=== PATIENT | male | born 1945 ===

== ENCOUNTER 2019-11-01 19:34 | Inpatient (IN) | payer MEDICARE ==
--- NOTE | 2019-11-02 10:09 | Consultation ---
History of Present Illness - Reason for Consult Consult date: 11/02/19 htn Requesting physician: LAMONT LEGGETT - History of Present Illness Patient is a 74-year-old male with past medical history significant for hypertension, diabetes mellitus, CKD presumed. Who presented to the hospital with suicidal ideation. We will consulted for an H&P on evaluation the patient is very somnolent although arouses to tactile stimuli and goes back straight to sleep. Could not provide any significant information to me at this time. Further information obtained from results from pre-transfer which showed elevated creatinine at 2.3 and also presumed UTI. Past History Past Medical History: diabetes, hypertension, hyperlipidemia Past Surgical History: Other (Unable to obtain no surgical scars noted) Social history: other (Unable to obtain due to somnolence) Family history: no significant family history Medications and Allergies Allergies Allergy/AdvReac Type Severity Reaction Status Date / Time morphine AdvReac Unknown Verified 11/01/19 23:50 Penicillins AdvReac Unknown Verified 11/01/19 23:50 Tetanus Vaccines and Toxoid AdvReac Unknown Verified 11/01/19 23:50 Home Medications Medication Instructions Recorded Confirmed Last Taken Type Adult Aspirin 650 mg PO BID 11/02/19 11/02/19 Unknown History Citalopram 20 mg PO BID 11/02/19 11/02/19 Unknown History Clopidogrel [Plavix] 75 mg PO DAILY 11/02/19 11/02/19 Unknown History Ergocalciferol [Vitamin D2] 50,000 units PO QWEEK 11/02/19 11/02/19 Unknown History Famotidine [Pepcid] 20 mg PO DAILY 11/02/19 11/02/19 Unknown History Furosemide [Lasix TAB] 40 mg PO DAILY 11/02/19 11/02/19 Unknown History Gabapentin 300 mg PO TID 11/02/19 11/02/19 Unknown History Isosorbide Mononitrate 30 mg PO DAILY 11/02/19 11/02/19 Unknown History Lantus VIAL 30 units SQ QHS 11/02/19 11/02/19 Unknown History Metoprolol-HCTZ 100-50 mg TAB 50 mg PO BID 11/02/19 11/02/19 Unknown History NIFEdipine [Nifedipine ER] 60 mg PO DAILY 11/02/19 11/02/19 Unknown History Tamsulosin 0.4 mg PO DAILY 11/02/19 11/02/19 Unknown History hydrALAZINE 50 mg PO TID 11/02/19 11/02/19 Unknown History Review of Systems ROS unobtainable: due to mental status Exam - Physical Exam Narrative exam: VITAL SIGNS: Reviewed. GENERAL: The patient appears normally developed, very somnolent vital signs as documented. HEAD: No signs of head trauma. EYES: Pupils are equal. Extraocular motions intact. EARS: Hearing grossly intact. MOUTH: Oropharynx is normal. NECK: No adenopathy, no JVD. CHEST: Chest with clear breath sounds bilaterally. No wheezes, rales, or rhonchi. CARDIAC: Regular rate and rhythm. S1 and S2, without murmurs, gallops, or rubs. VASCULAR: No Edema. Peripheral pulses normal and equal in all extremities. ABDOMEN: Soft, non tender and non distended. No rebound or guarding, and no masses palpated. Bowel Sounds normal. MUSCULOSKELETAL: Good range of motion of all major joints. Extremities without clubbing, cyanosis or edema. NEUROLOGIC EXAM: Very somnolent but awakens to tactile stimuli no focal sensory or strength deficits. PSYCHIATRIC: Mood depressed. SKIN: detial exam as documented in skin assessment - Constitutional Vitals: Temp Pulse Resp BP Pulse Ox 98.1 F 73 18 137/64 92 11/02/19 03:57 11/02/19 03:57 11/02/19 03:57 11/02/19 03:57 11/02/19 03:57 Results - Labs CBC & Chem 7: 11/03/19 10:40 11/03/19 10:40 Labs: Abnormal lab results 11/02/19 11/02/19 Range/Units 03:58 06:37 POC Glucose 149 H 132 H (70-105) - Imaging and Cardiology Chest x-ray: image reviewed (Right rib fracture) Assessment and Plan 74-year-old male admitted to [facility] for management of suicidal ideation and psychosis Acute metabolic encephalopathy-very lethargic but improving Leukocytosis- Unknown etiology STEPHANIE vs CKD- unknown baseline Hyperlipidemia Diabetes mellitus with hyperglycemia COPD CAD Right rib fracture Stable chronic congestive heart failure presumed systolic Plan Considering profound lethargy will check ammonia level, TSH, free T4, EtOH level and drug screen Repeat labs in am Unknown injury etiology to the ribs will monitor. Supportive care. Obtain labs from referring facility If renal abnormality is acute will need Nephrology and futher work up Continue appropriate home medications including diabetic management We will see patient in a.m. to ensure resolution of encephalopathy And follow with you as needed Thank you for allowing us to take part in the care of your patient
--- NOTE | 2019-11-02 10:13 | History and Physical Report ---
GP History & Physical - History of Present Illness Date of admission: 11/01/19 Date of Examination: 11/02/19 Reason for Admission: Severe anxiety/depression History of Present Illness: Sawyer Hurley is a 74y/o male patient who is said to have come to the hospital for suicidal ideation. During my interview this morning, the patient was lying in bed asleep. Arouses with vigorous tactile stimuli but drifts back to sleep. He could not participate in the interview due to somnolence. PAST PSYCHIATRIC HISTORY: unable to assess due to somnolence PAST MEDICAL HISTORY: Family Psychiatric History None reported or documented SOCIAL HISTORY Unable to assess REVIEW OF SYSTEMS Unable to assess Diagnoses: Major Depression Treatment Plan Patient will be admitted for inpatient psychiatric evaluation, medication adjustment and close monitoring The patient's behavior, mood, sleep and appetite will be closely monitored. Patient will be enrolled in individual and group therapeutic sessions and encouraged to attend. Patient will be provided with a safe and structured environment. Patient's physical health needs will be addressed by the Hospitalist. Hospitalist Consulted Labs including CBC, CMP, Lipid profile, UA and Hemoglobin A1C ordered Social Assessment will be completed and the Compliance Aide will work with patient and family to ensure a suitable and safe disposition Medication adjustment will be made as clinically indicated Usual Wellness Quaker/Preservation: - Start Doxepin 10mg po qhs for insomnia - Start Melatonin 5 mg po QHS to promote circadian rhythm - Start Risperidone 0.25mg po BID - Start Geodon 10mg IM q4h prn agitation The patient agreed on the treatment plan, understood the risk, benefit, alternative treatment, potential consequence of no treatment, and gave informed consent. Physician Certification Statement: This is an acknowledgement statement that this patient requires inpatient psychiatric admission for treatment which could reasonably be expected to improve the patient's condition for Major Depressive Disorder for depressive symptoms, including suicidal ideation. Estimated period of time patient will need to remain in the hospital: 7 days Plan for post-hospital care: Out-patient care Legal Status: Voluntary Reaction to Hospitalization: Accepting Medications and Allergies Allergies Allergy/AdvReac Type Severity Reaction Status Date / Time morphine AdvReac Unknown Verified 11/01/19 23:50 Penicillins AdvReac Unknown Verified 11/01/19 23:50 Tetanus Vaccines and Toxoid AdvReac Unknown Verified 11/01/19 23:50 Home Medications Medication Instructions Recorded Confirmed Last Taken Type Adult Aspirin 650 mg PO BID 11/02/19 11/02/19 Unknown History Citalopram 20 mg PO BID 11/02/19 11/02/19 Unknown History Clopidogrel [Plavix] 75 mg PO DAILY 11/02/19 11/02/19 Unknown History Ergocalciferol [Vitamin D2] 50,000 units PO QWEEK 11/02/19 11/02/19 Unknown History Famotidine [Pepcid] 20 mg PO DAILY 11/02/19 11/02/19 Unknown History Furosemide [Lasix TAB] 40 mg PO DAILY 11/02/19 11/02/19 Unknown History Gabapentin 300 mg PO TID 11/02/19 11/02/19 Unknown History Isosorbide Mononitrate 30 mg PO DAILY 11/02/19 11/02/19 Unknown History Lantus VIAL 30 units SQ QHS 11/02/19 11/02/19 Unknown History Metoprolol-HCTZ 100-50 mg TAB 50 mg PO BID 11/02/19 11/02/19 Unknown History NIFEdipine [Nifedipine ER] 60 mg PO DAILY 11/02/19 11/02/19 Unknown History Tamsulosin 0.4 mg PO DAILY 11/02/19 11/02/19 Unknown History hydrALAZINE 50 mg PO TID 11/02/19 11/02/19 Unknown History Results - Results Labs/Vitals: Laboratory Last Values POC Glucose 132 (70-105) H 11/02/19 06:37 Last Vital Signs Temp 98.1 F 11/02/19 03:57 Pulse 73 11/02/19 03:57 Resp 18 11/02/19 03:57 BP 137/64 11/02/19 03:57 Pulse Ox 92 11/02/19 03:57 Physical Examination - Constitutional Vitals: Vital Signs Temp Pulse Resp BP Pulse Ox 98.1 F 73 18 137/64 92 11/02/19 03:57 11/02/19 03:57 11/02/19 03:57 11/02/19 03:57 11/02/19 03:57 Temperature -Last 24 Hours Temperature 98.1 F Mental Status Exam - Vital signs Last Vital Signs Temp 98.1 F 11/02/19 03:57 Pulse 73 11/02/19 03:57 Resp 18 11/02/19 03:57 BP 137/64 11/02/19 03:57 Pulse Ox 92 11/02/19 03:57 Physician Certification - Certification Statement Physician Certification Statement: This is an acknowledgement statement that SAWYER HURLEY is a 74 year old M who requires inpatient psychiatric admission for treatment which could reasonably be expected to improve the patient's condition for Estimated period of time patient will need to remain in the hospital: [ ] Plan for post-hospital care: [ ]
[2019-11-02 10:19] LABS: Basophils # (Auto) 0.1 K/mm3 (0.0-0.1); Basophils % (Auto) 0.7 % (0.0-1.8); Eosinophils # (Auto) 0.5 K/mm3 (0.0-0.4); Eosinophils % (Auto) 3.9 % (0.0-4.3); Hematocrit 35.4 % (35.5-45.6); Hemoglobin 12.3 gm/dl (11.8-15.2); Lymphocytes # (Auto) 4.3 K/mm3 (1.2-5.4); Lymphocytes % (Auto) 34.2 % (13.4-35.0); Mean Corpuscular HGB Conc 35 % (32-34); Mean Corpuscular Volume 88 fl (84-94); Monocytes # (Auto) 0.9 K/mm3 (0.0-0.8); Monocytes % (Auto) 7.5 % (0.0-7.3); Platelet Count 364 K/mm3 (140-440); Red Blood Count 4.02 M/mm3 (3.65-5.03); Red Cell Distribution Width 15.3 % (13.2-15.2)
[2019-11-02] MEDS ORDERED: METOPROLOL HCTZ PO SCH (10:30)
[2019-11-02] MEDS ORDERED: NON-FORMULARY EACH (Isosorbide Mononitrate 30 MG) PO SCH (10:30)
[2019-11-02] MEDS ORDERED: NON-FORMULARY EACH (Tamsulosin 0.4 MG) PO SCH (10:30)
[2019-11-02] MEDS ORDERED: NON-FORMULARY EACH (Nifedipine [Nifedipine Er] 60 MG) PO SCH (10:30)
[2019-11-02 10:39] LABS: Calcium 8.5 mg/dL (8.4-10.2); Chol/HDL Ratio 4.33 %
[2019-11-02] MEDS: FUROSEMIDE 40 MG TAB PO SCH (12:05)
[2019-11-02] MEDS: FAMOTIDINE 20 MG TAB PO SCH (12:05)
[2019-11-02] MEDS: CLOPIDOGREL 75 MG TAB PO SCH (12:05)
[2019-11-02] MEDS: TAMSULOSIN 0.4 MG CAP PO SCH (12:05)
[2019-11-02] MEDS: NIFEdipine XL 60 MG TAB PO SCH (12:06)
--- NOTE | 2019-11-02 13:21 | XRay Report ---
CHEST 1 VIEW INDICATION / CLINICAL INFORMATION: shortness of breath. COMPARISON: None available. FINDINGS: SUPPORT DEVICES: None. HEART / MEDIASTINUM: No significant abnormality. LUNGS / PLEURA: No significant pulmonary or pleural abnormality. No pneumothorax. ADDITIONAL FINDINGS: Right posterior fifth rib ununited fracture. Healed fracture of the left fifth r ib. IMPRESSION: 1. Right rib fracture. No acute pulmonary findings. Signer Name: Nash George MD Signed: 11/02/2019 1:17 PM Workstation Name: [id number]
[2019-11-02] MEDS ORDERED: NON-FORMULARY EACH (Hydralazine 50 MG) PO SCH (14:00)
[2019-11-02] MEDS: hydrALAZINE 25 MG TAB PO SCH ×2 (14:16→23:01)
[2019-11-02] MEDS: GABAPENTIN 300 MG CAP PO SCH ×2 (14:16→20:55)
[2019-11-02] MEDS ORDERED: CITALOPRAM 20 MG PO SCH (22:00)
[2019-11-02] MEDS ORDERED: LANTUS 30 UNIT SQ SCH (22:00)
[2019-11-02] MEDS ORDERED: DOXEPIN 10 MG CAP PO SCH (22:00)
[2019-11-02] MEDS ORDERED: MELATONIN 5 MG TAB PO PRN (22:00)
[2019-11-02] MEDS: METOPROLOL TARTRATE 100 MG TAB PO SCH (23:00)
[2019-11-02] MEDS: risperiDONE 0.25 MG TAB PO SCH (23:00)
[2019-11-02] MEDS: CITALOPRAM 20 MG TAB PO SCH (23:01)
[2019-11-02] MEDS: hydroCHLOROthiazide 25 MG TAB PO SCH (23:02)
[2019-11-02] MEDS: INSULIN GLARGINE 100 UNITS/ML SUB-Q SCH (23:20)
[2019-11-03] MEDS: ZIPRASIDONE MESYLATE 20 MG VIAL IM PRN ×2 (02:41→09:09)
[2019-11-03] MEDS: hydrALAZINE 25 MG TAB PO SCH ×3 (05:29→22:49)
[2019-11-03] MEDS: GABAPENTIN 300 MG CAP PO SCH ×3 (08:47→22:52)
[2019-11-03] MEDS: FAMOTIDINE 20 MG TAB PO SCH (09:11)
[2019-11-03] MEDS: risperiDONE 0.25 MG TAB PO SCH ×3 (09:11→22:49)
[2019-11-03] MEDS: CITALOPRAM 20 MG TAB PO SCH ×2 (09:12→22:52)
[2019-11-03] MEDS: METOPROLOL TARTRATE 100 MG TAB PO SCH ×2 (09:12→22:51)
[2019-11-03] MEDS: CLOPIDOGREL 75 MG TAB PO SCH (09:12)
[2019-11-03] MEDS: hydroCHLOROthiazide 25 MG TAB PO SCH ×2 (09:12→22:48)
[2019-11-03] MEDS: FUROSEMIDE 40 MG TAB PO SCH (09:12)
[2019-11-03] MEDS: NIFEdipine XL 60 MG TAB PO SCH (09:13)
--- NOTE | 2019-11-03 09:13 | Progress Note ---
Subjective Date of service: 11/03/19 Principal diagnosis: Major Depression Subjective Comment: The patient's medical chart was reviewed and the patient's progress was discussed with the nursing staff. The nurse note states the patient is confused with disorganized thought and anxious, pt is constantly getting up from gerichair unsteady gait and difficult to redirect. Per night nurse report, prn geodon 10mg im given but not effective. The nurse caring for the patient today, says the patient did not sleep all night. During my interview with the patient this morning, he is sitting in the dayroom, eating. He is dressed appropriately. He makes poor eye contact. He is confused and hard to follow at times. He says he's here because he "wrecked his four hansen." He then says "it was my four hansen." He laughs. He denies SI/HI or hallucinations of any kind. He says his mood is "bad." He says, "that doctor gave me a shot. I don't know what the hell he's doing." Reason for continuing inpatient treatment: The patient continues to be confused, not sleeping and is unable to care for himself. REVIEW OF SYSTEMS Constitutional: Negative for weight loss ENT: Negative for stridor Respiratory: Negative for cough or hemoptysis All other systems reviewed and are negative MSE Appearance: Awake. Dressed appropriately. Behavior: Cooperative. Poor eye contact. Mood: "bad" Affect: flat Thought Process: Goal directed Speech: Normal tone and pace Thought Content Suicidal: Denies Homicidal: Denies Hallucinations: Denies Delusions: Denies Consciousness: Alert Cognition/Memory: Limited Insight/Judgment: Limited Diagnoses: Major Depression Treatment Plan Treatment Plan Due to the psychiatric conditions and treatment listed in the Assessment and Plan - the patient requires continued hospitalization. Will continue inpatient treatment to allow for medication adjustment and monitoring. Will continue q15 min safety checks. Will encourage the use of environmental modifications and non-pharmacologic approaches for the management of behavioral and psychological symptoms. Medication adjustment made today: Increased Risperidone 0.5mg po BID Increased Doxepin 25mg po qhs to induce sleep Geodon 10mg IM q4h prn agitation Will continue current psych medications Monitor for medication side effects. The patient will continue on medications for physical illnesses, and Hospitalist will closely monitor these Continue intensive physical and occupational therapies. Monitor patient's mood, sleep, appetite, and behavior closely. Encourage patient to participate in individual and group therapeutic sessions on the tavarez. Will provide a safe and therapeutic environment for patient. Estimated length of stay 6 days Medications and Allergies Allergies Allergy/AdvReac Type Severity Reaction Status Date / Time morphine AdvReac Unknown Verified 11/01/19 23:50 Penicillins AdvReac Unknown Verified 11/01/19 23:50 Tetanus Vaccines and Toxoid AdvReac Unknown Verified 11/01/19 23:50 Home Medications Medication Instructions Recorded Confirmed Last Taken Type Adult Aspirin 650 mg PO BID 11/02/19 11/02/19 Unknown History Citalopram 20 mg PO BID 11/02/19 11/02/19 Unknown History Clopidogrel [Plavix] 75 mg PO DAILY 11/02/19 11/02/19 Unknown History Ergocalciferol [Vitamin D2] 50,000 units PO QWEEK 11/02/19 11/02/19 Unknown History Famotidine [Pepcid] 20 mg PO DAILY 11/02/19 11/02/19 Unknown History Furosemide [Lasix TAB] 40 mg PO DAILY 11/02/19 11/02/19 Unknown History Gabapentin 300 mg PO TID 11/02/19 11/02/19 Unknown History Isosorbide Mononitrate 30 mg PO DAILY 11/02/19 11/02/19 Unknown History Lantus VIAL 30 units SQ QHS 11/02/19 11/02/19 Unknown History Metoprolol-HCTZ 100-50 mg TAB 50 mg PO BID 11/02/19 11/02/19 Unknown History NIFEdipine [Nifedipine ER] 60 mg PO DAILY 11/02/19 11/02/19 Unknown History Tamsulosin 0.4 mg PO DAILY 11/02/19 11/02/19 Unknown History hydrALAZINE 50 mg PO TID 11/02/19 11/02/19 Unknown History Active Meds: Active Medications Citalopram Hydrobromide (Celexa) 20 mg PO BID [facility] Last Admin: 11/02/19 23:01 Dose: 20 mg Documented by: Clopidogrel Bisulfate (Plavix) 75 mg PO DAILY [facility] Last Admin: 11/02/19 12:05 Dose: 75 mg Documented by: Doxepin HCl (Sinequan) 10 mg PO QHS [facility] Last Admin: 11/02/19 23:00 Dose: 10 mg Documented by: Famotidine (Pepcid) 20 mg PO DAILY [facility] Last Admin: 11/02/19 12:05 Dose: 20 mg Documented by: Furosemide (Lasix) 40 mg PO DAILY [facility] Last Admin: 11/02/19 12:05 Dose: 40 mg Documented by: Gabapentin (Gabapentin) 300 mg PO TID [facility] Last Admin: 11/03/19 08:47 Dose: 300 mg Documented by: Hydralazine HCl (Apresoline) 50 mg PO Q8HR [facility] Last Admin: 11/03/19 05:29 Dose: 50 mg Documented by: Hydrochlorothiazide (Hctz) 50 mg PO BID [facility] Last Admin: 11/02/19 23:02 Dose: 50 mg Documented by: Insulin Glargine (Lantus) 30 units SUB-Q QHS [facility] Last Admin: 11/02/19 23:20 Dose: 30 units Documented by: Isosorbide Mononitrate (Imdur) 30 mg PO DAILY [facility] Last Admin: 11/02/19 12:05 Dose: 30 mg Documented by: Melatonin (Melatonin) 5 mg PO QHS PRN PRN Reason: Sleep Metoprolol Tartrate (Metoprolol) 100 mg PO BID [facility] Last Admin: 11/02/19 23:00 Dose: 100 mg Documented by: Nifedipine (Procardia Xl) 60 mg PO QDAY [facility] Last Admin: 11/02/19 12:06 Dose: 60 mg Documented by: Risperidone (Risperdal) 0.25 mg PO BID [facility] Last Admin: 11/02/19 23:00 Dose: 0.25 mg Documented by: Tamsulosin HCl (Flomax) 0.4 mg PO QDAY [facility] Last Admin: 11/02/19 12:05 Dose: 0.4 mg Documented by: Ziprasidone (Geodon) 10 mg IM Q4H PRN PRN Reason: Agitation Last Admin: 11/03/19 02:41 Dose: 10 mg Documented by: Results - Results Labs/Vitals: Laboratory Last Values WBC 12.4 K/mm3 (4.5-11.0) H 11/02/19 09:51 RBC 4.02 M/mm3 (3.65-5.03) 11/02/19 09:51 Hgb 12.3 gm/dl (11.8-15.2) 02/08/20 09:51 Hct 35.4 % (35.5-45.6) L 11/02/19 09:51 MCV 88 fl (84-94) 11/02/19 09:51 MCH 31 pg (28-32) 11/02/19 09:51 MCHC 35 % (32-34) H 11/02/19 09:51 RDW 15.3 % (13.2-15.2) H 11/02/19 09:51 Plt Count 364 K/mm3 (140-440) 11/02/19 09:51 Lymph % (Auto) 34.2 % (13.4-35.0) 11/02/19 09:51 Cole % (Auto) 7.5 % (0.0-7.3) H 11/02/19 09:51 Eos % (Auto) 3.9 % (0.0-4.3) 11/02/19 09:51 Baso % (Auto) 0.7 % (0.0-1.8) 11/02/19 09:51 Lymph # 4.3 K/mm3 (1.2-5.4) 11/02/19 09:51 Cole # 0.9 K/mm3 (0.0-0.8) H 11/02/19 09:51 Eos # 0.5 K/mm3 (0.0-0.4) H 11/02/19 09:51 Baso # 0.1 K/mm3 (0.0-0.1) 11/02/19 09:51 Seg Neutrophils % 53.7 % (40.0-70.0) 11/02/19 09:51 Seg Neutrophils # 6.7 K/mm3 (1.8-7.7) 11/02/19 09:51 Sodium 138 mmol/L (137-145) 11/02/19 09:51 Potassium 4.3 mmol/L (3.6-5.0) 11/02/19 09:51 Chloride 104.2 mmol/L (98-107) 11/02/19 09:51 Carbon Dioxide 21 mmol/L (22-30) L 11/02/19 09:51 Anion Gap 17 mmol/L 11/02/19 09:51 BUN 37 mg/dL (9-20) H 11/02/19 09:51 Creatinine 2.7 mg/dL (0.8-1.5) H 11/02/19 09:51 Estimated GFR 23 ml/min 11/02/19 09:51 BUN/Creatinine Ratio 14 % 11/02/19 09:51 Glucose 132 mg/dL (75-100) H 11/02/19 09:51 POC Glucose 123 (70-105) H 11/03/19 07:58 Hemoglobin A1c 7.7 % (4-6) H 11/02/19 09:51 Calcium 8.5 mg/dL (8.4-10.2) 11/02/19 09:51 Ammonia 31.0 umol/L (25-60) 11/02/19 16:56 Triglycerides 309 mg/dL (2-149) H 11/02/19 09:51 Cholesterol 208 mg/dL (50-199) H 11/02/19 09:51 LDL Cholesterol Direct 119 mg/dL (50-130) 11/02/19 09:51 HDL Cholesterol 48 mg/dL (40-59) 11/02/19 09:51 Cholesterol/HDL Ratio 4.33 % 11/02/19 09:51 TSH 1.900 mlU/mL (0.270-4.200) 11/02/19 16:57 Free T4 1.02 ng/dL (0.76-1.46) 11/02/19 16:51 Last Vital Signs Temp 98.2 F 11/03/19 08:52 Pulse 71 11/03/19 05:29 Resp 18 11/03/19 08:52 BP 153/64 11/03/19 08:52 Pulse Ox 98 11/02/19 22:00
[2019-11-03] MEDS: TAMSULOSIN 0.4 MG CAP PO SCH (09:14)
[2019-11-03] MEDS ORDERED: ZIPRASIDONE MESYLATE 20 MG VIAL IM PRN (09:22)
--- NOTE | 2019-11-03 10:27 | Progress Note ---
Assessment and Plan Assessment and plan: 74-year-old male admitted to [facility] for management of suicidal ideation and psychosis Acute metabolic encephalopathy-very lethargic but improving Leukocytosis- Unknown etiology STEPHANIE vs CKD- unknown baseline Hyperlipidemia Diabetes mellitus with hyperglycemia COPD CAD Right rib fracture Stable chronic congestive heart failure presumed systolic Plan Work-up so far has remained negative concerning renal function it appears he has underlying CKD nevertheless we will obtain nephrology evaluation as creatinine is higher than the baseline on transfer. Repeat intermittent labs. Unknown injury etiology to the ribs will monitor. Supportive care. Obtain labs from referring facility Ammonia level is normal If renal abnormality is acute will need Nephrology and futher work up Continue appropriate home medications including diabetic management And follow with you as needed Thank you for allowing us to take part in the care of your patient History Interval history: Patient seen and examined more awake today although still not giving much information. No complaints of pain. Cannot elicit any information about his prior medical history still. Hospitalist Physical - Physical exam Narrative exam: VITAL SIGNS: Reviewed. GENERAL: The patient appears normally developed, still appears lethargic vital signs as documented. HEAD: No signs of head trauma. EYES: Pupils are equal. Extraocular motions intact. EARS: Hearing grossly intact. MOUTH: Oropharynx is normal. NECK: No adenopathy, no JVD. CHEST: Chest with clear breath sounds bilaterally. No wheezes, rales, or rhon chi. CARDIAC: Regular rate and rhythm. S1 and S2, without murmurs, gallops, or rubs. VASCULAR: No Edema. Peripheral pulses normal and equal in all extremities. ABDOMEN: Soft, non tender and non distended. No rebound or guarding, and no masses palpated. Bowel Sounds normal. MUSCULOSKELETAL: Good range of motion of all major joints. Extremities without clubbing, cyanosis or edema. NEUROLOGIC EXAM: Appears lethargic but awake oriented to person. no focal sensory or strength deficits. PSYCHIATRIC: Mood depressed. SKIN: detial exam as documented in skin assessment - Constitutional Vitals: Temp Pulse Resp BP Pulse Ox 98.3 F 81 20 153/64 95 11/03/19 10:00 11/03/19 10:00 11/03/19 10:00 11/03/19 10:00 11/03/19 10:00 Results - Labs CBC & Chem 7: 11/03/19 10:40 11/03/19 10:40 Labs: Laboratory Last Values WBC 12.4 K/mm3 (4.5-11.0) H 11/02/19 09:51 RBC 4.02 M/mm3 (3.65-5.03) 11/02/19 09:51 Hgb 12.3 gm/dl (11.8-15.2) 11/02/19 09:51 Hct 35.4 % (35.5-45.6) L 11/02/19 09:51 MCV 88 fl (84-94) 11/02/19 09:51 MCH 31 pg (28-32) 11/02/19 09:51 MCHC 35 % (32-34) H 11/02/19 09:51 RDW 15.3 % (13.2-15.2) H 11/02/19 09:51 Plt Count 364 K/mm3 (140-440) 11/02/19 09:51 Lymph % (Auto) 34.2 % (13.4-35.0) 11/02/19 09:51 [place] % (Auto) 7.5 % (0.0-7.3) H 11/02/19 09:51 Eos % (Auto) 3.9 % (0.0-4.3) 11/02/19 09:51 Baso % (Auto) 0.7 % (0.0-1.8) 11/02/19 09:51 Lymph # 4.3 K/mm3 (1.2-5.4) 11/02/19 09:51 [place] # 0.9 K/mm3 (0.0-0.8) H 11/02/19 09:51 Eos # 0.5 K/mm3 (0.0-0.4) H 11/02/19 09:51 Baso # 0.1 K/mm3 (0.0-0.1) 11/02/19 09:51 Seg Neutrophils % 53.7 % (40.0-70.0) 11/02/19 09:51 Seg Neutrophils # 6.7 K/mm3 (1.8-7.7) 11/02/19 09:51 Sodium 138 mmol/L (137-145) 11/02/19 09:51 Potassium 4.3 mmol/L (3.6-5.0) 11/02/19 09:51 Chloride 104.2 mmol/L (98-107) 11/02/19 09:51 Carbon Dioxide 21 mmol/L (22-30) L 11/02/19 09:51 Anion Gap 17 mmol/L 11/02/19 09:51 BUN 37 mg/dL (9-20) H 11/02/19 09:51 Creatinine 2.7 mg/dL (0.8-1.5) H 11/02/19 09:51 Estimated GFR 23 ml/min 11/02/19 09:51 BUN/Creatinine Ratio 14 % 11/02/19 09:51 Glucose 132 mg/dL (75-100) H 11/02/19 09:51 POC Glucose 123 (70-105) H 11/03/19 07:58 Hemoglobin A1c 7.7 % (4-6) H 11/02/19 09:51 Calcium 8.5 mg/dL (8.4-10.2) 11/02/19 09:51 Ammonia 31.0 umol/L (25-60) 11/02/19 16:56 Triglycerides 309 mg/dL (2-149) H 11/02/19 09:51 Cholesterol 208 mg/dL (50-199) H 11/02/19 09:51 LDL Cholesterol Direct 119 mg/dL (50-130) 11/02/19 09:51 HDL Cholesterol 48 mg/dL (40-59) 11/02/19 09:51 Cholesterol/HDL Ratio 4.33 % 11/02/19 09:51 TSH 1.900 mlU/mL (0.270-4.200) 11/02/19 16:57 Free T4 1.02 ng/dL (0.76-1.46) 11/02/19 16:51 Active Medications - Current Medications Current Medications: Generic Name Dose Route Start Last Admin Trade Name Freq PRN Reason Stop Dose Admin Citalopram Hydrobromide 20 mg 11/02/19 22:00 11/03/19 09:12 Celexa PO 20 mg BID GETACHEW Administration Clopidogrel Bisulfate 75 mg 11/02/19 11:00 11/03/19 09:12 Plavix PO 75 mg DAILY GETACHEW Administration Doxepin HCl 25 mg 11/03/19 22:00 Sinequan PO QHS GETACHEW Famotidine 20 mg 11/02/19 11:00 11/03/19 09:11 Pepcid PO 20 mg DAILY GETACHEW Administration Furosemide 40 mg 11/02/19 11:00 11/03/19 09:12 Lasix PO 40 mg DAILY GETACHEW Administration Gabapentin 300 mg 11/02/19 14:00 11/03/19 08:47 Gabapentin PO 300 mg TID GETACHEW Administration Hydralazine HCl 50 mg 11/02/19 14:00 11/03/19 05:29 Apresoline PO 50 mg Q8HR GETACHEW Administration Hydrochlorothiazide 50 mg 11/02/19 22:00 11/03/19 09:12 Hctz PO 50 mg BID GETACHEW Administration Insulin Glargine 30 units 11/02/19 22:00 11/02/19 23:20 Lantus SUB-Q 30 units QHS GETACHEW Administration Isosorbide Mononitrate 30 mg 11/02/19 11:00 11/03/19 09:13 Imdur PO 30 mg DAILY GETAC[facility]W Administration Melatonin 5 mg 11/02/19 22:00 Melatonin PO QHS PRN Sleep Metoprolol Tartrate 100 mg 11/02/19 22:00 11/03/19 09:12 Metoprolol PO 100 mg BID GETACHEW Administration Nifedipine 60 mg 11/02/19 11:00 11/03/19 09:13 Procardia Xl PO 60 mg QDAY GETACHEW Administration Risperidone 0.5 mg 11/03/19 10:00 11/03/19 09:32 Risperdal PO 0.5 mg BID GETACHEW Administration Tamsulosin HCl 0.4 mg 11/02/19 11:00 11/03/19 09:14 Flomax PO 0.4 mg QDAY GETACHEW Administration Ziprasidone 10 mg 11/03/19 09:22 Geodon IM Q4H PRN Agitation
[2019-11-03 12:08] LABS: Hematocrit 36.4 % (35.5-45.6); Hemoglobin 11.9 gm/dl (11.8-15.2); Mean Corpuscular HGB Conc 33 % (32-34); Mean Corpuscular Volume 89 fl (84-94); Platelet Count 371 K/mm3 (140-440); Red Blood Count 4.09 M/mm3 (3.65-5.03); Red Cell Distribution Width 15.1 % (13.2-15.2)
[2019-11-03 12:36] LABS: Calcium 8.4 mg/dL (8.4-10.2)
[2019-11-03] MEDS: INSULIN LISPRO 100 UNIT/ML SUB-Q SCH ×2 (16:44→23:55)
[2019-11-03] MEDS ORDERED: DOXEPIN 25 MG CAP PO SCH (22:00)
[2019-11-04] MEDS: INSULIN GLARGINE 100 UNITS/ML SUB-Q SCH ×2 (00:16→23:49)
[2019-11-04] MEDS: LORazepam 2 MG/ML VIAL IM PRN (00:42)
[2019-11-04] MEDS: HALOPERIDOL LACTATE 5 MG/1 ML INJ IM PRN (00:42)
[2019-11-04] MEDS: INSULIN LISPRO 100 UNIT/ML SUB-Q SCH ×4 (07:57→23:51)
[2019-11-04] MEDS: hydrALAZINE 25 MG TAB PO SCH ×3 (08:03→23:37)
--- NOTE | 2019-11-04 10:25 | Progress Note ---
Subjective Date of service: 11/04/19 Principal diagnosis: Major Depression Subjective Comment: The patient's medical chart was reviewed and the patient's progress was discussed with the nursing staff. The nurse note states the patient is in the activity room instigating another male peer. He is making obscene statements in a loud voice. He has to be redirected often. Through the evening the patient continued to make offensive sexual statements to female staff. He also started reaching out with his hands trying to touch females. He could not get to sleep and he was loud and agitated. Geodon 10 mg IM was given with little effect. MD was called and order received for ativan 2 mg and haldol 5 mg IM. Patient tried to fight the medications but they were effective and he has slept the remainder of the night. I attempted to interview the patient this morning, he was somnolent. He aroused briefly but drifted back off. He could not be engaged to complete the interview. Reason for continuing inpatient treatment: The patient continues to be confused, aggressive, and unable to care for himself. REVIEW OF SYSTEMS Unable to assess MSE Unable to assess Diagnoses: Major Depression Treatment Plan Treatment Plan Due to the psychiatric conditions and treatment listed in the Assessment and Plan - the patient requires continued hospitalization. Will continue inpatient treatment to allow for medication adjustment and monitoring. Will continue q15 min safety checks. Will encourage the use of environmental modifications and non-pharmacologic approaches for the management of behavioral and psychological symptoms. Medication adjustment made today: Increased Doxepin 50mg po qhs Increased Risperidone 1mg po BID Started Depakote 125mg po BID Will continue current psych medications Monitor for medication side effects. The patient will continue on medications for physical illnesses, and Hospitalist will closely monitor these Continue intensive physical and occupational therapies. Monitor patient's mood, sleep, appetite, and behavior closely. Encourage patient to participate in individual and group therapeutic sessions on the [place]. Will provide a safe and therapeutic environment for patient. Estimated length of stay 6 days Medications and Allergies Allergies Allergy/AdvReac Type Severity Reaction Status Date / Time morphine AdvReac Unknown Verified 11/01/19 23:50 Penicillins AdvReac Unknown Verified 11/01/19 23:50 Tetanus Vaccines and Toxoid AdvReac Unknown Verified 11/01/19 23:50 Home Medications Medication Instructions Recorded Confirmed Last Taken Type Adult Aspirin 650 mg PO BID 11/02/19 11/02/19 Unknown History Citalopram 20 mg PO BID 11/02/19 11/02/19 Unknown History Clopidogrel [Plavix] 75 mg PO DAILY 11/02/19 11/02/19 Unknown History Ergocalciferol [Vitamin D2] 50,000 units PO QWEEK 11/02/19 11/02/19 Unknown History Famotidine [Pepcid] 20 mg PO DAILY 11/02/19 11/02/19 Unknown History Furosemide [Lasix TAB] 40 mg PO DAILY 11/02/19 11/02/19 Unknown History Gabapentin 300 mg PO TID 11/02/19 11/02/19 Unknown History Isosorbide Mononitrate 30 mg PO DAILY 11/02/19 11/02/19 Unknown History Lantus VIAL 30 units SQ QHS 11/02/19 11/02/19 Unknown History Metoprolol-HCTZ 100-50 mg TAB 50 mg PO BID 11/02/19 11/02/19 Unknown History NIFEdipine [Nifedipine ER] 60 mg PO DAILY 11/02/19 11/02/19 Unknown History Tamsulosin 0.4 mg PO DAILY 11/02/19 11/02/19 Unknown History hydrALAZINE 50 mg PO TID 11/02/19 11/02/19 Unknown History Active Meds: Active Medications Citalopram Hydrobromide (Celexa) 20 mg PO BID [facility] Last Admin: 11/03/19 22:52 Dose: 20 mg Documented by: Clopidogrel Bisulfate (Plavix) 75 mg PO DAILY [facility] Last Admin: 11/03/19 09:12 Dose: 75 mg Documented by: Doxepin HCl (Sinequan) 25 mg PO QHS [facility] Last Admin: 11/03/19 22:49 Dose: 25 mg Documented by: Famotidine (Pepcid) 20 mg PO DAILY [facility] Last Admin: 11/03/19 09:11 Dose: 20 mg Documented by: Furosemide (Lasix) 40 mg PO DAILY [facility] Last Admin: 11/03/19 09:12 Dose: 40 mg Documented by: Gabapentin (Gabapentin) 300 mg PO TID [facility] Last Admin: 11/03/19 22:52 Dose: 300 mg Documented by: Haloperidol Lactate (Haldol) 5 mg IM Q6H PRN PRN Reason: Agitation Last Admin: 11/04/19 00:42 Dose: 5 mg Documented by: Hydralazine HCl (Apresoline) 50 mg PO Q8HR [facility] Last Admin: 11/04/19 08:03 Dose: 50 mg Documented by: Hydrochlorothiazide (Hctz) 50 mg PO BID [facility] Last Admin: 11/03/19 22:48 Dose: 50 mg Documented by: Insulin Glargine (Lantus) 30 units SUB-Q QHS [facility] Last Admin: 11/04/19 00:16 Dose: 30 units Documented by: Insulin Human Lispro (Humalog) 0 unit SUB-Q [facility]; Protocol Last Admin: 11/04/19 07:57 Dose: Not Given Documented by: Isosorbide Mononitrate (Imdur) 30 mg PO DAILY [facility] Last Admin: 11/03/19 09:13 Dose: 30 mg Documented by: Lorazepam (Ativan) 2 mg IM Q6H PRN PRN Reason: Agitation Last Admin: 11/04/19 00:42 Dose: 2 mg Documented by: Melatonin (Melatonin) 5 mg PO QHS PRN PRN Reason: Sleep Metoprolol Tartrate (Metoprolol) 100 mg PO BID [facility] Last Admin: 11/03/19 22:51 Dose: 100 mg Documented by: Nifedipine (Procardia Xl) 60 mg PO QDAY [facility] Last Admin: 11/03/19 09:13 Dose: 60 mg Documented by: Risperidone (Risperdal) 0.5 mg PO BID [facility] Last Admin: 11/03/19 22:49 Dose: 0.5 mg Documented by: Tamsulosin HCl (Flomax) 0.4 mg PO QDAY [facility] Last Admin: 11/03/19 09:14 Dose: 0.4 mg Documented by: Ziprasidone (Geodon) 10 mg IM Q4H PRN PRN Reason: Agitation Last Admin: 11/03/19 23:59 Dose: 10 mg Documented by: Results - Results Labs/Vitals: Laboratory Last Values WBC 13.0 K/mm3 (4.5-11.0) H 11/03/19 10:40 RBC 4.09 M/mm3 (3.65-5.03) 11/03/19 10:40 Hgb 11.9 gm/dl (11.8-15.2) 11/03/19 10:40 Hct 36.4 % (35.5-45.6) 11/03/19 10:40 MCV 89 fl (84-94) 11/03/19 10:40 MCH 29 pg (28-32) 11/03/19 10:40 MCHC 33 % (32-34) 11/03/19 10:40 RDW 15.1 % (13.2-15.2) 11/03/19 10:40 Plt Count 371 K/mm3 (140-440) 11/03/19 10:40 Lymph % (Auto) 34.2 % (13.4-35.0) 11/02/19 09:51 [place] % (Auto) 7.5 % (0.0-7.3) H 11/02/19 09:51 Eos % (Auto) 3.9 % (0.0-4.3) 11/02/19 09:51 Baso % (Auto) 0.7 % (0.0-1.8) 11/02/19 09:51 Lymph # 4.3 K/mm3 (1.2-5.4) 11/02/19 09:51 [place] # 0.9 K/mm3 (0.0-0.8) H 11/02/19 09:51 Eos # 0.5 K/mm3 (0.0-0.4) H 11/02/19 09:51 Baso # 0.1 K/mm3 (0.0-0.1) 11/02/19 09:51 Seg Neutrophils % 53.7 % (40.0-70.0) 11/02/19 09:51 Seg Neutrophils # 6.7 K/mm3 (1.8-7.7) 11/02/19 09:51 Sodium 139 mmol/L (137-145) 11/03/19 10:40 Potassium 4.2 mmol/L (3.6-5.0) 11/03/19 10:40 Chloride 105.2 mmol/L (98-107) 11/03/19 10:40 Carbon Dioxide 18 mmol/L (22-30) L 11/03/19 10:40 Anion Gap 20 mmol/L 11/03/19 10:40 BUN 41 mg/dL (9-20) H 11/03/19 10:40 Creatinine 2.8 mg/dL (0.8-1.5) H 11/03/19 10:40 Estimated GFR 22 ml/min 11/03/19 10:40 BUN/Creatinine Ratio 15 % 11/03/19 10:40 Glucose 198 mg/dL (75-100) H 11/03/19 10:40 POC Glucose 120 (70-105) H 11/04/19 07:50 Hemoglobin A1c 7.7 % (4-6) H 11/02/19 09:51 Calcium 8.4 mg/dL (8.4-10.2) 11/03/19 10:40 Ammonia 31.0 umol/L (25-60) 11/02/19 16:56 Triglycerides 309 mg/dL (2-149) H 11/02/19 09:51 Cholesterol 208 mg/dL (50-199) H 11/02/19 09:51 LDL Cholesterol Direct 119 mg/dL (50-130) 11/02/19 09:51 HDL Cholesterol 48 mg/dL (40-59) 11/02/19 09:51 Cholesterol/HDL Ratio 4.33 % 11/02/19 09:51 TSH 1.900 mlU/mL (0.270-4.200) 11/02/19 16:57 Free T4 1.02 ng/dL (0.76-1.46) 11/02/19 16:51 Last Vital Signs Temp 97.4 F L 11/03/19 20:32 Pulse 69 11/04/19 08:03 Resp 16 11/03/19 20:32 BP 157/75 11/04/19 08:03 Pulse Ox 95 11/03/19 10:00
[2019-11-04] MEDS ORDERED: risperiDONE 0.25 MG TAB PO SCH (10:32)
--- NOTE | 2019-11-04 12:33 | Consultation ---
History of Present Illness - Reason for Consult Consult date: 11/04/19 acute renal failure - History of Present Illness The patient is a 74 YO male with past medical history significant for Hyper tension, Diabetes mellitus, HLD, CAD, COPD, CHF and CKD stage 4 who was admitted at Psychiatry floor from [facility] for treatment of suicidal ideation. Patient was unable ot provide any hsitory at this time. The patient was very somnolent although arouses to tactile stimuli and goes back straight to sleep. Labs significant for Creat 2.8. Nephrology was consulted for further evaluation. Past History Past Medical History: COPD, diabetes, heart failure, hypertension, hyperlipidemia, renal failure Past Surgical History: Other (Unable to obtain no surgical scars noted) Social history: other (Unable to obtain due to somnolence) Family history: no significant family history Medications and Allergies Allergies Allergy/AdvReac Type Severity Reaction Status Date / Time morphine AdvReac Unknown Verified 11/01/19 23:50 Penicillins AdvReac Unknown Verified 11/01/19 23:50 Tetanus Vaccines and Toxoid AdvReac Unknown Verified 11/01/19 23:50 Home Medications Medication Instructions Recorded Confirmed Last Taken Type Adult Aspirin 650 mg PO BID 11/02/19 11/02/19 Unknown History Citalopram 20 mg PO BID 11/02/19 11/02/19 Unknown History Clopidogrel [Plavix] 75 mg PO DAILY 11/02/19 11/02/19 Unknown History Ergocalciferol [Vitamin D2] 50,000 units PO QWEEK 11/02/19 11/02/19 Unknown History Famotidine [Pepcid] 20 mg PO DAILY 11/02/19 11/02/19 Unknown History Furosemide [Lasix TAB] 40 mg PO DAILY 11/02/19 11/02/19 Unknown History Gabapentin 300 mg PO TID 11/02/19 11/02/19 Unknown History Isosorbide Mononitrate 30 mg PO DAILY 11/02/19 11/02/19 Unknown History Lantus VIAL 30 units SQ QHS 11/02/19 11/02/19 Unknown History Metoprolol-HCTZ 100-50 mg TAB 50 mg PO BID 11/02/19 11/02/19 Unknown History NIFEdipine [Nifedipine ER] 60 mg PO DAILY 11/02/19 11/02/19 Unknown History Tamsulosin 0.4 mg PO DAILY 11/02/19 11/02/19 Unknown History hydrALAZINE 50 mg PO TID 11/02/19 11/02/19 Unknown History Active Meds: Active Medications Citalopram Hydrobromide (Celexa) 20 mg PO BID [facility] Last Admin: 11/03/19 22:52 Dose: 20 mg Documented by: Clopidogrel Bisulfate (Plavix) 75 mg PO DAILY [facility] Last Admin: 11/03/19 09:12 Dose: 75 mg Documented by: Divalproex Sodium (Depakote Dr) 125 mg PO BID [facility] Doxepin HCl (Sinequan) 50 mg PO QHS [facility] Famotidine (Pepcid) 20 mg PO DAILY [facility] Last Admin: 11/03/19 09:11 Dose: 20 mg Documented by: Furosemide (Lasix) 40 mg PO DAILY [facility] Last Admin: 11/03/19 09:12 Dose: 40 mg Documented by: Gabapentin (Gabapentin) 300 mg PO TID [facility] Last Admin: 11/03/19 22:52 Dose: 300 mg Documented by: Haloperidol Lactate (Haldol) 5 mg IM Q6H PRN PRN Reason: Agitation Last Admin: 11/04/19 00:42 Dose: 5 mg Documented by: Hydralazine HCl (Apresoline) 50 mg PO Q8HR [facility] Last Admin: 11/04/19 08:03 Dose: 50 mg Documented by: Hydrochlorothiazide (Hctz) 50 mg PO BID [facility] Last Admin: 11/03/19 22:48 Dose: 50 mg Documented by: Insulin Glargine (Lantus) 30 units SUB-Q QHS [facility] Last Admin: 11/04/19 00:16 Dose: 30 units Documented by: Insulin Human Lispro (Humalog) 0 unit SUB-Q [facility]; Protocol Last Admin: 11/04/19 12:32 Dose: Not Given Documented by: Isosorbide Mononitrate (Imdur) 30 mg PO DAILY [facility] Last Admin: 11/03/19 09:13 Dose: 30 mg Documented by: Lorazepam (Ativan) 2 mg IM Q6H PRN PRN Reason: Agitation Last Admin: 11/04/19 00:42 Dose: 2 mg Documented by: Melatonin (Melatonin) 5 mg PO QHS PRN PRN Reason: Sleep Metoprolol Tartrate (Metoprolol) 100 mg PO BID [facility] Last Admin: 11/03/19 22:51 Dose: 100 mg Documented by: Nifedipine (Procardia Xl) 60 mg PO QDAY [facility] Last Admin: 11/03/19 09:13 Dose: 60 mg Documented by: Risperidone (Risperdal) 1 mg PO BID [facility] Tamsulosin HCl (Flomax) 0.4 mg PO QDAY [facility] Last Admin: 11/03/19 09:14 Dose: 0.4 mg Documented by: Review of Systems ROS unobtainable: due to mental status Exam - Vital Signs Vital signs: Vital Signs Temp Pulse Resp BP Pulse Ox 98.1 F 73 18 137/64 92 11/02/19 03:57 11/02/19 03:57 11/02/19 03:57 11/02/19 03:57 11/02/19 03:57 - General Appearance General appearance: well-developed, well-nourished, appears stated age, other (not in distress) EENT: ATNC Neck: Present: neck supple, trachea midline Respiratory: Clear to Ascultation Heart: regular, S1S2, no murmurs Gastrointestinal: Present: normoactive bowel sounds. Absent: tenderness, distended Integumentary: no rash, warm and dry Neurologic: other (opens eyes with tactile stimuli, goes right back to sleep, non-verbal) Musculoskeletal: Present: other (trace LE edema noted) Results - Lab Results 11/03/19 10:40 11/03/19 10:40 Most recent lab results Calcium 8.4 mg/dL (8.4-10.2) 11/03/19 10:40 - Image Kidney/bladder ultrasound: pending Assessment and Plan 1. CKD stage 4: Patient with h/o CKD admitted from OSH. His most recent creatinine between 2.4 and 3. His renal function appears to be at his baseline. Monitor renal function. Avoid nephrotoxic agents. Meds dosage based on GFR. 2. FEN: Metabolic acidosis, monitor. 3. Suicidal ideation. 4. Metabolic encephalopathy, POA. 5. Leukocytosis. 6. Diabetes mellitus with hyperglycemia. 7. COPD. 8. CAD. 9. Presumed chronic congestive heart failure: Normal EF. 10.Right rib fracture.
[2019-11-04] MEDS: GABAPENTIN 300 MG CAP PO SCH (13:49)
[2019-11-04] MEDS: CITALOPRAM 20 MG TAB PO SCH ×2 (13:49→23:39)
[2019-11-04] MEDS: hydroCHLOROthiazide 25 MG TAB PO SCH ×2 (13:50→23:45)
[2019-11-04] MEDS: METOPROLOL TARTRATE 100 MG TAB PO SCH ×2 (13:50→23:48)
[2019-11-04] MEDS: risperiDONE 1 MG TAB PO SCH ×2 (13:50→23:50)
[2019-11-04] MEDS: risperiDONE 0.25 MG TAB PO SCH (16:56)
[2019-11-04] MEDS: DIVALPROEX DR 125 MG TAB PO SCH (23:39)
[2019-11-04] MEDS: DOXEPIN 25 MG CAP PO SCH (23:51)
[2019-11-05] MEDS: hydrALAZINE 25 MG TAB PO SCH ×2 (05:59→21:43)
--- NOTE | 2019-11-05 08:07 | Ultrasound Report ---
Renal ultrasound. HISTORY: Kidney injury. FINDINGS: Right kidney measures 11.3 x 5.4 x 5 cm. Cortex measures 1.4 cm. Left kidney measures 11.1 x 6.2 x 4.2 cm. Several hypoechoic areas are present with the largest measu ring 1.9 cm. These likely represent a combination of complex and simple cysts. Cortical echogenicity is normal. Negative for obstruction or adjacent fluid. The bladder contains moderate fluid. IMPRESSION: Suspect a combination of complex and simple cysts at the left kidney. Follow-up ultrasoun d could be performed in 6-12 months as clinically indicated. Signer Name: Juan Hunt MD Signed: 11/05/2019 8:02 AM Workstation Name: [id number]
[2019-11-05] MEDS: INSULIN LISPRO 100 UNIT/ML SUB-Q SCH ×4 (08:20→21:34)
[2019-11-05 08:23] LABS: Calcium 8.9 mg/dL (8.4-10.2)
--- NOTE | 2019-11-05 10:32 | Progress Note ---
Subjective Date of service: 11/05/19 Principal diagnosis: Major Depression Subjective Comment: The patient's medical chart was reviewed and the patient's progress was discussed with the nursing staff. The nurse note states, Patient was sedated last night, could not wake up to take his medications. Patient is sexually inappropriate, unsteady gate, using wheel chair. He became awake at midnight took his blood pressure and was able to wake up to eat a sandwich. During my interview with the patient this morning, the patient was sitting in the chair in the day room. The patient is alert oriented x1, he is dressed appropriately for the occasion, he maintains intermittent. The patient does report that he sleeps on and off and that he is eating well. He denies suicidal or homicidal ideations he contract for safety. He denies visual or auditory hallucination. Patient reports that his depression has gotten better. He does report that he has more energy today than yesterday. He reports that he was able to get out of bed this morning feeling much better doing so. He does maintain that his appetite is poor, he also reports feeling bad about himself. Reason for continuing inpatient treatment: The patient continues to be confused, aggressive, and unable to care for himself. REVIEW OF SYSTEMS Constitutional: Negative for weight loss ENT: Negative for stridor Respiratory: Negative for cough or hemoptysis All other systems reviewed and are negative MSE Appearance: Awake. Dressed appropriately. Behavior: cooperative, calm Mood: "so, so" Affect: congruent Thought Process: circumstantial Speech: Normal tone and pace Thought Content Suicidal: Denies Homicidal: Denies Hallucinations: Denies Delusions: Denies Consciousness: Alert Cognition/Memory: Limited Insight/Judgment: Limited Diagnoses: Major Depression Treatment Plan Treatment Plan Due to the psychiatric conditions and treatment listed in the Assessment and Plan - the patient requires continued hospitalization. Will continue inpatient treatment to allow for medication adjustment and monitoring. Will continue q15 min safety checks. Will encourage the use of environmental modifications and non-pharmacologic approaches for the management of behavioral and psychological symptoms. Medication adjustment made today: changes made yesterday Will continue current psych medications Monitor for medication side effects. The patient will continue on medications for physical illnesses, and Hospitalist will closely monitor these Continue intensive physical and occupational therapies. Monitor patient's mood, sleep, appetite, and behavior closely. Encourage patient to participate in individual and group therapeutic sessions on the [place]. Will provide a safe and therapeutic environment for patient. Estimated length of stay 6 days Medications and Allergies Allergies Allergy/AdvReac Type Severity Reaction Status Date / Time morphine AdvReac Unknown Verified 11/01/19 23:50 Penicillins AdvReac Unknown Verified 11/01/19 23:50 Tetanus Vaccines and Toxoid AdvReac Unknown Verified 11/01/19 23:50 Home Medications Medication Instructions Recorded Confirmed Last Taken Type Adult Aspirin 650 mg PO BID 11/02/19 11/02/19 Unknown History Citalopram 20 mg PO BID 11/02/19 11/02/19 Unknown History Clopidogrel [Plavix] 75 mg PO DAILY 11/02/19 11/02/19 Unknown History Ergocalciferol [Vitamin D2] 50,000 units PO QWEEK 11/02/19 11/02/19 Unknown History Famotidine [Pepcid] 20 mg PO DAILY 11/02/19 11/02/19 Unknown History Furosemide [Lasix TAB] 40 mg PO DAILY 11/02/19 11/02/19 Unknown History Gabapentin 300 mg PO TID 11/02/19 11/02/19 Unknown History Isosorbide Mononitrate 30 mg PO DAILY 11/02/19 11/02/19 Unknown History Lantus VIAL 30 units SQ QHS 11/02/19 11/02/19 Unknown History Metoprolol-HCTZ 100-50 mg TAB 50 mg PO BID 11/02/19 11/02/19 Unknown History NIFEdipine [Nifedipine ER] 60 mg PO DAILY 11/02/19 11/02/19 Unknown History Tamsulosin 0.4 mg PO DAILY 11/02/19 11/02/19 Unknown History hydrALAZINE 50 mg PO TID 11/02/19 11/02/19 Unknown History Active Meds: Active Medications Citalopram Hydrobromide (Celexa) 20 mg PO BID [facility] Last Admin: 11/04/19 23:39 Dose: Not Given Documented by: Clopidogrel Bisulfate (Plavix) 75 mg PO DAILY [facility] Last Admin: 11/03/19 09:12 Dose: 75 mg Documented by: Divalproex Sodium (Depakote Dr) 125 mg PO BID [facility] Last Admin: 11/04/19 23:39 Dose: Not Given Documented by: Doxepin HCl (Sinequan) 50 mg PO QHS [facility] Last Admin: 11/04/19 23:51 Dose: Not Given Documented by: Famotidine (Pepcid) 20 mg PO DAILY [facility] Last Admin: 11/03/19 09:11 Dose: 20 mg Documented by: Furosemide (Lasix) 40 mg PO DAILY [facility] Last Admin: 11/03/19 09:12 Dose: 40 mg Documented by: Gabapentin (Gabapentin) 300 mg PO DAILY [facility] Haloperidol Lactate (Haldol) 5 mg IM Q6H PRN PRN Reason: Agitation Last Admin: 11/04/19 00:42 Dose: 5 mg Documented by: Hydralazine HCl (Apresoline) 50 mg PO Q8HR [facility] Last Admin: 11/05/19 05:59 Dose: 50 mg Documented by: Hydrochlorothiazide (Hctz) 50 mg PO BID [facility] Last Admin: 11/04/19 23:45 Dose: 50 mg Documented by: Insulin [facility] ([facility]us) [facility] Last Admin: 11/04/19 23:49 Dose: Not Given Documented by: Insulin Human Lispro (Humalog) 0 unit SUB-Q [facility]; Protocol Last Admin: 11/04/19 23:51 Dose: Not Given Documented by: Isosorbide Mononitrate (Imdur) 30 mg PO DAILY [facility] Last Admin: 11/03/19 09:13 Dose: 30 mg Documented by: Lorazepam (Ativan) 2 mg IM Q6H PRN PRN Reason: Agitation Last Admin: 11/04/19 00:42 Dose: 2 mg Documented by: Melatonin (Melatonin) 5 mg PO QHS PRN PRN Reason: Sleep Metoprolol Tartrate (Metoprolol) 100 mg PO BID [facility] Last Admin: 11/04/19 23:48 Dose: 100 mg Documented by: Nifedipine (Procardia Xl) 60 mg PO QDAY [facility] Last Admin: 11/03/19 09:13 Dose: 60 mg Documented by: Risperidone (Risperdal) 1 mg PO BID [facility] Last Admin: 11/04/19 23:50 Dose: Not Given Documented by: Tamsulosin HCl (Flomax) 0.4 mg PO QDAY [facility] Last Admin: 11/03/19 09:14 Dose: 0.4 mg Documented by: Results - Results Labs/Vitals: Laboratory Last Values WBC 13.0 K/mm3 (4.5-11.0) H 11/03/19 10:40 RBC 4.09 M/mm3 (3.65-5.03) 11/03/19 10:40 Hgb 11.9 gm/dl (11.8-15.2) 11/03/19 10:40 Hct 36.4 % (35.5-45.6) 11/03/19 10:40 MCV 89 fl (84-94) 11/03/19 10:40 MCH 29 pg (28-32) 11/03/19 10:40 MCHC 33 % (32-34) 11/03/19 10:40 RDW 15.1 % (13.2-15.2) 11/03/19 10:40 Plt Count 371 K/mm3 (140-440) 11/03/19 10:40 Lymph % (Auto) 34.2 % (13.4-35.0) 11/02/19 09:51 [place] % (Auto) 7.5 % (0.0-7.3) H 11/02/19 09:51 Eos % (Auto) 3.9 % (0.0-4.3) 11/02/19 09:51 Baso % (Auto) 0.7 % (0.0-1.8) 11/02/19 09:51 Lymph # 4.3 K/mm3 (1.2-5.4) 11/02/19 09:51 [place] # 0.9 K/mm3 (0.0-0.8) H 11/02/19 09:51 Eos # 0.5 K/mm3 (0.0-0.4) H 11/02/19 09:51 Baso # 0.1 K/mm3 (0.0-0.1) 11/02/19 09:51 Seg Neutrophils % 53.7 % (40.0-70.0) 11/02/19 09:51 Seg Neutrophils # 6.7 K/mm3 (1.8-7.7) 11/02/19 09:51 Sodium 143 mmol/L (137-145) 11/05/19 07:17 Potassium 4.3 mmol/L (3.6-5.0) 11/05/19 07:17 Chloride 106.3 mmol/L (98-107) 11/05/19 07:17 Carbon Dioxide 20 mmol/L (22-30) L 11/05/19 07:17 Anion Gap 21 mmol/L 11/05/19 07:17 BUN 41 mg/dL (9-20) H 11/05/19 07:17 Creatinine 2.5 mg/dL (0.8-1.5) H 11/05/19 07:17 Estimated GFR 26 ml/min 11/05/19 07:17 BUN/Creatinine Ratio 16 % 11/05/19 07:17 Glucose 128 mg/dL (75-100) H 11/05/19 07:17 POC Glucose 125 (70-105) H 11/05/19 06:39 Hemoglobin A1c 7.7 % (4-6) H 11/02/19 09:51 Calcium 8.9 mg/dL (8.4-10.2) 11/05/19 07:17 Ammonia 31.0 umol/L (25-60) 11/02/19 16:56 Triglycerides 309 mg/dL (2-149) H 11/02/19 09:51 Cholesterol 208 mg/dL (50-199) H 11/02/19 09:51 LDL Cholesterol Direct 119 mg/dL (50-130) 11/02/19 09:51 HDL Cholesterol 48 mg/dL (40-59) 11/02/19 09:51 Cholesterol/HDL Ratio 4.33 % 11/02/19 09:51 TSH 1.900 mlU/mL (0.270-4.200) 11/02/19 16:57 Free T4 1.02 ng/dL (0.76-1.46) 11/02/19 16:51 Last Vital Signs Temp 97.2 F L 11/04/19 19:55 Pulse 88 11/05/19 05:59 Resp 20 11/04/19 19:55 BP 173/73 11/05/19 05:59 Pulse Ox 97 11/04/19 19:55
--- NOTE | 2019-11-05 10:45 | Progress Note ---
Assessment and Plan 1. CKD stage 4: Patient with h/o CKD admitted from OSH. His most recent creatinine between 2.4 and 3. His renal function appears to be at his baseline. Renal US shows combination of complex and simple cysts in left kidney, negative for hydro. Monitor renal function. Avoid nephrotoxic agents. Meds dosage based on GFR. 2. FEN: Metabolic acidosis, monitor. Monitor lytes. 3. Suicidal ideation. 4. Metabolic encephalopathy, POA. 5. Leukocytosis. 6. Diabetes mellitus with hyperglycemia. 7. COPD. 8. CAD. 9. Presumed chronic congestive heart failure: Normal EF. 10.Right rib fracture. Subjective Date of service: 11/05/19 Principal diagnosis: Major Depression Interval history: Patient was seen and examined in the day room of the psych unit. Sitter was present with patient at the table. He was more alert today but inappropriate and unfocused. Objective - Exam Narrative Exam: General appearance: well-developed, well-nourished, appears stated age, other (not in distress) EENT: ATNC Neck: Present: neck supple, trachea midline Respiratory: Clear to Auscultation Heart: regular, S1S2, no murmurs Gastrointestinal: Present: normoactive bowel sounds. Absent: tenderness, distended Integumentary: no rash, warm and dry Neurologic: alert, cooperative with examination, inappropriate conversation Musculoskeletal: Present: other (trace LE edema noted) - Vital Signs Vital signs: Vital Signs - 12hr 11/04/19 11/04/19 11/05/19 23:37 23:48 05:59 Pulse Rate 78 78 88 Blood Pressure 182/82 192/82 173/73 - Lab 11/03/19 10:40 11/05/19 07:17 Most recent lab results Calcium 8.9 mg/dL (8.4-10.2) 11/05/19 07:17 Medications & Allergies - Medications Allergies/Adverse Reactions: Allergies morphine Adverse Reaction (Verified 11/01/19 23:50) Unknown Penicillins Adverse Reaction (Verified 11/01/19 23:50) Unknown Tetanus Vaccines and Toxoid Adverse Reaction (Verified 11/01/19 23:50) Unknown Home Medications: Home Medications Medication Instructions Recorded Confirmed Last Taken Type Adult Aspirin 650 mg PO BID 11/02/19 11/02/19 Unknown History Citalopram 20 mg PO BID 11/02/19 11/02/19 Unknown History Clopidogrel [Plavix] 75 mg PO DAILY 11/02/19 11/02/19 Unknown History Ergocalciferol [Vitamin D2] 50,000 units PO QWEEK 11/02/19 11/02/19 Unknown History Famotidine [Pepcid] 20 mg PO DAILY 11/02/19 11/02/19 Unknown History Furosemide [Lasix TAB] 40 mg PO DAILY 11/02/19 11/02/19 Unknown History Gabapentin 300 mg PO TID 11/02/19 11/02/19 Unknown History Isosorbide Mononitrate 30 mg PO DAILY 11/02/19 11/02/19 Unknown History Lantus VIAL 30 units SQ QHS 11/02/19 11/02/19 Unknown History Metoprolol-HCTZ 100-50 mg TAB 50 mg PO BID 11/02/19 11/02/19 Unknown History NIFEdipine [Nifedipine ER] 60 mg PO DAILY 11/02/19 11/02/19 Unknown History Tamsulosin 0.4 mg PO DAILY 11/02/19 11/02/19 Unknown History hydrALAZINE 50 mg PO TID 11/02/19 11/02/19 Unknown History Active Medications: Generic Name Dose Route Start Last Admin Trade Name Freq PRN Reason Stop Dose Admin Citalopram Hydrobromide 20 mg 11/02/19 22:00 11/04/19 23:39 Celexa PO Not Given BID [facility] Clopidogrel Bisulfate 75 mg 11/02/19 11:00 11/03/19 09:12 Plavix PO 75 mg DAILY [facility] Administration Divalproex Sodium 125 mg 11/04/19 22:00 11/04/19 23:[address] PO Not Given BID [facility] Doxepin HCl 50 mg 11/04/19 10:31 11/04/19 23:51 Sinequan PO Not Given QHS [facility] Famotidine 20 mg 11/02/19 11:00 11/03/19 09:11 Pepcid PO 20 mg DAILY [facility] Administration Furosemide 40 mg 11/02/19 11:00 11/03/19 09:12 Lasix PO 40 mg DAILY [facility] Administration Gabapentin 300 mg 11/05/19 10:00 Gabapentin PO DAILY [facility] Haloperidol Lactate 5 mg 11/04/19 00:10 11/04/19 00:42 Haldol IM 5 mg Q6H PRN Administration Agitation Hydralazine HCl 50 mg 11/02/19 14:00 11/05/19 05:59 Apresoline PO 50 mg Q8HR [facility] Administration Hydrochlorothiazide 50 mg 11/02/19 22:00 11/04/19 23:45 Hctz PO 50 mg BID [facility] Administration Insulin Glargine 30 units 11/02/19 22:00 11/04/19 23:49 Lantus SUB-Q Not Given QHS [facility] Insulin Human Lispro 0 unit 11/03/19 16:30 11/04/19 23:51 Humalog SUB-Q Not Given ACHS [facility] Protocol Isosorbide Mononitrate 30 mg 11/02/19 11:00 11/03/19 09:13 Imdur PO 30 mg DAILY [facility] Administration Lorazepam 2 mg 11/04/19 00:10 11/04/19 00:42 Ativan IM 2 mg Q6H PRN Administration Agitation Melatonin 5 mg 11/02/19 22:00 Melatonin PO QHS PRN Sleep Metoprolol Tartrate 100 mg 11/02/19 22:00 11/04/19 23:48 Metoprolol PO 100 mg BID [facility] Administration Nifedipine 60 mg 11/02/19 11:00 11/03/19 09:13 Procardia Xl PO 60 mg QDAY [facility] Administration Risperidone 1 mg 11/04/19 11:00 11/04/19 23:50 Risperdal PO Not Given BID [facility] Tamsulosin HCl 0.4 mg 11/02/19 11:00 11/03/19 09:14 Flomax PO 0.4 mg QDAY [facility] Administration
[2019-11-05] MEDS: DIVALPROEX DR 125 MG TAB PO SCH ×2 (11:49→21:38)
[2019-11-05] MEDS: TAMSULOSIN 0.4 MG CAP PO SCH (11:51)
[2019-11-05] MEDS: CITALOPRAM 20 MG TAB PO SCH ×2 (11:52→21:37)
[2019-11-05] MEDS: NIFEdipine XL 60 MG TAB PO SCH ×2 (11:52→11:53)
[2019-11-05] MEDS: FUROSEMIDE 40 MG TAB PO SCH (11:56)
[2019-11-05] MEDS: FAMOTIDINE 20 MG TAB PO SCH (11:58)
[2019-11-05] MEDS: CLOPIDOGREL 75 MG TAB PO SCH (12:00)
[2019-11-05] MEDS: hydroCHLOROthiazide 25 MG TAB PO SCH ×2 (12:02→21:39)
[2019-11-05] MEDS: GABAPENTIN 300 MG CAP PO SCH (12:02)
[2019-11-05] MEDS: risperiDONE 1 MG TAB PO SCH ×2 (12:03→21:52)
[2019-11-05] MEDS: INSULIN GLARGINE 100 UNITS/ML SUB-Q SCH (21:35)
[2019-11-05] MEDS: DOXEPIN 25 MG CAP PO SCH (21:38)
[2019-11-05] MEDS: METOPROLOL TARTRATE 100 MG TAB PO SCH (21:42)
[2019-11-06] MEDS: INSULIN LISPRO 100 UNIT/ML SUB-Q SCH ×4 (07:30→21:44)
[2019-11-06 08:06] LABS: Calcium 8.4 mg/dL (8.4-10.2)
--- NOTE | 2019-11-06 08:47 | Progress Note ---
Subjective Date of service: 11/06/19 Principal diagnosis: Major Depression Subjective Comment: The patient's medical chart was reviewed and the patient's progress was discussed with the nursing staff. The nurse note states,Pt rested w/o behavioral issue noted on this shift. Complied with medication. During my interview with the patient this morning, the patient was sitting in the chair in the day room. The patient eyes were closed, sternal rub awoke the patient, he is dressed appropriately for the occasion, after the patient awake i tried talking to him and he pointed his fist at me, and drift off back to sleep. Reason for continuing inpatient treatment: The patient continues to be confused, aggressive, and unable to care for himself. REVIEW OF SYSTEMS Constitutional: Negative for weight loss ENT: Negative for stridor Respiratory: Negative for cough or hemoptysis All other systems reviewed and are negative MSE unable to assess Diagnoses: Major Depression Treatment Plan Treatment Plan Due to the psychiatric conditions and treatment listed in the Assessment and Plan - the patient requires continued hospitalization. Will continue inpatient treatment to allow for medication adjustment and monitoring. Will continue q15 min safety checks. Will encourage the use of environmental modifications and non-pharmacologic approaches for the management of behavioral and psychological symptoms. Medication adjustment made today: decrease doxepin to 25mg qhs- decrease somnololence Will continue current psych medications Monitor for medication side effects. The patient will continue on medications for physical illnesses, and Hospitalist will closely monitor these Continue intensive physical and occupational therapies. Monitor patient's mood, sleep, appetite, and behavior closely. Encourage patient to participate in individual and group therapeutic sessions on the [place]. Will provide a safe and therapeutic environment for patient. Estimated length of stay 2 days Medications and Allergies Allergies Allergy/AdvReac Type Severity Reaction Status Date / Time morphine AdvReac Unknown Verified 11/01/19 23:50 Penicillins AdvReac Unknown Verified 11/01/19 23:50 Tetanus Vaccines and Toxoid AdvReac Unknown Verified 11/01/19 23:50 Home Medications Medication Instructions Recorded Confirmed Last Taken Type Adult Aspirin 650 mg PO BID 11/02/19 11/02/19 Unknown History Citalopram 20 mg PO BID 11/02/19 11/02/19 Unknown History Clopidogrel [Plavix] 75 mg PO DAILY 11/02/19 11/02/19 Unknown History Ergocalciferol [Vitamin D2] 50,000 units PO QWEEK 11/02/19 11/02/19 Unknown History Famotidine [Pepcid] 20 mg PO DAILY 11/02/19 11/02/19 Unknown History Furosemide [Lasix TAB] 40 mg PO DAILY 11/02/19 11/02/19 Unknown History Gabapentin 300 mg PO TID 11/02/19 11/02/19 Unknown History Isosorbide Mononitrate 30 mg PO DAILY 11/02/19 11/02/19 Unknown History Lantus VIAL 30 units SQ QHS 11/02/19 11/02/19 Unknown History Metoprolol-HCTZ 100-50 mg TAB 50 mg PO BID 11/02/19 11/02/19 Unknown History NIFEdipine [Nifedipine ER] 60 mg PO DAILY 11/02/19 11/02/19 Unknown History Tamsulosin 0.4 mg PO DAILY 11/02/19 11/02/19 Unknown History hydrALAZINE 50 mg PO TID 11/02/19 11/02/19 Unknown History Active Meds: Active Medications Citalopram Hydrobromide (Celexa) 20 mg PO BID [facility] Last Admin: 11/05/19 21:37 Dose: 20 mg Documented by: Clopidogrel Bisulfate (Plavix) 75 mg PO DAILY [facility] Last Admin: 11/05/19 12:00 Dose: 75 mg Documented by: Divalproex Sodium (Depakote Dr) 125 mg PO BID [facility] Last Admin: 11/05/19 21:38 Dose: 125 mg Documented by: Doxepin HCl (Sinequan) 50 mg PO QHS [facility] Last Admin: 11/05/19 21:38 Dose: 50 mg Documented by: Famotidine (Pepcid) 20 mg PO DAILY [facility] Last Admin: 11/05/19 11:58 Dose: 20 mg Documented by: Furosemide (Lasix) 40 mg PO DAILY [facility] Last Admin: 11/05/19 11:56 Dose: 40 mg Documented by: Gabapentin (Gabapentin) 300 mg PO DAILY [facility] Last Admin: 11/05/19 12:02 Dose: 300 mg Documented by: Haloperidol Lactate (Haldol) 5 mg IM Q6H PRN PRN Reason: Agitation Last Admin: 11/04/19 00:42 Dose: 5 mg Documented by: Hydralazine HCl (Apresoline) 50 mg PO Q8HR [facility] Last Admin: 11/05/19 21:43 Dose: Not Given Documented by: Hydrochlorothiazide (Hctz) 50 mg PO BID [facility] Last Admin: 11/05/19 21:39 Dose: 50 mg Documented by: Insulin Glargine (Lantus) 30 units SUB-Q QHS [facility] Last Admin: 11/05/19 21:35 Dose: 30 units Documented by: Insulin Human Lispro (Humalog) 0 unit SUB-Q [facility]; Protocol Last Admin: 11/05/19 21:34 Dose: 6 unit Documented by: Isosorbide Mononitrate (Imdur) 30 mg PO DAILY [facility] Last Admin: 11/05/19 11:59 Dose: 30 mg Documented by: Lorazepam (Ativan) 2 mg IM Q6H PRN PRN Reason: Agitation Last Admin: 11/04/19 00:42 Dose: 2 mg Documented by: Melatonin (Melatonin) 5 mg PO QHS PRN PRN Reason: Sleep Metoprolol Tartrate (Metoprolol) 100 mg PO BID [facility] Last Admin: 11/05/19 21:42 Dose: Not Given Documented by: Nifedipine (Procardia Xl) 60 mg PO QDAY [facility] Last Admin: 11/05/19 11:53 Dose: 60 mg Documented by: Risperidone (Risperdal) 1 mg PO BID [facility] Last Admin: 11/05/19 21:52 Dose: 1 mg Documented by: Tamsulosin HCl (Flomax) 0.4 mg PO QDAY [facility] Last Admin: 11/05/19 11:51 Dose: 0.4 mg Documented by: Results - Results Labs/Vitals: Laboratory Last Values WBC 13.0 K/mm3 (4.5-11.0) H 11/03/19 10:40 RBC 4.09 M/mm3 (3.65-5.03) 11/03/19 10:40 Hgb 11.9 gm/dl (11.8-15.2) 11/03/19 10:40 Hct 36.4 % (35.5-45.6) 11/03/19 10:40 MCV 89 fl (84-94) 11/03/19 10:40 MCH 29 pg (28-32) 11/03/19 10:40 MCHC 33 % (32-34) 11/03/19 10:40 RDW 15.1 % (13.2-15.2) 11/03/19 10:40 Plt Count 371 K/mm3 (140-440) 11/03/19 10:40 Lymph % (Auto) 34.2 % (13.4-35.0) 11/02/19 09:51 [place] % (Auto) 7.5 % (0.0-7.3) H 11/02/19 09:51 Eos % (Auto) 3.9 % (0.0-4.3) 11/02/19 09:51 Baso % (Auto) 0.7 % (0.0-1.8) 11/02/19 09:51 Lymph # 4.3 K/mm3 (1.2-5.4) 11/02/19 09:51 [place] # 0.9 K/mm3 (0.0-0.8) H 11/02/19 09:51 Eos # 0.5 K/mm3 (0.0-0.4) H 11/02/19 09:51 Baso # 0.1 K/mm3 (0.0-0.1) 11/02/19 09:51 Seg Neutrophils % 53.7 % (40.0-70.0) 11/02/19 09:51 Seg Neutrophils # 6.7 K/mm3 (1.8-7.7) 11/02/19 09:51 Sodium 139 mmol/L (137-145) 11/06/19 07:19 Potassium 3.8 mmol/L (3.6-5.0) 11/06/19 07:19 Chloride 101.5 mmol/L (98-107) 11/06/19 07:19 Carbon Dioxide 19 mmol/L (22-30) L 11/06/19 07:19 Anion Gap 22 mmol/L 11/06/19 07:19 BUN 56 mg/dL (9-20) H 11/06/19 07:19 Creatinine 3.6 mg/dL (0.8-1.5) H 11/06/19 07:19 Estimated GFR 17 ml/min 11/06/19 07:19 BUN/Creatinine Ratio 16 % 11/06/19 07:19 Glucose 115 mg/dL (75-100) H 11/06/19 07:19 POC Glucose 126 (70-105) H 11/06/19 06:29 Hemoglobin A1c 7.7 % (4-6) H 11/02/19 09:51 Calcium 8.4 mg/dL (8.4-10.2) 11/06/19 07:19 Ammonia 31.0 umol/L (25-60) 11/02/19 16:56 Triglycerides 309 mg/dL (2-149) H 11/02/19 09:51 Cholesterol 208 mg/dL (50-199) H 11/02/19 09:51 LDL Cholesterol Direct 119 mg/dL (50-130) 11/02/19 09:51 HDL Cholesterol 48 mg/dL (40-59) 11/02/19 09:51 Cholesterol/HDL Ratio 4.33 % 11/02/19 09:51 TSH 1.900 mlU/mL (0.270-4.200) 11/02/19 16:57 Free T4 1.02 ng/dL (0.76-1.46) 11/02/19 16:51 Last Vital Signs Temp 98.2 F 11/06/19 06:24 Pulse 87 11/06/19 06:24 Resp 12 11/06/19 06:24 BP 136/72 11/06/19 06:24 Pulse Ox 91 11/06/19 06:24
[2019-11-06] MEDS: FAMOTIDINE 20 MG TAB PO SCH ×3 (11:06→14:00)
[2019-11-06] MEDS: CLOPIDOGREL 75 MG TAB PO SCH ×3 (11:06→14:00)
[2019-11-06] MEDS: NIFEdipine XL 60 MG TAB PO SCH (11:06)
[2019-11-06] MEDS: risperiDONE 1 MG TAB PO SCH ×3 (11:06→21:08)
[2019-11-06] MEDS: CITALOPRAM 20 MG TAB PO SCH ×3 (11:07→21:09)
[2019-11-06] MEDS: hydroCHLOROthiazide 25 MG TAB PO SCH (11:07)
[2019-11-06] MEDS: DIVALPROEX DR 125 MG TAB PO SCH ×3 (11:07→21:09)
[2019-11-06] MEDS: FUROSEMIDE 40 MG TAB PO SCH ×3 (11:08→14:00)
[2019-11-06] MEDS: TAMSULOSIN 0.4 MG CAP PO SCH ×2 (11:09→14:00)
[2019-11-06] MEDS: METOPROLOL TARTRATE 100 MG TAB PO SCH ×4 (11:10→21:09)
[2019-11-06] MEDS: GABAPENTIN 300 MG CAP PO SCH (11:10)
--- NOTE | 2019-11-06 14:12 | Progress Note ---
Assessment and Plan 1. CKD stage 4: Patient with h/o CKD admitted from OSH. Neurontin and HCTZ d/c 11/06. His most recent creatinine is worse, 3.8 from 2.5. Baseline renal function should be closer to 2.5. Renal US shows combination of complex and simple cysts in left kidney, negative for hydro. Monitor renal function. Avoid nephrotoxic agents. Meds dosage based on GFR. 2. FEN: Metabolic acidosis, monitor. Monitor lytes. 3. Suicidal ideation. 4. Metabolic encephalopathy, POA. Increased lethargy 11/06. Neurontin d/c 11/06. 5. Leukocytosis. 6. Diabetes mellitus with hyperglycemia. 7. COPD. 8. CAD. 9. Presumed chronic congestive heart failure: Normal EF. 10.Right rib fracture. Subjective Date of service: 11/06/19 Principal diagnosis: Major Depression Interval history: Patient was seen and examined in the day room of the psych unit. Sitter was present with patient at the table. He is alert this afternoon and able to converse. Objective - Exam Narrative Exam: General appearance: well-developed, well-nourished, appears stated age, other (not in distress) EENT: ATNC Neck: Present: neck supple, trachea midline Respiratory: Clear to Auscultation Heart: regular, S1S2, no murmurs Gastrointestinal: Present: normoactive bowel sounds. Absent: tenderness, distended Integumentary: no rash, warm and dry Neurologic: alert, cooperative with examination, inappropriate conversation Musculoskeletal: Present: other (trace LE edema noted) - Vital Signs Vital signs: Vital Signs - 12hr 11/06/19 11/06/19 11/06/19 06:24 09:10 11:07 Temperature 98.2 F 98.2 F Pulse Rate 87 84 84 Respiratory 12 18 Rate Blood Pressure 136/72 141/62 141/62 O2 Sat by Pulse 91 95 Oximetry 11/06/19 11:10 Temperature Pulse Rate 84 Respiratory Rate Blood Pressure 141/62 O2 Sat by Pulse Oximetry - Lab 11/03/19 10:40 11/06/19 07:19 Most recent lab results Calcium 8.4 mg/dL (8.4-10.2) 11/06/19 07:19 Medications & Allergies - Medications Allergies/Adverse Reactions: Allergies morphine Adverse Reaction (Verified 11/01/19 23:50) Unknown Penicillins Adverse Reaction (Verified 11/01/19 23:50) Unknown Tetanus Vaccines and Toxoid Adverse Reaction (Verified 11/01/19 23:50) Unknown Home Medications: Home Medications Medication Instructions Recorded Confirmed Last Taken Type Adult Aspirin 650 mg PO BID 11/02/19 11/02/19 Unknown History Citalopram 20 mg PO BID 11/02/19 11/02/19 Unknown History Clopidogrel [Plavix] 75 mg PO DAILY 11/02/19 11/02/19 Unknown History Ergocalciferol [Vitamin D2] 50,000 units PO QWEEK 11/02/19 11/02/19 Unknown History Famotidine [Pepcid] 20 mg PO DAILY 11/02/19 11/02/19 Unknown History Furosemide [Lasix TAB] 40 mg PO DAILY 11/02/19 11/02/19 Unknown History Gabapentin 300 mg PO TID 11/02/19 11/02/19 Unknown History Isosorbide Mononitrate 30 mg PO DAILY 11/02/19 11/02/19 Unknown History Lantus VIAL 30 units SQ QHS 11/02/19 11/02/19 Unknown History Metoprolol-HCTZ 100-50 mg TAB 50 mg PO BID 11/02/19 11/02/19 Unknown History NIFEdipine [Nifedipine ER] 60 mg PO DAILY 11/02/19 11/02/19 Unknown History Tamsulosin 0.4 mg PO DAILY 11/02/19 11/02/19 Unknown History hydrALAZINE 50 mg PO TID 11/02/19 11/02/19 Unknown History Active Medications: Generic Name Dose Route Start Last Admin Trade Name Alfaq PRN Reason Stop Dose Admin Citalopram Hydrobromide 20 mg 11/02/19 22:00 11/05/19 21:37 Celexa PO 20 mg BID [facility] Administration Clopidogrel Bisulfate 75 mg 11/02/19 11:00 11/06/19 11:06 Plavix PO 75 mg DAILY [facility] Administration Divalproex Sodium 125 mg 11/04/19 22:00 11/05/19 21:[address] PO 125 mg BID [facility] Administration Doxepin HCl 25 mg 11/06/19 22:00 Sinequan PO QHS [facility] Famotidine 20 mg 11/02/19 11:00 11/06/19 11:06 Pepcid PO 20 mg DAILY [facility] Administration Furosemide 40 mg 11/02/19 11:00 11/06/19 11:08 Lasix PO 40 mg DAILY [facility] Administration Gabapentin 300 mg 11/05/19 10:00 11/05/19 12:02 Gabapentin PO 300 mg DAILY [facility] Administration Haloperidol Lactate 5 mg 11/04/19 00:10 11/04/19 00:42 Haldol IM 5 mg Q6H PRN Administration Agitation Hydralazine HCl 50 mg 11/02/19 14:00 11/05/19 21:43 Apresoline PO Not Given Q8HR [facility] Insulin Glargine 30 units 11/02/19 22:00 11/05/19 21:35 Lantus SUB-Q 30 units QHS [facility] Administration Insulin Human Lispro 0 unit 11/03/19 16:30 11/06/19 07:30 [facility]alog [facility]-Q [facility] Protocol Isosorbide Mononitrate 30 mg 11/02/19 11:00 11/06/19 11:07 Imdur PO 30 mg DAILY [facility] Administration Lorazepam 2 mg 11/04/19 00:10 11/04/19 00:42 Ativan IM 2 mg Q6H PRN Administration Agitation Melatonin 5 mg 11/02/19 22:00 Melatonin PO QHS PRN Sleep Metoprolol Tartrate 100 mg 11/02/19 22:00 11/06/19 11:10 Metoprolol PO 100 mg BID [facility] Administration Nifedipine 60 mg 11/02/19 11:00 11/06/19 11:06 Procardia Xl PO 60 mg QDAY [facility] Administration Risperidone 1 mg 11/04/19 11:00 11/05/19 21:52 Risperdal PO 1 mg BID [facility] Administration Tamsulosin HCl 0.4 mg 11/02/19 11:00 11/05/19 11:51 Flomax PO 0.4 mg QDAY [facility] Administration
--- NOTE | 2019-11-06 16:48 | Progress Note ---
Assessment and Plan Assessment and plan: Patient is a 74 man with a history of hypertension, DM type 2 who was admitted to [facility] for mental health stabilization. Nurse called me today to re- evaluate Mr. Hurley due to incresase sleepiness and difficult to arouse this morning. When I saw his later in the day, he was awake and talking in the day room. I ordered bg which was 113 and vitals were stable. AMS with increase somnolence/lethargy: reviewed medication list, his bp running low, will adjust Hypotension: stopped hydralazine Acute encephalopathy: lower bp dose DM type 2: continue ssi, accucheck monitoring. History Interval history: Patient was seen and examined. Follow-up on current diagnosis of AMS. Eventful as nurse called me due to increase sleepiness. Patient denies any chest pain, shortness breath, nausea/vomiting or severe headaches. Imaging, nursing note, chart, labs and old chart reviewed. Discussed with patient. Hospitalist Physical - Physical exam Narrative exam: Gen: WDWN, NAD, Awake, Alert, Orientated x 1 but he is answering the questions, HEENT: NCAT, EOMI, PERRL, OP Clear Neck: supple, no adenopathy, no thyromegaly, no JVD CVS/Heart: RRR, normal S1S2, pulses present bilaterally Chest/Lungs: CTA B, Symmetrical chest expansion, good air entry bilaterally GI/Abdomen: soft, NTND, good bowel sounds, no guarding or rebound /Bladder: no suprapubic tenderness, no CVA or paraspinal tenderness Extermity/Skin: no c/c/e, no obvious rash MSK: sROM x 4 Neuro: CN 2-12 grossly intact, follows some commands Psych: calm but confused - Constitutional Vitals: Temp Pulse Resp BP Pulse Ox 98.2 F 84 18 141/62 95 11/06/19 09:10 11/06/19 14:00 11/06/19 09:10 11/06/19 14:00 11/06/19 09:10 Results - Labs CBC & Chem 7: 11/03/19 10:40 11/06/19 07:19 Labs: Laboratory Last Values WBC 13.0 K/mm3 (4.5-11.0) H 11/03/19 10:40 RBC 4.09 M/mm3 (3.65-5.03) 11/03/19 10:40 Hgb 11.9 gm/dl (11.8-15.2) 11/03/19 10:40 Hct 36.4 % (35.5-45.6) 11/03/19 10:40 MCV 89 fl (84-94) 11/03/19 10:40 MCH 29 pg (28-32) 11/03/19 10:40 MCHC 33 % (32-34) 11/03/19 10:40 RDW 15.1 % (13.2-15.2) 11/03/19 10:40 Plt Count 371 K/mm3 (140-440) 11/03/19 10:40 Lymph % (Auto) 34.2 % (13.4-35.0) 11/02/19 09:51 [place] % (Auto) 7.5 % (0.0-7.3) H 11/02/19 09:51 Eos % (Auto) 3.9 % (0.0-4.3) 11/02/19 09:51 Baso % (Auto) 0.7 % (0.0-1.8) 11/02/19 09:51 Lymph # 4.3 K/mm3 (1.2-5.4) 11/02/19 09:51 [place] # 0.9 K/mm3 (0.0-0.8) H 11/02/19 09:51 Eos # 0.5 K/mm3 (0.0-0.4) H 11/02/19 09:51 Baso # 0.1 K/mm3 (0.0-0.1) 11/02/19 09:51 Seg Neutrophils % 53.7 % (40.0-70.0) 11/02/19 09:51 Seg Neutrophils # 6.7 K/mm3 (1.8-7.7) 11/02/19 09:51 Sodium 139 mmol/L (137-145) 11/06/19 07:19 Potassium 3.8 mmol/L (3.6-5.0) 11/06/19 07:19 Chloride 101.5 mmol/L (98-107) 11/06/19 07:19 Carbon Dioxide 19 mmol/L (22-30) L 11/06/19 07:19 Anion Gap 22 mmol/L 11/06/19 07:19 BUN 56 mg/dL (9-20) H 11/06/19 07:19 Creatinine 3.6 mg/dL (0.8-1.5) H 11/06/19 07:19 Estimated GFR 17 ml/min 11/06/19 07:19 BUN/Creatinine Ratio 16 % 11/06/19 07:19 Glucose 115 mg/dL (75-100) H 11/06/19 07:19 POC Glucose 239 (70-105) H 11/06/19 16:41 Hemoglobin A1c 7.7 % (4-6) H 11/02/19 09:51 Calcium 8.4 mg/dL (8.4-10.2) 11/06/19 07:19 Ammonia 31.0 umol/L (25-60) 11/02/19 16:56 Triglycerides 309 mg/dL (2-149) H 11/02/19 09:51 Cholesterol 208 mg/dL (50-199) H 11/02/19 09:51 LDL Cholesterol Direct 119 mg/dL (50-130) 11/02/19 09:51 HDL Cholesterol 48 mg/dL (40-59) 11/02/19 09:51 Cholesterol/HDL Ratio 4.33 % 11/02/19 09:51 TSH 1.900 mlU/mL (0.270-4.200) 11/02/19 16:57 Free T4 1.02 ng/dL (0.76-1.46) 11/02/19 16:51 Active Medications - Current Medications Current Medications: Generic Name Dose Route Start Last Admin Trade Name Freq PRN Reason Stop Dose Admin Citalopram Hydrobromide 20 mg 11/02/19 22:00 11/05/19 21:37 Celexa PO 20 mg BID [facility] Administration Clopidogrel Bisulfate 75 mg 11/02/19 11:00 11/06/19 14:00 Plavix PO 75 mg DAILY [facility] Administration Divalproex Sodium 125 mg 11/04/19 22:00 11/05/19 21:[address] PO 125 mg BID [facility] Administration Doxepin HCl 25 mg 11/06/19 22:00 Sinequan PO QHS [facility] Famotidine 20 mg 11/02/19 11:00 11/06/19 11:06 Pepcid PO 20 mg DAILY [facility] Administration Furosemide 40 mg 11/02/19 11:00 11/06/19 11:08 Lasix PO 40 mg DAILY [facility] Administration Haloperidol Lactate 5 mg 11/04/19 00:10 11/04/19 00:42 Haldol IM 5 mg Q6H PRN Administration Agitation Hydralazine HCl 50 mg 11/02/19 14:00 11/05/19 21:43 Apresoline PO Not Given Q8HR [facility] Insulin Glargine 30 units 11/02/19 22:00 11/05/19 21:35 Lantus SUB-Q 30 units QHS [facility] Administration Insulin Human Lispro 0 unit 11/03/19 16:30 11/06/19 07:30 Humalog SUB-Q Not Given ACHS [facility] Protocol Isosorbide Mononitrate 30 mg 11/02/19 11:00 11/06/19 14:00 Imdur PO 30 mg DAILY [facility] Administration Lorazepam 2 mg 11/04/19 00:10 11/04/19 00:42 Ativan IM 2 mg Q6H PRN Administration Agitation Melatonin 5 mg 11/02/19 22:00 Melatonin PO QHS PRN Sleep Metoprolol Tartrate 100 mg 11/02/19 22:00 11/06/19 11:10 Metoprolol PO 100 mg BID [facility] Administration Nifedipine 60 mg 11/02/19 11:00 11/06/19 11:06 Procardia Xl PO 60 mg QDAY [facility] Administration Risperidone 1 mg 11/04/19 11:00 11/05/19 21:52 Risperdal PO 1 mg BID [facility] Administration Tamsulosin HCl 0.4 mg 11/02/19 11:00 11/05/19 11:51 Flomax PO 0.4 mg QDAY [facility] Administration
[2019-11-06] MEDS: HALOPERIDOL LACTATE 5 MG/1 ML INJ IM PRN (18:30)
[2019-11-06] MEDS: DOXEPIN 25 MG CAP PO SCH (21:08)
[2019-11-06] MEDS: INSULIN GLARGINE 100 UNITS/ML SUB-Q SCH (21:10)
[2019-11-06] MEDS: LORazepam 2 MG/ML VIAL IM PRN (23:11)
[2019-11-07 08:23] LABS: Calcium 8.8 mg/dL (8.4-10.2)
[2019-11-07] MEDS: INSULIN LISPRO 100 UNIT/ML SUB-Q SCH ×3 (08:24→16:36)
--- NOTE | 2019-11-07 08:59 | Progress Note ---
Subjective Date of service: 11/07/19 Principal diagnosis: Major Depression Subjective Comment: The patient's medical chart was reviewed and the patient's progress was discussed with the nursing staff. The nurse note states,pt was received this morning rolling around in bed talking to himself. pt removed his penis from his depends and urinated on the floor and placed his penis back in his depends. upon changing the pt, he became combative, balling his fist up at staff and resistant w/ care. pt is on 1:1 observation to maintain his safety and the safety of the staff. During my interview with the patient this morning, the patient was was in bed awake, the patient appears restless and agitated. The patient is alert to self only patient was noted in bed with clothing off. The patient report suicidal ideation he states, "I am going to use a gun to shoot myself". The patient denies auditory hallucination but reports visual hallucination of seeing lazo. The patient reports that he is eating well and sleeping well. The patient continues to mumbles which i was unable to understand. Reason for continuing inpatient treatment: confusion, suicidal ideation, aggressive, and unable to care for himself. REVIEW OF SYSTEMS Constitutional: Negative for weight loss ENT: Negative for stridor Respiratory: Negative for cough or hemoptysis All other systems reviewed and are negative MSE unable to assess Diagnoses: Major Depression Treatment Plan Treatment Plan Due to the psychiatric conditions and treatment listed in the Assessment and Plan - the patient requires continued hospitalization. Will continue inpatient treatment to allow for medication adjustment and monitoring. Will continue q15 min safety checks. Will encourage the use of environmental modifications and non-pharmacologic approaches for the management of behavioral and psychological symptoms. Medication adjustment made today: start trazodone 25mg bid for agitation, increase depakote to 250mg bid- stabalize mood Will continue current psych medications Monitor for medication side effects. The patient will continue on medications for physical illnesses, and Hospitalist will closely monitor these Continue intensive physical and occupational therapies. Monitor patient's mood, sleep, appetite, and behavior closely. Encourage patient to participate in individual and group therapeutic sessions on the [place]. Will provide a safe and therapeutic environment for patient. Estimated length of stay 2 days Medications and Allergies Allergies Allergy/AdvReac Type Severity Reaction Status Date / Time morphine AdvReac Unknown Verified 11/01/19 23:50 Penicillins AdvReac Unknown Verified 11/01/19 23:50 Tetanus Vaccines and Toxoid AdvReac Unknown Verified 11/01/19 23:50 Home Medications Medication Instructions Recorded Confirmed Last Taken Type Adult Aspirin 650 mg PO BID 11/02/19 11/02/19 Unknown History Citalopram 20 mg PO BID 11/02/19 11/02/19 Unknown History Clopidogrel [Plavix] 75 mg PO DAILY 11/02/19 11/02/19 Unknown History Ergocalciferol [Vitamin D2] 50,000 units PO QWEEK 11/02/19 11/02/19 Unknown History Famotidine [Pepcid] 20 mg PO DAILY 11/02/19 11/02/19 Unknown History Furosemide [Lasix TAB] 40 mg PO DAILY 11/02/19 11/02/19 Unknown History Gabapentin 300 mg PO TID 11/02/19 11/02/19 Unknown History Isosorbide Mononitrate 30 mg PO DAILY 11/02/19 11/02/19 Unknown History Lantus VIAL 30 units SQ QHS 11/02/19 11/02/19 Unknown History Metoprolol-HCTZ 100-50 mg TAB 50 mg PO BID 11/02/19 11/02/19 Unknown History NIFEdipine [Nifedipine ER] 60 mg PO DAILY 11/02/19 11/02/19 Unknown History Tamsulosin 0.4 mg PO DAILY 11/02/19 11/02/19 Unknown History hydrALAZINE 50 mg PO TID 11/02/19 11/02/19 Unknown History Active Meds: Active Medications Citalopram Hydrobromide (Celexa) 20 mg PO BID [facility] Last Admin: 11/06/19 21:09 Dose: 20 mg Documented by: Clopidogrel Bisulfate (Plavix) 75 mg PO DAILY [facility] Last Admin: 11/06/19 14:00 Dose: 75 mg Documented by: Divalproex Sodium (Depakote Dr) 125 mg PO BID [facility] Last Admin: 11/06/19 21:09 Dose: 125 mg Documented by: Doxepin HCl (Sinequan) 25 mg PO QHS [facility] Last Admin: 11/06/19 21:08 Dose: 25 mg Documented by: Famotidine (Pepcid) 20 mg PO DAILY [facility] Last Admin: 11/06/19 14:00 Dose: 20 mg Documented by: Furosemide (Lasix) 40 mg PO DAILY [facility] Last Admin: 11/06/19 14:00 Dose: 40 mg Documented by: Haloperidol Lactate (Haldol) 5 mg IM Q6H PRN PRN Reason: Agitation Last Admin: 11/06/19 18:30 Dose: 5 mg Documented by: Insulin Glargine (Lantus) 30 units SUB-Q QHS [facility] Last Admin: 11/06/19 21:10 Dose: 30 units Documented by: Insulin Human Lispro (Humalog) 0 unit SUB-Q [facility]; Protocol Last Admin: 11/07/19 08:24 Dose: Not Given Documented by: Isosorbide Mononitrate (Imdur) 30 mg PO DAILY [facility] Last Admin: 11/06/19 14:00 Dose: 30 mg Documented by: Lorazepam (Ativan) 2 mg IM Q6H PRN PRN Reason: Agitation Last Admin: 11/06/19 23:11 Dose: 2 mg Documented by: Melatonin (Melatonin) 5 mg PO QHS PRN PRN Reason: Sleep Last Admin: 11/06/19 21:44 Dose: 5 mg Documented by: Metoprolol Tartrate (Metoprolol) 100 mg PO BID [facility] Last Admin: 11/06/19 21:09 Dose: 100 mg Documented by: Nifedipine (Procardia Xl) 60 mg PO QDAY [facility] Last Admin: 11/06/19 11:06 Dose: 60 mg Documented by: Risperidone (Risperdal) 1 mg PO BID [facility] Last Admin: 11/06/19 21:08 Dose: 1 mg Documented by: Tamsulosin HCl (Flomax) 0.4 mg PO QDAY [facility] Last Admin: 11/06/19 14:00 Dose: 0.4 mg Documented by: Results - Results Labs/Vitals: Laboratory Last Values WBC 13.0 K/mm3 (4.5-11.0) H 11/03/19 10:40 RBC 4.09 M/mm3 (3.65-5.03) 11/03/19 10:40 Hgb 11.9 gm/dl (11.8-15.2) 11/03/19 10:40 Hct 36.4 % (35.5-45.6) 11/03/19 10:40 MCV 89 fl (84-94) 11/03/19 10:40 MCH 29 pg (28-32) 11/03/19 10:40 MCHC 33 % (32-34) 11/03/19 10:40 RDW 15.1 % (13.2-15.2) 11/03/19 10:40 Plt Count 371 K/mm3 (140-440) 11/03/19 10:40 Lymph % (Auto) 34.2 % (13.4-35.0) 11/02/19 09:51 [place] % (Auto) 7.5 % (0.0-7.3) H 11/02/19 09:51 Eos % (Auto) 3.9 % (0.0-4.3) 11/02/19 09:51 Baso % (Auto) 0.7 % (0.0-1.8) 11/02/19 09:51 Lymph # 4.3 K/mm3 (1.2-5.4) 11/02/19 09:51 [place] # 0.9 K/mm3 (0.0-0.8) H 11/02/19 09:51 Eos # 0.5 K/mm3 (0.0-0.4) H 11/02/19 09:51 Baso # 0.1 K/mm3 (0.0-0.1) 11/02/19 09:51 Seg Neutrophils % 53.7 % (40.0-70.0) 11/02/19 09:51 Seg Neutrophils # 6.7 K/mm3 (1.8-7.7) 11/02/19 09:51 Sodium 142 mmol/L (137-145) 11/07/19 07:15 Potassium 3.9 mmol/L (3.6-5.0) 11/07/19 07:15 Chloride 102.8 mmol/L (98-107) 11/07/19 07:15 Carbon Dioxide 21 mmol/L (22-30) L 11/07/19 07:15 Anion Gap 22 mmol/L 11/07/19 07:15 BUN 54 mg/dL (9-20) H 11/07/19 07:15 Creatinine 3.3 mg/dL (0.8-1.5) H 11/07/19 07:15 Estimated GFR 19 ml/min 11/07/19 07:15 BUN/Creatinine Ratio 16 % 11/07/19 07:15 Glucose 96 mg/dL (75-100) 11/07/19 07:15 POC Glucose 97 (70-105) 11/07/19 07:36 Hemoglobin A1c 7.7 % (4-6) H 11/02/19 09:51 Calcium 8.8 mg/dL (8.4-10.2) 11/07/19 07:15 Ammonia 31.0 umol/L (25-60) 11/02/19 16:56 Triglycerides 309 mg/dL (2-149) H 11/02/19 09:51 Cholesterol 208 mg/dL (50-199) H 11/02/19 09:51 LDL Cholesterol Direct 119 mg/dL (50-130) 11/02/19 09:51 HDL Cholesterol 48 mg/dL (40-59) 11/02/19 09:51 Cholesterol/HDL Ratio 4.33 % 11/02/19 09:51 TSH 1.900 mlU/mL (0.270-4.200) 11/02/19 16:57 Free T4 1.02 ng/dL (0.76-1.46) 11/02/19 16:51 Last Vital Signs Temp 98.2 F 11/06/19 09:10 Pulse 66 11/06/19 21:09 Resp 18 11/06/19 09:10 BP 123/60 11/06/19 21:09 Pulse Ox 95 11/06/19 09:10
--- NOTE | 2019-11-07 09:47 | Progress Note ---
Assessment and Plan 1. CKD stage 4: Patient with h/o CKD admitted from OSH. Neurontin and HCTZ d/c 11/06. His most recent creatinine is improving since d/c HCTZ on 11/06, 3.3 from 3.6. Baseline renal function should be closer to 2.5. Renal US shows combination of complex and simple cysts in left kidney, negative for hydro. Monitor renal function. Avoid nephrotoxic agents. Meds dosage based on GFR. 2. FEN: Metabolic acidosis, monitor. Monitor lytes. 3. Suicidal ideation. 4. Metabolic encephalopathy, POA. Increased lethargy 11/06. Neurontin d/c 11/06. Lethargy is improved after d/c of Neurontin. 5. Leukocytosis. 6. Diabetes mellitus with hyperglycemia. 7. COPD. 8. CAD. 9. Presumed chronic congestive heart failure: Normal EF. 10.Right rib fracture. Subjective Date of service: 11/07/19 Principal diagnosis: Major Depression Interval history: Patient was seen and examined in the day room of the psych unit. Sitter was present with patient at the table. He is drowsy this morning and speech is incoherent. He remains seated in a chair during the examination. Objective - Exam Narrative Exam: General appearance: well-developed, well-nourished, appears stated age, other (not in distress) EENT: ATNC Neck: Present: neck supple, trachea midline Respiratory: Clear to Auscultation Heart: regular, S1S2, no murmurs Gastrointestinal: Present: normoactive bowel sounds. Absent: tenderness, distended Integumentary: no rash, warm and dry Neurologic: drowsy, cooperative with examination, inappropriate conversation Musculoskeletal: Present: other (trace LE edema noted) - Lab 11/03/19 10:40 11/07/19 07:15 Most recent lab results Calcium 8.8 mg/dL (8.4-10.2) 11/07/19 07:15 Medications & Allergies - Medications Allergies/Adverse Reactions: Allergies morphine Adverse Reaction (Verified 11/01/19 23:50) Unknown Penicillins Adverse Reaction (Verified 11/01/19 23:50) Unknown Tetanus Vaccines and Toxoid Adverse Reaction (Verified 11/01/19 23:50) Unknown Home Medications: Home Medications Medication Instructions Recorded Confirmed Last Taken Type Adult Aspirin 650 mg PO BID 11/02/19 11/02/19 Unknown History Citalopram 20 mg PO BID 11/02/19 11/02/19 Unknown History Clopidogrel [Plavix] 75 mg PO DAILY 11/02/19 11/02/19 Unknown History Ergocalciferol [Vitamin D2] 50,000 units PO QWEEK 11/02/19 11/02/19 Unknown History Famotidine [Pepcid] 20 mg PO DAILY 11/02/19 11/02/19 Unknown History Furosemide [Lasix TAB] 40 mg PO DAILY 11/02/19 11/02/19 Unknown History Gabapentin 300 mg PO TID 11/02/19 11/02/19 Unknown History Isosorbide Mononitrate 30 mg PO DAILY 11/02/19 11/02/19 Unknown History Lantus VIAL 30 units SQ QHS 11/02/19 11/02/19 Unknown History Metoprolol-HCTZ 100-50 mg TAB 50 mg PO BID 11/02/19 11/02/19 Unknown History NIFEdipine [Nifedipine ER] 60 mg PO DAILY 11/02/19 11/02/19 Unknown History Tamsulosin 0.4 mg PO DAILY 11/02/19 11/02/19 Unknown History hydrALAZINE 50 mg PO TID 11/02/19 11/02/19 Unknown History Active Medications: Generic Name Dose Route Start Last Admin Trade Name Freq PRN Reason Stop Dose Admin Citalopram Hydrobromide 20 mg 11/02/19 22:00 11/06/19 21:09 Celexa PO 20 mg BID GETACHEW Administration Clopidogrel Bisulfate 75 mg 11/02/19 11:00 11/06/19 14:00 Plavix PO 75 mg DAILY GETACHEW Administration Divalproex Sodium 250 mg 11/07/19 10:[address] PO BID GETACHEW Doxepin HCl 25 mg 11/06/19 22:00 11/06/19 21:08 Sinequan PO 25 mg QHS GETACHEW Administration Famotidine 20 mg 11/02/19 11:00 11/06/19 14:00 Pepcid PO 20 mg DAILY GEATCHEW Administration Furosemide 40 mg 11/02/19 11:00 11/06/19 14:00 Lasix PO 40 mg DAILY GETACHEW Administration Haloperidol Lactate 5 mg 11/04/19 00:10 11/06/19 18:30 Haldol IM 5 mg Q6H PRN Administration Agitation Insulin Glargine 30 units 11/02/19 22:00 11/06/19 21:10 Lantus SUB-Q 30 units QHS GETACHEW Administration Insulin Human Lispro 0 unit 11/03/19 16:30 11/07/19 08:24 Humalog SUB-Q Not Given ACHS [facility] Protocol Isosorbide Mononitrate 30 mg 11/02/19 11:00 11/06/19 14:00 Imdur PO 30 mg DAILY GETACHEW Administration Lorazepam 2 mg 11/04/19 00:10 11/06/19 23:11 Ativan IM 2 mg Q6H PRN Administration Agitation Melatonin 5 mg 11/02/19 22:00 11/06/19 21:44 Melatonin PO 5 mg QHS PRN Administration Sleep Metoprolol Tartrate 100 mg 11/02/19 22:00 11/06/19 21:09 Metoprolol PO 100 mg BID GETACHEW Administration Nifedipine 60 mg 11/02/19 11:00 11/06/19 11:06 Procardia Xl PO 60 mg QDAY GETACHEW Administration Risperidone 1 mg 11/04/19 11:00 11/06/19 21:08 Risperdal PO 1 mg BID GETACHEW Administration Tamsulosin HCl 0.4 mg 11/02/19 11:00 11/06/19 14:00 Flomax PO 0.4 mg QDAY GETACHEW Administration Trazodone HCl 25 mg 11/07/19 10:00 Desyrel PO BID GETACHEW
[2019-11-07] MEDS: FUROSEMIDE 40 MG TAB PO SCH (09:54)
[2019-11-07] MEDS: FAMOTIDINE 20 MG TAB PO SCH (09:54)
[2019-11-07] MEDS: CLOPIDOGREL 75 MG TAB PO SCH (09:54)
[2019-11-07] MEDS: DIVALPROEX DR 125 MG TAB PO SCH ×2 (09:54→22:00)
[2019-11-07] MEDS: risperiDONE 1 MG TAB PO SCH ×2 (09:55→22:00)
[2019-11-07] MEDS: NIFEdipine XL 60 MG TAB PO SCH (09:56)
[2019-11-07] MEDS: TAMSULOSIN 0.4 MG CAP PO SCH (09:56)
[2019-11-07] MEDS: METOPROLOL TARTRATE 100 MG TAB PO SCH ×2 (09:59→22:01)
[2019-11-07] MEDS: CITALOPRAM 20 MG TAB PO SCH ×2 (11:01→22:00)
[2019-11-07] MEDS: traZODone 50 MG TAB PO SCH ×2 (11:01→21:58)
[2019-11-07] MEDS: DOXEPIN 25 MG CAP PO SCH (21:58)
[2019-11-07 22:02] VITALS: BP 169/74
[2019-11-08] MEDS: INSULIN GLARGINE 100 UNITS/ML SUB-Q SCH (00:11)
[2019-11-08] MEDS: INSULIN LISPRO 100 UNIT/ML SUB-Q SCH ×2 (00:17→07:45)
[2019-11-08] MEDS: LORazepam 2 MG/ML VIAL IM PRN (00:37)
--- NOTE | 2019-11-08 08:36 | Progress Note ---
Assessment and Plan Assessment and plan: Patient is a 74 man with a history of hypertension, DM type 2 who was admitted to [facility] for mental health stabilization. Nurse called me today to re- evaluate Mr. Hurley due to incresase sleepiness and difficult to arouse this morning. When I saw his later in the day, he was awake and talking in the day room. I ordered bg which was 113 and vitals were stable. AMS with increase somnolence/lethargy: reviewed medication list, his bp running low, will adjust Hypotension: stopped hydralazine Acute encephalopathy: lower bp dose DM type 2: continue ssi, accucheck monitoring. 11/08/2019: RN called me about a "change in medical condition," patient choking on food and liquids, he is pale, altered. Last night he was combative and received 2 mg IM ativan. Now more lethargic and unable to eat, choking on food/liquid but he did received Lantus 30 units last night and BG 52. I ordered stat D50 IV, xray, i was told pulse ox is 93%. patient may need to be Admitted if unable to give IV Dextrose. I am willing to accept, they will let me know. History Interval history: Patient was seen and examined. Follow-up on current diagnosis of AMS. RN just called me about a "change in medical condition," patient choking on food and liquids, pale, altered. Last night he was combative and received 2 mg IM ativan. Hospitalist Physical - Physical exam Narrative exam: Gen: WDWN, NAD, Awake, Alert, Orientated x 1 but he is answering the questions, HEENT: NCAT, EOMI, PERRL, OP Clear Neck: supple, no adenopathy, no thyromegaly, no JVD CVS/Heart: RRR, normal S1S2, pulses present bilaterally Chest/Lungs: CTA B, Symmetrical chest expansion, good air entry bilaterally GI/Abdomen: soft, NTND, good bowel sounds, no guarding or rebound /Bladder: no suprapubic tenderness, no CVA or paraspinal tenderness Extermity/Skin: no c/c/e, no obvious rash MSK: sROM x 4 Neuro: CN 2-12 grossly intact, follows some commands Psych: calm but confused - Constitutional Vitals: Temp Pulse Resp BP Pulse Ox 97.9 F 72 20 169/74 95 11/07/19 19:35 11/07/19 22:01 11/07/19 19:35 11/07/19 22:01 11/07/19 19:35 Results - Labs CBC & Chem 7: 11/03/19 10:40 11/07/19 07:15 Labs: Laboratory Last Values WBC 13.0 K/mm3 (4.5-11.0) H 11/03/19 10:40 RBC 4.09 M/mm3 (3.65-5.03) 11/03/19 10:40 Hgb 11.9 gm/dl (11.8-15.2) 11/03/19 10:40 Hct 36.4 % (35.5-45.6) 11/03/19 10:40 MCV 89 fl (84-94) 11/03/19 10:40 MCH 29 pg (28-32) 11/03/19 10:40 MCHC 33 % (32-34) 11/03/19 10:40 RDW 15.1 % (13.2-15.2) 11/03/19 10:40 Plt Count 371 K/mm3 (140-440) 11/03/19 10:40 Lymph % (Auto) 34.2 % (13.4-35.0) 11/02/19 09:51 [place] % (Auto) 7.5 % (0.0-7.3) H 11/02/19 09:51 Eos % (Auto) 3.9 % (0.0-4.3) 11/02/19 09:51 Baso % (Auto) 0.7 % (0.0-1.8) 11/02/19 09:51 Lymph # 4.3 K/mm3 (1.2-5.4) 11/02/19 09:51 [place] # 0.9 K/mm3 (0.0-0.8) H 11/02/19 09:51 Eos # 0.5 K/mm3 (0.0-0.4) H 11/02/19 09:51 Baso # 0.1 K/mm3 (0.0-0.1) 11/02/19 09:51 Seg Neutrophils % 53.7 % (40.0-70.0) 11/02/19 09:51 Seg Neutrophils # 6.7 K/mm3 (1.8-7.7) 11/02/19 09:51 Sodium 142 mmol/L (137-145) 11/07/19 07:15 Potassium 3.9 mmol/L (3.6-5.0) 11/07/19 07:15 Chloride 102.8 mmol/L (98-107) 11/07/19 07:15 Carbon Dioxide 21 mmol/L (22-30) L 11/07/19 07:15 Anion Gap 22 mmol/L 11/07/19 07:15 BUN 54 mg/dL (9-20) H 11/07/19 07:15 Creatinine 3.3 mg/dL (0.8-1.5) H 11/07/19 07:15 Estimated GFR 19 ml/min 11/07/19 07:15 BUN/Creatinine Ratio 16 % 11/07/19 07:15 Glucose 96 mg/dL (75-100) 11/07/19 07:15 POC Glucose 52 (70-105) L 11/08/19 08:15 Hemoglobin A1c 7.7 % (4-6) H 11/02/19 09:51 Calcium 8.8 mg/dL (8.4-10.2) 11/07/19 07:15 Ammonia 31.0 umol/L (25-60) 11/02/19 16:56 Triglycerides 309 mg/dL (2-149) H 11/02/19 09:51 Cholesterol 208 mg/dL (50-199) H 11/02/19 09:51 LDL Cholesterol Direct 119 mg/dL (50-130) 11/02/19 09:51 HDL Cholesterol 48 mg/dL (40-59) 11/02/19 09:51 Cholesterol/HDL Ratio 4.33 % 11/02/19 09:51 TSH 1.900 mlU/mL (0.270-4.200) 11/02/19 16:57 Free T4 1.02 ng/dL (0.76-1.46) 11/02/19 16:51 Active Medications - Current Medications Current Medications: Generic Name Dose Route Start Last Admin Trade Name Freq PRN Reason Stop Dose Admin Citalopram Hydrobromide 20 mg 11/02/19 22:00 11/07/19 22:00 Celexa PO 20 mg BID GETACHEW Administration Clopidogrel Bisulfate 75 mg 11/02/19 11:00 11/07/19 09:54 Plavix PO 75 mg DAILY GETACHEW Administration Dextrose 50 gm 11/08/19 08:30 D50w (25gm) Vial IV 11/08/19 08:31 ONCE ONE Protocol Divalproex Sodium 250 mg 11/07/19 10:00 11/07/19 22:[address] PO 250 mg BID GETACHEW Administration Doxepin HCl 25 mg 11/06/19 22:00 11/07/19 21:58 Sinequan PO 25 mg QHS GETACHEW Administration Famotidine 20 mg 11/02/19 11:00 11/07/19 09:54 Pepcid PO 20 mg DAILY GETACHEW Administration Furosemide 40 mg 11/02/19 11:00 11/07/19 09:54 Lasix PO 40 mg DAILY GETACHEW Administration Haloperidol Lactate 5 mg 11/04/19 00:10 11/06/19 18:30 Haldol IM 5 mg Q6H PRN Administration Agitation Isosorbide Mononitrate 30 mg 11/02/19 11:00 11/07/19 09:59 Imdur PO 30 mg DAILY GETACHEW Administration Lorazepam 2 mg 11/04/19 00:10 11/08/19 00:37 Ativan IM 2 mg Q6H PRN Administration Agitation Melatonin 5 mg 11/02/19 22:00 11/06/19 21:44 Melatonin PO 5 mg QHS PRN Administration Sleep Metoprolol Tartrate 100 mg 11/02/19 22:00 11/07/19 22:01 Metoprolol PO 100 mg BID GETACHEW Administration Nifedipine 60 mg 11/02/19 11:00 11/07/19 09:56 Procardia Xl PO 60 mg QDAY GETACHEW Administration Risperidone 1 mg 11/04/19 11:00 11/07/19 22:00 Risperdal PO 1 mg BID GETACHEW Administration Tamsulosin HCl 0.4 mg 11/02/19 11:00 11/07/19 09:56 Flomax PO 0.4 mg QDAY GETACHEW Administration Trazodone HCl 25 mg 11/07/19 10:00 11/07/19 21:58 Desyrel PO 25 mg BID GETACHEW Administration
--- NOTE | 2019-11-08 08:51 | Discharge Summary ---
Providers - Providers Date of Admission: 11/02/19 02:24 Date of discharge: 11/08/19 Attending physician: LAMONT LEGGETT MD 11/02/19 09:00 Consult to Physician [CONS] Routine Comment: Consulting Provider: EVERARDO SALVADOR Physician Instructions: Reason For Exam: H&P AND MEDICAL MGMT 11/04/19 07:28 Consult to Physician [CONS] Routine Comment: Consulting Provider: ROSALIE CORTEZ Physician Instructions: Reason For Exam: ckd vs kelly Primary care physician: LAMONT LEGGETT MD Hospitalization Condition: Fair Disposition: DC/TX-02 [facility]M GEN HOSP IP Allergies/Adverse Reactions: Allergies morphine Adverse Reaction (Verified 11/01/19 23:50) Unknown Penicillins Adverse Reaction (Verified 11/01/19 23:50) Unknown Tetanus Vaccines and Toxoid Adverse Reaction (Verified 11/01/19 23:50) Unknown Vital Signs: Last Vital Signs Temp 97.9 F 11/07/19 19:35 Pulse 72 11/07/19 22:01 Resp 20 11/07/19 19:35 BP 169/74 11/07/19 22:01 Pulse Ox 95 11/07/19 19:35 Last Lab: Laboratory Last Values WBC 13.0 K/mm3 (4.5-11.0) H 11/03/19 10:40 RBC 4.09 M/mm3 (3.65-5.03) 11/03/19 10:40 Hgb 11.9 gm/dl (11.8-15.2) 11/03/19 10:40 Hct 36.4 % (35.5-45.6) 11/03/19 10:40 MCV 89 fl (84-94) 11/03/19 10:40 MCH 29 pg (28-32) 11/03/19 10:40 MCHC 33 % (32-34) 11/03/19 10:40 RDW 15.1 % (13.2-15.2) 11/03/19 10:40 Plt Count 371 K/mm3 (140-440) 11/03/19 10:40 Lymph % (Auto) 34.2 % (13.4-35.0) 11/02/19 09:51 [place] % (Auto) 7.5 % (0.0-7.3) H 11/02/19 09:51 Eos % (Auto) 3.9 % (0.0-4.3) 11/02/19 09:51 Baso % (Auto) 0.7 % (0.0-1.8) 11/02/19 09:51 Lymph # 4.3 K/mm3 (1.2-5.4) 11/02/19 09:51 [place] # 0.9 K/mm3 (0.0-0.8) H 11/02/19 09:51 Eos # 0.5 K/mm3 (0.0-0.4) H 11/02/19 09:51 Baso # 0.1 K/mm3 (0.0-0.1) 11/02/19 09:51 Seg Neutrophils % 53.7 % (40.0-70.0) 11/02/19 09:51 Seg Neutrophils # 6.7 K/mm3 (1.8-7.7) 11/02/19 09:51 Sodium 142 mmol/L (137-145) 11/07/19 07:15 Potassium 3.9 mmol/L (3.6-5.0) 11/07/19 07:15 Chloride 102.8 mmol/L (98-107) 11/07/19 07:15 Carbon Dioxide 21 mmol/L (22-30) L 11/07/19 07:15 Anion Gap 22 mmol/L 11/07/19 07:15 BUN 54 mg/dL (9-20) H 11/07/19 07:15 Creatinine 3.3 mg/dL (0.8-1.5) H 11/07/19 07:15 Estimated GFR 19 ml/min 11/07/19 07:15 BUN/Creatinine Ratio 16 % 11/07/19 07:15 Glucose 96 mg/dL (75-100) 11/07/19 07:15 POC Glucose 52 (70-105) L 11/08/19 08:15 Hemoglobin A1c 7.7 % (4-6) H 11/02/19 09:51 Calcium 8.8 mg/dL (8.4-10.2) 11/07/19 07:15 Ammonia 31.0 umol/L (25-60) 11/02/19 16:56 Triglycerides 309 mg/dL (2-149) H 11/02/19 09:51 Cholesterol 208 mg/dL (50-199) H 11/02/19 09:51 LDL Cholesterol Direct 119 mg/dL (50-130) 11/02/19 09:51 HDL Cholesterol 48 mg/dL (40-59) 11/02/19 09:51 Cholesterol/HDL Ratio 4.33 % 11/02/19 09:51 TSH 1.900 mlU/mL (0.270-4.200) 11/02/19 16:57 Free T4 1.02 ng/dL (0.76-1.46) 11/02/19 16:51 Core Measure Documentation - Palliative Care Palliative Care/ Comfort Measures: Not Applicable - Core Measures Any of the following diagnoses?: none Exam - Constitutional Vitals: Temp Pulse Resp BP Pulse Ox 97.9 F 72 20 169/74 95 11/07/19 19:35 11/07/19 22:01 11/07/19 19:35 11/07/19 22:01 11/07/19 19:35 General appearance: Present: mild distress - EENT Eyes: Present: PERRL, EOM intact ENT: hearing intact, clear oral mucosa - Neck Neck: Present: supple, normal ROM - Respiratory Respiratory effort: normal - Abdominal Male genitourinary: Present: normal - Integumentary Integumentary: Present: clear, warm, dry Plan Care Plan Goals: Maintain good and stable mental health Plan of Treatment: The patient should be complaint with medications, not use drugs, and not drink alcohol. The patient understands that if suicidal, homicidal or endangering feelings arise he should seek assistance including but not limited to calling 911, the crisis hotline, and the emergency room. Follow up with outpatient psychiatry and primary doctor in 7 to 14 days Follow up with: LAMONT LEGGETT MD [Primary Care Provider] - 7 Days
[2019-11-08] MEDS ORDERED: INSULIN LISPRO 100 UNIT/ML SUB-Q SCH (09:00)
[2019-11-08] MEDS ORDERED: DEXTROSE 50% IN WATER (25GM) 50 ML VIAL IV ONE (09:00)
--- NOTE | 2019-11-08 10:06 | Progress Note ---
Assessment and Plan 1. CKD stage 4: Currently no new labs to review. Will order BMP and monitor. Patient with h/o CKD admitted from OSH. Neurontin and HCTZ d/c 11/06. His most recent creatinine on 11/07 showed improvement since d/c HCTZ on 11/06, 3.3 from 3.6. Baseline renal function should be closer to 2.5. Renal US shows combination of complex and simple cysts in left kidney, negative for hydro. Monitor renal function. Avoid nephrotoxic agents. Meds dosage based on GFR. 2. FEN: Metabolic acidosis, monitor. Monitor lytes. 3. Suicidal ideation. 4. Metabolic encephalopathy, POA. Increased lethargy 11/06. Neurontin d/c 11/06. Lethargy is improved after d/c of Neurontin. 5. Leukocytosis. 6. Diabetes mellitus with hyperglycemia. 7. COPD. 8. CAD. 9. Presumed chronic congestive heart failure: Normal EF. 10.Right rib fracture. Subjective Date of service: 11/08/19 Principal diagnosis: Major Depression Interval history: Patient was seen and examined in room 377 where he was just transferred. He is sleeping but easily awakened and goes right back to sleep. He does not make eye contact or engage in conversation. Objective - Exam Narrative Exam: General appearance: well-developed, well-nourished, appears stated age, other (not in distress) EENT: ATNC Neck: Present: neck supple, trachea midline Respiratory: Clear to Auscultation Heart: regular, S1S2, no murmurs Gastrointestinal: Present: normoactive bowel sounds. Absent: tenderness, distended Integumentary: no rash, warm and dry Neurologic: drowsy, cooperative with examination, inappropriate conversation Musculoskeletal: Present: other (trace LE edema noted) - Lab 11/03/19 10:40 11/07/19 07:15 Most recent lab results Calcium 8.8 mg/dL (8.4-10.2) 11/07/19 07:15 Medications & Allergies - Medications Allergies/Adverse Reactions: Allergies morphine Adverse Reaction (Verified 11/01/19 23:50) Unknown Penicillins Adverse Reaction (Verified 11/01/19 23:50) Unknown Tetanus Vaccines and Toxoid Adverse Reaction (Verified 11/01/19 23:50) Unknown Home Medications: Home Medications Medication Instructions Recorded Confirmed Last Taken Type Adult Aspirin 650 mg PO BID 11/02/19 11/02/19 Unknown History Citalopram 20 mg PO BID 11/02/19 11/02/19 Unknown History Clopidogrel [Plavix] 75 mg PO DAILY 11/02/19 11/02/19 Unknown History Ergocalciferol [Vitamin D2] 50,000 units PO QWEEK 11/02/19 11/02/19 Unknown History Famotidine [Pepcid] 20 mg PO DAILY 11/02/19 11/02/19 Unknown History Furosemide [Lasix TAB] 40 mg PO DAILY 11/02/19 11/02/19 Unknown History Gabapentin 300 mg PO TID 11/02/19 11/02/19 Unknown History Isosorbide Mononitrate 30 mg PO DAILY 11/02/19 11/02/19 Unknown History Lantus VIAL 30 units SQ QHS 11/02/19 11/02/19 Unknown History Metoprolol-HCTZ 100-50 mg TAB 50 mg PO BID 11/02/19 11/02/19 Unknown History NIFEdipine [Nifedipine ER] 60 mg PO DAILY 11/02/19 11/02/19 Unknown History Tamsulosin 0.4 mg PO DAILY 11/02/19 11/02/19 Unknown History hydrALAZINE 50 mg PO TID 11/02/19 11/02/19 Unknown History Active Medications: Generic Name Dose Route Start Last Admin Trade Name Freq PRN Reason Stop Dose Admin Citalopram Hydrobromide 20 mg 11/02/19 22:00 11/07/19 22:00 Celexa PO 20 mg BID GETACHEW Administration Clopidogrel Bisulfate 75 mg 11/02/19 11:00 11/07/19 09:54 Plavix PO 75 mg DAILY GETACHEW Administration Divalproex Sodium 250 mg 11/07/19 10:00 11/07/19 22:[address] PO 250 mg BID GETACHEW Administration Doxepin HCl 25 mg 11/06/19 22:00 11/07/19 21:58 Sinequan PO 25 mg QHS GETACHEW Administration Famotidine 20 mg 11/02/19 11:00 11/07/19 09:54 Pepcid PO 20 mg DAILY GETACHEW Administration Furosemide 40 mg 11/02/19 11:00 11/07/19 09:54 Lasix PO 40 mg DAILY GETACHEW Administration Haloperidol Lactate 5 mg 11/04/19 00:10 11/06/19 18:30 Haldol IM 5 mg Q6H PRN Administration Agitation Insulin Human Lispro 0 unit 11/08/19 09:00 Humalog SUB-Q Q4H GETACHEW Protocol Isosorbide Mononitrate 30 mg 11/02/19 11:00 11/07/19 09:59 Imdur PO 30 mg DAILY GETACHEW Administration Lorazepam 2 mg 11/04/19 00:10 11/08/19 00:37 Ativan IM 2 mg Q6H PRN Administration Agitation Melatonin 5 mg 11/02/19 22:00 11/06/19 21:44 Melatonin PO 5 mg QHS PRN Administration Sleep Metoprolol Tartrate 100 mg 11/02/19 22:00 11/07/19 22:01 Metoprolol PO 100 mg BID GETACHEW Administration Nifedipine 60 mg 11/02/19 11:00 11/07/19 09:56 Procardia Xl PO 60 mg QDAY GETACHEW Administration Risperidone 1 mg 11/04/19 11:00 11/07/19 22:00 Risperdal PO 1 mg BID GETACHEW Administration Tamsulosin HCl 0.4 mg 11/02/19 11:00 11/07/19 09:56 Flomax PO 0.4 mg QDAY GETACHEW Administration Trazodone HCl 25 mg 11/07/19 10:00 11/07/19 21:58 Desyrel PO 25 mg BID GETACHEW Administration
--- NOTE | 2019-11-08 13:57 | XRay Report ---
CHEST 1 VIEW INDICATION: Shortness of breath. COMPARISON: 11/02/2019 FINDINGS: Support devices: None. Heart: Within normal limits. Lungs/Pleura: No acute air space or interstitial disease. Additional findings: None. IMPRESSION: No acute findings. Signer Name: Jamey Monique Jr, MD Signed: 11/08/2019 1:53 PM Workstation Name: [id number]
[2019-11-08 16:35] LABS: Calcium 8.6 mg/dL (8.4-10.2)
--- NOTE | 2019-11-08 16:40 | Progress Note ---
Assessment and Plan Assessment and plan: Patient is a 74 man with a history of hypertension, DM type 2 who was admitted to [facility] for mental health stabilization. Nurse called me today to re- evaluate Mr. Hurley due to incresase sleepiness and difficult to arouse this morning. When I saw his later in the day, he was awake and talking in the day room. I ordered bg which was 113 and vitals were stable. AMS with increase somnolence/lethargy: reviewed medication list, his bp running low, will adjust Hypotension: stopped hydralazine Acute encephalopathy: lower bp dose DM type 2: continue ssi, accucheck monitoring. 11/08/2019: RN called me about a "change in medical condition," patient choking on food and liquids, he is pale, altered. Last night he was combative and received 2 mg IM ativan. Now more lethargic and unable to eat, choking on food/liquid but he did received Lantus 30 units last night and BG 52. I ordered stat D50 IV, xray, i was told pulse ox is 93%. patient may need to be Admitted if unable to give IV Dextrose. I am willing to accept, they will let me know. History Interval history: Patient was seen and examined. Follow-up on current diagnosis of AMS. RN just called me about a "change in medical condition," patient choking on food and liquids, pale, altered. Last night he was combative and received 2 mg IM ativan. Hospitalist Physical - Physical exam Narrative exam: Gen: WDWN, NAD, Awake, Alert, Orientated x 1 but he is answering the questions, HEENT: NCAT, EOMI, PERRL, OP Clear Neck: supple, no adenopathy, no thyromegaly, no JVD CVS/Heart: RRR, normal S1S2, pulses present bilaterally Chest/Lungs: CTA B, Symmetrical chest expansion, good air entry bilaterally GI/Abdomen: soft, NTND, good bowel sounds, no guarding or rebound /Bladder: no suprapubic tenderness, no CVA or paraspinal tenderness Extermity/Skin: no c/c/e, no obvious rash MSK: sROM x 4 Neuro: CN 2-12 grossly intact, follows some commands Psych: calm but confused - Constitutional Vitals: Temp Pulse Resp BP Pulse Ox 97.9 F 72 20 169/74 95 11/07/19 19:35 11/07/19 22:01 11/07/19 19:35 11/07/19 22:01 11/07/19 19:35 General appearance: Absent: mild distress Results - Labs CBC & Chem 7: 11/03/19 10:40 11/08/19 15:38 Labs: Laboratory Last Values WBC 13.0 K/mm3 (4.5-11.0) H 11/03/19 10:40 RBC 4.09 M/mm3 (3.65-5.03) 11/03/19 10:40 Hgb 11.9 gm/dl (11.8-15.2) 11/03/19 10:40 Hct 36.4 % (35.5-45.6) 11/03/19 10:40 MCV 89 fl (84-94) 11/03/19 10:40 MCH 29 pg (28-32) 11/03/19 10:40 MCHC 33 % (32-34) 11/03/19 10:40 RDW 15.1 % (13.2-15.2) 11/03/19 10:40 Plt Count 371 K/mm3 (140-440) 11/03/19 10:40 Lymph % (Auto) 34.2 % (13.4-35.0) 11/02/19 09:51 [place] % (Auto) 7.5 % (0.0-7.3) H 11/02/19 09:51 Eos % (Auto) 3.9 % (0.0-4.3) 11/02/19 09:51 Baso % (Auto) 0.7 % (0.0-1.8) 11/02/19 09:51 Lymph # 4.3 K/mm3 (1.2-5.4) 11/02/19 09:51 [place] # 0.9 K/mm3 (0.0-0.8) H 11/02/19 09:51 Eos # 0.5 K/mm3 (0.0-0.4) H 11/02/19 09:51 Baso # 0.1 K/mm3 (0.0-0.1) 11/02/19 09:51 Seg Neutrophils % 53.7 % (40.0-70.0) 11/02/19 09:51 Seg Neutrophils # 6.7 K/mm3 (1.8-7.7) 11/02/19 09:51 Sodium 139 mmol/L (137-145) 11/08/19 15:38 Potassium 3.9 mmol/L (3.6-5.0) 11/07/19 07:15 Chloride 103.6 mmol/L (98-107) 11/08/19 15:38 Carbon Dioxide 20 mmol/L (22-30) L 11/08/19 15:38 Anion Gap 22 mmol/L 11/07/19 07:15 BUN 48 mg/dL (9-20) H 11/08/19 15:38 Creatinine 3.3 mg/dL (0.8-1.5) H 11/08/19 15:38 Estimated GFR 19 ml/min 11/08/19 15:38 BUN/Creatinine Ratio 15 % 11/08/19 15:38 Glucose 126 mg/dL (75-100) H 11/08/19 15:38 POC Glucose 54 (70-105) L 11/08/19 10:51 Hemoglobin A1c 7.7 % (4-6) H 11/02/19 09:51 Calcium 8.6 mg/dL (8.4-10.2) 11/08/19 15:38 Ammonia 31.0 umol/L (25-60) 11/02/19 16:56 Triglycerides 309 mg/dL (2-149) H 11/02/19 09:51 Cholesterol 208 mg/dL (50-199) H 11/02/19 09:51 LDL Cholesterol Direct 119 mg/dL (50-130) 11/02/19 09:51 HDL Cholesterol 48 mg/dL (40-59) 11/02/19 09:51 Cholesterol/HDL Ratio 4.33 % 11/02/19 09:51 TSH 1.900 mlU/mL (0.270-4.200) 11/02/19 16:57 Free T4 1.02 ng/dL (0.76-1.46) 11/02/19 16:51
== END 2019-11-08 09:50 | disposition short-term general hospital (02) | DRG 881 ==
LOC: UNDOADMIN 19:34 → 3A 19:34 → 5A 11-02 02:24
PROVIDERS: ADMIT Psychiatry & Neurology Psychiatry; ATTEND Psychiatry & Neurology Psychiatry
DX: F32.9 Major depressive disorder, single episode, unspecified (principal); N18.4 Chronic kidney disease, stage 4 (severe); E11.65 Type 2 diabetes mellitus with hyperglycemia; G93.41 Metabolic encephalopathy; I50.22 Chronic systolic (congestive) heart failure; I13.0 Hypertensive heart and chronic kidney disease with heart failure and stage 1 through stage 4 chronic kidney disease, or unspecified chronic kidney disease; R45.851 Suicidal ideations; E87.2 Acidosis; F29 Unspecified psychosis not due to a substance or known physiological condition; J44.9 Chronic obstructive pulmonary disease, unspecified; E11.22 Type 2 diabetes mellitus with diabetic chronic kidney disease; D72.829 Elevated white blood cell count, unspecified; E78.5 Hyperlipidemia, unspecified; I25.10 Atherosclerotic heart disease of native coronary artery without angina pectoris; I95.9 Hypotension, unspecified; Z88.0 Allergy status to penicillin; Z88.5 Allergy status to narcotic agent; Z79.899 Other long term (current) drug therapy
CPT/HCPCS: 36415; 71045; 76770; 80048; 80061; 82140; 82962; 83036; 84439; 84443; 85025; 85027; G0378; J1630; J1815; J2060; J3486

== ENCOUNTER 2019-11-08 08:47 | Inpatient (IN) | payer MEDICARE ==
[2019-11-08] MEDS ORDERED: DEXTROSE 50% IN WATER (25GM) 50 ML SYRINGE IV PRN (09:44)
[2019-11-08] MEDS ORDERED: DEXTROSE 50% IN WATER (25GM) 50 ML SYRINGE IV ONE ×2 (11:16→13:27)
[2019-11-08] MEDS: INSULIN LISPRO 100 UNIT/ML SUB-Q SCH ×4 (11:55→23:21)
[2019-11-08] MEDS: DEXTROSE 10% IN WATER 1,000 ML IV SCH (13:45)
--- NOTE | 2019-11-08 16:43 | History and Physical Report ---
History of Present Illness Date of examination: 11/08/19 Date of admission: 11/08/19 10:17 Chief complaint: AMS History of present illness: Patient is a 74 yo man with a history of hypertension and DM type 2 who was admitted to [facility] from [facility] for mental health stabilization after Suicidal ideation. Labs significant for Creat 2.8. Nephrology was consulted for further evaluation. RN called me about a "change in medical condition," patient choking on food and liquids, he is pale, altered. Last night he was combative and received 2 mg IM ativan. Trazadone was newly added last and increase in depakote. Now more lethargic and unable to eat, choking on food/liquid but he did received Lantus 30 units last night and BG dropped to 52. After IV dextrose the BG continued to drop to 48. Another amp of D5 was given. He was discharged form [facility] to med surg. Past Medical History: Hypertension, Diabetes mellitus, HLD, CAD, COPD, CHF and CKD stage 4 Past Surgical History: Other (Unable to obtain no surgical scars noted) Social history: other (Unable to obtain due to somnolence) Family history: no significant family history ROS: unable to obtain due to AMS Medications and Allergies Allergies Allergy/AdvReac Type Severity Reaction Status Date / Time morphine AdvReac Unknown Verified 11/01/19 23:50 Penicillins AdvReac Unknown Verified 11/01/19 23:50 Tetanus Vaccines and Toxoid AdvReac Unknown Verified 11/01/19 23:50 Home Medications Medication Instructions Recorded Confirmed Last Taken Type Adult Aspirin 650 mg PO BID 11/02/19 11/02/19 Unknown History Citalopram 20 mg PO BID 11/02/19 11/02/19 Unknown History Clopidogrel [Plavix] 75 mg PO DAILY 11/02/19 11/02/19 Unknown History Ergocalciferol [Vitamin D2] 50,000 units PO QWEEK 11/02/19 11/02/19 Unknown History Famotidine [Pepcid] 20 mg PO DAILY 11/02/19 11/02/19 Unknown History Furosemide [Lasix TAB] 40 mg PO DAILY 11/02/19 11/02/19 Unknown History Gabapentin 300 mg PO TID 11/02/19 11/02/19 Unknown History Isosorbide Mononitrate 30 mg PO DAILY 11/02/19 11/02/19 Unknown History Lantus VIAL 30 units SQ QHS 11/02/19 11/02/19 Unknown History Metoprolol-HCTZ 100-50 mg TAB 50 mg PO BID 11/02/19 11/02/19 Unknown History NIFEdipine [Nifedipine ER] 60 mg PO DAILY 11/02/19 11/02/19 Unknown History Tamsulosin 0.4 mg PO DAILY 11/02/19 11/02/19 Unknown History hydrALAZINE 50 mg PO TID 11/02/19 11/02/19 Unknown History Active Meds: Active Medications Dextrose (D50w (25gm) Syringe) 50 ml IV Q30MIN PRN; Protocol PRN Reason: Hypoglycemia Heparin Sodium (Porcine) (Heparin) 5,000 unit SUB-Q Q12HR GETACHEW Dextrose (D10w) 1,000 mls @ 75 mls/hr IV DIRECT GETACHEW Last Admin: 11/08/19 13:45 Dose: 75 mls/hr Documented by: Insulin Human Lispro (Humalog) 0 unit SUB-Q Q4H GETACHEW; Protocol Last Admin: 11/08/19 11:55 Dose: Not Given Documented by: Exam - Physical Exam Narrative exam: Gen: obese, ill appearing, nad, drowsy, awake to sternal rub HEENT: NCAT, EOMI, PERRL but resist eyes being open, OP Clear Neck: supple, no adenopathy, no thyromegaly, no JVD CVS/Heart: RRR, normal S1S2, pulses present bilaterally Chest/Lungs: CTA B, Symmetrical chest expansion, good air entry bilaterally GI/Abdomen: soft, NTND, good bowel sounds, no guarding or rebound /Bladder: no suprapubic tenderness, no CVA or paraspinal tenderness Extermity/Skin: no c/c/e, no obvious rash MSK: doesnt follow commands Neuro: CN 2-12 grossly intact, doesnt follow commands Psych: calm - Constitutional Vitals: Temp Pulse Resp BP Pulse Ox 97.2 F L 62 14 157/63 93 11/08/19 13:24 11/08/19 13:24 11/08/19 13:24 11/08/19 13:24 11/08/19 13:24 Results - Labs Labs: Laboratory Last Values POC Glucose 192 (70-105) H 11/08/19 14:09 Assessment and Plan Assessment and plan: Patient is a 74 yo man with a history of hypertension and DM type 2 who was admitted to [facility] from [facility] for mental health stabilization after Suicidal ideation. Labs significant for Creat 2.8. Nephrology was consulted for further evaluation. RN called me about a "change in medical condition," patient choking on food and liquids, he is pale, altered. Last night he was combative and received 2 mg IM ativan. Trazadone was newly added last and increase in depakote. Now more lethargic and unable to eat, choking on food/liquid but he did received Lantus 30 units last night and BG dropped to 52. After IV dextrose the BG continued to drop to 48. Another amp of D5 was given. He was discharged form [facility] to med surg. Hypoglycemia, received lantus last night: treated with multiple doses of IV Dextrose and still refractory, so start D10W with frequent accu-checks AMS due Acute Metabolic Encephalopathy: treat with dextrose ARF, vasomotor nephropathy: continue IVF, consult Nephrology Hypotension: stopped hydralazine DM type 2 due to hypoglycemia: stop Lantus
[2019-11-08] MEDS: DOXEPIN 25 MG CAP PO SCH ×2 (23:10→23:21)
[2019-11-08] MEDS: DIVALPROEX DR 250 MG TAB PO SCH (23:17)
[2019-11-08] MEDS: risperiDONE 1 MG TAB PO SCH (23:17)
[2019-11-09] MEDS: DEXTROSE 10% IN WATER 1,000 ML IV SCH ×2 (02:28→17:16)
[2019-11-09] MEDS: INSULIN LISPRO 100 UNIT/ML SUB-Q SCH ×6 (02:52→22:59)
[2019-11-09] MEDS: HEPARIN 5,000 UNIT/1 ML VIAL SUB-Q SCH ×2 (10:20→22:55)
[2019-11-09] MEDS: risperiDONE 1 MG TAB PO SCH ×2 (10:20→22:54)
[2019-11-09] MEDS: DIVALPROEX DR 250 MG TAB PO SCH ×2 (10:21→22:54)
[2019-11-09 10:27] LABS: Calcium 8.4 mg/dL (8.4-10.2)
--- NOTE | 2019-11-09 10:28 | Progress Note ---
Assessment and Plan 1. CKD stage 4: Patient with h/o CKD admitted from OSH. HCTZ d/c 11/06 due to bump in creatinine. Current creatinine is 2.7 which is close to his baseline of 2.5. Renal US shows combination of complex and simple cysts in left kidney, negative for hydro. Monitor renal function. Avoid nephrotoxic agents. Meds dosage based on GFR. 2. FEN: Metabolic acidosis, monitor. Monitor lytes. 3. Suicidal/homicidal ideation. Was d/c from [facility] on 11/08. Followed by psych. 4. Metabolic encephalopathy, POA. Increased lethargy 11/06 which resulted in d/c of Neurontin. Lethargy is improved after d/c of Neurontin. 5. Leukocytosis. 6. Diabetes mellitus with hyperglycemia. 7. COPD. 8. CAD. 9. Presumed chronic congestive heart failure: Normal EF. 10.Right rib fracture. Subjective Date of service: 11/09/19 Interval history: Patient was seen and examined at the bedside. He is quite lethargic this morning and will awaken to name called but goes right back to sleep. No acute events overnight. Objective - Exam Narrative Exam: General appearance: well-developed, well-nourished, appears stated age, other (not in distress) EENT: ATNC Neck: Present: neck supple, trachea midline Respiratory: Clear to Auscultation Heart: regular, S1S2, no murmurs Gastrointestinal: Present: normoactive bowel sounds. Absent: tenderness, distended Integumentary: no rash, warm and dry Neurologic: lethargic, cooperative with exam Musculoskeletal: Present: other (trace LE edema noted) - Vital Signs Vital signs: Vital Signs - 12hr 11/08/19 11/09/19 22:30 06:12 Temperature 98.4 F Pulse Rate 75 Pulse Rate [ 76 Apical] Respiratory 18 20 Rate Blood Pressure 130/56 O2 Sat by Pulse 94 94 Oximetry - Lab 11/09/19 09:43 Most recent lab results Calcium 8.4 mg/dL (8.4-10.2) 11/09/19 09:43 Medications & Allergies - Medications Allergies/Adverse Reactions: Allergies morphine Adverse Reaction (Verified 11/01/19 23:50) Unknown Penicillins Adverse Reaction (Verified 11/01/19 23:50) Unknown Tetanus Vaccines and Toxoid Adverse Reaction (Verified 11/01/19 23:50) Unknown Home Medications: Home Medications Medication Instructions Recorded Confirmed Last Taken Type Adult Aspirin 650 mg PO BID 11/02/19 11/02/19 Unknown History Citalopram 20 mg PO BID 11/02/19 11/02/19 Unknown History Clopidogrel [Plavix] 75 mg PO DAILY 11/02/19 11/02/19 Unknown History Ergocalciferol [Vitamin D2] 50,000 units PO QWEEK 11/02/19 11/02/19 Unknown History Famotidine [Pepcid] 20 mg PO DAILY 11/02/19 11/02/19 Unknown History Furosemide [Lasix TAB] 40 mg PO DAILY 11/02/19 11/02/19 Unknown History Gabapentin 300 mg PO TID 11/02/19 11/02/19 Unknown History Isosorbide Mononitrate 30 mg PO DAILY 11/02/19 11/02/19 Unknown History Lantus VIAL 30 units SQ QHS 11/02/19 11/02/19 Unknown History Metoprolol-HCTZ 100-50 mg TAB 50 mg PO BID 11/02/19 11/02/19 Unknown History NIFEdipine [Nifedipine ER] 60 mg PO DAILY 11/02/19 11/02/19 Unknown History Tamsulosin 0.4 mg PO DAILY 11/02/19 11/02/19 Unknown History hydrALAZINE 50 mg PO TID 11/02/19 11/02/19 Unknown History Active Medications: Generic Name Dose Route Start Last Admin Trade Name Freq PRN Reason Stop Dose Admin Dextrose 50 ml 11/08/19 09:44 D50w (25gm) Syringe IV Q30MIN PRN Hypoglycemia Protocol Divalproex Sodium 250 mg 11/08/19 22:00 11/09/19 10:[address] PO 250 mg BID GETACHEW Administration Doxepin HCl 50 mg 11/08/19 22:00 11/08/19 23:10 Sinequan PO Not Given QHS GETACHEW Heparin Sodium (Porcine) 5,000 unit 11/09/19 10:00 11/09/19 10:20 Heparin SUB-Q 5,000 unit Q12HR GETACHEW Administration Dextrose 1,000 mls @ 75 mls/hr 11/08/19 14:00 11/09/19 02:28 D10w IV 75 mls/hr DIRECT GETACHEW Administration Insulin Human Lispro 0 unit 11/08/19 10:00 11/09/19 07:51 Humalog SUB-Q Not Given Q4H GETACHEW Protocol Risperidone 1 mg 11/08/19 22:00 11/09/19 10:20 Risperdal PO 1 mg BID GETACHEW Administration Ziprasidone 10 mg 11/08/19 17:08 Geodon IM Q4H PRN Agitation
--- NOTE | 2019-11-09 11:56 | Progress Note ---
Subjective - Reason for Consult Consult date: 11/09/19 Reason for consult: psychiatric assessment - Chief Complaint Chief complaint: The patient's medical chart was reviewed and the patient's progress was discussed with the nursing staff. The nurse note states,Patient remains sleeping deeply but is arousable when name called or or hears noises in room will wake up momentarily then go back to sleep. BS 133mg/dl. iv fluids continued. will continue to monitor. During my interview with the patient this morning, the patient was was in bed awake [id number]. The patient is more alert and able to converse, the patient stated, "what am I doing in this hospital". The patient denies suicidal ideation but does report homicidal ideation the patient states, "I have a rifle or if I do not have a rifle I would get one and short my brother". The patient reports visual hallucinations stating "I saw a cat last night". The patient denies auditory hallucinations. When asked about depression patient stated, "I am depressed every time I think about my brother Luis he was my best friend I missed him". The patient reports that he is eating well and sleeping well. REVIEW OF SYSTEMS Constitutional: Negative for weight loss ENT: Negative for stridor Respiratory: Negative for cough or hemoptysis All other systems reviewed and are negative ROS: Constitutional: Negative for weight loss ENT: Negative for stridor Respiratory: Negative for cough or hemoptysis All other systems reviewed and are negative MENTAL STATUS General Appearance and Behavior: age appropriate, intermittent eye contact, cooperative with questioning and polite Cooperation: Cooperative Psychomotor Behavior: within normal limits Mood: OK Affect and affective range: Congruent with stated mood Thought Process: labile Thought Content: Within reality Speech: Normal volume and Regular rate and rhythm Intellectual Functioning Average Suicidal Ideation: Denies SI Homicidal Ideation: wants to shoot his brother Impulse Control: intact Insight and Judgment: poor Memory: forgetful Attention: Normal Orientation: alert and orientedx1 RECOMMENDATIONS MEDICATIONS: medication change done yesterday Risks, benefits and alternatives of medications discussed with the patient, questions answered and consent obtained from patient. PSYCHOTHERAPY: Supportive psychotherapy provided MEDICAL: Per primary team DELIRIUM PRECAUTIONS: Please re-orient patient frequently, keep lights on during the day, and minimize benzodiazepines and opiates as these medications could worsen patient's confusion. POSTAL MAIL CARRIER: DISPOSITION: inpatient psychiatric hospitalization continues, when medically cleared can be transfer back to psychiatric floor LEGAL STATUS: FOLLOW-UP: Will follow Mental Status Exam - Vital signs Last Vital Signs Temp 98.4 F 11/09/19 06:12 Pulse 75 11/09/19 06:12 Resp 20 11/09/19 06:12 BP 130/56 11/09/19 06:12 Pulse Ox 94 11/09/19 06:12
--- NOTE | 2019-11-09 17:47 | Progress Note ---
Assessment and Plan Assessment and plan: Patient is a 74 yo man with a history of hypertension and DM type 2 who was admitted to [facility] 11/02/2019 from [facility] for mental health stabilization after Suicidal ideation. Labs significant for Creat 2.8. Nephrology was consulted for further evaluation. RN called me on 11/08/2019 about a "change in medical condition," patient choking on food and liquids, he is pale, altered. Prior night, before choking on food, he was combative and received 2 mg IM ativan. Trazadone was also newly added and increase in depakote. Now more lethargic and unable to eat, choking on food/liquid but he did received Lantus 30 units last night and BG dropped to 52. After IV dextrose the BG continued to drop to 48. Another amp of D5 was given. He was discharged form [facility] to med surg and admitted to 3rd Floor Medsur for intractable hypoglycemia requiring IV line. Hypoglycemia, improving, eating more but the BG not elevated despite D10, so continue, once BG over 200 then we can change D10 to D5 AMS due Acute Metabolic Encephalopathy: treated with IVF with dextrose additive, stopped trazodone ARF/CKD 4, vasomotor nephropathy: continue IVF, consult Nephrology, input noted Hypotension: stopped hydralazine DM type 2 due to hypoglycemia: stop Lantus, use SSI Odynophagia: consult speech Therapy DVT ppx full code History Interval history: Patient was seen and examined. Follow-up on current diagnosis of AMS, doing better. Overnight uneventful as no events directly reported to me. Imaging, nursing note, chart, labs and old chart reviewed. Discussed with patient. Sitter at bedside Hospitalist Physical - Physical exam Narrative exam: Gen: obese, ill appearing, nad, more awake and talkative HEENT: NCAT, EOMI, PERRL but resist eyes being open, OP Clear Neck: supple, no adenopathy, no thyromegaly, no JVD CVS/Heart: RRR, normal S1S2, pulses present bilaterally Chest/Lungs: CTA B, Symmetrical chest expansion, good air entry bilaterally GI/Abdomen: soft, NTND, good bowel sounds, no guarding or rebound /Bladder: no suprapubic tenderness, no CVA or paraspinal tenderness Extermity/Skin: no c/c/e, no obvious rash MSK: doesnt follow commands Neuro: CN 2-12 grossly intact, doesnt follow commands Psych: calm, poor insight and judgement - Constitutional Vitals: Temp Pulse Resp BP Pulse Ox 98.4 F 75 20 130/56 94 11/09/19 06:12 11/09/19 06:12 11/09/19 06:12 11/09/19 06:12 11/09/19 06:12 Results - Labs CBC & Chem 7: 11/09/19 09:43 Labs: Laboratory Last Values Sodium 138 mmol/L (137-145) 11/09/19 09:43 Potassium 3.6 mmol/L (3.6-5.0) D 11/09/19 09:43 Chloride 102.5 mmol/L (98-107) 11/09/19 09:43 Carbon Dioxide 20 mmol/L (22-30) L 11/09/19 09:43 Anion Gap 19 mmol/L 11/09/19 09:43 BUN 42 mg/dL (9-20) H 11/09/19 09:43 Creatinine 2.7 mg/dL (0.8-1.5) H 11/09/19 09:43 Estimated GFR 23 ml/min 11/09/19 09:43 BUN/Creatinine Ratio 16 % 11/09/19 09:43 Glucose 134 mg/dL (75-100) H 11/09/19 09:43 POC Glucose 169 (70-105) H 11/09/19 14:44 Calcium 8.4 mg/dL (8.4-10.2) 11/09/19 09:43 Active Medications - Current Medications Current Medications: Generic Name Dose Route Start Last Admin Trade Name Freq PRN Reason Stop Dose Admin Dextrose 50 ml 11/08/19 09:44 D50w (25gm) Syringe IV Q30MIN PRN Hypoglycemia Protocol Divalproex Sodium 250 mg 11/08/19 22:00 11/09/19 10:[address] PO 250 mg BID GETACHEW Administration Doxepin HCl 50 mg 11/08/19 22:00 11/08/19 23:10 Sinequan PO Not Given QHS GETACHEW Heparin Sodium (Porcine) 5,000 unit 11/09/19 10:00 11/09/19 10:20 Heparin SUB-Q 5,000 unit Q12HR GETACHEW Administration Dextrose 1,000 mls @ 75 mls/hr 11/08/19 14:00 11/09/19 17:16 D10w IV 75 mls/hr DIRECT GETACHEW Administration Insulin Human Lispro 0 unit 11/08/19 10:00 11/09/19 14:15 Humalog SUB-Q Not Given Q4H GETACHEW Protocol Risperidone 1 mg 11/08/19 22:00 11/09/19 10:20 Risperdal PO 1 mg BID GETACHEW Administration Ziprasidone 10 mg 11/08/19 17:08 Geodon IM Q4H PRN Agitation Nutrition/Malnutrition Assess - Dietary Evaluation Nutrition/Malnutrition Findings: Nutrition Notes Start: 11/08/19 10:31 Freq: Status: Active Protocol: Document 11/08/19 10:31 MK (Rec: 11/08/19 10:33 MK [id number]) Co-Sign 11/08/19 10:31 LP Nutrition Notes Need for Assessment generated from: LOS Initial or Follow up Brief Note Current Diagnosis CKD(stage I-IV) Other Pertinent Diagnosis Major depression Current Diet Cardiac, Consistent CHO Subjective/Other Information Screen for LOS. Pt asleep at time of visit. Fire Fighters Dispatcher and RN unable to wake pt. Nutrition Intervention Follow-Up By: 11/11/19 Additional Comments FU for assessment
[2019-11-09] MEDS: NICOTINE 14 MG/24 HR PATCH TD SCH (20:29)
[2019-11-09] MEDS: DOXEPIN 25 MG CAP PO SCH (22:54)
[2019-11-10] MEDS: INSULIN LISPRO 100 UNIT/ML SUB-Q SCH ×5 (02:00→18:17)
[2019-11-10] MEDS: NITROGLYCERIN 0.4 MG TAB SUBL SL PRN (04:15)
[2019-11-10 06:06] LABS: Calcium 8.5 mg/dL (8.4-10.2)
--- NOTE | 2019-11-10 08:55 | Progress Note ---
Assessment and Plan Assessment and plan: Patient is a 74 yo man with a history of hypertension and DM type 2 who was admitted to [facility] 11/02/2019 from [facility] for mental health stabilization after Suicidal ideation. Labs significant for Creat 2.8. Nephrology was consulted for further evaluation. RN called me on 11/08/2019 about a "change in medical condition," patient choking on food and liquids, he is pale, altered. Prior night, before choking on food, he was combative and received 2 mg IM ativan. Trazadone was also newly added and increase in depakote. Now more lethargic and unable to eat, choking on food/liquid but he did received Lantus 30 units last night and BG dropped to 52. After IV dextrose the BG continued to drop to 48. Another amp of D5 was given. He was discharged form [facility] to med surg and admitted to 3rd Floor Medsur for intractable hypoglycemia requiring IV line. Hypoglycemia, improving: stop IVF with dextrose but continue to monitor BG q4hrs AMS due Acute Metabolic Encephalopathy: treated with IVF with dextrose additive, stopped trazodone ARF/CKD 4, vasomotor nephropathy: continue IVF, consult Nephrology, input noted Hypotension: stopped hydralazine DM type 2 due to hypoglycemia: stop Lantus, use SSI Odynophagia: consult speech Therapy DVT ppx full code History Interval history: Patient was seen and examined. Follow-up on current diagnosis of AMS, doing better. Overnight uneventful as no events directly reported to me. Imaging, nursing note, chart, labs and old chart reviewed. Discussed with patient. Sitter at bedside Hospitalist Physical - Physical exam Narrative exam: Gen: obese, ill appearing, nad, more awake and talkative HEENT: NCAT, EOMI, PERRL but resist eyes being open, OP Clear Neck: supple, no adenopathy, no thyromegaly, no JVD CVS/Heart: RRR, normal S1S2, pulses present bilaterally Chest/Lungs: CTA B, Symmetrical chest expansion, good air entry bilaterally GI/Abdomen: soft, NTND, good bowel sounds, no guarding or rebound /Bladder: no suprapubic tenderness, no CVA or paraspinal tenderness Extermity/Skin: no c/c/e, no obvious rash MSK: doesnt follow commands Neuro: CN 2-12 grossly intact, doesnt follow commands Psych: calm, poor insight and judgement - Constitutional Vitals: Temp Pulse Resp BP Pulse Ox 98.6 F 97 H 18 138/78 93 11/10/19 04:17 11/10/19 04:17 11/10/19 04:17 11/10/19 04:17 11/10/19 04:17 Results - Labs CBC & Chem 7: 11/10/19 05:18 Labs: Laboratory Last Values Sodium 139 mmol/L (137-145) 11/10/19 05:18 Potassium 3.9 mmol/L (3.6-5.0) 11/10/19 05:18 Chloride 100.6 mmol/L (98-107) 11/10/19 05:18 Carbon Dioxide 24 mmol/L (22-30) 11/10/19 05:18 Anion Gap 18 mmol/L 11/10/19 05:18 BUN 36 mg/dL (9-20) H 11/10/19 05:18 Creatinine 2.9 mg/dL (0.8-1.5) H 11/10/19 05:18 Estimated GFR 21 ml/min 11/10/19 05:18 BUN/Creatinine Ratio 12 % 11/10/19 05:18 Glucose 163 mg/dL (75-100) H 11/10/19 05:18 POC Glucose 81 (70-105) 11/10/19 02:36 Calcium 8.5 mg/dL (8.4-10.2) 11/10/19 05:18 Active Medications - Current Medications Current Medications: Generic Name Dose Route Start Last Admin Trade Name Alfaq PRN Reason Stop Dose Admin Dextrose 50 ml 11/08/19 09:44 D50w (25gm) Syringe IV Q30MIN PRN Hypoglycemia Protocol Divalproex Sodium 250 mg 11/08/19 22:00 11/09/19 22:[address] PO 250 mg BID GETACHEW Administration Doxepin HCl 50 mg 11/08/19 22:00 11/09/19 22:54 Sinequan PO 50 mg QHS GETACHEW Administration Heparin Sodium (Porcine) 5,000 unit 11/09/19 10:00 11/09/19 22:55 Heparin SUB-Q 5,000 unit Q12HR GETACHEW Administration Dextrose 1,000 mls @ 75 mls/hr 11/08/19 14:00 11/09/19 17:16 D10w IV 75 mls/hr DIRECT GETACHEW Administration Insulin Human Lispro 0 unit 11/08/19 10:00 11/10/19 06:00 Humalog SUB-Q Not Given Q4H GETACHEW Protocol Nicotine 14 mg 11/09/19 20:00 11/09/19 20:29 Habitrol TD 14 mg QDAY GETACHEW Administration Nitroglycerin 0.4 mg 11/10/19 03:32 11/10/19 04:15 Nitrostat SL 0.4 mg .Q5MIN PRN Administration Chest Pain Risperidone 1 mg 11/08/19 22:00 11/09/19 22:54 Risperdal PO 1 mg BID GETACHEW Administration Ziprasidone 10 mg 11/08/19 17:08 Geodon IM Q4H PRN Agitation Nutrition/Malnutrition Assess - Dietary Evaluation Nutrition/Malnutrition Findings: Nutrition Notes Start: 11/08/19 10:31 Freq: Status: Active Protocol: Document 11/08/19 10:31 (Rec: 11/08/19 10:33 [facility] [id number] Co-Sign 11/08/19 10:31 LP Nutrition Notes Need for Assessment generated from: LOS Initial or Follow up Brief Note Current Diagnosis CKD(stage I-IV) Other Pertinent Diagnosis Major depression Current Diet Cardiac, Consistent CHO Subjective/Other Information Screen for LOS. Pt asleep at time of visit. Grill Associate and RN unable to wake pt. Nutrition Intervention Follow-Up By: 11/11/19 Additional Comments FU for assessment
[2019-11-10] MEDS: risperiDONE 1 MG TAB PO SCH ×2 (09:52→22:45)
[2019-11-10] MEDS: NICOTINE 14 MG/24 HR PATCH TD SCH (09:53)
[2019-11-10] MEDS: DIVALPROEX DR 250 MG TAB PO SCH ×2 (09:54→22:45)
[2019-11-10] MEDS: HEPARIN 5,000 UNIT/1 ML VIAL SUB-Q SCH ×2 (09:54→22:47)
--- NOTE | 2019-11-10 10:59 | Progress Note ---
Assessment and Plan 1. CKD stage 4: Patient with h/o CKD admitted from OSH. HCTZ d/c 11/06 due to bump in creatinine. Current creatinine is 2.9 which is slightly worse than yesterday's 2.7 and his baseline of 2.5. Renal US shows combination of complex and simple cysts in left kidney, negative for hydro. Monitor renal function. Avoid nephrotoxic agents. Meds dosage based on GFR. 2. FEN: Metabolic acidosis, improving, monitor. Monitor lytes. 3. Suicidal/homicidal ideation. Was d/c from [facility] on 11/08. Followed by psych. 4. Metabolic encephalopathy, POA. Increased lethargy 11/06 which resulted in d/c of Neurontin. Lethargy is improved after d/c of Neurontin. 5. Leukocytosis. 6. Diabetes mellitus with hyperglycemia. 7. COPD. 8. CAD. 9. Presumed chronic congestive heart failure: Normal EF. 10.Right rib fracture. Subjective Date of service: 11/10/19 Interval history: Patient was seen and examined at the bedside. He is alert this morning and sitting up in bed eating breakfast. No acute events overnight. Objective - Exam Narrative Exam: General appearance: well-developed, well-nourished, appears stated age, other (not in distress) EENT: ATNC Neck: Present: neck supple, trachea midline Respiratory: Clear to Auscultation Heart: regular, S1S2, no murmurs Gastrointestinal: Present: normoactive bowel sounds. Absent: tenderness, distended Integumentary: no rash, warm and dry Neurologic: lethargic, cooperative with exam Musculoskeletal: Present: other (trace LE edema noted) - Vital Signs Vital signs: Vital Signs - 12hr 11/09/19 11/10/19 11/10/19 22:59 00:19 04:15 Temperature 98.6 F 97.4 F L Pulse Rate 98 H 102 H 100 H Respiratory 20 18 Rate Blood Pressure 180/89 125/77 138/78 O2 Sat by Pulse 96 95 Oximetry 11/10/19 04:17 Temperature 98.6 F Pulse Rate 97 H Respiratory 18 Rate Blood Pressure 138/78 O2 Sat by Pulse 93 Oximetry - Lab 11/10/19 05:18 Most recent lab results Calcium 8.5 mg/dL (8.4-10.2) 11/10/19 05:18 Medications & Allergies - Medications Allergies/Adverse Reactions: Allergies morphine Adverse Reaction (Verified 11/01/19 23:50) Unknown Penicillins Adverse Reaction (Verified 11/01/19 23:50) Unknown Tetanus Vaccines and Toxoid Adverse Reaction (Verified 11/01/19 23:50) Unknown Home Medications: Home Medications Medication Instructions Recorded Confirmed Last Taken Type Adult Aspirin 650 mg PO BID 11/02/19 11/02/19 Unknown History Citalopram 20 mg PO BID 11/02/19 11/02/19 Unknown History Clopidogrel [Plavix] 75 mg PO DAILY 11/02/19 11/02/19 Unknown History Ergocalciferol [Vitamin D2] 50,000 units PO QWEEK 11/02/19 11/02/19 Unknown History Famotidine [Pepcid] 20 mg PO DAILY 11/02/19 11/02/19 Unknown History Furosemide [Lasix TAB] 40 mg PO DAILY 11/02/19 11/02/19 Unknown History Gabapentin 300 mg PO TID 11/02/19 11/02/19 Unknown History Isosorbide Mononitrate 30 mg PO DAILY 11/02/19 11/02/19 Unknown History Lantus VIAL 30 units SQ QHS 11/02/19 11/02/19 Unknown History Metoprolol-HCTZ 100-50 mg TAB 50 mg PO BID 11/02/19 11/02/19 Unknown History NIFEdipine [Nifedipine ER] 60 mg PO DAILY 11/02/19 11/02/19 Unknown History Tamsulosin 0.4 mg PO DAILY 11/02/19 11/02/19 Unknown History hydrALAZINE 50 mg PO TID 11/02/19 11/02/19 Unknown History Active Medications: Generic Name Dose Route Start Last Admin Trade Name Freq PRN Reason Stop Dose Admin Dextrose 50 ml 11/08/19 09:44 D50w (25gm) Syringe IV Q30MIN PRN Hypoglycemia Protocol Divalproex Sodium 250 mg 11/08/19 22:00 11/10/19 09:[address] PO 250 mg BID GETACHEW Administration Doxepin HCl 50 mg 11/08/19 22:00 11/09/19 22:54 Sinequan PO 50 mg QHS GETACHEW Administration Heparin Sodium (Porcine) 5,000 unit 11/09/19 10:00 02/16/20 09:54 Heparin SUB-Q 5,000 unit Q12HR GETACHEW Administration Dextrose 1,000 mls @ 75 mls/hr 11/08/19 14:00 11/09/19 17:16 D10w IV 75 mls/hr DIRECT GETACHEW Administration Insulin Human Lispro 0 unit 11/08/19 10:00 11/10/19 10:05 Humalog SUB-Q 2 unit Q4H GETACHEW Administration Protocol Nicotine 14 mg 11/09/19 20:00 11/10/19 09:53 Habitrol TD 14 mg QDAY GETACHEW Administration Nitroglycerin 0.4 mg 11/10/19 03:32 11/10/19 04:15 Nitrostat SL 0.4 mg .Q5MIN PRN Administration Chest Pain Risperidone 1 mg 11/08/19 22:00 11/10/19 09:52 Risperdal PO 1 mg BID GETACHEW Administration Ziprasidone 10 mg 11/08/19 17:08 Geodon IM Q4H PRN Agitation
--- NOTE | 2019-11-10 11:40 | Progress Note ---
Subjective - Reason for Consult Consult date: 11/10/19 Reason for consult: psychiatric assessment - Chief Complaint Chief complaint: During my interview with the patient this morning, the patient was was in bed awake aaox1. The patient is more alert and able to converse, he is still noted with confusion. The patient stated," my brother got killed yesterday I went over there to see him I was devastated and now I am right back here again". The patient denies suicidal or homicidal ideation at this time the patient denies auditory or visual hallucinations. He reports that he is sleeping and eating well. The patient is still confused with disorganized thoughts. REVIEW OF SYSTEMS Constitutional: Negative for weight loss ENT: Negative for stridor Respiratory: Negative for cough or hemoptysis All other systems reviewed and are negative ROS: Constitutional: Negative for weight loss ENT: Negative for stridor Respiratory: Negative for cough or hemoptysis All other systems reviewed and are negative MENTAL STATUS General Appearance and Behavior: age appropriate, intermittent eye contact, cooperative with questioning and polite Cooperation: Cooperative Psychomotor Behavior: within normal limits Mood: OK Affect and affective range: Congruent with stated mood Thought Process: labile Thought Content: Within reality Speech: Normal volume and Regular rate and rhythm Intellectual Functioning Average Suicidal Ideation: Denies SI Homicidal Ideation: wants to shoot his brother killer Impulse Control: intact Insight and Judgment: poor Memory: forgetful Attention: Normal Orientation: alert and orientedx1 RECOMMENDATIONS MEDICATIONS: Risks, benefits and alternatives of medications discussed with the patient, questions answered and consent obtained from patient. PSYCHOTHERAPY: Supportive psychotherapy provided MEDICAL: Per primary team DELIRIUM PRECAUTIONS: Please re-orient patient frequently, keep lights on during the day, and minimize benzodiazepines and opiates as these medications could worsen patient's confusion. DISTILLERY MILLER: DISPOSITION: inpatient psychiatric hospitalization continues, when medically cleared can be transfer back to psychiatric floor LEGAL STATUS: FOLLOW-UP: Will follow Mental Status Exam - Vital signs Last Vital Signs Temp 98.6 F 11/10/19 04:17 Pulse 97 H 11/10/19 04:17 Resp 18 11/10/19 04:17 BP 138/78 11/10/19 04:17 Pulse Ox 93 11/10/19 04:17
[2019-11-10] MEDS: ACETAMINOPHEN 325 MG TAB PO PRN (13:13)
[2019-11-10] MEDS: METOPROLOL TARTRATE 100 MG TAB PO SCH ×2 (15:35→22:59)
[2019-11-10] MEDS: DOXEPIN 25 MG CAP PO SCH (22:45)
[2019-11-11] MEDS: INSULIN LISPRO 100 UNIT/ML SUB-Q SCH ×6 (00:05→16:30)
[2019-11-11 05:53] LABS: Calcium 8.9 mg/dL (8.4-10.2)
[2019-11-11] MEDS ORDERED: WATER FOR INJ Sterile (PF) 10 ML ONE (07:47)
[2019-11-11] MEDS: ZIPRASIDONE MESYLATE 20 MG VIAL IM PRN ×2 (07:49→18:54)
[2019-11-11] MEDS: hydrALAZINE 20 MG/1 ML INJ IV PRN (08:08)
[2019-11-11] MEDS: risperiDONE 1 MG TAB PO SCH (10:09)
[2019-11-11] MEDS: METOPROLOL TARTRATE 100 MG TAB PO SCH (10:09)
[2019-11-11] MEDS: NICOTINE 14 MG/24 HR PATCH TD SCH (10:09)
[2019-11-11] MEDS: HEPARIN 5,000 UNIT/1 ML VIAL SUB-Q SCH (10:19)
[2019-11-11] MEDS: DIVALPROEX DR 250 MG TAB PO SCH (10:27)
--- NOTE | 2019-11-11 10:58 | Progress Note ---
Assessment and Plan Assessment and plan: Patient is a 74 yo man with a history of hypertension and DM type 2 who was admitted to [facility] 11/02/2019 from [facility] for mental health stabilization after Suicidal ideation. Labs significant for Creat 2.8. Nephrology was consulted for further evaluation. RN called me on 11/08/2019 about a "change in medical condition," patient choking on food and liquids, he is pale, altered. Prior night, before choking on food, he was combative and received 2 mg IM ativan. Trazadone was also newly added and increase in depakote. Now more lethargic and unable to eat, choking on food/liquid but he did received Lantus 30 units last night and BG dropped to 52. After IV dextrose the BG continued to drop to 48. Another amp of D5 was given. He was discharged form [facility] to med surg and admitted to 3rd Floor Medsur for intractable hypoglycemia requiring IV line. Hypoglycemia, improving: stop IVF with dextrose but continue to monitor BG q4hrs, now change accuchecks AMS due Acute Metabolic Encephalopathy: treated with IVF with dextrose additive, stopped trazodone ARF/CKD 4, vasomotor nephropathy: continue IVF, consult Nephrology, input noted, now back at baseline Hypotension, now Hypertensive: stopped hydralazine, added Norvasc, restarted hydralazine at lower dose DM type 2 due to hypoglycemia: stop Lantus, use SSI Odynophagia: consult speech Therapy DVT ppx full code Disposition: continue inpatient care, bp too high for discharge today. Bp very labile, he has period of hypotension, He has been mantained on Lopressor 100mg bid, add norvasc and restart hydralazine at a lower dose. Renal function back at baseline, the hypoglycemia resolved, ?if he going back to geripsy unit or home. History Interval history: Patient was seen and examined. Follow-up on current diagnosis of AMS, doing better. Overnight uneventful as no events directly reported to me. Imaging, nursing note, chart, labs and old chart reviewed. Discussed with patient. Sitter at bedside Hospitalist Physical - Physical exam Narrative exam: Gen: obese, nad, more awake and talkative HEENT: NCAT, EOMI, PERRL but resist eyes being open, OP Clear Neck: supple, no adenopathy, no thyromegaly, no JVD CVS/Heart: RRR, normal S1S2, pulses present bilaterally Chest/Lungs: CTA B, Symmetrical chest expansion, good air entry bilaterally GI/Abdomen: soft, NTND, good bowel sounds, no guarding or rebound /Bladder: no suprapubic tenderness, no CVA or paraspinal tenderness Extermity/Skin: no c/c/e, no obvious rash MSK: doesnt follow commands Neuro: CN 2-12 grossly intact, doesnt follow commands Psych: calm, poor insight and judgement - Constitutional Vitals: Temp Pulse Resp BP Pulse Ox 98.0 F 73 20 210/87 97 11/10/19 22:50 11/11/19 08:08 11/10/19 22:50 11/11/19 08:08 11/10/19 22:50 Results - Labs CBC & Chem 7: 11/11/19 05:01 Labs: Laboratory Last Values Sodium 141 mmol/L (137-145) 11/11/19 05:01 Potassium 3.9 mmol/L (3.6-5.0) 11/11/19 05:01 Chloride 101.6 mmol/L (98-107) 11/11/19 05:01 Carbon Dioxide 23 mmol/L (22-30) 11/11/19 05:01 Anion Gap 20 mmol/L 11/11/19 05:01 BUN 33 mg/dL (9-20) H 11/11/19 05:01 Creatinine 2.5 mg/dL (0.8-1.5) H 11/11/19 05:01 Estimated GFR 26 ml/min 11/11/19 05:01 BUN/Creatinine Ratio 13 % 11/11/19 05:01 Glucose 142 mg/dL (75-100) H 11/11/19 05:01 POC Glucose 169 (70-105) H 11/11/19 10:31 Calcium 8.9 mg/dL (8.4-10.2) 11/11/19 05:01 Active Medications - Current Medications Current Medications: Generic Name Dose Route Start Last Admin Trade Name Freq PRN Reason Stop Dose Admin Acetaminophen 650 mg 11/10/19 12:54 11/10/19 13:13 Tylenol PO 650 mg Q6H PRN Administration Pain, Mild (1-3) Amlodipine Besylate 10 mg 02/17/20 11:00 Amlodipine PO QDAY GETACHEW Clopidogrel Bisulfate 75 mg 11/11/19 11:00 Plavix PO QDAY GETACHEW Dextrose 50 ml 11/08/19 09:44 D50w (25gm) Syringe IV Q30MIN PRN Hypoglycemia Protocol Divalproex Sodium 250 mg 11/08/19 22:00 11/11/19 10:[address] PO 250 mg BID GETACHEW Administration Doxepin HCl 50 mg 11/08/19 22:00 11/10/19 22:45 Sinequan PO 50 mg QHS GETACHEW Administration Heparin Sodium (Porcine) 5,000 unit 11/09/19 10:00 11/11/19 10:19 Heparin SUB-Q 5,000 unit Q12HR GETACHEW Administration Hydralazine HCl 5 mg 11/11/19 03:04 11/11/19 08:08 Apresoline IV 5 mg Q6HR PRN Administration Blood Pressure Insulin Human Lispro 0 unit 11/08/19 10:00 11/11/19 10:24 Humalog SUB-Q 1 unit Q4H GETACHEW Administration Protocol Metoprolol Tartrate 100 mg 11/10/19 16:00 11/11/19 10:09 Metoprolol PO 100 mg BID GETACHEW Administration Nicotine 14 mg 11/09/19 20:00 11/11/19 10:09 Habitrol TD 14 mg QDAY GETACHEW Administration Nitroglycerin 0.4 mg 11/10/19 03:32 11/10/19 04:15 Nitrostat SL 0.4 mg .Q5MIN PRN Administration Chest Pain Risperidone 1 mg 11/08/19 22:00 11/11/19 10:09 Risperdal PO 1 mg BID GETACHEW Administration Ziprasidone 10 mg 11/08/19 17:08 11/11/19 07:49 Geodon IM 10 mg Q4H PRN Administration Agitation Nutrition/Malnutrition Assess - Dietary Evaluation Nutrition/Malnutrition Findings: Nutrition Notes Start: 11/08/19 10:31 Freq: Status: Active Protocol: Document 11/08/19 10:31 MK (Rec: 11/08/19 10:33 MK [id number]) Co-Sign 11/08/19 10:31 LP Nutrition Notes Need for Assessment generated from: LOS Initial or Follow up Brief Note Current Diagnosis CKD(stage I-IV) Other Pertinent Diagnosis Major depression Current Diet Cardiac, Consistent CHO Subjective/Other Information Screen for LOS. Pt asleep at time of visit. Crm Specialist and RN unable to wake pt. Nutrition Intervention Follow-Up By: 11/11/19 Additional Comments FU for assessment
[2019-11-11] MEDS ORDERED: DEXTROSE 50% IN WATER (25GM) 50 ML SYRINGE IV PRN (11:04)
[2019-11-11] MEDS: CLOPIDOGREL 75 MG TAB PO SCH (12:33)
[2019-11-11] MEDS: amLODIPine 10 MG TAB PO SCH (12:33)
--- NOTE | 2019-11-11 13:16 | Progress Note ---
Subjective - Reason for Consult Consult date: 11/11/19 Reason for consult: psychiatric assessment - Chief Complaint Chief complaint: During my interview with the patient this morning, the patient was was in bed awake aaox1. The patient is more alert and able to converse. When asked how he was doing the patient stated, "I am just kicking back and enjoying life". The patient denies suicidal or homicidal ideations. The patient denies visual or auditory hallucinations. The patient reports that he is eating and sleeping well. The patient denies depressive symptoms but states, "whenever I think off my brother that I get depressed but I am okay. The patient is still noted with intermittent confusion. REVIEW OF SYSTEMS Constitutional: Negative for weight loss ENT: Negative for stridor Respiratory: Negative for cough or hemoptysis All other systems reviewed and are negative ROS: Constitutional: Negative for weight loss ENT: Negative for stridor Respiratory: Negative for cough or hemoptysis All other systems reviewed and are negative MENTAL STATUS General Appearance and Behavior: age appropriate, intermittent eye contact, cooperative with questioning and polite Cooperation: Cooperative Psychomotor Behavior: within normal limits Mood: OK Affect and affective range: Congruent with stated mood Thought Process: labile Thought Content: Within reality Speech: Normal volume and Regular rate and rhythm Intellectual Functioning Average Suicidal Ideation: Denies SI Homicidal Ideation: Denies Impulse Control: intact Insight and Judgment: poor Memory: forgetful Attention: Normal Orientation: alert and orientedx1 RECOMMENDATIONS MEDICATIONS: Risks, benefits and alternatives of medications discussed with the patient, questions answered and consent obtained from patient. PSYCHOTHERAPY: Supportive psychotherapy provided MEDICAL: Per primary team DELIRIUM PRECAUTIONS: Please re-orient patient frequently, keep lights on during the day, and minimize benzodiazepines and opiates as these medications could worsen patient's confusion. CLINICAL ACCOUNT SPECIALIST: DISPOSITION: Inpatient hospitalization is not recommended at this time, the patient appears to be doing better patient denies suicidal or homicidal ideations, the patient symptoms can be managed outpatient. We will follow until discharge LEGAL STATUS: FOLLOW-UP: Will follow Mental Status Exam - Vital signs Last Vital Signs Temp 98.0 F 11/10/19 22:50 Pulse 73 11/11/19 08:08 Resp 20 11/11/19 10:00 BP 210/87 11/11/19 08:08 Pulse Ox 97 11/10/19 22:50
[2019-11-11] MEDS ORDERED: NON-FORMULARY EACH (Hydralazine 50 MG) PO SCH (14:00)
[2019-11-11] MEDS: hydrALAZINE 10 MG TAB PO SCH (14:11)
--- NOTE | 2019-11-11 15:25 | Progress Note ---
Assessment and Plan 1. CKD stage 4: Patient with h/o CKD admitted from OSH. HCTZ d/c 11/06 due to bump in creatinine. Current creatinine is 2.5 which is improved from yesterday's 2.9 and is close to his baseline. Renal US shows combination of complex and simple cysts in left kidney, negative for hydro. Monitor renal function. Avoid nephrotoxic agents. Meds dosage based on GFR. 2. FEN: Metabolic acidosis, improving, monitor. Monitor lytes. 3. Suicidal/homicidal ideation. Was d/c from [facility] on 11/08. Followed by psych. 4. Metabolic encephalopathy, POA. Increased lethargy 11/06 which resulted in d/c of Neurontin. Lethargy is improved after d/c of Neurontin. 5. Leukocytosis. 6. Diabetes mellitus with hyperglycemia. 7. COPD. 8. CAD. 9. Presumed chronic congestive heart failure: Normal EF. 10.Right rib fracture. 11. Hypertension: Hypertensive readings 11/11 improving after restarting hydralazine and amlodipine. Continue to monitor closely. Subjective Date of service: 11/11/19 Interval history: Patient was seen and examined at the bedside. He is drowsy and will respond but goes back to sleep. Sitter at the bedside. Objective - Exam Narrative Exam: General appearance: well-developed, well-nourished, appears stated age, other (not in distress) EENT: ATNC Neck: Present: neck supple, trachea midline Respiratory: Clear to Auscultation Heart: regular, S1S2, no murmurs Gastrointestinal: Present: normoactive bowel sounds. Absent: tenderness, distended Integumentary: no rash, warm and dry Neurologic: drowsy, cooperative with exam Musculoskeletal: Present: other (trace LE edema noted), FROM all extremities - Vital Signs Vital signs: Vital Signs - 12hr 11/11/19 11/11/19 11/11/19 08:08 10:00 11:22 Temperature 98.0 F Pulse Rate 73 67 Respiratory 20 16 Rate Blood Pressure 210/87 169/76 O2 Sat by Pulse 97 Oximetry 11/11/19 14:11 Temperature Pulse Rate Respiratory Rate Blood Pressure 169/76 O2 Sat by Pulse Oximetry - Lab 11/11/19 05:01 Most recent lab results Calcium 8.9 mg/dL (8.4-10.2) 11/11/19 05:01 Medications & Allergies - Medications Allergies/Adverse Reactions: Allergies morphine Adverse Reaction (Verified 11/01/19 23:50) Unknown Penicillins Adverse Reaction (Verified 11/01/19 23:50) Unknown Tetanus Vaccines and Toxoid Adverse Reaction (Verified 11/01/19 23:50) Unknown Home Medications: Home Medications Medication Instructions Recorded Confirmed Last Taken Type Adult Aspirin 650 mg PO BID 11/02/19 11/02/19 Unknown History Citalopram 20 mg PO BID 11/02/19 11/02/19 Unknown History Clopidogrel [Plavix] 75 mg PO DAILY 11/02/19 11/02/19 Unknown History Ergocalciferol [Vitamin D2] 50,000 units PO QWEEK 11/02/19 11/02/19 Unknown History Famotidine [Pepcid] 20 mg PO DAILY 11/02/19 11/02/19 Unknown History Furosemide [Lasix TAB] 40 mg PO DAILY 11/02/19 11/02/19 Unknown History Gabapentin 300 mg PO TID 11/02/19 11/02/19 Unknown History Isosorbide Mononitrate 30 mg PO DAILY 11/02/19 11/02/19 Unknown History Lantus VIAL 30 units SQ QHS 11/02/19 11/02/19 Unknown History Metoprolol-HCTZ 100-50 mg TAB 50 mg PO BID 11/02/19 11/02/19 Unknown History NIFEdipine [Nifedipine ER] 60 mg PO DAILY 11/02/19 11/02/19 Unknown History Tamsulosin 0.4 mg PO DAILY 11/02/19 11/02/19 Unknown History hydrALAZINE 50 mg PO TID 11/02/19 11/02/19 Unknown History Active Medications: Generic Name Dose Route Start Last Admin Trade Name Freq PRN Reason Stop Dose Admin Acetaminophen 650 mg 11/10/19 12:54 11/10/19 13:13 Tylenol PO 650 mg Q6H PRN Administration Pain, Mild (1-3) Amlodipine Besylate 10 mg 11/11/19 11:00 11/11/19 12:33 Amlodipine PO 10 mg QDAY GETACHEW Administration Clopidogrel Bisulfate 75 mg 11/11/19 11:00 11/11/19 12:33 Plavix PO 75 mg QDAY GETACHEW Administration Dextrose 50 ml 11/11/19 11:04 D50w (25gm) Syringe IV Q30MIN PRN Hypoglycemia Protocol Divalproex Sodium 250 mg 11/08/19 22:00 11/11/19 10:[address] PO 250 mg BID GETACHEW Administration Doxepin HCl 25 mg 11/11/19 13:18 Sinequan PO QHS GETACHEW Heparin Sodium (Porcine) 5,000 unit 11/09/19 10:00 11/11/19 10:19 Heparin SUB-Q 5,000 unit Q12HR GETACHEW Administration Hydralazine HCl 5 mg 11/11/19 03:04 11/11/19 08:08 Apresoline IV 5 mg Q6HR PRN Administration Blood Pressure Hydralazine HCl 10 mg 11/11/19 14:00 11/11/19 14:11 Apresoline PO 10 mg Q8HR GETACHEW Administration Insulin Human Lispro 0 unit 11/11/19 11:30 Humalog SUB-Q ACHS [facility] Protocol Metoprolol Tartrate 100 mg 11/10/19 16:00 11/11/19 10:09 Metoprolol PO 100 mg BID GETACHEW Administration Nicotine 14 mg 11/09/19 20:00 11/11/19 10:09 Habitrol TD 14 mg QDAY GETACHEW Administration Nitroglycerin 0.4 mg 11/10/19 03:32 11/10/19 04:15 Nitrostat SL 0.4 mg .Q5MIN PRN Administration Chest Pain Risperidone 1 mg 11/08/19 22:00 11/11/19 10:09 Risperdal PO 1 mg BID GETACHEW Administration Ziprasidone 10 mg 11/08/19 17:08 11/11/19 07:49 Geodon IM 10 mg Q4H PRN Administration Agitation
[2019-11-12] MEDS: DIVALPROEX DR 250 MG TAB PO SCH ×3 (01:37→20:33)
[2019-11-12] MEDS: hydrALAZINE 10 MG TAB PO SCH ×4 (01:37→20:33)
[2019-11-12] MEDS: risperiDONE 1 MG TAB PO SCH ×3 (01:37→20:33)
[2019-11-12] MEDS: HEPARIN 5,000 UNIT/1 ML VIAL SUB-Q SCH ×3 (01:38→20:36)
[2019-11-12] MEDS: INSULIN LISPRO 100 UNIT/ML SUB-Q SCH ×3 (01:52→19:40)
[2019-11-12] MEDS: DOXEPIN 25 MG CAP PO SCH ×2 (01:54→20:34)
[2019-11-12] MEDS: METOPROLOL TARTRATE 100 MG TAB PO SCH ×3 (01:54→20:32)
[2019-11-12 07:13] LABS: Calcium 8.7 mg/dL (8.4-10.2)
--- NOTE | 2019-11-12 07:36 | Progress Note ---
Assessment and Plan 1. CKD stage 4: Patient with h/o CKD admitted from OSH. HCTZ d/c 11/06 due to bump in creatinine. Current creatinine is 2. which is slightly worse than yesterday's 2.5 but is close to his baseline. Renal US shows combination of complex and simple cysts in left kidney, negative for hydro. Monitor renal function. Avoid nephrotoxic agents. Meds dosage based on GFR. 2. FEN: Metabolic acidosis, improving, monitor. Monitor lytes. 3. Suicidal/homicidal ideation. Was d/c from [facility] on 11/08. Followed by psych. 4. Metabolic encephalopathy, POA. Increased lethargy 11/06 which resulted in d/c of Neurontin. Lethargy is improved after d/c of Neurontin. 5. Leukocytosis. 6. Diabetes mellitus with hyperglycemia. 7. COPD. 8. CAD. 9. Presumed chronic congestive heart failure: Normal EF. 10.Right rib fracture. 11. Hypertension: BP appears to be better controlled overnight. Restarted hydralazine and amlodipine on 11/11. Continue to monitor closely. Subjective Date of service: 11/12/19 Interval history: Patient was seen and examined at the bedside. He is drowsy and will open his eyes but goes right back to sleep. Sitter at the bedside. Objective - Exam Narrative Exam: General appearance: well-developed, well-nourished, appears stated age, other (not in distress) EENT: ATNC, THIEN Neck: Present: neck supple, trachea midline Respiratory: Clear to Auscultation Heart: regular, S1S2, no murmurs Gastrointestinal: Present: normoactive bowel sounds. Absent: tenderness, distended Integumentary: no rash, warm and dry Neurologic: drowsy, cooperative with exam Musculoskeletal: trace BLE edema, FROM all extremities - Vital Signs Vital signs: Vital Signs - 12hr 11/12/19 06:18 Temperature 98.9 F Pulse Rate 71 Respiratory 18 Rate Blood Pressure 158/64 O2 Sat by Pulse 90 Oximetry - Lab 11/12/19 05:41 Most recent lab results Calcium 8.7 mg/dL (8.4-10.2) 11/12/19 05:41 Medications & Allergies - Medications Allergies/Adverse Reactions: Allergies morphine Adverse Reaction (Verified 11/01/19 23:50) Unknown Penicillins Adverse Reaction (Verified 11/01/19 23:50) Unknown Tetanus Vaccines and Toxoid Adverse Reaction (Verified 11/01/19 23:50) Unknown Home Medications: Home Medications Medication Instructions Recorded Confirmed Last Taken Type Adult Aspirin 650 mg PO BID 11/02/19 11/02/19 Unknown History Citalopram 20 mg PO BID 11/02/19 11/02/19 Unknown History Ergocalciferol [Vitamin D2] 50,000 units PO QWEEK 11/02/19 11/02/19 Unknown History Gabapentin 300 mg PO TID 11/02/19 11/02/19 Unknown History Isosorbide Mononitrate 30 mg PO DAILY 11/02/19 11/02/19 Unknown History Lantus VIAL 30 units SQ QHS 11/02/19 11/02/19 Unknown History Metoprolol-HCTZ 100-50 mg TAB 50 mg PO BID 11/02/19 11/02/19 Unknown History NIFEdipine [Nifedipine ER] 60 mg PO DAILY 11/02/19 11/02/19 Unknown History RX: Clopidogrel [Plavix] 75 mg PO DAILY 11/02/19 11/02/19 Unknown History RX: Famotidine [Pepcid] 20 mg PO DAILY 11/02/19 11/02/19 Unknown History RX: Furosemide [Lasix TAB] 40 mg PO DAILY 11/02/19 11/02/19 Unknown History Tamsulosin 0.4 mg PO DAILY 11/02/19 11/02/19 Unknown History hydrALAZINE 50 mg PO TID 11/02/19 11/02/19 Unknown History Active Medications: Generic Name Dose Route Start Last Admin Trade Name Freq PRN Reason Stop Dose Admin Acetaminophen 650 mg 11/10/19 12:54 11/10/19 13:13 Tylenol PO 650 mg Q6H PRN Administration Pain, Mild (1-3) Amlodipine Besylate 10 mg 11/11/19 11:00 11/11/19 12:33 Amlodipine PO 10 mg QDAY GETACHEW Administration Clopidogrel Bisulfate 75 mg 11/11/19 11:00 11/11/19 12:33 Plavix PO 75 mg QDAY GETACHEW Administration Dextrose 50 ml 11/11/19 11:04 D50w (25gm) Syringe IV Q30MIN PRN Hypoglycemia Protocol Divalproex Sodium 250 mg 11/08/19 22:00 11/12/19 01:[address] PO 250 mg BID GETACHEW Administration Doxepin HCl 25 mg 11/11/19 13:18 11/12/19 01:54 Sinequan PO Not Given QHS [facility] Heparin Sodium (Porcine) 5,000 unit 11/09/19 10:00 11/12/19 01:38 Heparin SUB-Q 5,000 unit Q12HR GETACHEW Administration Hydralazine HCl 5 mg 11/11/19 03:04 11/11/19 08:08 Apresoline IV 5 mg Q6HR PRN Administration Blood Pressure Hydralazine HCl 10 mg 11/11/19 14:00 11/12/19 06:01 Apresoline PO 10 mg Q8HR GETACHEW Administration Insulin Human Lispro 0 unit 11/11/19 11:30 11/12/19 01:52 Humalog SUB-Q Not Given ACHS [facility] Protocol Metoprolol Tartrate 100 mg 11/10/19 16:00 11/12/19 01:54 Metoprolol PO Not Given BID [facility] Nicotine 14 mg 11/09/19 20:00 11/11/19 10:09 Habitrol TD 14 mg QDAY GETACHEW Administration Nitroglycerin 0.4 mg 11/10/19 03:32 11/10/19 04:15 Nitrostat SL 0.4 mg .Q5MIN PRN Administration Chest Pain Risperidone 1 mg 11/08/19 22:00 11/12/19 01:37 Risperdal PO 1 mg BID GETACHEW Administration
[2019-11-12] MEDS: amLODIPine 10 MG TAB PO SCH (13:46)
[2019-11-12] MEDS: CLOPIDOGREL 75 MG TAB PO SCH (13:51)
[2019-11-12] MEDS: NICOTINE 14 MG/24 HR PATCH TD SCH (13:52)
--- NOTE | 2019-11-12 15:38 | Progress Note ---
Assessment and Plan Assessment and plan: 74 yo man with a history of hypertension and DM type 2 who was admitted to [facility] 11/02/2019 from [facility] for mental health stabilization after Suicidal ideation. Labs significant for Creat 2.8. Nephrology was consulted for further evaluation. RN called IM on 11/08/2019 about a "change in medical condition," patient choking on food and liquids, he is pale, altered. Prior night, before choking on food, he was combative and received 2 mg IM ativan. Trazadone was also newly added and increase in depakote. Now more lethargic and unable to eat, choking on food/liquid but he did received Lantus 30 units last night and BG dropped to 52. After IV dextrose the BG continued to drop to 48. Another amp of D5 was given. He was discharged form [facility] to [facility] and admitted to 3rd Floor Med[facility] for intractable hypoglycemia requiring IV line. Hypoglycemia, improving: s now resolved. Insulin was discontinued Type 2 diabetes, insulin were discontinued due to hypoglycemia. AMS due Acute Metabolic Encephalopathy: Resolved with IV fluids and discontinuation of insulin. ARF/CKD 4, vasomotor nephropathy: Received IV fluids, nephrology input appreciated, now back at baseline Hypotension, now Hypertensive: low Bp was likely due to dehydration, now resolved, and on BP meds for high BP, improving Dysphagia; was likely due to hypoglycemia. Resolved, speech therapy input appr eciated, regular diet with thin liquids. Is recommended DVT ppx full code Disposition: Likely back to [facility] versus home. Geriatric psych consult placed. History Interval history: Review of systems Constitutional: No fevers, no malaise, no joint pains CVS: No chest pain, no orthopnea, no dyspnea on exertion, no pedal edema GI: No abdominal pain, no diarrhea, no vomiting, no constipation Respiratory: no wheezing, no coughing Hospitalist Physical - Physical exam Narrative exam: General.: Appears well, no distress, nontoxic HEENT: Moist mucous membranes, extraocular muscles intact, no lymphadenopathy Neck: supple Cardiac: S1-S2 heard Lungs: clear to auscultation bilaterally Abdomen: soft , nontender, nondistended, bowel sounds positive Extremities: no edema clubbing or cyanosis Skin: no rash or lesions Neurologic: no gross focal deficits, patient is confused Psych: calm, and cooperative, blood per staff patient is impulsive and unable to care for himself - Constitutional Vitals: Temp Pulse Resp BP Pulse Ox 98.9 F 71 18 158/64 90 11/12/19 06:18 11/12/19 06:18 11/12/19 06:18 11/12/19 06:18 11/12/19 06:18 Results - Labs CBC & Chem 7: 11/12/19 05:41 Labs: Laboratory Last Values Sodium 139 mmol/L (137-145) 11/12/19 05:41 Potassium 4.0 mmol/L (3.6-5.0) 11/12/19 05:41 Chloride 102.5 mmol/L (98-107) 11/12/19 05:41 Carbon Dioxide 22 mmol/L (22-30) 11/12/19 05:41 Anion Gap 19 mmol/L 11/12/19 05:41 BUN 30 mg/dL (9-20) H 11/12/19 05:41 Creatinine 2.7 mg/dL (0.8-1.5) H 11/12/19 05:41 Estimated GFR 23 ml/min 11/12/19 05:41 BUN/Creatinine Ratio 11 % 11/12/19 05:41 Glucose 171 mg/dL (75-100) H 11/12/19 05:41 POC Glucose 143 (70-105) H 11/12/19 12:49 Calcium 8.7 mg/dL (8.4-10.2) 11/12/19 05:41 Active Medications - Current Medications Current Medications: Generic Name Dose Route Start Last Admin Trade Name Freq PRN Reason Stop Dose Admin Acetaminophen 650 mg 11/10/19 12:54 11/10/19 13:13 Tylenol PO 650 mg Q6H PRN Administration Pain, Mild (1-3) Amlodipine Besylate 10 mg 11/11/19 11:00 11/12/19 13:46 Amlodipine PO 10 mg QDAY GETACHEW Administration Clopidogrel Bisulfate 75 mg 11/11/19 11:00 11/12/19 13:51 Plavix PO 75 mg QDAY GETACHEW Administration Dextrose 50 ml 11/11/19 11:04 D50w (25gm) Syringe IV Q30MIN PRN Hypoglycemia Protocol Divalproex Sodium 250 mg 11/08/19 22:00 11/12/19 13:[address] PO 250 mg BID GETACHEW Administration Doxepin HCl 25 mg 11/11/19 13:18 11/12/19 01:54 Sinequan PO Not Given QHS [facility] Heparin Sodium (Porcine) 5,000 unit 11/09/19 10:00 11/12/19 13:52 Heparin SUB-Q 5,000 unit Q12HR GETACHEW Administration Hydralazine HCl 5 mg 11/11/19 03:04 11/11/19 08:08 Apresoline IV 5 mg Q6HR PRN Administration Blood Pressure Hydralazine HCl 10 mg 11/11/19 14:00 11/12/19 13:52 Apresoline PO 10 mg Q8HR GETACHEW Administration Insulin Human Lispro 0 unit 11/11/19 11:30 11/12/19 13:45 Humalog SUB-Q Not Given ACHS [facility] Protocol Metoprolol Tartrate 100 mg 11/10/19 16:00 11/12/19 13:46 Metoprolol PO 100 mg BID GETACHEW Administration Nicotine 14 mg 11/09/19 20:00 11/12/19 13:52 Habitrol TD 14 mg QDAY GETACHEW Administration Nitroglycerin 0.4 mg 11/10/19 03:32 11/10/19 04:15 Nitrostat SL 0.4 mg .Q5MIN PRN Administration Chest Pain Risperidone 1 mg 11/08/19 22:00 11/12/19 13:51 Risperdal PO 1 mg BID GETACHEW Administration Nutrition/Malnutrition Assess - Dietary Evaluation Nutrition/Malnutrition Findings: Nutrition Notes Start: 11/08/19 1 0:31 Freq: Status: Active Protocol: Document 11/11/19 14:20 LM (Rec: 11/11/19 14:21 LM [id number]) Nutrition Notes Need for Assessment generated from: LOS Initial or Follow up Brief Note Subjective/Other Information Screen for LOS. Pt eating 75- 100%. Nutrition Intervention Revisit per MD consult or patient Sign Off request:
[2019-11-13 06:23] LABS: Calcium 8.6 mg/dL (8.4-10.2)
[2019-11-13] MEDS: hydrALAZINE 10 MG TAB PO SCH ×4 (06:49→21:51)
--- NOTE | 2019-11-13 07:33 | Progress Note ---
Assessment and Plan 1. CKD stage 4: Patient with h/o CKD admitted from OSH. HCTZ d/c 11/06 due to bump in creatinine. Creatinine continues to worsen and is now 3.7 from 2.7. Urine studies and renal US ordered. Prior renal US showed combination of complex and simple cysts in left kidney, negative for hydro. Monitor renal function. Avoid nephrotoxic agents. Meds dosage based on GFR. 2. FEN: Metabolic acidosis, improving, monitor. Monitor lytes. 3. Suicidal/homicidal ideation. Was d/c from [facility] on 11/08. Followed by psych. 4. Metabolic encephalopathy, POA. Increased lethargy 11/06 which resulted in d/c of Neurontin. Lethargy is improved after d/c of Neurontin. 5. Leukocytosis. 6. Diabetes mellitus with hyperglycemia. 7. COPD. 8. CAD. 9. Presumed chronic congestive heart failure: Normal EF. 10.Right rib fracture. 11. Hypertension: BP appears to be better controlled over past 24 hours. Metoprolol started 11/10. Restarted hydralazine and amlodipine on 11/11. Continue to monitor closely. Subjective Date of service: 11/13/19 Interval history: Patient was seen and examined at the bedside. He is drowsy and will open his eyes but goes right back to sleep. Sitter at the bedside. Objective - Exam Narrative Exam: General appearance: well-developed, well-nourished, appears stated age, other (not in distress) EENT: ATNC, THIEN Neck: Present: neck supple, trachea midline Respiratory: Clear to Auscultation Heart: regular, S1S2, no murmurs Gastrointestinal: Present: normoactive bowel sounds. Absent: tenderness, distended Integumentary: no rash, warm and dry Neurologic: drowsy, cooperative with exam Musculoskeletal: trace BLE edema, FROM all extremities - Vital Signs Vital signs: Vital Signs - 12hr 11/12/19 20:32 Blood Pressure 154/88 - Lab 11/13/19 05:43 Most recent lab results Calcium 8.6 mg/dL (8.4-10.2) 11/13/19 05:43 Medications & Allergies - Medications Allergies/Adverse Reactions: Allergies morphine Adverse Reaction (Verified 11/01/19 23:50) Unknown Penicillins Adverse Reaction (Verified 11/01/19 23:50) Unknown Tetanus Vaccines and Toxoid Adverse Reaction (Verified 11/01/19 23:50) Unknown Home Medications: Home Medications Medication Instructions Recorded Confirmed Last Taken Type Adult Aspirin 650 mg PO BID 11/02/19 11/02/19 Unknown History Citalopram 20 mg PO BID 11/02/19 11/02/19 Unknown History Clopidogrel [Plavix] 75 mg PO DAILY 11/02/19 11/02/19 Unknown History Ergocalciferol [Vitamin D2] 50,000 units PO QWEEK 11/02/19 11/02/19 Unknown History Famotidine [Pepcid] 20 mg PO DAILY 11/02/19 11/02/19 Unknown History Furosemide [Lasix TAB] 40 mg PO DAILY 11/02/19 11/02/19 Unknown History Gabapentin 300 mg PO TID 11/02/19 11/02/19 Unknown History Isosorbide Mononitrate 30 mg PO DAILY 11/02/19 11/02/19 Unknown History Lantus VIAL 30 units SQ QHS 11/02/19 11/02/19 Unknown History Metoprolol-HCTZ 100-50 mg TAB 50 mg PO BID 11/02/19 11/02/19 Unknown History NIFEdipine [Nifedipine ER] 60 mg PO DAILY 11/02/19 11/02/19 Unknown History Tamsulosin 0.4 mg PO DAILY 11/02/19 11/02/19 Unknown History hydrALAZINE 50 mg PO TID 11/02/19 11/02/19 Unknown History Active Medications: Generic Name Dose Route Start Last Admin Trade Name Freq PRN Reason Stop Dose Admin Acetaminophen 650 mg 11/10/19 12:54 11/10/19 13:13 Tylenol PO 650 mg Q6H PRN Administration Pain, Mild (1-3) Amlodipine Besylate 10 mg 11/11/19 11:00 11/12/19 13:46 Amlodipine PO 10 mg QDAY GETACHEW Administration Clopidogrel Bisulfate 75 mg 11/11/19 11:00 11/12/19 13:51 Plavix PO 75 mg QDAY GETACHEW Administration Dextrose 50 ml 11/11/19 11:04 D50w (25gm) Syringe IV Q30MIN PRN Hypoglycemia Protocol Divalproex Sodium 250 mg 11/08/19 22:00 11/12/19 20:[address] PO 250 mg BID GETACHEW Administration Doxepin HCl 25 mg 11/11/19 13:18 11/12/19 20:34 Sinequan PO 25 mg QHS GETACHEW Administration Heparin Sodium (Porcine) 5,000 unit 11/09/19 10:00 11/12/19 20:36 Heparin SUB-Q 5,000 unit Q12HR GETACHEW Administration Hydralazine HCl 5 mg 11/11/19 03:04 11/11/19 08:08 Apresoline IV 5 mg Q6HR PRN Administration Blood Pressure Hydralazine HCl 10 mg 11/11/19 14:00 11/13/19 06:49 Apresoline PO 10 mg Q8HR GETACHEW Administration Insulin Human Lispro 0 unit 11/11/19 11:30 11/12/19 19:40 Humalog SUB-Q Not Given ACHS [facility] Protocol Metoprolol Tartrate 100 mg 11/10/19 16:00 11/12/19 20:32 Metoprolol PO 100 mg BID GETACHEW Administration Nicotine 14 mg 11/09/19 20:00 11/12/19 13:52 Habitrol TD 14 mg QDAY [facility] Administration Nitroglycerin 0.4 mg 11/10/19 03:32 11/10/19 04:15 Nitrostat SL 0.4 mg .Q5MIN PRN Administration Chest Pain Risperidone 1 mg 11/08/19 22:00 11/12/19 20:33 Risperdal PO 1 mg BID GETACHEW Administration
[2019-11-13] MEDS: HEPARIN 5,000 UNIT/1 ML VIAL SUB-Q SCH ×3 (10:01→21:51)
[2019-11-13] MEDS: NICOTINE 14 MG/24 HR PATCH TD SCH (10:03)
[2019-11-13] MEDS: risperiDONE 1 MG TAB PO SCH ×3 (10:03→21:52)
[2019-11-13] MEDS: CLOPIDOGREL 75 MG TAB PO SCH (10:03)
[2019-11-13] MEDS: DIVALPROEX DR 250 MG TAB PO SCH ×3 (10:03→21:51)
[2019-11-13] MEDS: amLODIPine 10 MG TAB PO SCH (10:07)
[2019-11-13] MEDS: METOPROLOL TARTRATE 100 MG TAB PO SCH ×2 (10:08→21:51)
--- NOTE | 2019-11-13 12:02 | Progress Note ---
Subjective - Reason for Consult Consult date: 11/13/19 Reason for consult: assess and manage mental health - Chief Complaint Chief complaint: During my interview with the patient this morning, he is in bed. Awake. Dressed appropriately. Sitter at bedside. He is confused. He says he is "feeling okay." The patient first denied hallucinations of any kind, then states "the voices tells me to get out of here before they kill you." He then laughs, and replies, "what else do you want to know." He denies SI/HI, but states "if they don't brink me my milk when asked it makes me want to do something. What's the use of being here if they can't come when you call them." The patient denies any problems with his sleep or appetite. REVIEW OF SYSTEMS Constitutional: Negative for weight loss ENT: Negative for stridor Respiratory: Negative for cough or hemoptysis All other systems reviewed and are negative MSE Appearance: Awake. Dressed appropriately Behavior: Cooperative Mood: "okay" Affect: Congruent Thought Process: goal directed Speech: Normal tone and pace Thought Content Suicidal: Denies Homicidal: Denies Hallucinations: Auditory Delusions: Denies Consciousness: Alert Cognition/Memory: Impaired Insight/Judgment: Limited RECOMMENDATIONS MEDICATIONS: Risks, benefits and alternatives of medications discussed with the patient, questions answered and consent obtained from patient. PSYCHOTHERAPY: Supportive psychotherapy provided MEDICAL: Per primary team DELIRIUM PRECAUTIONS: Please re-orient patient frequently, keep lights on during the day, and minimize benzodiazepines and opiates as these medications could worsen patient's confusion. 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 It is my professional opinion the patient would not benefit from our services, but his mentation will deteriorate further. The patient appears to be doing better, he denies suicidal or homicidal ideation, the patient symptoms can be managed outpatient. We will follow until discharge Please call with any questions or concerns. Thank you for this consult. Mental Status Exam - Vital signs Last Vital Signs Temp 98.5 F 11/13/19 10:07 Pulse 85 11/13/19 10:07 Resp 18 11/13/19 10:07 BP 143/63 11/13/19 10:07 Pulse Ox 96 11/13/19 10:07
--- NOTE | 2019-11-13 15:23 | Progress Note ---
Assessment and Plan Assessment and plan: 74 yo man with a history of hypertension and DM type 2 who was admitted to [facility] 11/02/2019 from [facility] for mental health stabilization after Suicidal ideation. Labs significant for Creat 2.8. Nephrology was consulted for further evaluation. RN called IM on 11/08/2019 about a "change in medical condition," patient choking on food and liquids, he is pale, altered. Prior night, before choking on food, he was combative and received 2 mg IM ativan. Trazadone was also newly added and increase in depakote. Now more lethargic and unable to eat, choking on food/liquid but he did received Lantus 30 units last night and BG dropped to 52. After IV dextrose the BG continued to drop to 48. Another amp of D5 was given. He was discharged form [facility] to med surg and admitted to 3rd Floor [facility] for intractable hypoglycemia requiring IV line. Acute toxic encephalopathy. Patient very lethargic, risperidone, doxepin, Depakote have all been discontinued Hypoglycemia, now resolved. Insulin was discontinued Type 2 diabetes, insulin were discontinued due to hypoglycemia. ARF/CKD 4, vasomotor nephropathy: Received IV fluids, nephrology input appreciated, now back at baseline Hypotension, now Hypertensive: low Bp was likely due to dehydration, now resolved, and on BP meds for high BP, improving Dysphagia; was likely due to hypoglycemia. Resolved, speech therapy input appreciated, pured diet with thin liquids recommended, patient tolerating diet DVT ppx full code Patient is not able to return to geriatric psychiatry, they have no plans to readmit him. PT consult pending, his family is interested in him going to subacute rehab. History Interval history: Review of systems Constitutional: No fevers, no malaise, no joint pains CVS: No chest pain, no orthopnea, no dyspnea on exertion, no pedal edema GI: No abdominal pain, no diarrhea, no vomiting, no constipation Respiratory: no wheezing, no coughing Hospitalist Physical - Physical exam Narrative exam: General.: Appears well, no distress, nontoxic HEENT: Moist mucous membranes, extraocular muscles intact, no lymphadenopathy Neck: supple Cardiac: S1-S2 heard Lungs: clear to auscultation bilaterally Abdomen: soft , nontender, nondistended, bowel sounds positive Extremities: no edema clubbing or cyanosis Skin: no rash or lesions Neurologic: no gross focal deficits, patient is confused Psych: calm, and cooperative, blood per staff patient is impulsive and unable to care for himself - Constitutional Vitals: Temp Pulse Resp BP Pulse Ox 98.5 F 85 18 143/63 96 11/13/19 10:07 11/13/19 10:07 11/13/19 10:07 11/13/19 10:07 11/13/19 10:07 Results - Labs CBC & Chem 7: 11/14/19 12:18 11/16/19 05:28 Labs: Laboratory Last Values Sodium 140 mmol/L (137-145) 11/13/19 05:43 Potassium 4.4 mmol/L (3.6-5.0) 11/13/19 05:43 Chloride 102.5 mmol/L (98-107) 11/13/19 05:43 Carbon Dioxide 21 mmol/L (22-30) L 11/13/19 05:43 Anion Gap 21 mmol/L 11/13/19 05:43 BUN 43 mg/dL (9-20) H 11/13/19 05:43 Creatinine 3.7 mg/dL (0.8-1.5) H 11/13/19 05:43 Estimated GFR 16 ml/min 11/13/19 05:43 BUN/Creatinine Ratio 12 % 11/13/19 05:43 Glucose 219 mg/dL (75-100) H 11/13/19 05:43 POC Glucose 246 (70-105) H 11/13/19 11:18 Calcium 8.6 mg/dL (8.4-10.2) 11/13/19 05:43 Active Medications - Current Medications Current Medications: Generic Name Dose Route Start Last Admin Trade Name Freq PRN Reason Stop Dose Admin Acetaminophen 650 mg 11/10/19 12:54 11/10/19 13:13 Tylenol PO 650 mg Q6H PRN Administration Pain, Mild (1-3) Amlodipine Besylate 10 mg 11/11/19 11:00 11/13/19 10:07 Amlodipine PO 10 mg QDAY GETACHEW Administration Clopidogrel Bisulfate 75 mg 11/11/19 11:00 11/13/19 10:03 Plavix PO 75 mg QDAY GETACHEW Administration Dextrose 50 ml 11/11/19 11:04 D50w (25gm) Syringe IV Q30MIN PRN Hypoglycemia Protocol Divalproex Sodium 250 mg 11/08/19 22:00 11/13/19 10:[address] PO 250 mg BID GETACHEW Administration Doxepin HCl 25 mg 11/11/19 13:18 11/12/19 20:34 Sinequan PO 25 mg QHS GETACHEW Administration Heparin Sodium (Porcine) 5,000 unit 11/09/19 10:00 11/13/19 10:01 Heparin SUB-Q 5,000 unit Q12HR GETACHEW Administration Hydralazine HCl 5 mg 11/11/19 03:04 11/11/19 08:08 Apresoline IV 5 mg Q6HR PRN Administration Blood Pressure Hydralazine HCl 10 mg 11/11/19 14:00 11/13/19 06:49 Apresoline PO 10 mg Q8HR GETACHEW Administration Insulin Human Lispro 0 unit 11/11/19 11:30 11/12/19 19:40 Humalog SUB-Q Not Given ACHS [facility] Protocol Metoprolol Tartrate 100 mg 11/10/19 16:00 11/13/19 10:08 Metoprolol PO 100 mg BID GETACHEW Administration Nicotine 14 mg 11/09/19 20:00 11/13/19 10:03 Habitrol TD 14 mg QDAY GETACHEW Administration Nitroglycerin 0.4 mg 11/10/19 03:32 11/10/19 04:15 Nitrostat SL 0.4 mg .Q5MIN PRN Administration Chest Pain Risperidone 1 mg 11/08/19 22:00 11/13/19 10:03 Risperdal PO 1 mg BID GETACHEW Administration Nutrition/Malnutrition Assess - Dietary Evaluation Nutrition/Malnutrition Findings: Nutrition Notes Start: 11/08/19 10:31 Freq: Status: Active Protocol: Document 11/11/19 14:20 LM (Rec: 11/11/19 14:21 LM [email or web address]) Nutrition Notes Need for Assessment generated from: LOS Initial or Follow up Brief Note Subjective/Other Information Screen for LOS. Pt eating 75- 100%. Nutrition Intervention Revisit per MD consult or patient Sign Off request:
--- NOTE | 2019-11-13 16:34 | Ultrasound Report ---
ULTRASOUND RENAL INDICATION / CLINICAL INFORMATION: Creatinine worsening. Acute kidney injury COMPARISON: 11/02/2019 FINDINGS: RIGHT KIDNEY: Length = 11.5 cm. [normal > 9 cm] - Parenchymal Thickness = 1.4 cm. [normal > 1.5 cm] - Echogenicity: Normal. - Hydronephrosis: None. - Cyst or mass: No significant abnormality. - Stones: None seen. LEFT KIDNEY: Length = 10.9 cm. [normal > 9 cm] - Parenchymal Thickness = 1.2 cm. [normal > 1.5 cm] - Echogenicity: Normal. - Hydronephrosis: None. - Cyst or mass: 1.8 cm exophytic cyst in the inferior left kidney is noted - Stones: None seen. URINARY BLADDER: No significant abnormality. FREE FLUID: None. ADDITIONAL FINDINGS: None. IMPRESSION: No significant abnormality. Left renal cyst. No obstructive uropathy. Signer Name: Jamey Monique Jr, MD Signed: 11/13/2019 4:30 PM Workstation Name: [id number]
[2019-11-13] MEDS: INSULIN LISPRO 100 UNIT/ML SUB-Q SCH ×3 (17:17→22:09)
[2019-11-13] MEDS: DOXEPIN 25 MG CAP PO SCH ×2 (20:57→21:51)
[2019-11-13] MEDS: ACETAMINOPHEN 325 MG TAB PO PRN (21:52)
[2019-11-14] MEDS: hydrALAZINE 10 MG TAB PO SCH ×3 (05:28→23:04)
[2019-11-14 07:05] LABS: Creatinine,Urine 106.3 mg/dL (0.1-20.0)
[2019-11-14 07:11] LABS: Bilirubin,Urine NEG (Negative); Blood,Urine NEG (Negative); Color,Urine Yellow (Yellow); Urobilinogen,Urine < 2.0 mg/dL (<2.0)
[2019-11-14 07:15] LABS: Protein,Urine >500 mg/dL (Negative)
--- NOTE | 2019-11-14 07:20 | Progress Note ---
Assessment and Plan 1. CKD stage 4: Patient with h/o CKD admitted from OSH. HCTZ d/c 11/06 due to bump in creatinine. Creatinine is improved today, 3.0 from 3.7. Urine studies and renal US ordered. Prior renal US showed combination of complex and simple cysts in left kidney, negative for hydro. Monitor renal function. Avoid nephrotoxic agents. Meds dosage based on GFR. 2. FEN: Metabolic acidosis, monitor. Monitor lytes. 3. Suicidal/homicidal ideation. Was d/c from [facility] on 11/08. Followed by psych. 4. Metabolic encephalopathy, POA. Increased lethargy 11/06 which resulted in d/c of Neurontin. Lethargy is improved after d/c of Neurontin. Increased bouts of confusion reported to primary 11/14, MRI brain pending, r/o NPH. 5. Leukocytosis. 6. Diabetes mellitus with hyperglycemia. 7. COPD. 8. CAD. 9. Presumed chronic congestive heart failure: Normal EF. 10.Right rib fracture. 11. Hypertension: BP is still fluctuating. Metoprolol started 11/10. Restarted hydralazine and amlodipine on 11/11. Continue to monitor closely. Subjective Date of service: 11/14/19 Interval history: Patient was seen and examined at the bedside. He is drowsy and will open his eyes but goes right back to sleep. Sitter at the bedside. Sitter reports no acute events overnight. Objective - Exam Narrative Exam: General appearance: well-developed, well-nourished, appears stated age, other ( not in distress) EENT: ATNC, THIEN Neck: Present: neck supple, trachea midline Respiratory: Clear to Auscultation Heart: regular, S1S2, no murmurs Gastrointestinal: Present: normoactive bowel sounds. Absent: tenderness, distended Integumentary: no rash, warm and dry Neurologic: drowsy, cooperative with exam Musculoskeletal: trace BLE edema, FROM all extremities - Vital Signs Vital signs: Vital Signs - 12hr 11/13/19 11/14/19 11/14/19 21:49 05:25 05:28 Temperature 97.9 F 97.6 F 97.6 F Pulse Rate 83 78 Respiratory 18 18 18 Rate Blood Pressure 191/74 Blood Pressure 174/72 191/74 [Right] O2 Sat by Pulse 94 93 Oximetry - Lab 11/14/19 12:18 11/14/19 08:16 Most recent lab results Calcium 8.6 mg/dL (8.4-10.2) 11/13/19 05:43 Urine Creatinine 106.3 mg/dL (0.1-20.0) H 11/14/19 06:45 Urine Sodium 66 mmol/L 11/14/19 06:45 Medications & Allergies - Medications Allergies/Adverse Reactions: Allergies morphine Adverse Reaction (Verified 11/01/19 23:50) Unknown Penicillins Adverse Reaction (Verified 11/01/19 23:50) Unknown Tetanus Vaccines and Toxoid Adverse Reaction (Verified 11/01/19 23:50) Unknown Home Medications: Home Medications Medication Instructions Recorded Confirmed Last Taken Type Adult Aspirin 650 mg PO BID 11/02/19 11/02/19 Unknown History Citalopram 20 mg PO BID 11/02/19 11/02/19 Unknown History Clopidogrel [Plavix] 75 mg PO DAILY 11/02/19 11/02/19 Unknown History Ergocalciferol [Vitamin D2] 50,000 units PO QWEEK 11/02/19 11/02/19 Unknown History Famotidine [Pepcid] 20 mg PO DAILY 11/02/19 11/02/19 Unknown History Furosemide [Lasix TAB] 40 mg PO DAILY 11/02/19 11/02/19 Unknown History Gabapentin 300 mg PO TID 11/02/19 11/02/19 Unknown History Isosorbide Mononitrate 30 mg PO DAILY 11/02/19 11/02/19 Unknown History Lantus VIAL 30 units SQ QHS 11/02/19 11/02/19 Unknown History Metoprolol-HCTZ 100-50 mg TAB 50 mg PO BID 11/02/19 11/02/19 Unknown History NIFEdipine [Nifedipine ER] 60 mg PO DAILY 11/02/19 11/02/19 Unknown History Tamsulosin 0.4 mg PO DAILY 11/02/19 11/02/19 Unknown History hydrALAZINE 50 mg PO TID 11/02/19 11/02/19 Unknown History Active Medications: Generic Name Dose Route Start Last Admin Trade Name Freq PRN Reason Stop Dose Admin Acetaminophen 650 mg 11/10/19 12:54 11/13/19 21:52 Tylenol PO 650 mg Q6H PRN Administration Pain, Mild (1-3) Amlodipine Besylate 10 mg 11/11/19 11:00 11/13/19 10:07 Amlodipine PO 10 mg QDAY GETACHEW Administration Clopidogrel Bisulfate 75 mg 11/11/19 11:00 11/13/19 10:03 Plavix PO 75 mg QDAY GETACHEW Administration Dextrose 50 ml 11/11/19 11:04 D50w (25gm) Syringe IV Q30MIN PRN Hypoglycemia Protocol Divalproex Sodium 250 mg 11/08/19 22:00 11/13/19 21:[address] PO 250 mg BID GETACHEW Administration Doxepin HCl 25 mg 11/11/19 13:18 11/13/19 21:51 Sinequan PO 25 mg QHS GETACHEW Administration Heparin Sodium (Porcine) 5,000 unit 11/09/19 10:00 11/13/19 21:51 Heparin SUB-Q 5,000 unit Q12HR GETACHEW Administration Hydralazine HCl 5 mg 11/11/19 03:04 11/11/19 08:08 Apresoline IV 5 mg Q6HR PRN Administration Blood Pressure Hydralazine HCl 10 mg 11/11/19 14:00 11/14/19 05:28 Apresoline PO 10 mg Q8HR GETACHEW Administration Insulin Human Lispro 0 unit 11/11/19 11:30 11/13/19 22:09 Humalog SUB-Q Not Given ACHS [facility] Protocol Metoprolol Tartrate 100 mg 11/10/19 16:00 11/13/19 21:51 Metoprolol PO 100 mg BID GETACHEW Administration Nicotine 14 mg 11/09/19 20:00 11/13/19 10:03 Habitrol TD 14 mg QDAY GETACHEW Administration Nitroglycerin 0.4 mg 11/10/19 03:32 11/10/19 04:15 Nitrostat SL 0.4 mg .Q5MIN PRN Administration Chest Pain Risperidone 1 mg 11/08/19 22:00 11/13/19 21:52 Risperdal PO 1 mg BID GETACHEW Administration
[2019-11-14] MEDS: INSULIN LISPRO 100 UNIT/ML SUB-Q SCH ×4 (08:26→23:04)
[2019-11-14 09:08] LABS: Calcium 8.7 mg/dL (8.4-10.2)
[2019-11-14] MEDS: METOPROLOL TARTRATE 100 MG TAB PO SCH ×2 (10:00→23:04)
[2019-11-14] MEDS: HEPARIN 5,000 UNIT/1 ML VIAL SUB-Q SCH ×2 (10:33→23:05)
--- NOTE | 2019-11-14 12:06 | Progress Note ---
Assessment and Plan Assessment and plan: 74 yo man with a history of hypertension and DM type 2 who was admitted to [facility] 11/02/2019 from [facility] for mental health stabilization after Suicidal ideation. Labs significant for Creat 2.8. Nephrology was consulted for further evaluation. RN called IM on 11/08/2019 about a "change in medical condition," patient choking on food and liquids, he is pale, altered. Prior night, before choking on food, he was combative and received 2 mg IM ativan. Trazadone was also newly added and increase in depakote. Now more lethargic and unable to eat, choking on food/liquid but he did received Lantus 30 units last night and BG dropped to 52. After IV dextrose the BG continued to drop to 48. Another amp of D5 was given. He was discharged form [facility] to med surg and admitted to 3rd [facility] for intractable hypoglycemia requiring IV line. Acute toxic and metabolic encephalopathy. Patient very lethargic, risperidone, doxepin, Depakote have all been discontinued, patient was previously lethargic and not responsive due to hypoglycemia. And insulins were discontinued. Now psych meds have now been discontinued due to decreased responsiveness Hypoglycemia, now resolved. Insulin was discontinued Type 2 diabetes, insulin were discontinued due to hypoglycemia. ARF/CKD 4, vasomotor nephropathy: Received IV fluids, nephrology input appreciated, now back at baseline Hypotension, now Hypertensive: low Bp was likely due to dehydration, now resolved, and on BP meds for high BP, improving Dysphagia; was likely due to hypoglycemia. Resolved, speech therapy input appreciated, pured diet with thin liquids recommended, patient tolerating diet DVT ppx full code Patient is not able to return to geriatric psychiatry, they have no plans to readmit him. PT consult pending, his family is interested in him going to subacute rehab. History Interval history: No fevers No vomiting No diarrhea No agitation No seizures No evidence of discomfort or pain Hospitalist Physical - Physical exam Narrative exam: General.: No distress HEENT: Moist mucous membranes, extraocular muscles intact, no lymphadenopathy Neck: supple Cardiac: S1-S2 heard Lungs: clear to auscultation bilaterally Abdomen: soft , nontender, nondistended, bowel sounds positive Extremities: no edema clubbing or cyanosis Skin: no rash or lesions Neurologic: Patient is lethargic and somnolent Psych: Lethargic - Constitutional Vitals: Temp Pulse Resp BP Pulse Ox 97.9 F 72 18 157/70 92 11/14/19 07:58 11/14/19 07:58 11/14/19 07:58 11/14/19 07:58 11/14/19 07:58 Results - Labs CBC & Chem 7: 11/14/19 12:18 11/16/19 05:28 Labs: Laboratory Last Values Sodium 141 mmol/L (137-145) 11/14/19 08:16 Potassium 3.8 mmol/L (3.6-5.0) 11/14/19 08:16 Chloride 102.9 mmol/L (98-107) 11/14/19 08:16 Carbon Dioxide 21 mmol/L (22-30) L 11/14/19 08:16 Anion Gap 21 mmol/L 11/14/19 08:16 BUN 41 mg/dL (9-20) H 11/14/19 08:16 Creatinine 3.0 mg/dL (0.8-1.5) H 11/14/19 08:16 Estimated GFR 21 ml/min 11/14/19 08:16 BUN/Creatinine Ratio 14 % 11/14/19 08:16 Glucose 155 mg/dL (75-100) H 11/14/19 08:16 POC Glucose 150 (70-105) H 11/14/19 11:20 Calcium 8.7 mg/dL (8.4-10.2) 11/14/19 08:16 Urine Color Yellow (Yellow) 11/14/19 06:45 Urine Turbidity Clear (Clear) 11/14/19 06:45 Urine pH 6.0 (5.0-7.0) 11/14/19 06:45 Ur Specific Benkelman 1.016 (1.003-1.030) 11/14/19 06:45 Urine Protein >500 mg/dL (Negative) 11/14/19 06:45 Urine Glucose (UA) 150 mg/dL (Negative) 11/14/19 06:45 Urine Ketones Tr mg/dL (Negative) 11/14/19 06:45 Urine Blood Neg (Negative) 11/14/19 06:45 Urine Nitrite Neg (Negative) 11/14/19 06:45 Urine Bilirubin Neg (Negative) 11/14/19 06:45 Urine Urobilinogen < 2.0 mg/dL (<2.0) 11/14/19 06:45 Ur Leukocyte Esterase Tr (Negative) 11/14/19 06:45 Urine WBC (Auto) 32.0 /HPF (0.0-6.0) H 11/14/19 06:45 Urine RBC (Auto) 1.0 /HPF (0.0-6.0) 11/14/19 06:45 U Epithel Cells (Auto) < 1.0 /HPF (0-13.0) 11/14/19 06:45 Urine Creatinine 106.3 mg/dL (0.1-20.0) H 11/14/19 06:45 Urine Sodium 66 mmol/L 11/14/19 06:45 Active Medications - Current Medications Current Medications: Generic Name Dose Route Start Last Admin Trade Name Freq PRN Reason Stop Dose Admin Acetaminophen 650 mg 11/10/19 12:54 11/13/19 21:52 Tylenol PO 650 mg Q6H PRN Administration Pain, Mild (1-3) Amlodipine Besylate 10 mg 11/11/19 11:00 11/13/19 10:07 Amlodipine PO 10 mg QDAY GETACHEW Administration Clopidogrel Bisulfate 75 mg 11/11/19 11:00 11/13/19 10:03 Plavix PO 75 mg QDAY GETACHEW Administration Dextrose 50 ml 11/11/19 11:04 D50w (25gm) Syringe IV Q30MIN PRN Hypoglycemia Protocol Heparin Sodium (Porcine) 5,000 unit 11/09/19 10:00 11/14/19 10:33 Heparin SUB-Q 5,000 unit Q12HR GETACHEW Administration Hydralazine HCl 5 mg 11/11/19 03:04 11/11/19 08:08 Apresoline IV 5 mg Q6HR PRN Administration Blood Pressure Hydralazine HCl 10 mg 11/11/19 14:00 11/14/19 05:28 Apresoline PO 10 mg Q8HR GETACHEW Administration Insulin Human Lispro 0 unit 11/11/19 11:30 11/14/19 08:26 Humalog SUB-Q 1 unit ACHS GETACHEW Administration Protocol Metoprolol Tartrate 100 mg 11/10/19 16:00 11/13/19 21:51 Metoprolol PO 100 mg BID GETACHEW Administration Nicotine 14 mg 11/09/19 20:00 11/13/19 10:03 Habitrol TD 14 mg QDAY GETACHEW Administration Nitroglycerin 0.4 mg 11/10/19 03:32 11/10/19 04:15 Nitrostat SL 0.4 mg .Q5MIN PRN Administration Chest Pain Nutrition/Malnutrition Assess - Dietary Evaluation Nutrition/Malnutrition Findings: Nutrition Notes Start: 11/08/19 10:31 Freq: Status: Active Protocol: Document 11/11/19 14:20 LM (Rec: 11/11/19 14:21 LM [email or web address]) Nutrition Notes Need for Assessment generated from: LOS Initial or Follow up Brief Note Subjective/Other Information Screen for LOS. Pt eating 75- 100%. Nutrition Intervention Revisit per MD consult or patient Sign Off request:
[2019-11-14 13:01] LABS: Basophils # (Auto) 0.1 K/mm3 (0.0-0.1); Basophils % (Auto) 0.8 % (0.0-1.8); Eosinophils # (Auto) 0.6 K/mm3 (0.0-0.4); Eosinophils % (Auto) 4.2 % (0.0-4.3); Hematocrit 40.6 % (35.5-45.6); Hemoglobin 13.4 gm/dl (11.8-15.2); Lymphocytes # (Auto) 3.5 K/mm3 (1.2-5.4); Lymphocytes % (Auto) 24.9 % (13.4-35.0); Mean Corpuscular HGB Conc 33 % (32-34); Mean Corpuscular Volume 89 fl (84-94); Monocytes # (Auto) 1.2 K/mm3 (0.0-0.8); Monocytes % (Auto) 8.4 % (0.0-7.3); Platelet Count 330 K/mm3 (140-440); Red Blood Count 4.58 M/mm3 (3.65-5.03); Red Cell Distribution Width 14.3 % (13.2-15.2)
[2019-11-14 13:06] LABS: Alanine Aminotransferase 12 units/L (7-56); Albumin 3.1 g/dL (3.9-5)
[2019-11-14 13:07] LABS: Bilirubin,Direct < 0.2 mg/dL (0-0.2)
[2019-11-14] MEDS: CLOPIDOGREL 75 MG TAB PO SCH (13:13)
--- NOTE | 2019-11-14 13:31 | Cat Scan Report ---
CT head/brain wo con INDICATION / CLINICAL INFORMATION: 74 years Male; ams. TECHNIQUE: Routine CT head without contrast. All CT scans at this location are performed using CT dos e reduction for ALARA by means of automated exposure control. COMPARISON: None. 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 There is an old lacunar infarct involving the left external capsule. There is prominence of the ventricular system which may be related to the degree of cerebral atrophy. Howev er, there is relative effacement of the sulci near the vertex and the findings may be seen with josselin l pressure hydrocephalus; correlation would be needed at. There is no clear CT evidence of acute intracranial hemorrhage or significant mass effect. ORBITS: No significant abnormality of visualized orbits. SINUSES / MASTOIDS: There is mild mucosal thickening along the visualized inferior left maxillary sin us. CRANIOCERVICAL JUNCTION: No significant abnormality. ADDITIONAL FINDINGS: None. IMPRESSION: 1. There is extensive microvascular angiopathy without CT evidence acute intracranial hemorrhage. 2. There is prominence of the ventricular system and cerebral atrophy as detailed above. Signer Name: Jaylen Willson MD Signed: 11/14/2019 1:27 PM Workstation Name: [id number]
[2019-11-14] MEDS: amLODIPine 10 MG TAB PO SCH (14:01)
[2019-11-14] MEDS: NICOTINE 14 MG/24 HR PATCH TD SCH (14:04)
--- NOTE | 2019-11-14 14:32 | Progress Note ---
Subjective - Reason for Consult Consult date: 11/14/19 Reason for consult: psychosis - Chief Complaint Chief complaint: During my interview with the patient this morning, he is in bed. Awake. Dressed appropriately. He is smiling and playful. Sitter at bedside. He is a/o x 2. He says he is "feeling okay." He makes good eye contact. He is engaging and smiling. The patient says he "slept pretty good." He says for the "past few days he's slept good." When asked about hallucinations the patient says, "I hear voices telling me to kill all the nurses and doctors." He then laughs out loud and says "I was only joking. No I'm not hallucinating." He says "I guess I better be careful playing like that, I[facility] already [facility] The patient denies SI/HI. He laughs and says "well every morning I take rat poison." He then laughs again and says "okay, I'm done messing with you. No, I'm not suicidal." He says his appetite is "not that good because this place doesn't have [place]." REVIEW OF SYSTEMS Constitutional: Negative for weight loss ENT: Negative for stridor Respiratory: Negative for cough or hemoptysis All other systems reviewed and are negative MSE Appearance: Awake. Dressed appropriately Behavior: calm and cooperative, playful. Good eye contact. Mood: "okay" Affect: Congruent Thought Process: goal directed Speech: Normal tone and pace Thought Content Suicidal: Denies Homicidal: Denies Hallucinations: Denies Delusions: Denies Consciousness: Alert Cognition/Memory: Limited Insight/Judgment: Limited RECOMMENDATIONS MEDICATIONS: No medications ordered Risks, benefits and alternatives of medications discussed with the patient, questions answered and consent obtained from patient. PSYCHOTHERAPY: Supportive psychotherapy provided MEDICAL: Per primary team DELIRIUM PRECAUTIONS: Please re-orient patient frequently, keep lights on during the day, and minimize benzodiazepines and opiates as these medications could worsen patient's confusion. 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 The patient can discharge once medically cleared. It is my professional opinion the patient would not benefit from our services, but his mentation would deteriorate further. The patient appears to be doing better, he denies suicidal or homicidal ideation, or hallucinations at present. The patient's symptoms can be managed outpatient. The patient is to follow up with outpatient psychiatry or primary care within 7 to 14 days upon discharge. He understands that upon discharge, if suicidal or self harm thoughts return he is to seek assistance, including but not limited to the suicide hotline and 911. Will sign off. Please call with any questions or concerns. Thank you for this consult. Mental Status Exam - Vital signs Last Vital Signs Temp 97.9 F 11/14/19 07:58 Pulse 72 11/14/19 07:58 Resp 18 11/14/19 07:58 BP 122/61 11/14/19 10:25 Pulse Ox 92 11/14/19 07:58
[2019-11-14] MEDS: ACETAMINOPHEN 325 MG TAB PO PRN (15:34)
[2019-11-15] MEDS: hydrALAZINE 10 MG TAB PO SCH ×3 (05:55→23:08)
[2019-11-15 06:39] LABS: Calcium 8.7 mg/dL (8.4-10.2)
--- NOTE | 2019-11-15 07:37 | Progress Note ---
Assessment and Plan 1. CKD stage 4: Patient with h/o CKD admitted from OSH. HCTZ d/c 11/06 due to bump in creatinine. Creatinine is stable, 3.1 from 3.0. Prior renal US showed combination of complex and simple cysts in left kidney, negative for hydro. Monitor renal function. Avoid nephrotoxic agents. Meds dosage based on GFR. 2. FEN: Metabolic acidosis, improving, monitor. Monitor lytes. 3. Suicidal/homicidal ideation. Was d/c from [facility] on 11/08. Followed by psych. 4. Metabolic encephalopathy, POA. Increased lethargy 11/06 which resulted in d/c of Neurontin. Lethargy is improved after d/c of Neurontin. Increased bouts of confusion reported to primary 11/14, MRI brain pending, r/o NPH. Unable to obtain MRI at this point because family unclear on medical history and pt unable to provide. 5. Leukocytosis. 6. Diabetes mellitus with hyperglycemia. 7. COPD. 8. CAD. 9. Presumed chronic congestive heart failure: Normal EF. 10.Right rib fracture. 11. Hypertension: BP is stabilizing. Metoprolol started 11/10. Restarted hydralazine and amlodipine on 11/11. Continue to monitor closely. Subjective Date of service: 11/15/19 Interval history: Patient was seen and examined at the bedside. He is awake and resting in bed. Sitter at the bedside. Sitter reports no acute events overnight. Objective - Exam Narrative Exam: General appearance: well-developed, well-nourished, appears stated age, other (not in distress) EENT: ATNC, THIEN Neck: Present: neck supple, trachea midline Respiratory: Clear to Auscultation Heart: regular, S1S2, no murmurs Gastrointestinal: Present: normoactive bowel sounds. Absent: tenderness, distended Integumentary: no rash, warm and dry Neurologic: drowsy, cooperative with exam Musculoskeletal: trace BLE edema, FROM all extremities - Vital Signs Vital signs: Vital Signs - 12hr 11/14/19 11/14/19 11/15/19 22:25 23:04 05:53 Temperature 97.8 F 98.2 F Pulse Rate 100 H 100 H 81 Respiratory 18 18 Rate Blood Pressure 158/72 158/72 Blood Pressure 169/77 [Right] O2 Sat by Pulse 95 94 Oximetry 11/15/19 05:55 Temperature Pulse Rate 81 Respiratory Rate Blood Pressure 169/77 Blood Pressure [Right] O2 Sat by Pulse Oximetry - Lab 11/14/19 12:18 11/15/19 05:58 Most recent lab results Calcium 8.7 mg/dL (8.4-10.2) 11/15/19 05:58 Phosphorus 5.00 mg/dL (2.5-4.5) H 11/14/19 12:18 Magnesium 2.40 mg/dL (1.7-2.3) H 11/14/19 12:18 Urine Creatinine 106.3 mg/dL (0.1-20.0) H 11/14/19 06:45 Urine Sodium 66 mmol/L 11/14/19 06:45 Medications & Allergies - Medications Allergies/Adverse Reactions: Allergies morphine Adverse Reaction (Verified 11/01/19 23:50) Unknown Penicillins Adverse Reaction (Verified 11/01/19 23:50) Unknown Tetanus Vaccines and Toxoid Adverse Reaction (Verified 11/01/19 23:50) Unknown Home Medications: Home Medications Medication Instructions Recorded Confirmed Last Taken Type Adult Aspirin 650 mg PO BID 11/02/19 11/02/19 Unknown History Citalopram 20 mg PO BID 11/02/19 11/02/19 Unknown History Clopidogrel [Plavix] 75 mg PO DAILY 11/02/19 11/02/19 Unknown History Ergocalciferol [Vitamin D2] 50,000 units PO QWEEK 11/02/19 11/02/19 Unknown History Famotidine [Pepcid] 20 mg PO DAILY 11/02/19 11/02/19 Unknown History Furosemide [Lasix TAB] 40 mg PO DAILY 11/02/19 11/02/19 Unknown History Gabapentin 300 mg PO TID 11/02/19 11/02/19 Unknown History Isosorbide Mononitrate 30 mg PO DAILY 11/02/19 11/02/19 Unknown History Lantus VIAL 30 units SQ QHS 11/02/19 11/02/19 Unknown History Metoprolol-HCTZ 100-50 mg TAB 50 mg PO BID 11/02/19 11/02/19 Unknown History NIFEdipine [Nifedipine ER] 60 mg PO DAILY 11/02/19 11/02/19 Unknown History Tamsulosin 0.4 mg PO DAILY 11/02/19 11/02/19 Unknown History hydrALAZINE 50 mg PO TID 11/02/19 11/02/19 Unknown History Active Medications: Generic Name Dose Route Start Last Admin Trade Name Freq PRN Reason Stop Dose Admin Acetaminophen 650 mg 11/10/19 12:54 11/14/19 15:34 Tylenol PO 650 mg Q6H PRN Administration Pain, Mild (1-3) Amlodipine Besylate 10 mg 11/11/19 11:00 11/14/19 14:01 Amlodipine PO 10 mg QDAY GETACHEW Administration Clopidogrel Bisulfate 75 mg 11/11/19 11:00 11/14/19 13:13 Plavix PO 75 mg QDAY GETACHEW Administration Dextrose 50 ml 11/11/19 11:04 D50w (25gm) Syringe IV Q30MIN PRN Hypoglycemia Protocol Heparin Sodium (Porcine) 5,000 unit 11/09/19 10:00 11/14/19 23:05 Heparin SUB-Q 5,000 unit Q12HR GETACHEW Administration Hydralazine HCl 5 mg 11/11/19 03:04 11/11/19 08:08 Apresoline IV 5 mg Q6HR PRN Administration Blood Pressure Hydralazine HCl 10 mg 11/11/19 14:00 11/15/19 05:55 Apresoline PO 10 mg Q8HR GETACHEW Administration Insulin Human Lispro 0 unit 11/11/19 11:30 11/14/19 23:04 Humalog SUB-Q 2 unit ACHS GETACHEW Administration Protocol Metoprolol Tartrate 100 mg 11/10/19 16:00 11/14/19 23:04 Metoprolol PO 100 mg BID GETACHEW Administration Nicotine 14 mg 11/09/19 20:00 11/14/19 14:04 Habitrol TD 14 mg QDAY GETACHEW Administration Nitroglycerin 0.4 mg 11/10/19 03:32 11/10/19 04:15 Nitrostat SL 0.4 mg .Q5MIN PRN Administration Chest Pain
[2019-11-15] MEDS: INSULIN LISPRO 100 UNIT/ML SUB-Q SCH ×4 (08:13→23:05)
[2019-11-15] MEDS: NICOTINE 14 MG/24 HR PATCH TD SCH (09:20)
[2019-11-15] MEDS: CLOPIDOGREL 75 MG TAB PO SCH (09:20)
[2019-11-15] MEDS: amLODIPine 10 MG TAB PO SCH (09:20)
[2019-11-15] MEDS: HEPARIN 5,000 UNIT/1 ML VIAL SUB-Q SCH ×2 (09:21→23:07)
[2019-11-15] MEDS: METOPROLOL TARTRATE 100 MG TAB PO SCH ×2 (09:21→23:04)
[2019-11-15] MEDS: ACETAMINOPHEN 325 MG TAB PO PRN (12:08)
[2019-11-15] MEDS ORDERED: LORazepam 2 MG/ML VIAL IV ONE (20:45)
[2019-11-15] MEDS: INSULIN GLARGINE 100 UNITS/ML SUB-Q SCH (23:11)
[2019-11-16] MEDS: hydrALAZINE 10 MG TAB PO SCH ×3 (06:00→21:55)
[2019-11-16] MEDS: INSULIN LISPRO 100 UNIT/ML SUB-Q SCH ×4 (08:10→23:16)
--- NOTE | 2019-11-16 10:24 | Progress Note ---
Assessment and Plan 1. 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 Renal function is improving. Creatinine is 2.9 today. Prior renal US showed combination of complex and simple cysts in left kidney, negative for hydro. Monitor renal function. Avoid nephrotoxic agents. Meds dosage based on GFR. 2. FEN: Metabolic acidosis, improving, monitor. Monitor lytes. 3. Suicidal/homicidal ideation. Was d/c from [facility] on 11/08. Followed by psych. 4. Metabolic encephalopathy, POA. Monitor. 5. Leukocytosis. 6. Diabetes mellitus with hyperglycemia. 7. COPD. 8. CAD. 9. Presumed chronic congestive heart failure: Normal EF. 10.Right rib fracture. 11. Hypertension: BP is stabilizing. Metoprolol started 11/10. Restarted hydralazine and amlodipine on 11/11. Continue to monitor closely. Subjective Interval history: Patient was seen and examined at the bedside. He is awake and resting in bed. Sitter at the bedside. Objective - Exam General appearance: well-developed, well-nourished, appears stated age, not in distress HEENT: ATNC, THIEN Neck: neck supple, trachea midline Respiratory: Clear to Auscultation Heart: regular, S1S2, no murmurs Gastrointestinal: soft, normoactive bowel sounds, not absent, not tender Integumentary: no rash, warm and dry Neurologic: cooperative with exam, able to move extremities Musculoskeletal: trace BLE edema Subjective Date of service: 11/16/19 Objective - Vital Signs Vital signs: Vital Signs - 12hr 11/15/19 11/15/19 11/16/19 23:04 23:08 05:36 Temperature 97.4 F L Pulse Rate 85 85 87 Respiratory 14 Rate Blood Pressure 185/76 185/76 180/93 O2 Sat by Pulse 97 Oximetry 11/16/19 06:00 Temperature Pulse Rate 85 Respiratory Rate Blood Pressure 180/93 O2 Sat by Pulse Oximetry - Lab 11/14/19 12:18 11/16/19 05:28 Most recent lab results Calcium 9.0 mg/dL (8.4-10.2) 11/16/19 05:28 Phosphorus 5.00 mg/dL (2.5-4.5) H 11/14/19 12:18 Magnesium 2.40 mg/dL (1.7-2.3) H 11/14/19 12:18 Urine Creatinine 106.3 mg/dL (0.1-20.0) H 11/14/19 06:45 Urine Sodium 66 mmol/L 11/14/19 06:45 Medications & Allergies - Medications Allergies/Adverse Reactions: Allergies morphine Adverse Reaction (Verified 11/01/19 23:50) Unknown Penicillins Adverse Reaction (Verified 11/01/19 23:50) Unknown Tetanus Vaccines and Toxoid Adverse Reaction (Verified 11/01/19 23:50) Unknown Home Medications: Home Medications Medication Instructions Recorded Confirmed Last Taken Type Adult Aspirin 650 mg PO BID 11/02/19 11/02/19 Unknown History Citalopram 20 mg PO BID 11/02/19 11/02/19 Unknown History Clopidogrel [Plavix] 75 mg PO DAILY 11/02/19 11/02/19 Unknown History Ergocalciferol [Vitamin D2] 50,000 units PO QWEEK 11/02/19 11/02/19 Unknown History Famotidine [Pepcid] 20 mg PO DAILY 11/02/19 11/02/19 Unknown History Furosemide [Lasix TAB] 40 mg PO DAILY 11/02/19 11/02/19 Unknown History Gabapentin 300 mg PO TID 11/02/19 11/02/19 Unknown History Isosorbide Mononitrate 30 mg PO DAILY 11/02/19 11/02/19 Unknown History Lantus VIAL 30 units SQ QHS 11/02/19 11/02/19 Unknown History Metoprolol-HCTZ 100-50 mg TAB 50 mg PO BID 11/02/19 11/02/19 Unknown History NIFEdipine [Nifedipine ER] 60 mg PO DAILY 11/02/19 11/02/19 Unknown History Tamsulosin 0.4 mg PO DAILY 11/02/19 11/02/19 Unknown History hydrALAZINE 50 mg PO TID 11/02/19 11/02/19 Unknown History Active Medications: Generic Name Dose Route Start Last Admin Trade Name Freq PRN Reason Stop Dose Admin Acetaminophen 650 mg 11/10/19 12:54 11/15/19 12:08 Tylenol PO 650 mg Q6H PRN Administration Pain, Mild (1-3) Amlodipine Besylate 10 mg 11/11/19 11:00 11/15/19 09:20 Amlodipine PO 10 mg QDAY GETACHEW Administration Clopidogrel Bisulfate 75 mg 11/11/19 11:00 11/15/19 09:20 Plavix PO 75 mg QDAY GETACHEW Administration Dextrose 50 ml 11/11/19 11:04 D50w (25gm) Syringe IV Q30MIN PRN Hypoglycemia Protocol Heparin Sodium (Porcine) 5,000 unit 11/09/19 10:00 11/15/19 23:07 Heparin SUB-Q 5,000 unit Q12HR GETACHEW Administration Hydralazine HCl 5 mg 11/11/19 03:04 11/11/19 08:08 Apresoline IV 5 mg Q6HR PRN Administration Blood Pressure Hydralazine HCl 10 mg 11/11/19 14:00 11/16/19 06:00 Apresoline PO 10 mg Q8HR GETACHEW Administration Insulin Glargine 10 units 11/15/19 22:00 11/15/19 23:11 Lantus SUB-Q 10 units QHS GETACHEW Administration Insulin Human Lispro 0 unit 11/11/19 11:30 11/16/19 08:10 Humalog SUB-Q Not Given ACHS [facility] Protocol Metoprolol Tartrate 100 mg 11/10/19 16:00 11/15/19 23:04 Metoprolol PO 100 mg BID GETACHEW Administration Nicotine 14 mg 11/09/19 20:00 11/15/19 09:20 Habitrol TD 14 mg QDAY GETACHEW Administration Nitroglycerin 0.4 mg 11/10/19 03:32 11/10/19 04:15 Nitrostat SL 0.4 mg .Q5MIN PRN Administration Chest Pain
[2019-11-16] MEDS: HEPARIN 5,000 UNIT/1 ML VIAL SUB-Q SCH ×2 (11:31→21:55)
[2019-11-16] MEDS: NICOTINE 14 MG/24 HR PATCH TD SCH (11:31)
[2019-11-16] MEDS: amLODIPine 10 MG TAB PO SCH (11:31)
[2019-11-16] MEDS: CLOPIDOGREL 75 MG TAB PO SCH (11:31)
[2019-11-16] MEDS: METOPROLOL TARTRATE 100 MG TAB PO SCH ×2 (11:31→21:54)
--- NOTE | 2019-11-16 12:36 | Progress Note ---
Assessment and Plan Assessment and plan: 74 yo man with a history of hypertension and DM type 2 who was admitted to [facility] 11/02/2019 from [facility] for mental health stabilization after Suicidal ideation. Labs significant for Creat 2.8. Nephrology was consulted for further evaluation. RN called IM on 11/08/2019 about a "change in medical condition," patient choking on food and liquids, he is pale, altered. Prior night, before choking on food, he was combative and received 2 mg IM ativan. Trazadone was also newly added and increase in depakote. Now more lethargic and unable to eat, choking on food/liquid but he did received Lantus 30 units last night and BG dropped to 52. After IV dextrose the BG continued to drop to 48. Another amp of D5 was given. He was discharged form [facility] to med surg and admitted to [facility] for intractable hypoglycemia requiring IV line. Acute toxic and metabolic encephalopathy. Patient very lethargic, risperidone, doxepin, Depakote have all been discontinued, patient was previously lethargic and not responsive due to hypoglycemia. And insulins were discontinued. Now psych meds have now been discontinued due to decreased responsiveness Hypoglycemia, now resolved. Insulin was discontinued Type 2 diabetes, insulin were discontinued due to hypoglycemia. ARF/CKD 4, vasomotor nephropathy: Received IV fluids, nephrology input appreciated, now back at baseline Hypotension, now Hypertensive: low Bp was likely due to dehydration, now resolved, and on BP meds for high BP, improving Dysphagia; was likely due to hypoglycemia. Resolved, speech therapy input appreciated, pured diet with thin liquids recommended, patient tolerating diet DVT ppx full code Patient is not able to return to geriatric psychiatry, they have no plans to readmit him. PT consult pending, his family is interested in him going to subacute rehab. History Interval history: No fevers No vomiting No diarrhea No agitation No seizures No evidence of discomfort or pain Hospitalist Physical - Physical exam Narrative exam: General.: No distress HEENT: Moist mucous membranes, extraocular muscles intact, no lymphadenopathy Neck: supple Cardiac: S1-S2 heard Lungs: clear to auscultation bilaterally Abdomen: soft , nontender, nondistended, bowel sounds positive Extremities: no edema clubbing or cyanosis Skin: no rash or lesions Neurologic: Patient is lethargic and somnolent Psych: Lethargic - Constitutional Vitals: Temp Pulse Resp BP Pulse Ox 97.4 F L 85 14 180/93 97 11/16/19 05:36 11/16/19 06:00 11/16/19 05:36 11/16/19 06:00 11/16/19 05:36 Results - Labs CBC & Chem 7: 11/14/19 12:18 11/16/19 05:28 Labs: Laboratory Last Values WBC 14.0 K/mm3 (4.5-11.0) H 11/14/19 12:18 RBC 4.58 M/mm3 (3.65-5.03) 11/14/19 12:18 Hgb 13.4 gm/dl (11.8-15.2) 11/14/19 12:18 Hct 40.6 % (35.5-45.6) 11/14/19 12:18 MCV 89 fl (84-94) 11/14/19 12:18 MCH 29 pg (28-32) 11/14/19 12:18 MCHC 33 % (32-34) 11/14/19 12:18 RDW 14.3 % (13.2-15.2) 11/14/19 12:18 Plt Count 330 K/mm3 (140-440) 11/14/19 12:18 Lymph % (Auto) 24.9 % (13.4-35.0) 11/14/19 12:18 [place] % (Auto) 8.4 % (0.0-7.3) H 11/14/19 12:18 Eos % (Auto) 4.2 % (0.0-4.3) 11/14/19 12:18 Baso % (Auto) 0.8 % (0.0-1.8) 11/14/19 12:18 Lymph # 3.5 K/mm3 (1.2-5.4) 11/14/19 12:18 [place] # 1.2 K/mm3 (0.0-0.8) H 11/14/19 12:18 Eos # 0.6 K/mm3 (0.0-0.4) H 11/14/19 12:18 Baso # 0.1 K/mm3 (0.0-0.1) 11/14/19 12:18 Seg Neutrophils % 61.7 % (40.0-70.0) 11/14/19 12:18 Seg Neutrophils # 8.6 K/mm3 (1.8-7.7) H 11/14/19 12:18 Sodium 142 mmol/L (137-145) 11/16/19 05:28 Potassium 4.0 mmol/L (3.6-5.0) 11/16/19 05:28 Chloride 103.5 mmol/L (98-107) 11/16/19 05:28 Carbon Dioxide 25 mmol/L (22-30) 11/16/19 05:28 Anion Gap 18 mmol/L 11/16/19 05:28 BUN 42 mg/dL (9-20) H 11/16/19 05:28 Creatinine 2.9 mg/dL (0.8-1.5) H 11/16/19 05:28 Estimated GFR 21 ml/min 11/16/19 05:28 BUN/Creatinine Ratio 14 % 11/16/19 05:28 Glucose 121 mg/dL (75-100) H 11/16/19 05:28 POC Glucose 148 (70-105) H 11/16/19 07:42 Calcium 9.0 mg/dL (8.4-10.2) 11/16/19 05:28 Phosphorus 5.00 mg/dL (2.5-4.5) H 11/14/19 12:18 Magnesium 2.40 mg/dL (1.7-2.3) H 11/14/19 12:18 Total Bilirubin 0.40 mg/dL (0.1-1.2) 11/14/19 12:18 Direct Bilirubin < 0.2 mg/dL (0-0.2) 11/14/19 12:18 Indirect Bilirubin 0.2 mg/dL 11/14/19 12:18 AST 12 units/L (5-40) 11/14/19 12:18 ALT 12 units/L (7-56) 11/14/19 12:18 Alkaline Phosphatase 76 units/L (35-129) 11/14/19 12:18 Ammonia 16.0 umol/L (25-60) L 11/14/19 12:18 Total Protein 6.8 g/dL (6.3-8.2) 11/14/19 12:18 Albumin 3.1 g/dL (3.9-5) L 11/14/19 12:18 Albumin/Globulin Ratio 0.8 % 11/14/19 12:18 Urine Color Yellow (Yellow) 11/14/19 06:45 Urine Turbidity Clear (Clear) 11/14/19 06:45 Urine pH 6.0 (5.0-7.0) 11/14/19 06:45 Ur Specific [place] 1.016 (1.003-1.030) 11/14/19 06:45 Urine Protein >500 mg/dL (Negative) 11/14/19 06:45 Urine Glucose (UA) 150 mg/dL (Negative) 11/14/19 06:45 Urine Ketones Tr mg/dL (Negative) 11/14/19 06:45 Urine Blood Neg (Negative) 11/14/19 06:45 Urine Nitrite Neg (Negative) 11/14/19 06:45 Urine Bilirubin Neg (Negative) 11/14/19 06:45 Urine Urobilinogen < 2.0 mg/dL (<2.0) 11/14/19 06:45 Ur Leukocyte Esterase Tr (Negative) 11/14/19 06:45 Urine WBC (Auto) 32.0 /HPF (0.0-6.0) H 11/14/19 06:45 Urine RBC (Auto) 1.0 /HPF (0.0-6.0) 11/14/19 06:45 U Epithel Cells (Auto) < 1.0 /HPF (0-13.0) 11/14/19 06:45 Urine Creatinine 106.3 mg/dL (0.1-20.0) H 11/14/19 06:45 Urine Sodium 66 mmol/L 11/14/19 06:45 Active Medications - Current Medications Current Medications: Generic Name Dose Route Start Last Admin Trade Name Freq PRN Reason Stop Dose Admin Acetaminophen 650 mg 11/10/19 12:54 11/15/19 12:08 Tylenol PO 650 mg Q6H PRN Administration Pain, Mild (1-3) Amlodipine Besylate 10 mg 11/11/19 11:00 11/16/19 11:31 Amlodipine PO 10 mg QDAY GETACHEW Administration Clopidogrel Bisulfate 75 mg 11/11/19 11:00 11/16/19 11:31 Plavix PO 75 mg QDAY GETACHEW Administration Dextrose 50 ml 11/11/19 11:04 D50w (25gm) Syringe IV Q30MIN PRN Hypoglycemia Protocol Heparin Sodium (Porcine) 5,000 unit 11/09/19 10:00 11/16/19 11:31 Heparin SUB-Q 5,000 unit Q12HR GETACHEW Administration Hydralazine HCl 5 mg 11/11/19 03:04 11/11/19 08:08 Apresoline IV 5 mg Q6HR PRN Administration Blood Pressure Hydralazine HCl 10 mg 11/11/19 14:00 11/16/19 06:00 Apresoline PO 10 mg Q8HR GETACHEW Administration Insulin Glargine 10 units 11/15/19 22:00 11/15/19 23:11 Lantus SUB-Q 10 units QHS GETACHEW Administration Insulin Human Lispro 0 unit 11/11/19 11:30 11/16/19 11:32 Humalog SUB-Q Not Given ACHS [facility] Protocol Metoprolol Tartrate 100 mg 11/10/19 16:00 11/16/19 11:31 Metoprolol PO 100 mg BID GETACHEW Administration Nicotine 14 mg 11/09/19 20:00 11/16/19 11:31 Habitrol TD 14 mg QDAY GETACHEW Administration Nitroglycerin 0.4 mg 11/10/19 03:32 11/10/19 04:15 Nitrostat SL 0.4 mg .Q5MIN PRN Administration Chest Pain Nutrition/Malnutrition Assess - Dietary Evaluation Nutrition/Malnutrition Findings: Nutrition Notes Start: 11/08/19 10:31 Freq: Status: Active Protocol: Document 11/11/19 14:20 LM (Rec: 11/11/19 14:21 LM [email or web address]) Nutrition Notes Need for Assessment generated from: LOS Initial or Follow up Brief Note Subjective/Other Information Screen for LOS. Pt eating 75- 100%. Nutrition Intervention Revisit per MD consult or patient Sign Off request:
[2019-11-16] MEDS: INSULIN GLARGINE 100 UNITS/ML SUB-Q SCH (23:30)
[2019-11-17] MEDS: ACETAMINOPHEN 325 MG TAB PO PRN ×3 (00:03→20:40)
[2019-11-17] MEDS: hydrALAZINE 10 MG TAB PO SCH ×3 (09:14→22:27)
[2019-11-17] MEDS ORDERED: NON-FORMULARY EACH (Isosorbide Mononitrate 30 MG) PO SCH (10:00)
[2019-11-17] MEDS ORDERED: NON-FORMULARY EACH (Tamsulosin 0.4 MG) PO SCH (10:00)
[2019-11-17] MEDS ORDERED: CLOPIDOGREL 75 MG TAB PO SCH (10:00)
[2019-11-17] MEDS ORDERED: NON-FORMULARY EACH (Nifedipine [Nifedipine Er] 60 MG) PO SCH (10:00)
[2019-11-17] MEDS: METOPROLOL TARTRATE 100 MG TAB PO SCH ×2 (10:08→22:27)
[2019-11-17] MEDS: CLOPIDOGREL 75 MG TAB PO SCH (10:09)
[2019-11-17] MEDS: FAMOTIDINE 20 MG TAB PO SCH (10:09)
[2019-11-17] MEDS: TAMSULOSIN 0.4 MG CAP PO SCH (10:09)
[2019-11-17] MEDS: ASPIRIN EC 81 MG TAB PO SCH (10:09)
[2019-11-17] MEDS: NIFEdipine XL 60 MG TAB PO SCH (10:09)
[2019-11-17] MEDS: HEPARIN 5,000 UNIT/1 ML VIAL SUB-Q SCH ×2 (10:09→22:26)
[2019-11-17] MEDS: NICOTINE 14 MG/24 HR PATCH TD SCH (10:09)
[2019-11-17] MEDS: ERGOCALCIFEROL (VIT D2) 50,000 UNIT CAP PO SCH (10:09)
[2019-11-17] MEDS: INSULIN LISPRO 100 UNIT/ML SUB-Q SCH ×4 (10:10→23:15)
--- NOTE | 2019-11-17 10:30 | Progress Note ---
Assessment and Plan 1. 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 Renal function is improving. Creatinine is 2.9 today. Prior renal US showed combination of complex and simple cysts in left kidney, negative for hydro. Monitor renal function. Avoid nephrotoxic agents. Meds dosage based on GFR. 2. FEN: Metabolic acidosis, improved, monitor. Monitor lytes. 3. Suicidal/homicidal ideation. Was d/c from [facility] on 11/08. Seen by psych. 4. Metabolic encephalopathy, POA. Monitor. 5. Leukocytosis. 6. Diabetes mellitus with hyperglycemia. 7. COPD. 8. CAD. 9. Presumed chronic congestive heart failure: Normal EF. 10.Right rib fracture. 11. Hypertension: BP is improving. Continue to monitor closely. Subjective Interval history: Patient was seen and examined at the bedside. Sitter at the bedside. Objective - Exam General appearance: well-developed, well-nourished, appears stated age, not in distress HEENT: ATNC, THIEN Neck: neck supple, trachea midline Respiratory: Clear to Auscultation Heart: regular, S1S2, no murmurs Gastrointestinal: soft, normoactive bowel sounds, not absent, not tender Integumentary: no rash, warm and dry Neurologic: cooperative with exam, able to move extremities, confused Musculoskeletal: trace BLE edema Subjective Date of service: 11/17/19 Objective - Vital Signs Vital signs: Vital Signs - 12hr 11/17/19 11/17/19 01:36 07:24 Temperature 99.5 F 99.2 F Pulse Rate 70 83 Respiratory 18 18 Rate Blood Pressure 131/68 146/71 O2 Sat by Pulse 97 97 Oximetry - Lab 11/14/19 12:18 11/17/19 04:41 Most recent lab results Calcium 9.0 mg/dL (8.4-10.2) 11/17/19 04:41 Phosphorus 5.00 mg/dL (2.5-4.5) H 11/14/19 12:18 Magnesium 2.40 mg/dL (1.7-2.3) H 11/14/19 12:18 Urine Creatinine 106.3 mg/dL (0.1-20.0) H 11/14/19 06:45 Urine Sodium 66 mmol/L 11/14/19 06:45 Medications & Allergies - Medications Allergies/Adverse Reactions: Allergies morphine Adverse Reaction (Verified 11/01/19 23:50) Unknown Penicillins Adverse Reaction (Verified 11/01/19 23:50) Unknown Tetanus Vaccines and Toxoid Adverse Reaction (Verified 11/01/19 23:50) Unknown Home Medications: Home Medications Medication Instructions Recorded Confirmed Last Taken Type Adult Aspirin 650 mg PO BID 11/02/19 11/17/19 Unknown History Citalopram 20 mg PO BID 11/02/19 11/17/19 Unknown History Clopidogrel [Plavix] 75 mg PO DAILY 11/02/19 11/17/19 Unknown History Ergocalciferol [Vitamin D2] 50,000 units PO QWEEK 11/02/19 11/17/19 Unknown History Famotidine [Pepcid] 20 mg PO DAILY 11/02/19 11/17/19 Unknown History Furosemide [Lasix TAB] 40 mg PO DAILY 11/02/19 11/17/19 Unknown History Gabapentin 300 mg PO TID 11/02/19 11/17/19 Unknown History Isosorbide Mononitrate 30 mg PO DAILY 11/02/19 11/17/19 Unknown History Lantus VIAL 30 units SQ QHS 11/02/19 11/17/19 Unknown History Metoprolol-HCTZ 100-50 mg TAB 50 mg PO BID 11/02/19 11/17/19 Unknown History NIFEdipine [Nifedipine ER] 60 mg PO DAILY 11/02/19 11/17/19 Unknown History Tamsulosin 0.4 mg PO DAILY 11/02/19 11/17/19 Unknown History hydrALAZINE 50 mg PO TID 11/02/19 11/17/19 Unknown History Active Medications: Generic Name Dose Route Start Last Admin Trade Name Freq PRN Reason Stop Dose Admin Acetaminophen 650 mg 11/10/19 12:54 11/17/19 08:19 Tylenol PO 650 mg Q6H PRN Administration Pain, Mild (1-3) Aspirin 81 mg 11/17/19 10:00 11/17/19 10:09 Halfprin Ec PO 81 mg QDAY GETACHEW Administration Clopidogrel Bisulfate 75 mg 11/11/19 11:00 11/17/19 10:09 Plavix PO 75 mg QDAY GETACHEW Administration Dextrose 50 ml 11/11/19 11:04 D50w (25gm) Syringe IV Q30MIN PRN Hypoglycemia Protocol Ergocalciferol 50,000 unit 11/17/19 10:00 11/17/19 10:09 Vitamin D2 PO 50,000 unit Vazquez GETACHEW Administration Famotidine 20 mg 11/17/19 10:00 11/17/19 10:09 Pepcid PO 20 mg DAILY GETACHEW Administration Heparin Sodium (Porcine) 5,000 unit 11/09/19 10:00 11/17/19 10:09 Heparin SUB-Q 5,000 unit Q12HR GETACHEW Administration Hydralazine HCl 5 mg 11/11/19 03:04 11/11/19 08:08 Apresoline IV 5 mg Q6HR PRN Administration Blood Pressure Hydralazine HCl 10 mg 11/11/19 14:00 11/17/19 09:14 Apresoline PO Not Given Q8HR [facility] Insulin Glargine 10 units 11/15/19 22:00 11/16/19 23:30 Lantus SUB-Q 10 units QHS GETACHEW Administration Insulin Human Lispro 0 unit 11/11/19 11:30 11/17/19 10:10 Humalog SUB-Q 1 unit ACHS GETACHEW Administration Protocol Isosorbide Mononitrate 30 mg 11/17/19 10:00 11/17/19 10:09 Imdur PO 30 mg DAILY GETACHEW Administration Metoprolol Tartrate 100 mg 11/10/19 16:00 11/17/19 10:08 Metoprolol PO 100 mg BID GETACHEW Administration Nicotine 14 mg 11/09/19 20:00 11/17/19 10:09 Habitrol TD 14 mg QDAY GETACHEW Administration Nifedipine 60 mg 11/17/19 10:00 11/17/19 10:09 Procardia Xl PO 60 mg QDAY GETACHEW Administration Nitroglycerin 0.4 mg 11/10/19 03:32 11/10/19 04:15 Nitrostat SL 0.4 mg .Q5MIN PRN Administration Chest Pain Tamsulosin HCl 0.4 mg 11/17/19 10:00 11/17/19 10:09 Flomax PO 0.4 mg QDAY GETACHEW Administration
--- NOTE | 2019-11-17 14:51 | Progress Note ---
Assessment and Plan Assessment and plan: 74 yo man with a history of hypertension and DM type 2 who was admitted to [facility] 11/02/2019 from [facility] for mental health stabilization after Suicidal ideation. Labs significant for Creat 2.8. Nephrology was consulted for further evaluation. RN called IM on 11/08/2019 about a "change in medical condition," patient choking on food and liquids, he is pale, altered. Prior night, before choking on food, he was combative and received 2 mg IM ativan. Trazadone was also newly added and increase in depakote. Now more lethargic and unable to eat, choking on food/liquid but he did received Lantus 30 units last night and BG dropped to 52. After IV dextrose the BG continued to drop to 48. Another amp of D5 was given. He was discharged form [facility] to med surg and admitted to 3rd Floor [facility] for intractable hypoglycemia requiring IV line. Acute toxic and metabolic encephalopathy. Patient very lethargic, risperidone, doxepin, Depakote have all been discontinued, patient was previously lethargic and not responsive due to hypoglycemia. And insulins were discontinued. Now psych meds have now been discontinued due to decreased responsiveness Chronic hypoxic respiratory failure; continue supplemental oxygen Hypoglycemia, now resolved. Insulin was discontinued Type 2 diabetes, insulin were discontinued due to hypoglycemia. ARF/CKD 4, vasomotor nephropathy: Received IV fluids, nephrology input appreciated, now back at baseline Hypotension, now Hypertensive: low Bp was likely due to dehydration, now resolved, and on BP meds for high BP, improving Dysphagia; was likely due to hypoglycemia. Resolved, speech therapy input appreciated, pured diet with thin liquids recommended, patient tolerating diet Dementia; continue supportive care DVT ppx full code Patient is not able to return to geriatric psychiatry, they have no plans to readmit him. PT consult pending, his family is interested in him going to subacute rehab. Awaiting placement History Interval history: No fevers No vomiting No diarrhea No agitation No seizures No evidence of discomfort or pain Hospitalist Physical - Physical exam Narrative exam: General.: No distress HEENT: Moist mucous membranes, extraocular muscles intact, no lymphadenopathy Neck: supple Cardiac: S1-S2 heard Lungs: clear to auscultation bilaterally Abdomen: soft , nontender, nondistended, bowel sounds positive Extremities: no edema clubbing or cyanosis Skin: no rash or lesions Neurologic: Patient is lethargic and somnolent Psych: Lethargic - Constitutional Vitals: Temp Pulse Resp BP Pulse Ox 99.1 F 75 18 131/63 92 11/17/19 13:17 11/17/19 13:17 11/17/19 13:17 11/17/19 13:17 11/17/19 13:17 Results - Labs CBC & Chem 7: 11/14/19 12:18 11/18/19 05:59 Labs: Laboratory Last Values WBC 14.0 K/mm3 (4.5-11.0) H 11/14/19 12:18 RBC 4.58 M/mm3 (3.65-5.03) 11/14/19 12:18 Hgb 13.4 gm/dl (11.8-15.2) 11/14/19 12:18 Hct 40.6 % (35.5-45.6) 11/14/19 12:18 MCV 89 fl (84-94) 11/14/19 12:18 MCH 29 pg (28-32) 11/14/19 12:18 MCHC 33 % (32-34) 11/14/19 12:18 RDW 14.3 % (13.2-15.2) 11/14/19 12:18 Plt Count 330 K/mm3 (140-440) 11/14/19 12:18 Lymph % (Auto) 24.9 % (13.4-35.0) 11/14/19 12:18 [place]ison % (Auto) 8.4 % (0.0-7.3) H 11/14/19 12:18 Eos % (Auto) 4.2 % (0.0-4.3) 11/14/19 12:18 Baso % (Auto) 0.8 % (0.0-1.8) 11/14/19 12:18 Lymph # 3.5 K/mm3 (1.2-5.4) 11/14/19 12:18 Addison # 1.2 K/mm3 (0.0-0.8) H 11/14/19 12:18 Eos # 0.6 K/mm3 (0.0-0.4) H 11/14/19 12:18 Baso # 0.1 K/mm3 (0.0-0.1) 11/14/19 12:18 Seg Neutrophils % 61.7 % (40.0-70.0) 11/14/19 12:18 Seg Neutrophils # 8.6 K/mm3 (1.8-7.7) H 11/14/19 12:18 Sodium 138 mmol/L (137-145) 11/17/19 04:41 Potassium 4.3 mmol/L (3.6-5.0) 11/17/19 04:41 Chloride 99.9 mmol/L (98-107) 11/17/19 04:41 Carbon Dioxide 22 mmol/L (22-30) 11/17/19 04:41 Anion Gap 20 mmol/L 11/17/19 04:41 BUN 41 mg/dL (9-20) H 11/17/19 04:41 Creatinine 2.9 mg/dL (0.8-1.5) H 11/17/19 04:41 Estimated GFR 21 ml/min 11/17/19 04:41 BUN/Creatinine Ratio 14 % 11/17/19 04:41 Glucose 169 mg/dL (75-100) H 11/17/19 04:41 POC Glucose 307 (70-105) H 11/17/19 11:36 Calcium 9.0 mg/dL (8.4-10.2) 11/17/19 04:41 Phosphorus 5.00 mg/dL (2.5-4.5) H 11/14/19 12:18 Magnesium 2.40 mg/dL (1.7-2.3) H 11/14/19 12:18 Total Bilirubin 0.40 mg/dL (0.1-1.2) 11/14/19 12:18 Direct Bilirubin < 0.2 mg/dL (0-0.2) 11/14/19 12:18 Indirect Bilirubin 0.2 mg/dL 11/14/19 12:18 AST 12 units/L (5-40) 11/14/19 12:18 ALT 12 units/L (7-56) 11/14/19 12:18 Alkaline Phosphatase 76 units/L (35-129) 11/14/19 12:18 Ammonia 16.0 umol/L (25-60) L 11/14/19 12:18 Total Protein 6.8 g/dL (6.3-8.2) 11/14/19 12:18 Albumin 3.1 g/dL (3.9-5) L 11/14/19 12:18 Albumin/Globulin Ratio 0.8 % 11/14/19 12:18 Urine Color Yellow (Yellow) 11/14/19 06:45 Urine Turbidity Clear (Clear) 11/14/19 06:45 Urine pH 6.0 (5.0-7.0) 11/14/19 06:45 Ur Specific [place] 1.016 (1.003-1.030) 11/14/19 06:45 Urine Protein >500 mg/dL (Negative) 11/14/19 06:45 Urine Glucose (UA) 150 mg/dL (Negative) 11/14/19 06:45 Urine Ketones Tr mg/dL (Negative) 11/14/19 06:45 Urine Blood Neg (Negative) 11/14/19 06:45 Urine Nitrite Neg (Negative) 11/14/19 06:45 Urine Bilirubin Neg (Negative) 11/14/19 06:45 Urine Urobilinogen < 2.0 mg/dL (<2.0) 11/14/19 06:45 Ur Leukocyte Esterase Tr (Negative) 11/14/19 06:45 Urine WBC (Auto) 32.0 /HPF (0.0-6.0) H 11/14/19 06:45 Urine RBC (Auto) 1.0 /HPF (0.0-6.0) 11/14/19 06:45 U Epithel Cells (Auto) < 1.0 /HPF (0-13.0) 11/14/19 06:45 Urine Creatinine 106.3 mg/dL (0.1-20.0) H 11/14/19 06:45 Urine Sodium 66 mmol/L 11/14/19 06:45 Active Medications - Current Medications Current Medications: Generic Name Dose Route Start Last Admin Trade Name Freq PRN Reason Stop Dose Admin Acetaminophen 650 mg 11/10/19 12:54 11/17/19 08:19 Tylenol PO 650 mg Q6H PRN Administration Pain, Mild (1-3) Aspirin 81 mg 11/17/19 10:00 11/17/19 10:09 Halfprin Ec PO 81 mg QDAY GETACHEW Administration Clopidogrel Bisulfate 75 mg 11/11/19 11:00 11/17/19 10:09 Plavix PO 75 mg QDAY GETACHEW Administration Dextrose 50 ml 11/11/19 11:04 D50w (25gm) Syringe IV Q30MIN PRN Hypoglycemia Protocol Ergocalciferol 50,000 unit 11/17/19 10:00 11/17/19 10:09 Vitamin D2 PO 50,000 unit Vazquez GETACHEW Administration Famotidine 20 mg 11/17/19 10:00 11/17/19 10:09 Pepcid PO 20 mg DAILY GETACHEW Administration Heparin Sodium (Porcine) 5,000 unit 11/09/19 10:00 11/17/19 10:09 Heparin SUB-Q 5,000 unit Q12HR GETACHEW Administration Hydralazine HCl 5 mg 11/11/19 03:04 11/11/19 08:08 Apresoline IV 5 mg Q6HR PRN Administration Blood Pressure Hydralazine HCl 10 mg 11/11/19 14:00 11/17/19 13:49 Apresoline PO 10 mg Q8HR GETACHEW Administration Insulin Glargine 10 units 11/15/19 22:00 11/16/19 23:30 Lantus SUB-Q 10 units QHS GETACHEW Administration Insulin Human Lispro 0 unit 11/17/19 16:30 Humalog SUB-Q AC [facility] Protocol Insulin Human Lispro 0 unit 11/17/19 22:00 Humalog SUB-Q QHS [facility] Protocol Isosorbide Mononitrate 30 mg 11/17/19 10:00 11/17/19 10:09 Imdur PO 30 mg DAILY GETACHEW Administration Metoprolol Tartrate 100 mg 11/10/19 16:00 11/17/19 10:08 Metoprolol PO 100 mg BID GETACHEW Administration Nicotine 14 mg 11/09/19 20:00 11/17/19 10:09 Habitrol TD 14 mg QDAY GETACHEW Administration Nifedipine 60 mg 11/17/19 10:00 11/17/19 10:09 Procardia Xl PO 60 mg QDAY GETACHEW Administration Nitroglycerin 0.4 mg 11/10/19 03:32 11/10/19 04:15 Nitrostat SL 0.4 mg .Q5MIN PRN Administration Chest Pain Tamsulosin HCl 0.4 mg 11/17/19 10:00 11/17/19 10:09 Flomax PO 0.4 mg QDAY GETACHEW Administration Nutrition/Malnutrition Assess - Dietary Evaluation Nutrition/Malnutrition Findings: Nutrition Notes Start: 11/08/19 10:31 Freq: Status: Active Protocol: Document 11/11/19 14:20 LM (Rec: 11/11/19 14:21 LM [email or web address]) Nutrition Notes Need for Assessment generated from: LOS Initial or Follow up Brief Note Subjective/Other Information Screen for LOS. Pt eating 75- 100%. Nutrition Intervention Revisit per MD consult or patient Sign Off request:
--- NOTE | 2019-11-17 15:31 | XRay Report ---
CLINICAL DATA: back pain TECHNICAL DATA: AP, lateral, and odontoid views of the cervical spine were obtained. FINDINGS: The vertebral body heights. Intervertebral disc space narrowing with anterior and posterior osteophyt es are present at C4-C5, C5-C6 and C6-C7. There is no evidence of fracture. No prevertebral soft tiss ue swelling is evident. IMPRESSION: Extensive degenerative changes as noted Signer Name: Riky Ro MD Signed: 11/17/2019 3:27 PM Workstation Name: [id number]
--- NOTE | 2019-11-17 15:33 | XRay Report ---
CLINICAL DATA: back pain TECHNICAL DATA: AP and lateral views lumbar spine. FINDINGS: The bone mineralization is normal. Vertebral body mild compression superior endplate L1 is present. I ntervertebral disc space narrowing L4-L5 and L5-S1. Anterior osteophytes are present throughout the l umbar spine. Moderate facet degenerative changes present L4-5 and L5-S1. IMPRESSION: 1. Compression L1 vertebral body age difficult determine recommend clinical correlation 2. Degenerative changes as noted Signer Name: Riky Ro MD Signed: 11/17/2019 3:28 PM Workstation Name: [id number]
--- NOTE | 2019-11-17 15:34 | XRay Report ---
CHEST 1 VIEW INDICATION: hypoxia. COMPARISON: October 2019 FINDINGS: SUPPORT DEVICES: None. HEART / MEDIASTINUM: No significant abnormality. LUNGS / PLEURA: No significant pulmonary or pleural abnormality. No pneumothorax. ADDITIONAL FINDINGS: Fracture fifth rib on the right posteriorly IMPRESSION: 1. No acute cardiopulmonary disease Signer Name: Riky Ro MD Signed: 11/17/2019 3:29 PM Workstation Name: [id number]
--- NOTE | 2019-11-17 15:35 | XRay Report ---
CLINICAL DATA: back pain TECHNICAL DATA: AP and lateral views were obtained of the thoracic spine. FINDINGS: The thoracic vertebrae have normal anatomic height and alignment. Degenerative changes are present th roughout the thoracic spine region. No evidence of a fracture. There is no paraspinal edema or hemorr graciela. IMPRESSION: Degenerative changes as noted Signer Name: Riky Ro MD Signed: 11/17/2019 3:30 PM Workstation Name: [id number]
[2019-11-17] MEDS: INSULIN GLARGINE 100 UNITS/ML SUB-Q SCH (23:14)
[2019-11-18 06:32] LABS: Calcium 8.9 mg/dL (8.4-10.2)
[2019-11-18] MEDS: INSULIN LISPRO 100 UNIT/ML SUB-Q SCH ×4 (07:30→22:13)
[2019-11-18] MEDS: TAMSULOSIN 0.4 MG CAP PO SCH (09:47)
[2019-11-18] MEDS: NIFEdipine XL 60 MG TAB PO SCH (09:48)
[2019-11-18] MEDS: CLOPIDOGREL 75 MG TAB PO SCH (09:48)
[2019-11-18] MEDS: METOPROLOL TARTRATE 100 MG TAB PO SCH ×2 (09:48→22:12)
[2019-11-18] MEDS: ASPIRIN EC 81 MG TAB PO SCH (09:48)
[2019-11-18] MEDS: NICOTINE 14 MG/24 HR PATCH TD SCH (09:48)
[2019-11-18] MEDS: HEPARIN 5,000 UNIT/1 ML VIAL SUB-Q SCH ×2 (09:50→22:13)
[2019-11-18] MEDS: FAMOTIDINE 20 MG TAB PO SCH (09:50)
[2019-11-18] MEDS: ACETAMINOPHEN 325 MG TAB PO PRN ×2 (09:55→22:10)
--- NOTE | 2019-11-18 12:50 | Progress Note ---
Assessment and Plan 1. 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 Renal function is improving. Creatinine is 3.3 today. Prior renal US showed combination of complex and simple cysts in left kidney, negative for hydro. Monitor renal function. Avoid nephrotoxic agents. Meds dosage based on GFR. 2. FEN: Metabolic acidosis, improved, monitor. Monitor lytes. 3. Suicidal/homicidal ideation. Was d/c from [facility] on 11/08. Seen by psych. 4. Metabolic encephalopathy, POA. Monitor. 5. Leukocytosis. 6. Diabetes mellitus with hyperglycemia. 7. COPD. 8. CAD. 9. Presumed chronic congestive heart failure: Normal EF. 10.Right rib fracture. 11. Hypertension: BP controlled. Continue to monitor closely. Subjective Interval history: Patient was seen and examined at the bedside. Sitter at the bedside. Objective - Exam General appearance: well-developed, well-nourished, appears stated age, not in distress HEENT: ATNC, THIEN Neck: neck supple, trachea midline Respiratory: Clear to Auscultation Heart: regular, S1S2, no murmurs Gastrointestinal: soft, normoactive bowel sounds, not absent, not tender Integumentary: no rash, warm and dry Neurologic: cooperative with exam, able to move extremities, confused Musculoskeletal: trace BLE edema Subjective Date of service: 11/18/19 Objective - Vital Signs Vital signs: Vital Signs - 12hr 11/18/19 11/18/19 04:15 07:28 Temperature 99.5 F 99.0 F Pulse Rate 80 88 Respiratory 16 18 Rate Blood Pressure 134/53 150/68 O2 Sat by Pulse 91 94 Oximetry - Lab 11/14/19 12:18 11/18/19 05:59 Most recent lab results Calcium 8.9 mg/dL (8.4-10.2) 11/18/19 05:59 Phosphorus 5.00 mg/dL (2.5-4.5) H 11/14/19 12:18 Magnesium 2.40 mg/dL (1.7-2.3) H 11/14/19 12:18 Urine Creatinine 106.3 mg/dL (0.1-20.0) H 11/14/19 06:45 Urine Sodium 66 mmol/L 11/14/19 06:45 Medications & Allergies - Medications Allergies/Adverse Reactions: Allergies morphine Adverse Reaction (Verified 11/01/19 23:50) Unknown Penicillins Adverse Reaction (Verified 11/01/19 23:50) Unknown Tetanus Vaccines and Toxoid Adverse Reaction (Verified 11/01/19 23:50) Unknown Home Medications: Home Medications Medication Instructions Recorded Confirmed Last Taken Type Adult Aspirin 650 mg PO BID 11/02/19 11/17/19 Unknown History Citalopram 20 mg PO BID 11/02/19 11/17/19 Unknown History Clopidogrel [Plavix] 75 mg PO DAILY 11/02/19 11/17/19 Unknown History Ergocalciferol [Vitamin D2] 50,000 units PO QWEEK 11/02/19 11/17/19 Unknown History Famotidine [Pepcid] 20 mg PO DAILY 11/02/19 11/17/19 Unknown History Furosemide [Lasix TAB] 40 mg PO DAILY 11/02/19 11/17/19 Unknown History Gabapentin 300 mg PO TID 11/02/19 11/17/19 Unknown History Isosorbide Mononitrate 30 mg PO DAILY 11/02/19 11/17/19 Unknown History Lantus VIAL 30 units SQ QHS 11/02/19 11/17/19 Unknown History Metoprolol-HCTZ 100-50 mg TAB 50 mg PO BID 11/02/19 11/17/19 Unknown History NIFEdipine [Nifedipine ER] 60 mg PO DAILY 11/02/19 11/17/19 Unknown History Tamsulosin 0.4 mg PO DAILY 11/02/19 11/17/19 Unknown History hydrALAZINE 50 mg PO TID 11/02/19 11/17/19 Unknown History Active Medications: Generic Name Dose Route Start Last Admin Trade Name Freq PRN Reason Stop Dose Admin Acetaminophen 650 mg 11/10/19 12:54 11/18/19 09:55 Tylenol PO 650 mg Q6H PRN Administration Pain, Mild (1-3) Aspirin 81 mg 11/17/19 10:00 11/18/19 09:48 Halfprin Ec PO 81 mg QDAY GETACHEW Administration Clopidogrel Bisulfate 75 mg 11/11/19 11:00 11/18/19 09:48 Plavix PO 75 mg QDAY GETACHEW Administration Dextrose 50 ml 11/11/19 11:04 D50w (25gm) Syringe IV Q30MIN PRN Hypoglycemia Protocol Ergocalciferol 50,000 unit 11/17/19 10:00 11/17/19 10:09 Vitamin D2 PO 50,000 unit Vazquez GETACHEW Administration Famotidine 20 mg 11/17/19 10:00 11/18/19 09:50 Pepcid PO 20 mg DAILY GETACHEW Administration Heparin Sodium (Porcine) 5,000 unit 11/09/19 10:00 11/18/19 09:50 Heparin SUB-Q 5,000 unit Q12HR GETACHEW Administration Hydralazine HCl 5 mg 11/11/19 03:04 11/11/19 08:08 Apresoline IV 5 mg Q6HR PRN Administration Blood Pressure Hydralazine HCl 10 mg 11/11/19 14:00 11/17/19 22:27 Apresoline PO 10 mg Q8HR GETACHEW Administration Insulin Glargine 10 units 11/15/19 22:00 11/17/19 23:14 Lantus SUB-Q 10 units QHS GETACHEW Administration Insulin Human Lispro 0 unit 11/17/19 16:30 11/18/19 07:30 Humalog SUB-Q Not Given AC [facility] Protocol Insulin Human Lispro 0 unit 11/17/19 22:00 11/17/19 23:15 Humalog SUB-Q 2 unit QHS [facility] Administration Protocol Isosorbide Mononitrate 30 mg 11/17/19 10:00 11/18/19 09:47 Imdur PO 30 mg DAILY GETACHEW Administration Metoprolol Tartrate 100 mg 11/10/19 16:00 11/18/19 09:48 Metoprolol PO 100 mg BID GETACHEW Administration Nicotine 14 mg 11/09/19 20:00 11/18/19 09:48 Habitrol TD 14 mg QDAY GETACHEW Administration Nifedipine 60 mg 11/17/19 10:00 11/18/19 09:48 Procardia Xl PO 60 mg QDAY GETACHEW Administration Nitroglycerin 0.4 mg 11/10/19 03:32 11/10/19 04:15 Nitrostat SL 0.4 mg .Q5MIN PRN Administration Chest Pain Tamsulosin HCl 0.4 mg 11/17/19 10:00 11/18/19 09:47 Flomax PO 0.4 mg QDAY GETACHEW Administration
[2019-11-18] MEDS: hydrALAZINE 10 MG TAB PO SCH ×2 (13:53→22:12)
--- NOTE | 2019-11-18 17:47 | Progress Note ---
Assessment and Plan Assessment and plan: 74 yo man with a history of hypertension and DM type 2 who was admitted to [facility] 11/02/2019 from [facility] for mental health stabilization after Suicidal ideation. Labs significant for Creat 2.8. Nephrology was consulted for further evaluation. RN called IM on 11/08/2019 about a "change in medical condition," patient choking on food and liquids, he is pale, altered. Prior night, before choking on food, he was combative and received 2 mg IM ativan. Trazadone was also newly added and increase in depakote. Now more lethargic and unable to eat, choking on food/liquid but he did received Lantus 30 units last night and BG dropped to 52. After IV dextrose the BG continued to drop to 48. Another amp of D5 was given. He was discharged form [facility] to med surg and [facility] intractable hypoglycemia requiring IV line. Low-grade fever; obtain urinalysis urine culture blood culture and rapid flu, monitor off antibiotics for now Acute toxic and metabolic encephalopathy. Patient very lethargic, risperidone, doxepin, Depakote have all been discontinued, patient was previously lethargic and not responsive due to hypoglycemia. And insulins were discontinued. Now psych meds have now been discontinued due to decreased responsiveness Chronic hypoxic respiratory failure; continue supplemental oxygen Patient reports having cardiac history, but he is unclear on it he thinks he has coronary artery disease. Continue home meds Hypertensive urgency; optimize BP meds Hypoglycemia, now resolved. Insulin was discontinued Type 2 diabetes, insulin were discontinued due to hypoglycemia. ARF/CKD 4, vasomotor nephropathy: Received IV fluids, nephrology input appreciated, now back at baseline Hypotension, now Hypertensive: low Bp was likely due to dehydration, now resolved, and on BP meds for high BP, improving Dysphagia; was likely due to hypoglycemia. Resolved, speech therapy input appreciated, pured diet with thin liquids recommended, patient tolerating diet but he refuses stating that it tasted nasty, patient was upgraded to soft diet per his request. Osteoporosis; X-rays show multiple old fractures including rib and spine, patient reports having multiple falls previously. Continue PT, pain meds as needed. Dementia; continue supportive care DVT ppx full code Preventative health counseling performed for 17 minutes Patient is not able to return to geriatric psychiatry, they have no plans to readmit him. PT consult pending, his family is interested in him going to subacute rehab. Awaiting placement History Interval history: Low-grade fever reported No vomiting No diarrhea No agitation No seizures No evidence of discomfort or pain Hospitalist Physical - Physical exam Narrative exam: General.: No distress HEENT: Moist mucous membranes, extraocular muscles intact, no lymphadenopathy Neck: supple Cardiac: S1-S2 heard Lungs: clear to auscultation bilaterally Abdomen: soft , nontender, nondistended, bowel sounds positive Extremities: no edema clubbing or cyanosis Skin: no rash or lesions Neurologic: Patient is lethargic and somnolent Psych: Lethargic - Constitutional Vitals: Temp Pulse Resp BP Pulse Ox 98.9 F 72 18 138/57 91 11/18/19 13:45 11/18/19 13:46 11/18/19 13:45 11/18/19 13:45 11/18/19 13:46 Results - Labs CBC & Chem 7: 11/14/19 12:18 11/18/19 05:59 Labs: Laboratory Last Values WBC 14.0 K/mm3 (4.5-11.0) H 11/14/19 12:18 RBC 4.58 M/mm3 (3.65-5.03) 11/14/19 12:18 Hgb 13.4 gm/dl (11.8-15.2) 11/14/19 12:18 Hct 40.6 % (35.5-45.6) 11/14/19 12:18 MCV 89 fl (84-94) 11/14/19 12:18 MCH 29 pg (28-32) 11/14/19 12:18 MCHC 33 % (32-34) 11/14/19 12:18 RDW 14.3 % (13.2-15.2) 11/14/19 12:18 Plt Count 330 K/mm3 (140-440) 11/14/19 12:18 Lymph % (Auto) 24.9 % (13.4-35.0) 11/14/19 12:18 [place] % (Auto) 8.4 % (0.0-7.3) H 11/14/19 12:18 Eos % (Auto) 4.2 % (0.0-4.3) 11/14/19 12:18 Baso % (Auto) 0.8 % (0.0-1.8) 11/14/19 12:18 Lymph # 3.5 K/mm3 (1.2-5.4) 11/14/19 12:18 [place] # 1.2 K/mm3 (0.0-0.8) H 11/14/19 12:18 Eos # 0.6 K/mm3 (0.0-0.4) H 11/14/19 12:18 Baso # 0.1 K/mm3 (0.0-0.1) 11/14/19 12:18 Seg Neutrophils % 61.7 % (40.0-70.0) 11/14/19 12:18 Seg Neutrophils # 8.6 K/mm3 (1.8-7.7) H 11/14/19 12:18 Sodium 138 mmol/L (137-145) 11/18/19 05:59 Potassium 4.3 mmol/L (3.6-5.0) 11/18/19 05:59 Chloride 100.3 mmol/L (98-107) 11/18/19 05:59 Carbon Dioxide 21 mmol/L (22-30) L 11/18/19 05:59 Anion Gap 21 mmol/L 11/18/19 05:59 BUN 46 mg/dL (9-20) H 11/18/19 05:59 Creatinine 3.3 mg/dL (0.8-1.5) H 11/18/19 05:59 Estimated GFR 19 ml/min 11/18/19 05:59 BUN/Creatinine Ratio 14 % 11/18/19 05:59 Glucose 189 mg/dL (75-100) H 11/18/19 05:59 POC Glucose 255 (70-105) H 11/18/19 16:33 Calcium 8.9 mg/dL (8.4-10.2) 11/18/19 05:59 Phosphorus 5.00 mg/dL (2.5-4.5) H 11/14/19 12:18 Magnesium 2.40 mg/dL (1.7-2.3) H 11/14/19 12:18 Total Bilirubin 0.40 mg/dL (0.1-1.2) 11/14/19 12:18 Direct Bilirubin < 0.2 mg/dL (0-0.2) 11/14/19 12:18 Indirect Bilirubin 0.2 mg/dL 11/14/19 12:18 AST 12 units/L (5-40) 11/14/19 12:18 ALT 12 units/L (7-56) 11/14/19 12:18 Alkaline Phosphatase 76 units/L (35-129) 11/14/19 12:18 Ammonia 16.0 umol/L (25-60) L 11/14/19 12:18 Total Protein 6.8 g/dL (6.3-8.2) 11/14/19 12:18 Albumin 3.1 g/dL (3.9-5) L 11/14/19 12:18 Albumin/Globulin Ratio 0.8 % 11/14/19 12:18 Urine Color Yellow (Yellow) 11/14/19 06:45 Urine Turbidity Clear (Clear) 11/14/19 06:45 Urine pH 6.0 (5.0-7.0) 11/14/19 06:45 Ur Specific [place] 1.016 (1.003-1.030) 11/14/19 06:45 Urine Protein >500 mg/dL (Negative) 11/14/19 06:45 Urine Glucose (UA) 150 mg/dL (Negative) 11/14/19 06:45 Urine Ketones Tr mg/dL (Negative) 11/14/19 06:45 Urine Blood Neg (Negative) 11/14/19 06:45 Urine Nitrite Neg (Negative) 11/14/19 06:45 Urine Bilirubin Neg (Negative) 11/14/19 06:45 Urine Urobilinogen < 2.0 mg/dL (<2.0) 11/14/19 06:45 Ur Leukocyte Esterase Tr (Negative) 11/14/19 06:45 Urine WBC (Auto) 32.0 /HPF (0.0-6.0) H 11/14/19 06:45 Urine RBC (Auto) 1.0 /HPF (0.0-6.0) 11/14/19 06:45 U Epithel Cells (Auto) < 1.0 /HPF (0-13.0) 11/14/19 06:45 Urine Creatinine 106.3 mg/dL (0.1-20.0) H 11/14/19 06:45 Urine Sodium 66 mmol/L 11/14/19 06:45 Active Medications - Current Medications Current Medications: Generic Name Dose Route Start Last Admin Trade Name Freq PRN Reason Stop Dose Admin Acetaminophen 650 mg 11/10/19 12:54 11/18/19 09:55 Tylenol PO 650 mg Q6H PRN Administration Pain, Mild (1-3) Aspirin 81 mg 11/17/19 10:00 11/18/19 09:48 Halfprin Ec PO 81 mg QDAY GETACHEW Administration Clopidogrel Bisulfate 75 mg 11/11/19 11:00 11/18/19 09:48 Plavix PO 75 mg QDAY GETACHEW Administration Dextrose 50 ml 11/11/19 11:04 D50w (25gm) Syringe IV Q30MIN PRN Hypoglycemia Protocol Ergocalciferol 50,000 unit 11/17/19 10:00 11/17/19 10:09 Vitamin D2 PO 50,000 unit Vazquez GETACHEW Administration Famotidine 20 mg 11/17/19 10:00 11/18/19 09:50 Pepcid PO 20 mg DAILY GETACHEW Administration Heparin Sodium (Porcine) 5,000 unit 11/09/19 10:00 11/18/19 09:50 Heparin SUB-Q 5,000 unit Q12HR GETACHEW Administration Hydralazine HCl 5 mg 11/11/19 03:04 11/11/19 08:08 Apresoline IV 5 mg Q6HR PRN Administration Blood Pressure Hydralazine HCl 10 mg 11/11/19 14:00 11/18/19 13:53 Apresoline PO 10 mg Q8HR GETACHEW Administration Insulin Glargine 10 units 11/15/19 22:00 11/17/19 23:14 Lantus SUB-Q 10 units QHS GETACHEW Administration Insulin Human Lispro 0 unit 11/17/19 16:30 11/18/19 13:41 Humalog SUB-Q 6 unit AC GETACHEW Administration Protocol Insulin Human Lispro 0 unit 11/17/19 22:00 11/17/19 23:15 Humalog SUB-Q 2 unit QHS GETACHEW Administration Protocol Isosorbide Mononitrate 30 mg 11/17/19 10:00 11/18/19 09:47 Imdur PO 30 mg DAILY GETACHEW Administration Metoprolol Tartrate 100 mg 11/10/19 16:00 11/18/19 09:48 Metoprolol PO 100 mg BID GETACHEW Administration Nicotine 14 mg 11/09/19 20:00 11/18/19 09:48 Habitrol TD 14 mg QDAY GETACHEW Administration Nifedipine 60 mg 11/17/19 10:00 11/18/19 09:48 Procardia Xl PO 60 mg QDAY GETACHEW Administration Nitroglycerin 0.4 mg 11/10/19 03:32 11/10/19 04:15 Nitrostat SL 0.4 mg .Q5MIN PRN Administration Chest Pain Tamsulosin HCl 0.4 mg 11/17/19 10:00 11/18/19 09:47 Flomax PO 0.4 mg QDAY GETACHEW Administration Nutrition/Malnutrition Assess - Dietary Evaluation Nutrition/Malnutrition Findings: Nutrition Notes Start: 11/08/19 10:31 Freq: Status: Active Protocol: Document 11/11/19 14:20 LM (Rec: 11/11/19 14:21 LM [email or web address]) Nutrition Notes Need for Assessment generated from: LOS Initial or Follow up Brief Note Subjective/Other Information Screen for LOS. Pt eating 75- 100%. Nutrition Intervention Revisit per MD consult or patient Sign Off request:
[2019-11-18 20:25] LABS: Bacteria,Urine 2+ /HPF (Negative); Bilirubin,Urine NEG (Negative); Blood,Urine SM (Negative); Color,Urine Amber (Yellow); Mucus,Urine 2+ /HPF; Urobilinogen,Urine < 2.0 mg/dL (<2.0)
[2019-11-18 20:26] LABS: WBC,Urine > 182.0 /HPF (0.0-6.0)
[2019-11-18] MEDS: INSULIN GLARGINE 100 UNITS/ML SUB-Q SCH (22:11)
[2019-11-19] MEDS: hydrALAZINE 10 MG TAB PO SCH ×3 (06:04→23:20)
[2019-11-19 06:40] LABS: Calcium 9.3 mg/dL (8.4-10.2)
--- NOTE | 2019-11-19 08:09 | Progress Note ---
Assessment and Plan Assessment and plan: Patient is a 74 yo man with a history of hypertension and DM type 2 who was admitted to [facility] unit 11/02/2019 from [facility] for mental health stabilization after Suicidal ideation. Labs significant for Creat 2.8. Nephrology was consulted for further evaluation. RN called me on 11/08/2019 about a "change in medical condition," patient choking on food and liquids, he is pale, altered. Prior night, before choking on food, he was combative and received 2 mg IM ativan. Trazadone was also newly added and increase in depakote. Now more lethargic and unable to eat, choking on food/liquid but he did received Lantus 30 units last night and BG dropped to 52. After IV dextrose the BG continued to drop to 48. Another amp of D5 was given. He was discharged form [facility] to med surg and admitted to 3rd Floor Medsur for intractable hypoglycemia requiring IV line. * 11/18/19 TTE Conclusisons: Est EF 55-60% * Thoracic XR: Degenerative changes * Lumbosacral XR IMPRESSION: 1. Compression L1 vertebral body age difficult determine recommend clinical correlation 2. Degenerative changes as noted * pCXR IMPRESSION: 1. No acute cardiopulmonary disease * Cervical Spine XR IMPRESSION: Extensive degenerative changes as noted * CT head without contrast IMPRESSION: 1. There is extensive microvascular angiopathy without CT evidence acute intracranial hemorrhage. 2. There is prominence of the ventricular system and cerebral atrophy as detailed above. * US Renal doppler IMPRESSION: No significant abnormality. Left renal cyst. No obstructive uropathy. 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 Follow-up on current diagnosis of AMS, doing better. Overnight uneventful as no events directly reported to me. Imaging, nursing note, chart, labs and old chart reviewed. Discussed with patient. Hospitalist Physical - Physical exam Narrative exam: Gen: obese, nad, more awake and talkative HEENT: NCAT, EOMI, PERRL but resist eyes being open, OP Clear Neck: supple, no adenopathy, no thyromegaly, no JVD CVS/Heart: RRR, normal S1S2, pulses present bilaterally Chest/Lungs: CTA B, Symmetrical chest expansion, good air entry bilaterally GI/Abdomen: soft, NTND, good bowel sounds, no guarding or rebound /Bladder: no suprapubic tenderness, no CVA or paraspinal tenderness Extermity/Skin: no c/c/e, no obvious rash MSK: doesnt follow commands Neuro: CN 2-12 grossly intact, doesnt follow commands Psych: calm, poor insight and judgement - Constitutional Vitals: Temp Pulse Resp BP Pulse Ox 97.3 F L 92 H 20 138/68 92 11/19/19 02:33 11/19/19 06:04 11/19/19 02:33 11/19/19 06:04 11/19/19 02:33 Results - Labs CBC & Chem 7: 11/14/19 12:18 11/19/19 05:17 Labs: Laboratory Last Values WBC 14.0 K/mm3 (4.5-11.0) H 11/14/19 12:18 RBC 4.58 M/mm3 (3.65-5.03) 11/14/19 12:18 Hgb 13.4 gm/dl (11.8-15.2) 11/14/19 12:18 Hct 40.6 % (35.5-45.6) 11/14/19 12:18 MCV 89 fl (84-94) 11/14/19 12:18 MCH 29 pg (28-32) 11/14/19 12:18 MCHC 33 % (32-34) 11/14/19 12:18 RDW 14.3 % (13.2-15.2) 11/14/19 12:18 Plt Count 330 K/mm3 (140-440) 11/14/19 12:18 Lymph % (Auto) 24.9 % (13.4-35.0) 11/14/19 12:18 [place] % (Auto) 8.4 % (0.0-7.3) H 11/14/19 12:18 Eos % (Auto) 4.2 % (0.0-4.3) 11/14/19 12:18 Baso % (Auto) 0.8 % (0.0-1.8) 11/14/19 12:18 Lymph # 3.5 K/mm3 (1.2-5.4) 11/14/19 12:18 [place] # 1.2 K/mm3 (0.0-0.8) H 11/14/19 12:18 Eos # 0.6 K/mm3 (0.0-0.4) H 11/14/19 12:18 Baso # 0.1 K/mm3 (0.0-0.1) 11/14/19 12:18 Seg Neutrophils % 61.7 % (40.0-70.0) 11/14/19 12:18 Seg Neutrophils # 8.6 K/mm3 (1.8-7.7) H 11/14/19 12:18 Sodium 137 mmol/L (137-145) 11/19/19 05:17 Potassium 4.6 mmol/L (3.6-5.0) 11/19/19 05:17 Chloride 96.9 mmol/L (98-107) L 11/19/19 05:17 Carbon Dioxide 20 mmol/L (22-30) L 11/19/19 05:17 Anion Gap 25 mmol/L 11/19/19 05:17 BUN 46 mg/dL (9-20) H 11/19/19 05:17 Creatinine 3.0 mg/dL (0.8-1.5) H 11/19/19 05:17 Estimated GFR 21 ml/min 11/19/19 05:17 BUN/Creatinine Ratio 15 % 11/19/19 05:17 Glucose 254 mg/dL (75-100) H 11/19/19 05:17 POC Glucose 265 (70-105) H 11/19/19 07:28 Calcium 9.3 mg/dL (8.4-10.2) 11/19/19 05:17 Phosphorus 5.00 mg/dL (2.5-4.5) H 11/14/19 12:18 Magnesium 2.40 mg/dL (1.7-2.3) H 11/14/19 12:18 Total Bilirubin 0.40 mg/dL (0.1-1.2) 11/14/19 12:18 Direct Bilirubin < 0.2 mg/dL (0-0.2) 11/14/19 12:18 Indirect Bilirubin 0.2 mg/dL 11/14/19 12:18 AST 12 units/L (5-40) 11/14/19 12:18 ALT 12 units/L (7-56) 11/14/19 12:18 Alkaline Phosphatase 76 units/L (35-129) 11/14/19 12:18 Ammonia 16.0 umol/L (25-60) L 11/14/19 12:18 Total Protein 6.8 g/dL (6.3-8.2) 11/14/19 12:18 Albumin 3.1 g/dL (3.9-5) L 11/14/19 12:18 Albumin/Globulin Ratio 0.8 % 11/14/19 12:18 Urine Color [place] (Yellow) 11/18/19 20:00 Urine Turbidity Cloudy (Clear) 11/18/19 20:00 Urine pH 5.0 (5.0-7.0) 11/18/19 20:00 Ur Specific [place] 1.021 (1.003-1.030) 11/18/19 20:00 Urine Protein 100 mg/dl mg/dL (Negative) 11/18/19 20:00 Urine Glucose (UA) >=500 mg/dL (Negative) 11/18/19 20:00 Urine Ketones Neg mg/dL (Negative) 11/18/19 20:00 Urine Blood Sm (Negative) 11/18/19 20:00 Urine Nitrite Neg (Negative) 11/18/19 20:00 Urine Bilirubin Neg (Negative) 11/18/19 20:00 Urine Urobilinogen < 2.0 mg/dL (<2.0) 11/18/19 20:00 Ur Leukocyte Esterase Tr (Negative) 11/18/19 20:00 Urine WBC (Auto) > 182.0 /HPF (0.0-6.0) H 11/18/19 20:00 Urine RBC (Auto) 9.0 /HPF (0.0-6.0) 11/18/19 20:00 U Epithel Cells (Auto) 5.0 /HPF (0-13.0) 11/18/19 20:00 Urine Bacteria (Auto) 2+ /HPF (Negative) 11/18/19 20:00 Urine Mucus 2+ /HPF 11/18/19 20:00 Urine Creatinine 106.3 mg/dL (0.1-20.0) H 11/14/19 06:45 Urine Sodium 66 mmol/L 11/14/19 06:45 Active Medications - Current Medications Current Medications: Generic Name Dose Route Start Last Admin Trade Name Freq PRN Reason Stop Dose Admin Acetaminophen 650 mg 11/10/19 12:54 11/18/19 22:10 Tylenol PO 650 mg Q6H PRN Administration Pain, Mild (1-3) Aspirin 81 mg 11/17/19 10:00 11/18/19 09:48 Halfprin Ec PO 81 mg QDAY GETACHEW Administration Clopidogrel Bisulfate 75 mg 11/11/19 11:00 11/18/19 09:48 Plavix PO 75 mg QDAY GETACHEW Administration Dextrose 50 ml 11/11/19 11:04 D50w (25gm) Syringe IV Q30MIN PRN Hypoglycemia Protocol Ergocalciferol 50,000 unit 11/17/19 10:00 11/17/19 10:09 Vitamin D2 PO 50,000 unit Vazquez GETACHEW Administration Famotidine 20 mg 11/17/19 10:00 11/18/19 09:50 Pepcid PO 20 mg DAILY GETACHEW Administration Heparin Sodium (Porcine) 5,000 unit 11/09/19 10:00 11/18/19 22:13 Heparin SUB-Q 5,000 unit Q12HR GETACHEW Administration Hydralazine HCl 5 mg 11/11/19 03:04 11/11/19 08:08 Apresoline IV 5 mg Q6HR PRN Administration Blood Pressure Hydralazine HCl 10 mg 11/11/19 14:00 11/19/19 06:04 Apresoline PO 10 mg Q8HR GETACHEW Administration Levofloxacin/Dextrose 250 mg in 50 mls @ 50 mls/hr 11/20/19 10:00 Levaquin 250mg/50ml IV Q24HR GETACHEW Protocol Levofloxacin/Dextrose 500 mg in 100 mls @ 100 mls/hr 11/19/19 08:00 Levaquin 500mg/100ml IV 11/19/19 08:59 ONCE ONE Protocol Insulin Glargine 10 units 11/15/19 22:00 11/18/19 22:11 Lantus SUB-Q 10 units QHS GETACHEW Administration Insulin Human Lispro 0 unit 11/17/19 16:30 11/18/19 17:54 Humalog SUB-Q 6 unit AC GETACHEW Administration Protocol Insulin Human Lispro 0 unit 11/17/19 22:00 11/18/19 22:13 Humalog SUB-Q 3 unit QHS [facility] Administration Protocol Isosorbide Mononitrate 30 mg 11/17/19 10:00 11/18/19 09:47 Imdur PO 30 mg DAILY GETACHEW Administration Metoprolol Tartrate 100 mg 11/10/19 16:00 11/18/19 22:12 Metoprolol PO 100 mg BID GETACHEW Administration Nicotine 14 mg 11/09/19 20:00 11/18/19 09:48 Habitrol TD 14 mg QDAY GETACHEW Administration Nifedipine 60 mg 11/17/19 10:00 11/18/19 09:48 Procardia Xl PO 60 mg QDAY GETACHEW Administration Nitroglycerin 0.4 mg 11/10/19 03:32 11/10/19 04:15 Nitrostat SL 0.4 mg .Q5MIN PRN Administration Chest Pain Tamsulosin HCl 0.4 mg 11/17/19 10:00 11/18/19 09:47 Flomax PO 0.4 mg QDAY GETACHEW Administration Nutrition/Malnutrition Assess - Dietary Evaluation Nutrition/Malnutrition Findings: Nutrition Notes Start: 11/08/19 10:31 Freq: Status: Active Protocol: Document 11/11/19 14:20 LM (Rec: 11/11/19 14:21 LM [email or web address]) Nutrition Notes Need for Assessment generated from: LOS Initial or Follow up Brief Note Subjective/Other Information Screen for LOS. Pt eating 75- 100%. Nutrition Intervention Revisit per MD consult or patient Sign Off request:
[2019-11-19] MEDS: INSULIN LISPRO 100 UNIT/ML SUB-Q SCH ×4 (08:44→22:25)
--- NOTE | 2019-11-19 09:44 | Progress Note ---
Assessment and Plan 1. 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 Renal function is improving. Creatinine is 3.0 today. Prior renal US showed combination of complex and simple cysts in left kidney, negative for hydro. Monitor renal function. Avoid nephrotoxic agents. Meds dosage based on GFR. 2. FEN: Metabolic acidosis, improved, monitor. Monitor lytes. 3. Suicidal/homicidal ideation. Was d/c from [facility] on 11/08. Seen by psych. 4. Metabolic encephalopathy, POA. Monitor. 5. Leukocytosis. 6. Diabetes mellitus with hyperglycemia. 7. COPD. 8. CAD. 9. Presumed chronic congestive heart failure: Normal EF. 10.Right rib fracture. 11. Hypertension: BP controlled. Continue to monitor closely. Subjective Date of service: 11/19/19 Interval history: Patient was seen and examined at the bedside. He is asleep but easy to arouse. No acute events overnight. No sitter or family present in room at time of exam. Objective - Exam Narrative Exam: General appearance: well-developed, well-nourished, appears stated age, not in distress HEENT: ATNC, THIEN Neck: neck supple, trachea midline Respiratory: Clear to Auscultation Heart: regular, S1S2, no murmurs Gastrointestinal: soft, normoactive bowel sounds, not absent, not tender Integumentary: no rash, warm and dry Neurologic: cooperative with exam, able to move extremities, confused Musculoskeletal: trace BLE edema - Vital Signs Vital signs: Vital Signs - 12hr 11/18/19 11/18/19 11/18/19 22:00 22:10 22:12 Temperature Pulse Rate 93 H Respiratory 20 Rate Blood Pressure 152/63 O2 Sat by Pulse 98 Oximetry 11/18/19 11/19/19 11/19/19 23:10 02:33 06:04 Temperature 97.3 F L Pulse Rate 91 H 92 H Respiratory 20 20 Rate Blood Pressure 138/66 138/68 O2 Sat by Pulse 92 Oximetry - Lab 11/14/19 12:18 11/19/19 05:17 Most recent lab results Calcium 9.3 mg/dL (8.4-10.2) 11/19/19 05:17 Phosphorus 5.00 mg/dL (2.5-4.5) H 11/14/19 12:18 Magnesium 2.40 mg/dL (1.7-2.3) H 11/14/19 12:18 Urine Creatinine 106.3 mg/dL (0.1-20.0) H 11/14/19 06:45 Urine Sodium 66 mmol/L 11/14/19 06:45 Medications & Allergies - Medications Allergies/Adverse Reactions: Allergies morphine Adverse Reaction (Verified 11/01/19 23:50) Unknown Penicillins Adverse Reaction (Verified 11/01/19 23:50) Unknown Tetanus Vaccines and Toxoid Adverse Reaction (Verified 11/01/19 23:50) Unknown Home Medications: Home Medications Medication Instructions Recorded Confirmed Last Taken Type Adult Aspirin 650 mg PO BID 11/02/19 11/17/19 Unknown History Citalopram 20 mg PO BID 11/02/19 11/17/19 Unknown History Clopidogrel [Plavix] 75 mg PO DAILY 11/02/19 11/17/19 Unknown History Ergocalciferol [Vitamin D2] 50,000 units PO QWEEK 11/02/19 11/17/19 Unknown History Famotidine [Pepcid] 20 mg PO DAILY 11/02/19 11/17/19 Unknown History Furosemide [Lasix TAB] 40 mg PO DAILY 11/02/19 11/17/19 Unknown History Gabapentin 300 mg PO TID 11/02/19 11/17/19 Unknown History Isosorbide Mononitrate 30 mg PO DAILY 11/02/19 11/17/19 Unknown History Lantus VIAL 30 units SQ QHS 11/02/19 11/17/19 Unknown History Metoprolol-HCTZ 100-50 mg TAB 50 mg PO BID 11/02/19 11/17/19 Unknown History NIFEdipine [Nifedipine ER] 60 mg PO DAILY 11/02/19 11/17/19 Unknown History Tamsulosin 0.4 mg PO DAILY 11/02/19 11/17/19 Unknown History hydrALAZINE 50 mg PO TID 11/02/19 11/17/19 Unknown History Active Medications: Generic Name Dose Route Start Last Admin Trade Name Freq PRN Reason Stop Dose Admin Acetaminophen 650 mg 11/10/19 12:54 11/18/19 22:10 Tylenol PO 650 mg Q6H PRN Administration Pain, Mild (1-3) Aspirin 81 mg 11/17/19 10:00 11/18/19 09:48 Halfprin Ec PO 81 mg QDAY GETACHEW Administration Clopidogrel Bisulfate 75 mg 11/11/19 11:00 11/18/19 09:48 Plavix PO 75 mg QDAY GETACHEW Administration Dextrose 50 ml 11/11/19 11:04 D50w (25gm) Syringe IV Q30MIN PRN Hypoglycemia Protocol Ergocalciferol 50,000 unit 11/17/19 10:00 11/17/19 10:09 Vitamin D2 PO 50,000 unit Vazquez GETACHEW Administration Famotidine 20 mg 11/17/19 10:00 11/18/19 09:50 Pepcid PO 20 mg DAILY GETACHEW Administration Heparin Sodium (Porcine) 5,000 unit 11/09/19 10:00 11/18/19 22:13 Heparin SUB-Q 5,000 unit Q12HR GETACHEW Administration Hydralazine HCl 5 mg 11/11/19 03:04 11/11/19 08:08 Apresoline IV 5 mg Q6HR PRN Administration Blood Pressure Hydralazine HCl 10 mg 11/11/19 14:00 11/19/19 06:04 Apresoline PO 10 mg Q8HR GETACHEW Administration Levofloxacin/Dextrose 250 mg in 50 mls @ 50 mls/hr 11/20/19 10:00 Levaquin 250mg/50ml IV Q24HR [facility] Protocol Insulin Glargine 10 units 11/15/19 22:00 11/18/19 22:11 Lantus SUB-Q 10 units QHS [facility] Administration Insulin Human Lispro 0 unit 11/17/19 16:30 11/19/19 08:44 Humalog SUB-Q 6 unit AC [facility] Administration Protocol Insulin Human Lispro 0 unit 11/17/19 22:00 11/18/19 22:13 Humalog SUB-Q 3 unit QHS [facility] Administration Protocol Isosorbide Mononitrate 30 mg 11/17/19 10:00 11/18/19 09:47 Imdur PO 30 mg DAILY GETACHEW Administration Metoprolol Tartrate 100 mg 11/10/19 16:00 11/18/19 22:12 Metoprolol PO 100 mg BID GETACHEW Administration Nicotine 14 mg 11/09/19 20:00 11/18/19 09:48 Habitrol TD 14 mg QDAY GETACHEW Administration Nifedipine 60 mg 11/17/19 10:00 11/18/19 09:48 Procardia Xl PO 60 mg QDAY GETACHEW Administration Nitroglycerin 0.4 mg 11/10/19 03:32 11/10/19 04:15 Nitrostat SL 0.4 mg .Q5MIN PRN Administration Chest Pain Tamsulosin HCl 0.4 mg 11/17/19 10:00 11/18/19 09:47 Flomax PO 0.4 mg QDAY GETACHEW Administration
[2019-11-19] MEDS: ASPIRIN EC 81 MG TAB PO SCH (11:15)
[2019-11-19] MEDS: NIFEdipine XL 60 MG TAB PO SCH (11:16)
[2019-11-19] MEDS: TAMSULOSIN 0.4 MG CAP PO SCH (11:16)
[2019-11-19] MEDS: METOPROLOL TARTRATE 100 MG TAB PO SCH ×2 (11:16→22:27)
[2019-11-19] MEDS: CLOPIDOGREL 75 MG TAB PO SCH (11:16)
[2019-11-19] MEDS: FAMOTIDINE 20 MG TAB PO SCH (11:16)
[2019-11-19] MEDS: NICOTINE 14 MG/24 HR PATCH TD SCH (11:17)
[2019-11-19] MEDS: HEPARIN 5,000 UNIT/1 ML VIAL SUB-Q SCH ×2 (11:17→22:27)
[2019-11-19] MEDS ORDERED: hydrALAZINE 10 MG TAB PO SCH (15:28)
[2019-11-19] MEDS: ACETAMINOPHEN 325 MG TAB PO PRN (18:01)
[2019-11-19] MEDS: INSULIN GLARGINE 100 UNITS/ML SUB-Q SCH (22:26)
[2019-11-19] MEDS: hydrALAZINE 25 MG TAB PO SCH (22:27)
[2019-11-20 05:45] LABS: Calcium 9.2 mg/dL (8.4-10.2)
[2019-11-20] MEDS: hydrALAZINE 25 MG TAB PO SCH ×3 (06:31→22:24)
[2019-11-20] MEDS: ACETAMINOPHEN 325 MG TAB PO PRN (06:31)
[2019-11-20] MEDS: INSULIN LISPRO 100 UNIT/ML SUB-Q SCH ×4 (08:30→22:25)
--- NOTE | 2019-11-20 09:32 | Progress Note ---
Assessment and Plan 1. 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 Renal function is improving. Creatinine has worsened again today and is now 3.9 from 3.0. Prior renal US showed combination of complex and simple cysts in left kidney, negative for hydro. Monitor renal function closely. Avoid nephrotoxic agents. Meds dosage based on GFR. 2. FEN: Metabolic acidosis, improved, monitor. Monitor lytes. 3. Suicidal/homicidal ideation. Was d/c from [facility] on 11/08. Seen by psych. 4. Metabolic encephalopathy, POA. Monitor. 5. Leukocytosis. 6. Diabetes mellitus with hyperglycemia. Blood glucose has been elevated, recently 298. Monitor closely. 7. COPD. 8. CAD. 9. Presumed chronic congestive heart failure: Normal EF. 10.Right rib fracture. 11. Hypertension: Hydralazine increased to TID 11/20. Continue to monitor closely. Subjective Date of service: 11/20/19 Interval history: Patient was seen and examined at the bedside. He is asleep but easy to arouse. No acute events overnight. Sitter present outside door. Objective - Exam Narrative Exam: General appearance: well-developed, well-nourished, appears stated age, not in distress HEENT: ATNC, THIEN Neck: neck supple, trachea midline Respiratory: Clear to Auscultation Heart: regular, S1S2, no murmurs Gastrointestinal: soft, normoactive bowel sounds, not absent, not tender Integumentary: no rash, warm and dry Neurologic: cooperative with exam, sleeping Musculoskeletal: trace BLE edema - Vital Signs Vital signs: Vital Signs - 12hr 11/19/19 11/20/19 11/20/19 22:00 01:55 06:31 Temperature 98.9 F Pulse Rate 97 H Respiratory 20 20 Rate Respiratory 20 Rate [Back] Blood Pressure 149/71 O2 Sat by Pulse 94 Oximetry 11/20/19 11/20/19 07:27 08:04 Temperature 100.2 F H Pulse Rate 107 H Respiratory 20 36 H Rate Respiratory Rate [Back] Blood Pressure 157/68 O2 Sat by Pulse 92 Oximetry - Lab 11/14/19 12:18 11/20/19 04:50 Most recent lab results Calcium 9.2 mg/dL (8.4-10.2) 11/20/19 04:50 Phosphorus 5.00 mg/dL (2.5-4.5) H 11/14/19 12:18 Magnesium 2.40 mg/dL (1.7-2.3) H 11/14/19 12:18 Urine Creatinine 106.3 mg/dL (0.1-20.0) H 11/14/19 06:45 Urine Sodium 66 mmol/L 11/14/19 06:45 Medications & Allergies - Medications Allergies/Adverse Reactions: Allergies morphine Adverse Reaction (Verified 11/01/19 23:50) Unknown Penicillins Adverse Reaction (Verified 11/01/19 23:50) Unknown Tetanus Vaccines and Toxoid Adverse Reaction (Verified 11/01/19 23:50) Unknown Home Medications: Home Medications Medication Instructions Recorded Confirmed Last Taken Type Adult Aspirin 650 mg PO BID 11/02/19 11/17/19 Unknown History Citalopram 20 mg PO BID 11/02/19 11/17/19 Unknown History Clopidogrel [Plavix] 75 mg PO DAILY 11/02/19 11/17/19 Unknown History Ergocalciferol [Vitamin D2] 50,000 units PO QWEEK 11/02/19 11/17/19 Unknown History Famotidine [Pepcid] 20 mg PO DAILY 11/02/19 11/17/19 Unknown History Furosemide [Lasix TAB] 40 mg PO DAILY 11/02/19 11/17/19 Unknown History Gabapentin 300 mg PO TID 11/02/19 11/17/19 Unknown History Isosorbide Mononitrate 30 mg PO DAILY 11/02/19 11/17/19 Unknown History Lantus VIAL 30 units SQ QHS 11/02/19 11/17/19 Unknown History Metoprolol-HCTZ 100-50 mg TAB 50 mg PO BID 11/02/19 11/17/19 Unknown History NIFEdipine [Nifedipine ER] 60 mg PO DAILY 11/02/19 11/17/19 Unknown History Tamsulosin 0.4 mg PO DAILY 11/02/19 11/17/19 Unknown History hydrALAZINE 50 mg PO TID 11/02/19 11/17/19 Unknown History Active Medications: Generic Name Dose Route Start Last Admin Trade Name Freq PRN Reason Stop Dose Admin Acetaminophen 650 mg 11/10/19 12:54 11/20/19 06:31 Tylenol PO 650 mg Q6H PRN Administration Pain, Mild (1-3) Aspirin 81 mg 11/17/19 10:00 11/19/19 11:15 Halfprin Ec PO 81 mg QDAY GETACHEW Administration Clopidogrel Bisulfate 75 mg 11/11/19 11:00 11/19/19 11:16 Plavix PO 75 mg QDAY GETACHEW Administration Dextrose 50 ml 11/11/19 11:04 D50w (25gm) Syringe IV Q30MIN PRN Hypoglycemia Protocol Ergocalciferol 50,000 unit 11/17/19 10:00 11/17/19 10:09 Vitamin D2 PO 50,000 unit Vazquez GETACHEW Administration Famotidine 20 mg 11/17/19 10:00 11/19/19 11:16 Pepcid PO 20 mg DAILY GETACHEW Administration Heparin Sodium (Porcine) 5,000 unit 11/09/19 10:00 11/19/19 22:27 Heparin SUB-Q 5,000 unit Q12HR GETACHEW Administration Hydralazine HCl 5 mg 11/11/19 03:04 11/11/19 08:08 Apresoline IV 5 mg Q6HR PRN Administration Blood Pressure Hydralazine HCl 50 mg 11/19/19 22:00 11/20/19 06:31 Apresoline PO 50 mg Q8HR GETACHEW Administration Levofloxacin/Dextrose 250 mg in 50 mls @ 50 mls/hr 11/20/19 10:00 Levaquin 250mg/50ml IV Q48HR [facility] Protocol Insulin Glargine 10 units 11/15/19 22:00 11/19/19 22:26 Lantus SUB-Q 10 units QHS GETACHEW Administration Insulin Human Lispro 0 unit 11/17/19 16:30 11/20/19 08:30 Humalog SUB-Q 6 unit AC GETACHEW Administration Protocol Insulin Human Lispro 0 unit 11/17/19 22:00 11/19/19 22:25 Humalog SUB-Q 2 unit QHS [facility] Administration Protocol Isosorbide Mononitrate 30 mg 11/17/19 10:00 11/19/19 11:15 Imdur PO 30 mg DAILY GETACHEW Administration Metoprolol Tartrate 100 mg 11/10/19 16:00 11/19/19 22:27 Metoprolol PO 100 mg BID GETACHEW Administration Nicotine 14 mg 11/09/19 20:00 11/19/19 11:17 Habitrol TD 14 mg QDAY GETACHEW Administration Nifedipine 60 mg 11/17/19 10:00 11/19/19 11:16 Procardia Xl PO 60 mg QDAY GETACHEW Administration Nitroglycerin 0.4 mg 11/10/19 03:32 11/10/19 04:15 Nitrostat SL 0.4 mg .Q5MIN PRN Administration Chest Pain Tamsulosin HCl 0.4 mg 11/17/19 10:00 11/19/19 11:16 Flomax PO 0.4 mg QDAY GETACHEW Administration
--- NOTE | 2019-11-20 10:17 | Progress Note ---
Assessment and Plan Assessment and plan: Patient is a 74 yo man with a history of hypertension and DM type 2 who was admitted to [facility] 11/02/2019 from [facility] for mental health stabilization after Suicidal ideation. Labs significant for Creat 2.8. Nephrology was consulted for further evaluation. RN called me on 11/08/2019 about a "change in medical condition," patient choking on food and liquids, he is pale, altered. Prior night, before choking on food, he was combative and received 2 mg IM ativan. Trazadone was also newly added and increase in depakote. Now more lethargic and unable to eat, choking on food/liquid but he did received Lantus 30 units last night and BG dropped to 52. After IV dextrose the BG continued to drop to 48. Another amp of D5 was given. He was discharged form [facility] to [facility] surg and admitted to 3rd Floor Medsur for intractable hypoglycemia requiring IV line. * 11/18/19 TTE Conclusisons: Est EF 55-60% * Thoracic XR: Degenerative changes * Lumbosacral XR IMPRESSION: 1. Compression L1 vertebral body age difficult determine recommend clinical correlation 2. Degenerative changes as noted * pCXR IMPRESSION: 1. No acute cardiopulmonary disease * Cervical Spine XR IMPRESSION: Extensive degenerative changes as noted * CT head without contrast IMPRESSION: 1. There is extensive microvascular angiopathy without CT evidence acute intracranial hemorrhage. 2. There is prominence of the ventricular system and cerebral atrophy as detailed above. * US Renal doppler IMPRESSION: No significant abnormality. Left renal cyst. No obstructive uropathy. 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 History Interval history: Patient was seen and examined. Follow-up on current diagnosis of AMS, doing better. Overnight uneventful as no events directly reported to me. Imaging, nursing note, chart, labs and old chart reviewed. Discussed with patient. Hospitalist Physical - Physical exam Narrative exam: Gen: obese, nad, more awake and talkative HEENT: NCAT, EOMI, PERRL but resist eyes being open, OP Clear Neck: supple, no adenopathy, no thyromegaly, no JVD CVS/Heart: RRR, normal S1S2, pulses present bilaterally Chest/Lungs: CTA B, Symmetrical chest expansion, good air entry bilaterally GI/Abdomen: soft, NTND, good bowel sounds, no guarding or rebound /Bladder: no suprapubic tenderness, no CVA or paraspinal tenderness Extermity/Skin: no c/c/e, no obvious rash MSK: doesnt follow commands Neuro: CN 2-12 grossly intact, doesnt follow commands Psych: calm, poor insight and judgement - Constitutional Vitals: Temp Pulse Resp BP Pulse Ox 100.2 F H 107 H 36 H 157/68 92 11/20/19 08:04 11/20/19 08:04 11/20/19 08:04 11/20/19 08:04 11/20/19 08:04 Results - Labs CBC & Chem 7: 11/14/19 12:18 11/20/19 04:50 Labs: Laboratory Last Values WBC 14.0 K/mm3 (4.5-11.0) H 11/14/19 12:18 RBC 4.58 M/mm3 (3.65-5.03) 11/14/19 12:18 Hgb 13.4 gm/dl (11.8-15.2) 11/14/19 12:18 Hct 40.6 % (35.5-45.6) 11/14/19 12:18 MCV 89 fl (84-94) 11/14/19 12:18 MCH 29 pg (28-32) 11/14/19 12:18 MCHC 33 % (32-34) 11/14/19 12:18 RDW 14.3 % (13.2-15.2) 11/14/19 12:18 Plt Count 330 K/mm3 (140-440) 11/14/19 12:18 Lymph % (Auto) 24.9 % (13.4-35.0) 11/14/19 12:18 [place]houn % (Auto) 8.4 % (0.0-7.3) H 11/14/19 12:18 Eos % (Auto) 4.2 % (0.0-4.3) 11/14/19 12:18 Baso % (Auto) 0.8 % (0.0-1.8) 11/14/19 12:18 Lymph # 3.5 K/mm3 (1.2-5.4) 11/14/19 12:18 [place]houn # 1.2 K/mm3 (0.0-0.8) H 11/14/19 12:18 Eos # 0.6 K/mm3 (0.0-0.4) H 11/14/19 12:18 Baso # 0.1 K/mm3 (0.0-0.1) 11/14/19 12:18 Seg Neutrophils % 61.7 % (40.0-70.0) 11/14/19 12:18 Seg Neutrophils # 8.6 K/mm3 (1.8-7.7) H 11/14/19 12:18 Sodium 137 mmol/L (137-145) 11/20/19 04:50 Potassium 4.5 mmol/L (3.6-5.0) 11/20/19 04:50 Chloride 97.0 mmol/L (98-107) L 11/20/19 04:50 Carbon Dioxide 21 mmol/L (22-30) L 11/20/19 04:50 Anion Gap 24 mmol/L 11/20/19 04:50 BUN 67 mg/dL (9-20) H 11/20/19 04:50 Creatinine 3.9 mg/dL (0.8-1.5) H 11/20/19 04:50 Estimated GFR 15 ml/min 11/20/19 04:50 BUN/Creatinine Ratio 17 % 11/20/19 04:50 Glucose 298 mg/dL (75-100) H 11/20/19 04:50 POC Glucose 292 (70-105) H 11/20/19 08:31 Calcium 9.2 mg/dL (8.4-10.2) 11/20/19 04:50 Phosphorus 5.00 mg/dL (2.5-4.5) H 11/14/19 12:18 Magnesium 2.40 mg/dL (1.7-2.3) H 11/14/19 12:18 Total Bilirubin 0.40 mg/dL (0.1-1.2) 11/14/19 12:18 Direct Bilirubin < 0.2 mg/dL (0-0.2) 11/14/19 12:18 Indirect Bilirubin 0.2 mg/dL 11/14/19 12:18 AST 12 units/L (5-40) 11/14/19 12:18 ALT 12 units/L (7-56) 11/14/19 12:18 Alkaline Phosphatase 76 units/L (35-129) 11/14/19 12:18 Ammonia 16.0 umol/L (25-60) L 11/14/19 12:18 Total Protein 6.8 g/dL (6.3-8.2) 11/14/19 12:18 Albumin 3.1 g/dL (3.9-5) L 11/14/19 12:18 Albumin/Globulin Ratio 0.8 % 11/14/19 12:18 Urine Color Maeve (Yellow) 11/18/19 20:00 Urine Turbidity Cloudy (Clear) 11/18/19 20:00 Urine pH 5.0 (5.0-7.0) 11/18/19 20:00 Ur Specific [place] 1.021 (1.003-1.030) 11/18/19 20:00 Urine Protein 100 mg/dl mg/dL (Negative) 11/18/19 20:00 Urine Glucose (UA) >=500 mg/dL (Negative) 11/18/19 20:00 Urine Ketones Neg mg/dL (Negative) 11/18/19 20:00 Urine Blood Sm (Negative) 11/18/19 20:00 Urine Nitrite Neg (Negative) 11/18/19 20:00 Urine Bilirubin Neg (Negative) 11/18/19 20:00 Urine Urobilinogen < 2.0 mg/dL (<2.0) 11/18/19 20:00 Ur Leukocyte Esterase Tr (Negative) 11/18/19 20:00 Urine WBC (Auto) > 182.0 /HPF (0.0-6.0) H 11/18/19 20:00 Urine RBC (Auto) 9.0 /HPF (0.0-6.0) 11/18/19 20:00 U Epithel Cells (Auto) 5.0 /HPF (0-13.0) 11/18/19 20:00 Urine Bacteria (Auto) 2+ /HPF (Negative) 11/18/19 20:00 Urine Mucus 2+ /HPF 11/18/19 20:00 Urine Creatinine 106.3 mg/dL (0.1-20.0) H 11/14/19 06:45 Urine Sodium 66 mmol/L 11/14/19 06:45 Active Medications - Current Medications Current Medications: Generic Name Dose Route Start Last Admin Trade Name Freq PRN Reason Stop Dose Admin Acetaminophen 650 mg 11/10/19 12:54 11/20/19 06:31 Tylenol PO 650 mg Q6H PRN Administration Pain, Mild (1-3) Aspirin 81 mg 11/17/19 10:00 11/19/19 11:15 Halfprin Ec PO 81 mg QDAY GETACHEW Administration Clopidogrel Bisulfate 75 mg 11/11/19 11:00 11/19/19 11:16 Plavix PO 75 mg QDAY GETACHEW Administration Dextrose 50 ml 11/11/19 11:04 D50w (25gm) Syringe IV Q30MIN PRN Hypoglycemia Protocol Ergocalciferol 50,000 unit 11/17/19 10:00 11/17/19 10:09 Vitamin D2 PO 50,000 unit Vazquez GETACHEW Administration Famotidine 20 mg 11/17/19 10:00 11/19/19 11:16 Pepcid PO 20 mg DAILY GETACHEW Administration Heparin Sodium (Porcine) 5,000 unit 11/09/19 10:00 11/19/19 22:27 Heparin SUB-Q 5,000 unit Q12HR GETACHEW Administration Hydralazine HCl 5 mg 11/11/19 03:04 11/11/19 08:08 Apresoline IV 5 mg Q6HR PRN Administration Blood Pressure Hydralazine HCl 50 mg 11/19/19 22:00 11/20/19 06:31 Apresoline PO 50 mg Q8HR GETACHEW Administration Levofloxacin/Dextrose 250 mg in 50 mls @ 50 mls/hr 11/20/19 10:00 Levaquin 250mg/50ml IV Q48HR GETACHEW Protocol Insulin Glargine 10 units 11/15/19 22:00 11/19/19 22:26 Lantus SUB-Q 10 units QHS GETACHEW Administration Insulin Human Lispro 0 unit 11/17/19 16:30 11/20/19 08:30 Humalog SUB-Q 6 unit AC GETACHEW Administration Protocol Insulin Human Lispro 0 unit 11/17/19 22:00 11/19/19 22:25 Humalog SUB-Q 2 unit QHS GETACHEW Administration Protocol Isosorbide Mononitrate 30 mg 11/17/19 10:00 11/19/19 11:15 Imdur PO 30 mg DAILY GETACHEW Administration Metoprolol Tartrate 100 mg 11/10/19 16:00 11/19/19 22:27 Metoprolol PO 100 mg BID GETACHEW Administration Nicotine 14 mg 11/09/19 20:00 11/19/19 11:17 Habitrol TD 14 mg QDAY GETACHEW Administration Nifedipine 60 mg 11/17/19 10:00 11/19/19 11:16 Procardia Xl PO 60 mg QDAY GETACHEW Administration Nitroglycerin 0.4 mg 11/10/19 03:32 11/10/19 04:15 Nitrostat SL 0.4 mg .Q5MIN PRN Administration Chest Pain Tamsulosin HCl 0.4 mg 11/17/19 10:00 11/19/19 11:16 Flomax PO 0.4 mg QDAY GETACHEW Administration Nutrition/Malnutrition Assess - Dietary Evaluation Nutrition/Malnutrition Findings: Nutrition Notes Start: 11/08/19 10:31 Freq: Status: Active Protocol: Document 11/11/19 14:20 LM (Rec: 11/11/19 14:21 LM [id number]) Nutrition Notes Need for Assessment generated from: LOS Initial or Follow up Brief Note Subjective/Other Information Screen for LOS. Pt eating 75- 100%. Nutrition Intervention Revisit per MD consult or patient Sign Off request:
[2019-11-20] MEDS: HEPARIN 5,000 UNIT/1 ML VIAL SUB-Q SCH ×2 (10:53→22:23)
[2019-11-20] MEDS: NIFEdipine XL 60 MG TAB PO SCH (10:54)
[2019-11-20] MEDS: FAMOTIDINE 20 MG TAB PO SCH (10:54)
[2019-11-20] MEDS: ASPIRIN EC 81 MG TAB PO SCH (10:54)
[2019-11-20] MEDS: TAMSULOSIN 0.4 MG CAP PO SCH (10:54)
[2019-11-20] MEDS: CLOPIDOGREL 75 MG TAB PO SCH (10:54)
[2019-11-20] MEDS: NICOTINE 14 MG/24 HR PATCH TD SCH (10:54)
[2019-11-20] MEDS: METOPROLOL TARTRATE 100 MG TAB PO SCH ×2 (10:55→22:21)
--- NOTE | 2019-11-20 11:19 | XRay Report ---
CHEST 1 VIEW INDICATION: fever. COMPARISON: 11/17/2019 FINDINGS: SUPPORT DEVICES: None. HEART / MEDIASTINUM: No significant abnormality. LUNGS / PLEURA: Bronchovascular markings are prominent. No significant pulmonary or pleural abnormali ty. No pneumothorax. ADDITIONAL FINDINGS: IMPRESSION: 1. No acute cardiopulmonary disease Signer Name: Riky Ro MD Signed: 11/20/2019 11:15 AM Workstation Name: [id number]
--- NOTE | 2019-11-20 11:26 | Consultation ---
History of Present Illness - Reason for Consult Consult date: 11/20/19 fevers Requesting physician: EVERARDO SALVADOR - History of Present Illness 74 yo male with history of hypertension, CAD, COPD, CHF, CKD4 and diabetes admitted to [facility] from [facility] on 11/09/2019 for mental health stabilization after suicidal ideation. Patient is not the best historian. Per nursing staff he has been coughing. On arrival temp 97.2, HR 62, R 16, BP 157/63, his creat wads 2.7. By 11/17/2019 noted a fever 101.1. WBC went to 14K on 11/14/2019. UA shows 32 wbc and trace LE. Repeat UA on 11/18/2019 shows 182 wbc and trace LE. Blood culture on 11/18/2019 no growth. Urine culture on 11/14/2019 <10K colonies. Urine culture on 11/18/2019 >100K Enterococcus colonies. CXR neg ative. ID consulted for fevers. Review of Systems: unable to obtain due to AMS Medications and Allergies Allergies Allergy/AdvReac Type Severity Reaction Status Date / Time morphine AdvReac Unknown Verified 11/01/19 23:50 Penicillins AdvReac Unknown Verified 11/01/19 23:50 Tetanus Vaccines and Toxoid AdvReac Unknown Verified 11/01/19 23:50 Home Medications Medication Instructions Recorded Confirmed Last Taken Type Adult Aspirin 650 mg PO BID 11/02/19 11/17/19 Unknown History Citalopram 20 mg PO BID 11/02/19 11/17/19 Unknown History Ergocalciferol [Vitamin D2] 50,000 units PO QWEEK 11/02/19 11/17/19 Unknown History Gabapentin 300 mg PO TID 11/02/19 11/17/19 Unknown History Isosorbide Mononitrate 30 mg PO DAILY 11/02/19 11/17/19 Unknown History Lantus VIAL 30 units SQ QHS 11/02/19 11/17/19 Unknown History Metoprolol-HCTZ 100-50 mg TAB 50 mg PO BID 11/02/19 11/17/19 Unknown History NIFEdipine [Nifedipine ER] 60 mg PO DAILY 11/02/19 11/17/19 Unknown History RX: Clopidogrel [Plavix] 75 mg PO DAILY 11/02/19 11/17/19 Unknown History RX: Famotidine [Pepcid] 20 mg PO DAILY 11/02/19 11/17/19 Unknown History RX: Furosemide [Lasix TAB] 40 mg PO DAILY 11/02/19 11/17/19 Unknown History Tamsulosin 0.4 mg PO DAILY 11/02/19 11/17/19 Unknown History hydrALAZINE 50 mg PO TID 11/02/19 11/17/19 Unknown History Active Meds: Active Medications Acetaminophen (Tylenol) 650 mg PO Q6H PRN PRN Reason: Pain, Mild (1-3) Last Admin: 11/20/19 06:31 Dose: 650 mg Documented by: Aspirin (Halfprin Ec) 81 mg PO QDAY [facility] Last Admin: 11/20/19 10:54 Dose: 81 mg Documented by: Clopidogrel Bisulfate (Plavix) 75 mg PO QDAY [facility] Last Admin: 11/20/19 10:54 Dose: 75 mg Documented by: Dextrose (D50w (25gm) Syringe) 50 ml IV Q30MIN PRN; Protocol PRN Reason: Hypoglycemia Ergocalciferol (Vitamin D2) 50,000 unit PO Avzquez [facility] Last Admin: 11/17/19 10:09 Dose: 50,000 unit Documented by: Famotidine (Pepcid) 20 mg PO DAILY [facility] Last Admin: 11/20/19 10:54 Dose: 20 mg Documented by: Heparin Sodium (Porcine) (Heparin) 5,000 unit SUB-Q Q12HR [facility] Last Admin: 11/20/19 10:53 Dose: 5,000 unit Documented by: Hydralazine HCl (Apresoline) 5 mg IV Q6HR PRN PRN Reason: Blood Pressure Last Admin: 11/11/19 08:08 Dose: 5 mg Documented by: Hydralazine HCl (Apresoline) 50 mg PO Q8HR [facility] Last Admin: 11/20/19 06:31 Dose: 50 mg Documented by: Levofloxacin/Dextrose (Levaquin 250mg/50ml) 250 mg in 50 mls @ 50 mls/hr IV Q48HR [facility]; Protocol Last Admin: 11/20/19 10:55 Dose: 50 mls/hr Documented by: Insulin Glargine (Lantus) 10 units SUB-Q QHS [facility] Last Admin: 11/19/19 22:26 Dose: 10 units Documented by: Insulin Human Lispro (Humalog) 0 unit SUB-Q AC [facility]; Protocol Last Admin: 11/20/19 08:30 Dose: 6 unit Documented by: Insulin Human Lispro (Humalog) 0 unit SUB-Q QHS [facility]; Protocol Last Admin: 11/19/19 22:25 Dose: 2 unit Documented by: Isosorbide Mononitrate (Imdur) 30 mg PO DAILY [facility] Last Admin: 11/20/19 10:55 Dose: 30 mg Documented by: Metoprolol Tartrate (Metoprolol) 100 mg PO BID [facility] Last Admin: 11/20/19 10:55 Dose: 100 mg Documented by: Nicotine (Habitrol) 14 mg TD QDAY [facility] Last Admin: 11/20/19 10:54 Dose: 14 mg Documented by: Nifedipine (Procardia Xl) 60 mg PO QDAY [facility] Last Admin: 11/20/19 10:54 Dose: 60 mg Documented by: Nitroglycerin (Nitrostat) 0.4 mg SL .Q5MIN PRN PRN Reason: Chest Pain Last Admin: 11/10/19 04:15 Dose: 0.4 mg Documented by: Tamsulosin HCl (Flomax) 0.4 mg PO QDAY [facility] Last Admin: 11/20/19 10:54 Dose: 0.4 mg Documented by: Physical Examination - Physical Exam Narrative exam: Constitutional: alert in NAD Head, Ears, Nose: Normocephalic, atraumatic. External ears, nose normal Oral: Clear OP Neck: no JVD no masses Cardiovascular: RRR Respiratory: clifton crackles GI: Soft, non-tender; bowel sounds normal. No peritoneal signs. Musculoskeletal: no edema Skin: no rash Hem/Lymphatic: No palpable cervical or supraclavicular nodes. No lymphangitis Psych: no agitated confused Neurological: alert confused moving all extremities Condom cath - Constitutional Vitals: Vital Signs Temp Pulse Resp BP Pulse Ox 100.2 F H 107 H 36 H 157/68 92 11/20/19 08:04 11/20/19 10:55 11/20/19 08:04 11/20/19 10:55 11/20/19 08:04 Temperature -Last 24 Hours Temperature 100.2 F Temperature 98.9 F Temperature 98.9 F Temperature 100.1 F Results - Labs CBC & Chem 7: 11/14/19 12:18 11/20/19 04:50 Labs: Abnormal lab results 11/19/19 11/19/19 11/19/19 Range/Units 11:28 16:30 22:20 Chloride (98-107) mmol/L Carbon Dioxide (22-30) mmol/L BUN (9-20) mg/dL Creatinine (0.8-1.5) mg/dL Glucose (75-100) mg/dL POC Glucose 318 H 277 H 227 H (70-105) 11/20/19 11/20/19 Range/Units 04:50 08:31 Chloride 97.0 L (98-107) mmol/L Carbon Dioxide 21 L (22-30) mmol/L BUN 67 H (9-20) mg/dL Creatinine 3.9 H (0.8-1.5) mg/dL Glucose 298 H (75-100) mg/dL POC Glucose 292 H (70-105) Assessment and Plan Cultures: Blood culture 11/18/2019 no growth. Urine culture 11/14/2019 <10K colonies. Urine culture on 11/18/2019 >100K Enterococcus colonies. Assessment/plan: 74 yo male with history of hypertension, CAD, COPD, CHF, CKD4 and diabetes admitted to [facility] from [facility] on 11/09/2019 for mental health stabilization after suicidal ideation, now with SIRS: #SIRS: not present on admission, now with fevers, leukocytosis; etiology UTI r/o urinary retention ? pneumonia/influenza #UTI: patient now with a condom cath without output. Urine culture on 11/18/2019 >100K Enterococcus colonies. #STEPHANIE on CKD: renally adjusted abx #Acute encephalopathy #Penicillin allergy Recommendations: bladder scan repeat CXR PA and lat check for influenza antigen and PCR continue levaquin add vancomycin renally adjusted for now for E faecalis UTI - penicillin allergy f/u blood culture Will follow MD [facility]
[2019-11-20] MEDS ORDERED: VANCOMYCIN/NS 1 GM/250 ML 1 GM/250 ML BAG IV SCH (15:00)
[2019-11-20] MEDS ORDERED: VANCOMYCIN PHARMACY TO DOSE IV SCH (16:00)
[2019-11-20] MEDS ORDERED: VANCOMYCIN 1,750 MG in SODIUM CHLORIDE 0.9% 500 ML 500 ML IV ONE (16:00)
[2019-11-20] MEDS: INSULIN GLARGINE 100 UNITS/ML SUB-Q SCH (22:22)
[2019-11-21] MEDS: ACETAMINOPHEN 325 MG TAB PO PRN (03:01)
[2019-11-21 05:32] LABS: Calcium 9.1 mg/dL (8.4-10.2)
[2019-11-21] MEDS: INSULIN LISPRO 100 UNIT/ML SUB-Q SCH ×4 (08:54→22:38)
[2019-11-21] MEDS: ASPIRIN EC 81 MG TAB PO SCH (10:43)
[2019-11-21] MEDS: CLOPIDOGREL 75 MG TAB PO SCH (10:44)
[2019-11-21] MEDS: TAMSULOSIN 0.4 MG CAP PO SCH (10:44)
[2019-11-21] MEDS: NIFEdipine XL 60 MG TAB PO SCH (10:44)
[2019-11-21] MEDS: METOPROLOL TARTRATE 100 MG TAB PO SCH ×2 (10:44→21:50)
[2019-11-21] MEDS: HEPARIN 5,000 UNIT/1 ML VIAL SUB-Q SCH ×2 (10:44→21:55)
[2019-11-21] MEDS: FAMOTIDINE 20 MG TAB PO SCH (10:44)
[2019-11-21] MEDS: NICOTINE 14 MG/24 HR PATCH TD SCH (10:44)
[2019-11-21 10:52] LABS: Hematocrit 34.7 % (35.5-45.6); Hemoglobin 11.4 gm/dl (11.8-15.2); Mean Corpuscular HGB Conc 33 % (32-34); Mean Corpuscular Volume 89 fl (84-94); Platelet Count 515 K/mm3 (140-440); Red Blood Count 3.92 M/mm3 (3.65-5.03); Red Cell Distribution Width 14.1 % (13.2-15.2)
--- NOTE | 2019-11-21 11:13 | Progress Note ---
Assessment and Plan Cultures: Blood culture 11/18/2019 no growth. Urine culture 11/14/2019 <10K colonies. Urine culture on 11/18/2019 >100K Enterococcus colonies. Assessment/plan: 74 yo male with history of hypertension, CAD, COPD, CHF, CKD4 and diabetes admitted to [facility] from [facility] on 11/09/2019 for mental health stabilization after suicidal ideation, now with SIRS: #SIRS: not present on admission, continues with fevers worsening leukocytosis; etiology UTI r/o urinary retention ? pneumonia/influenza #UTI: patient now with a condom cath without output. Urine culture on 11/18/2019 >100K Enterococcus colonies. #STEPHANIE on CKD: renally adjusted abx #Acute encephalopathy: better #Penicillin allergy Recommendations: bladder scan ? consider abdominal CT repeat CXR PA and lat today check for influenza antigen and PCR - pending continue levaquin continue vancomycin renally adjusted for now for E faecalis UTI - penicillin allergy f/u blood culture Will follow MD [facility] Subjective Date of service: 11/21/19 Principal diagnosis: SIRS Interval history: feels weak c/o abdominal pain Objective - Exam Narrative Exam: Constitutional: alert in NAD Head, Ears, Nose: Normocephalic, atraumatic. External ears, nose normal Oral: Clear OP Neck: no JVD no masses Cardiovascular: RRR Respiratory: clifton crackles GI: Soft, diffuse tenderness No peritoneal signs. Musculoskeletal: no edema Skin: no rash Hem/Lymphatic: No palpable cervical or supraclavicular nodes. No lymphangitis Psych: no agitated confused Neurological: alert confused moving all extremities Condom cath - Constitutional Vitals: Vital Signs Temp Pulse Resp BP Pulse Ox 98.8 F 107 H 22 141/75 93 11/21/19 02:47 11/21/19 02:47 11/21/19 02:47 11/21/19 02:47 11/21/19 02:47 Temperature -Last 24 Hours Temperature 98.8 F Temperature 99.4 F Temperature 98.5 F - Labs CBC & Chem 7: 11/21/19 09:10 11/21/19 04:35 Labs: Abnormal lab results 11/20/19 11/20/19 11/20/19 Range/Units 12:01 17:21 21:07 WBC (4.5-11.0) K/mm3 Hgb (11.8-15.2) gm/dl Hct (35.5-45.6) % Plt Count (140-440) K/mm3 Sodium (137-145) mmol/L Chloride (98-107) mmol/L Carbon Dioxide (22-30) mmol/L BUN (9-20) mg/dL Creatinine (0.8-1.5) mg/dL Glucose (75-100) mg/dL POC Glucose 241 H 330 H 276 H (70-105) 11/21/19 11/21/19 11/21/19 Range/Units 04:35 07:44 09:10 WBC 26.1 H (4.5-11.0) K/mm3 Hgb 11.4 L (11.8-15.2) gm/dl Hct 34.7 L (35.5-45.6) % Plt Count 515 H (140-440) K/mm3 Sodium 136 L (137-145) mmol/L Chloride 96.8 L (98-107) mmol/L Carbon Dioxide 19 L (22-30) mmol/L BUN 79 H (9-20) mg/dL Creatinine 4.5 H (0.8-1.5) mg/dL Glucose 332 H (75-100) mg/dL POC Glucose 313 H (70-105)
--- NOTE | 2019-11-21 11:28 | Progress Note ---
Assessment and Plan 1. 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 Renal function is improving. Creatinine has worsened again today and is now 4.5 from 3.9. Prior renal US showed combination of complex and simple cysts in left kidney, negative for hydro. Monitor renal function closely. Avoid nephrotoxic agents. Meds dosage based on GFR. Bladder scan ordered. 2. FEN: Metabolic acidosis, improved, monitor. Mild hyponatremia, monitor. Monitor lytes. 3. Suicidal/homicidal ideation. Was d/c from [facility] on 11/08. Seen by psych. 4. Metabolic encephalopathy, POA. Monitor. 5. Leukocytosis. 6. Diabetes mellitus with hyperglycemia. Blood glucose has been elevated, recently 332. Monitor closely. 7. COPD. 8. CAD. 9. Presumed chronic congestive heart failure: Normal EF. 10.Right rib fracture. 11. Hypertension: Hydralazine increased to TID 11/20. Continue to monitor closely. Subjective Date of service: 11/21/19 Principal diagnosis: SIRS Interval history: Patient was seen and examined at the bedside. He is awake and able to verbally communicate. No acute events overnight. Sitter present outside door. Objective - Exam Narrative Exam: General appearance: well-developed, well-nourished, appears stated age, not in distress HEENT: ATNC, THIEN Neck: neck supple, trachea midline Respiratory: Clear to Auscultation, diminished bibasilar Heart: regular, S1S2, no murmurs Gastrointestinal: soft, normoactive bowel sounds, not absent, not tender Integumentary: no rash, warm and dry Neurologic: cooperative with exam, sleeping Musculoskeletal: trace BLE edema - Vital Signs Vital signs: Vital Signs - 12hr 11/21/19 02:47 Temperature 98.8 F Pulse Rate 107 H Respiratory 22 Rate Blood Pressure 141/75 O2 Sat by Pulse 93 Oximetry - Lab 11/21/19 09:10 11/21/19 04:35 Most recent lab results Calcium 9.1 mg/dL (8.4-10.2) 11/21/19 04:35 Phosphorus 5.00 mg/dL (2.5-4.5) H 11/14/19 12:18 Magnesium 2.40 mg/dL (1.7-2.3) H 11/14/19 12:18 Urine Creatinine 106.3 mg/dL (0.1-20.0) H 11/14/19 06:45 Urine Sodium 66 mmol/L 11/14/19 06:45 Medications & Allergies - Medications Allergies/Adverse Reactions: Allergies morphine Adverse Reaction (Verified 11/01/19 23:50) Unknown Penicillins Adverse Reaction (Verified 11/01/19 23:50) Unknown Tetanus Vaccines and Toxoid Adverse Reaction (Verified 11/01/19 23:50) Unknown Home Medications: Home Medications Medication Instructions Recorded Confirmed Last Taken Type Adult Aspirin 650 mg PO BID 11/02/19 11/17/19 Unknown History Citalopram 20 mg PO BID 11/02/19 11/17/19 Unknown History Clopidogrel [Plavix] 75 mg PO DAILY 11/02/19 11/17/19 Unknown History Ergocalciferol [Vitamin D2] 50,000 units PO QWEEK 11/02/19 11/17/19 Unknown History Famotidine [Pepcid] 20 mg PO DAILY 11/02/19 11/17/19 Unknown History Furosemide [Lasix TAB] 40 mg PO DAILY 11/02/19 11/17/19 Unknown History Gabapentin 300 mg PO TID 11/02/19 11/17/19 Unknown History Isosorbide Mononitrate 30 mg PO DAILY 11/02/19 11/17/19 Unknown History Lantus VIAL 30 units SQ QHS 11/02/19 11/17/19 Unknown History Metoprolol-HCTZ 100-50 mg TAB 50 mg PO BID 11/02/19 11/17/19 Unknown History NIFEdipine [Nifedipine ER] 60 mg PO DAILY 11/02/19 11/17/19 Unknown History Tamsulosin 0.4 mg PO DAILY 11/02/19 11/17/19 Unknown History hydrALAZINE 50 mg PO TID 11/02/19 11/17/19 Unknown History Active Medications: Generic Name Dose Route Start Last Admin Trade Name Freq PRN Reason Stop Dose Admin Acetaminophen 650 mg 11/10/19 12:54 11/21/19 03:01 Tylenol PO 650 mg Q6H PRN Administration Pain, Mild (1-3) Aspirin 81 mg 11/17/19 10:00 11/21/19 10:43 Halfprin Ec PO 81 mg QDAY GETACHEW Administration Clopidogrel Bisulfate 75 mg 11/11/19 11:00 11/21/19 10:44 Plavix PO 75 mg QDAY GETACHEW Administration Dextrose 50 ml 11/11/19 11:04 D50w (25gm) Syringe IV Q30MIN PRN Hypoglycemia Protocol Ergocalciferol 50,000 unit 11/17/19 10:00 11/17/19 10:09 Vitamin D2 PO 50,000 unit Vazquez GETACHEW Administration Famotidine 20 mg 11/17/19 10:00 11/21/19 10:44 Pepcid PO 20 mg DAILY GETACHEW Administration Heparin Sodium (Porcine) 5,000 unit 11/09/19 10:00 11/21/19 10:44 Heparin SUB-Q 5,000 unit Q12HR GETACHEW Administration Hydralazine HCl 5 mg 11/11/19 03:04 11/11/19 08:08 Apresoline IV 5 mg Q6HR PRN Administration Blood Pressure Hydralazine HCl 50 mg 11/19/19 22:00 11/20/19 22:24 Apresoline PO 50 mg Q8HR GETACHEW Administration Levofloxacin/Dextrose 250 mg in 50 mls @ 50 mls/hr 11/20/19 10:00 11/20/19 10:55 Levaquin 250mg/50ml IV 50 mls/hr Q48HR GETACHEW Administration Protocol Insulin Glargine 10 units 11/15/19 22:00 11/20/19 22:22 Lantus SUB-Q 10 units QHS GETACHEW Administration Insulin Human Lispro 0 unit 11/17/19 16:30 11/21/19 08:54 Humalog SUB-Q 8 unit AC GETACHEW Administration Protocol Insulin Human Lispro 0 unit 11/17/19 22:00 11/20/19 22:25 Humalog SUB-Q 3 unit QHS GETACHEW Administration Protocol Isosorbide Mononitrate 30 mg 11/17/19 10:00 11/21/19 10:44 Imdur PO 30 mg DAILY GETACHEW Administration Metoprolol Tartrate 100 mg 11/10/19 16:00 11/21/19 10:44 Metoprolol PO 100 mg BID GETACHEW Administration Nicotine 14 mg 11/09/19 20:00 11/21/19 10:44 Habitrol TD 14 mg QDAY GETACHEW Administration Nifedipine 60 mg 11/17/19 10:00 11/21/19 10:44 Procardia Xl PO 60 mg QDAY GETACHEW Administration Nitroglycerin 0.4 mg 11/10/19 03:32 11/10/19 04:15 Nitrostat SL 0.4 mg .Q5MIN PRN Administration Chest Pain Tamsulosin HCl 0.4 mg 11/17/19 10:00 11/21/19 10:44 Flomax PO 0.4 mg QDAY GETACHEW Administration
[2019-11-21 12:51] LABS: Basophils % (Manual) 0 % (0.0-1.8); Eosinophils % (Manual) 0 % (0.0-4.3); Large Platelets Few; Platelet Clumps Few; Platelet Estimate Consistent w Auto; Total Cells Counted 100
[2019-11-21] MEDS: hydrALAZINE 25 MG TAB PO SCH ×3 (14:12→21:50)
--- NOTE | 2019-11-21 14:39 | Progress Note ---
Assessment and Plan Assessment and plan: Patient is a 74 yo man with a history of hypertension and DM type 2 who was admitted to [facility] 11/02/2019 from [facility] for mental health stabilization after Suicidal ideation. Labs significant for Creat 2.8. Nephrology was consulted for further evaluation. RN called me on 11/08/2019 about a "change in medical condition," patient choking on food and liquids, he is pale, altered. Prior night, before choking on food, he was combative and received 2 mg IM ativan. Trazadone was also newly added and increase in depakote. Now more lethargic and unable to eat, choking on food/liquid but he did received Lantus 30 units last night and BG dropped to 52. After IV dextrose the BG continued to drop to 48. Another amp of D5 was given. He was discharged form [facility] to [facility] surg and admitted to 3rd Floor Med[facility] for intractable hypoglycemia requiring IV line. * 11/18/19 TTE Conclusisons: Est EF 55-60% * Thoracic XR: Degenerative changes * Lumbosacral XR IMPRESSION: 1. Compression L1 vertebral body age difficult determine recommend clinical correlation 2. Degenerative changes as noted * pCXR IMPRESSION: 1. No acute cardiopulmonary disease * Cervical Spine XR IMPRESSION: Extensive degenerative changes as noted * CT head without contrast IMPRESSION: 1. There is extensive microvascular angiopathy without CT evidence acute intracranial hemorrhage. 2. There is prominence of the ventricular system and cerebral atrophy as detailed above. * US Renal doppler IMPRESSION: No significant abnormality. Left renal cyst. No obstructive uropathy. AMS due Acute Metabolic Encephalopathy: treat with dextrose ARF/CKD 4, vasomotor nephropathy: worsening, get CT abd/pelvis, monitor BMP closely DM type 2 uncontrolled with hyperglycemia: use SSI, no Long acting because of poor oral intake UTI with sepsis: started on renal dose Levaquin 11/18/19 Chronic hypoxic Respiratory Failure: continue supplemental O2 Dementia: Mental health is following, antipsychotic stopped due to lethargy/decreased responsiveness Osteoporosis with multiple old rib fractures: treat with vitamin D and calcium Urinary retention: place bernard Hypoglycemia resolved Hypotension resolved Disposition: SNF, level 2 triggered from state DVT ppx full code 11/20/19: low grade temps since , consulted ID. 11/21/19: Tmax 100.2F, bladder distended and tender, d/w ID, get ct abd/pelvis and place bernard for urinary retention. also renal function is worsening History Interval history: Patient was seen and examined. Follow-up on current diagnosis of AMS, doing better. Overnight uneventful as no events directly reported to me. Imaging, nursing note, chart, labs and old chart reviewed. Discussed with patient. Hospitalist Physical - Physical exam Narrative exam: Gen: obese, nad, more awake and talkative orientated x 2, know name and knows that he is in hospital, missed year and name of hospital HEENT: NCAT, EOMI, PERRL but resist eyes being open, OP Clear Neck: supple, no adenopathy, no thyromegaly, no JVD CVS/Heart: RRR, normal S1S2, pulses present bilaterally Chest/Lungs: CTA B, Symmetrical chest expansion, good air entry bilaterally GI/Abdomen: soft, diffuse tender good bowel sounds, no guarding or rebound /Bladder: +suprapubic tenderness, no CVA or paraspinal tenderness Extermity/Skin: no c/c/e, no obvious rash MSK: doesnt follow commands Neuro: CN 2-12 grossly intact, doesnt follow commands Psych: calm, poor insight and judgement - Constitutional Vitals: Temp Pulse Resp BP Pulse Ox 98.4 F 102 H 20 143/67 90 11/21/19 13:16 11/21/19 13:16 11/21/19 13:16 11/21/19 13:16 11/21/19 13:16 Results - Labs CBC & Chem 7: 11/21/19 09:10 11/21/19 04:35 Labs: Laboratory Last Values WBC 26.1 K/mm3 (4.5-11.0) H 11/21/19 09:10 RBC 3.92 M/mm3 (3.65-5.03) 11/21/19 09:10 Hgb 11.4 gm/dl (11.8-15.2) L 11/21/19 09:10 Hct 34.7 % (35.5-45.6) L 11/21/19 09:10 MCV 89 fl (84-94) 11/21/19 09:10 MCH 29 pg (28-32) 11/21/19 09:10 MCHC 33 % (32-34) 11/21/19 09:10 RDW 14.1 % (13.2-15.2) 11/21/19 09:10 Plt Count 515 K/mm3 (140-440) H 11/21/19 09:10 Lymph % (Auto) 24.9 % (13.4-35.0) 11/14/19 12:18 [place] % (Auto) 8.4 % (0.0-7.3) H 11/14/19 12:18 Eos % (Auto) 4.2 % (0.0-4.3) 11/14/19 12:18 Baso % (Auto) 0.8 % (0.0-1.8) 11/14/19 12:18 Lymph # 3.5 K/mm3 (1.2-5.4) 11/14/19 12:18 [place] # 1.2 K/mm3 (0.0-0.8) H 11/14/19 12:18 Eos # 0.6 K/mm3 (0.0-0.4) H 11/14/19 12:18 Baso # 0.1 K/mm3 (0.0-0.1) 11/14/19 12:18 Add Manual Diff Complete 11/21/19 09:10 Total Counted 100 11/21/19 09:10 Seg Neutrophils % 61.7 % (40.0-70.0) 11/14/19 12:18 Seg Neuts % (Manual) 89.0 % (40.0-70.0) H 11/21/19 09:10 Band Neutrophils % 0 % 11/21/19 09:10 Lymphocytes % (Manual) 4.0 % (13.4-35.0) L 11/21/19 09:10 Reactive Lymphs % (Man) 0 % 11/21/19 09:10 Monocytes % (Manual) 7.0 % (0.0-7.3) 11/21/19 09:10 Eosinophils % (Manual) 0 % (0.0-4.3) 11/21/19 09:10 Basophils % (Manual) 0 % (0.0-1.8) 11/21/19 09:10 Metamyelocytes % 0 % 11/21/19 09:10 Myelocytes % 0 % 11/21/19 09:10 Promyelocytes % 0 % 11/21/19 09:10 Blast Cells % 0 % 11/21/19 09:10 Nucleated RBC % Not Reportable 11/21/19 09:10 Seg Neutrophils # 8.6 K/mm3 (1.8-7.7) H 11/14/19 12:18 Seg Neutrophils # Man 23.2 K/mm3 (1.8-7.7) H 11/21/19 09:10 Band Neutrophils # 0.0 K/mm3 11/21/19 09:10 Lymphocytes # (Manual) 1.0 K/mm3 (1.2-5.4) L 11/21/19 09:10 Abs React Lymphs (Man) 0.0 K/mm3 11/21/19 09:10 Monocytes # (Manual) 1.8 K/mm3 (0.0-0.8) H 11/21/19 09:10 Eosinophils # (Manual) 0.0 K/mm3 (0.0-0.4) 11/21/19 09:10 Basophils # (Manual) 0.0 K/mm3 (0.0-0.1) 11/21/19 09:10 Metamyelocytes # 0.0 K/mm3 11/21/19 09:10 Myelocytes # 0.0 K/mm3 11/21/19 09:10 Promyelocytes # 0.0 K/mm3 11/21/19 09:10 Blast Cells # 0.0 K/mm3 11/21/19 09:10 WBC Morphology Not Reportable 11/21/19 09:10 Hypersegmented Neuts Not Reportable 11/21/19 09:10 Hyposegmented Neuts Not Reportable 11/21/19 09:10 Hypogranular Neuts Not Reportable 11/21/19 09:10 Smudge Cells Not Reportable 11/21/19 09:10 Toxic Granulation Not Reportable 11/21/19 09:10 Toxic Vacuolation Not Reportable 11/21/19 09:10 Dohle Bodies Not Reportable 11/21/19 09:10 Pelger-Huet Anomaly Not Reportable 11/21/19 09:10 [place] Rods Not Reportable 11/21/19 09:10 Platelet Estimate Consistent w auto 11/21/19 09:10 Clumped Platelets Few 11/21/19 09:10 Plt Clumps, EDTA Not Reportable 11/21/19 09:10 Large Platelets Few 11/21/19 09:10 Giant Platelets Not Reportable 11/21/19 09:10 Platelet Satelliting Not Reportable 11/21/19 09:10 Plt Morphology Comment Not Reportable 11/21/19 09:10 RBC Morphology Not Reportable 11/21/19 09:10 Dimorphic RBCs Not Reportable 11/21/19 09:10 Polychromasia Not Reportable 11/21/19 09:10 Hypochromasia Not Reportable 11/21/19 09:10 Poikilocytosis Not Reportable 11/21/19 09:10 Anisocytosis Not Reportable 11/21/19 09:10 Microcytosis Not Reportable 11/21/19 09:10 Macrocytosis Not Reportable 11/21/19 09:10 Spherocytes Not Reportable 11/21/19 09:10 Pappenheimer Bodies Not Reportable 11/21/19 09:10 Sickle Cells Not Reportable 11/21/19 09:10 Target Cells Not Reportable 11/21/19 09:10 Tear Drop Cells Not Reportable 11/21/19 09:10 Ovalocytes Not Reportable 11/21/19 09:10 Helmet Cells Not Reportable 11/21/19 09:10 [place] Bodies Not Reportable 11/21/19 09:10 [place] Rings Not Reportable 11/21/19 09:10 [place] Cells Not Reportable 11/21/19 09:10 Bite Cells Not Reportable 11/21/19 09:10 Crenated Cell Not Reportable 11/21/19 09:10 Elliptocytes Not Reportable 11/21/19 09:10 Acanthocytes (Spur) Not Reportable 11/21/19 09:10 Rouleaux Not Reportable 11/21/19 09:10 Hemoglobin C Crystals Not Reportable 11/21/19 09:10 Schistocytes Not Reportable 11/21/19 09:10 Malaria parasites Not Reportable 11/21/19 09:10 Jeremie Bodies Not Reportable 11/21/19 09:10 Hem Pathologist Commnt No 11/21/19 09:10 Sodium 136 mmol/L (137-145) L 11/21/19 04:35 Potassium 4.8 mmol/L (3.6-5.0) 11/21/19 04:35 Chloride 96.8 mmol/L (98-107) L 11/21/19 04:35 Carbon Dioxide 19 mmol/L (22-30) L 11/21/19 04:35 Anion Gap 25 mmol/L 11/21/19 04:35 BUN 79 mg/dL (9-20) H 11/21/19 04:35 Creatinine 4.5 mg/dL (0.8-1.5) H 11/21/19 04:35 Estimated GFR 13 ml/min 11/21/19 04:35 BUN/Creatinine Ratio 18 % 11/21/19 04:35 Glucose 332 mg/dL (75-100) H 11/21/19 04:35 POC Glucose 230 (70-105) H 11/21/19 11:36 Calcium 9.1 mg/dL (8.4-10.2) 11/21/19 04:35 Phosphorus 5.00 mg/dL (2.5-4.5) H 11/14/19 12:18 Magnesium 2.40 mg/dL (1.7-2.3) H 11/14/19 12:18 Total Bilirubin 0.40 mg/dL (0.1-1.2) 11/14/19 12:18 Direct Bilirubin < 0.2 mg/dL (0-0.2) 11/14/19 12:18 Indirect Bilirubin 0.2 mg/dL 11/14/19 12:18 AST 12 units/L (5-40) 11/14/19 12:18 ALT 12 units/L (7-56) 11/14/19 12:18 Alkaline Phosphatase 76 units/L (35-129) 11/14/19 12:18 Ammonia 16.0 umol/L (25-60) L 11/14/19 12:18 Total Protein 6.8 g/dL (6.3-8.2) 11/14/19 12:18 Albumin 3.1 g/dL (3.9-5) L 11/14/19 12:18 Albumin/Globulin Ratio 0.8 % 11/14/19 12:18 Urine Color Maeve (Yellow) 11/18/19 20:00 Urine Turbidity Cloudy (Clear) 11/18/19 20:00 Urine pH 5.0 (5.0-7.0) 11/18/19 20:00 Ur Specific [place] 1.021 (1.003-1.030) 02/24/20 20:00 Urine Protein 100 mg/dl mg/dL (Negative) 11/18/19 20:00 Urine Glucose (UA) >=500 mg/dL (Negative) 11/18/19 20:00 Urine Ketones Neg mg/dL (Negative) 11/18/19 20:00 Urine Blood Sm (Negative) 11/18/19 20:00 Urine Nitrite Neg (Negative) 11/18/19 20:00 Urine Bilirubin Neg (Negative) 11/18/19 20:00 Urine Urobilinogen < 2.0 mg/dL (<2.0) 11/18/19 20:00 Ur Leukocyte Esterase Tr (Negative) 11/18/19 20:00 Urine WBC (Auto) > 182.0 /HPF (0.0-6.0) H 11/18/19 20:00 Urine RBC (Auto) 9.0 /HPF (0.0-6.0) 11/18/19 20:00 U Epithel Cells (Auto) 5.0 /HPF (0-13.0) 11/18/19 20:00 Urine Bacteria (Auto) 2+ /HPF (Negative) 11/18/19 20:00 Urine Mucus 2+ /HPF 11/18/19 20:00 Urine Creatinine 106.3 mg/dL (0.1-20.0) H 11/14/19 06:45 Urine Sodium 66 mmol/L 11/14/19 06:45 Active Medications - Current Medications Current Medications: Generic Name Dose Route Start Last Admin Trade Name Freq PRN Reason Stop Dose Admin Acetaminophen 650 mg 11/10/19 12:54 11/21/19 03:01 Tylenol PO 650 mg Q6H PRN Administration Pain, Mild (1-3) Aspirin 81 mg 11/17/19 10:00 11/21/19 10:43 Halfprin Ec PO 81 mg QDAY GETACHEW Administration Clopidogrel Bisulfate 75 mg 11/11/19 11:00 11/21/19 10:44 Plavix PO 75 mg QDAY GETACHEW Administration Dextrose 50 ml 11/11/19 11:04 D50w (25gm) Syringe IV Q30MIN PRN Hypoglycemia Protocol Ergocalciferol 50,000 unit 11/17/19 10:00 11/17/19 10:09 Vitamin D2 PO 50,000 unit Vazquez GETACHEW Administration Famotidine 20 mg 11/17/19 10:00 11/21/19 10:44 Pepcid PO 20 mg DAILY GETACHEW Administration Heparin Sodium (Porcine) 5,000 unit 11/09/19 10:00 11/21/19 10:44 Heparin SUB-Q 5,000 unit Q12HR GETACHEW Administration Hydralazine HCl 5 mg 11/11/19 03:04 11/11/19 08:08 Apresoline IV 5 mg Q6HR PRN Administration Blood Pressure Hydralazine HCl 50 mg 11/19/19 22:00 11/21/19 14:12 Apresoline PO 50 mg Q8HR GETACHEW Administration Levofloxacin/Dextrose 250 mg in 50 mls @ 50 mls/hr 11/20/19 10:00 11/20/19 10:55 Levaquin 250mg/50ml IV 50 mls/hr Q48HR GETACHEW Administration Protocol Insulin Glargine 10 units 11/15/19 22:00 11/20/19 22:22 Lantus SUB-Q 10 units QHS GETACHEW Administration Insulin Human Lispro 0 unit 11/17/19 16:30 11/21/19 13:30 Humalog SUB-Q 4 unit AC GETACHEW Administration Protocol Insulin Human Lispro 0 unit 11/17/19 22:00 11/20/19 22:25 Humalog SUB-Q 3 unit QHS [facility] Administration Protocol Isosorbide Mononitrate 30 mg 11/17/19 10:00 11/21/19 10:44 Imdur PO 30 mg DAILY GETACHEW Administration Metoprolol Tartrate 100 mg 11/10/19 16:00 11/21/19 10:44 Metoprolol PO 100 mg BID GETACHEW Administration Nicotine 14 mg 11/09/19 20:00 11/21/19 10:44 Habitrol TD 14 mg QDAY GETACHEW Administration Nifedipine 60 mg 11/17/19 10:00 11/21/19 10:44 Procardia Xl PO 60 mg QDAY GETACHEW Administration Nitroglycerin 0.4 mg 11/10/19 03:32 11/10/19 04:15 Nitrostat SL 0.4 mg .Q5MIN PRN Administration Chest Pain Tamsulosin HCl 0.4 mg 11/17/19 10:00 11/21/19 10:44 Flomax PO 0.4 mg QDAY GETACHEW Administration Nutrition/Malnutrition Assess - Dietary Evaluation Nutrition/Malnutrition Findings: Nutrition Notes Start: 11/08/19 10:31 Freq: Status: Active Protocol: Document 11/11/19 14:20 LM (Rec: 11/11/19 14:21 LM [email or web address]) Nutrition Notes Need for Assessment generated from: LOS Initial or Follow up Brief Note Subjective/Other Information Screen for LOS. Pt eating 75- 100%. Nutrition Intervention Revisit per MD consult or patient Sign Off request:
--- NOTE | 2019-11-21 15:30 | Cat Scan Report ---
CT ABDOMEN AND PELVIS WITHOUT CONTRAST HISTORY: Abdominal pain, renal failure and urinary retention. COMPARISON: No relevant comparative imaging. TECHNIQUE: Routine abdominal and pelvic CT exam performed without contrast. Lack of intravenous cont rast limits evaluation of the vascular and solid organs.. All CT scans at this location are performed using CT dose reduction for ALARA by means of automated exposure control. FINDINGS: CT ABDOMEN: Lung Bases: Right lower lobe patchy lung opacities and confluent lung opacities with air bronchograms . Mild patchy opacities in the right middle lobe and left lower lobe. Liver: Mild left perihepatic fluid. It is identified anteriorly and posterior and inferior adjacent t o the lateral segment of the left lobe. The liver is normal size with no liver mass. Biliary: Gallbladder is enlarged and measures 7.9 x 5.9 cm. No evidence of cholelithiasis. However, t here is considerable stranding in the fat adjacent to the gallbladder. Bile ducts are normal. Stomach: Distended with fluid and air. Wall thickening of the gastric antrum. Spleen: No significant abnormality. Unenlarged. Pancreas: Small and unremarkable. Adrenals: No significant abnormality. Kidneys: No significant abnormality. The renal collecting systems and ureters are nondilated. A 1.2 c m exophytic cyst in the midportion of the left kidney. Lymphatics: No lymphadenopathy. Vasculature: No significant abnormality. Bowel/Peritoneum: No significant abnormality. No free air. No free fluid. Normal appendix. CT PELVIC: : Urinary bladder is decompressed with a Macias catheter. There is intraluminal air in the urinary b ladder. Nonspecific thickening of the bladder wall. Lymphatics: No lymphadenopathy. Osseous Structures: No aggressive appearing osseous lesions. Additional Findings: None IMPRESSION: 1. Gallbladder distention and stranding in the pericholecystic fat suggests possible acute cholecysti tis. 2. Acalculus cholecystitis is a possibility given that there are no radiopaque stones identified. Rec ommend further evaluation with ultrasound. 3. No urinary calculus and no evidence of hydronephrosis or pyelonephrosis. 4. No abscess. Signer Name: Manuel Bowden MD Signed: 11/21/2019 3:25 PM Workstation Name: [id number]
--- NOTE | 2019-11-21 16:42 | Consultation ---
History of Present Illness Consult date: 11/21/19 Reason for consult: abdominal pain Chief complaint: Abdominal pain, nausea - History of present illness History of present illness: 74-year-old male who was admitted from [facility] to the geriatric psychiatry unit for suicidal ideations. The patient was transferred to the medical floor on 11/08/2019 due to choking, altered mental status. The patient is being treated for a urinary tract infection. He does have a history of CAD with 11 stents, history of AL x4, on Plavix, hypertension, diabetes. The patient started to complain of abdominal pain, nausea and CT scan of the abdomen and pelvis was per formed. This was found to show an abnormal gallbladder with carleen-cholecystic fat stranding concerning for acute cholecystitis. The patient has been having intermittent low-grade fevers and tachycardia. He states he feels nauseous but has not vomited. He complains of right upper quadrant and epigastric abdominal pain. He states he has never had pain like this in the past. He states that it started a few days ago. Past History Past Medical History: acute AL, CAD, diabetes, DVT, hypertension, hyperlipidemia Past Surgical History: Other (Cardiac stents) Social history: other (Suicidal ideations) Family history: no significant family history Medications and Allergies Allergies Allergy/AdvReac Type Severity Reaction Status Date / Time morphine AdvReac Unknown Verified 11/01/19 23:50 Penicillins AdvReac Unknown Verified 11/01/19 23:50 Tetanus Vaccines and Toxoid AdvReac Unknown Verified 11/01/19 23:50 Home Medications Medication Instructions Recorded Confirmed Last Taken Type Adult Aspirin 650 mg PO BID 11/02/19 11/17/19 Unknown History Citalopram 20 mg PO BID 11/02/19 11/17/19 Unknown History Clopidogrel [Plavix] 75 mg PO DAILY 11/02/19 11/17/19 Unknown History Ergocalciferol [Vitamin D2] 50,000 units PO QWEEK 11/02/19 11/17/19 Unknown History Famotidine [Pepcid] 20 mg PO DAILY 11/02/19 11/17/19 Unknown History Furosemide [Lasix TAB] 40 mg PO DAILY 11/02/19 11/17/19 Unknown History Gabapentin 300 mg PO TID 11/02/19 11/17/19 Unknown History Isosorbide Mononitrate 30 mg PO DAILY 11/02/19 11/17/19 Unknown History Lantus VIAL 30 units SQ QHS 11/02/19 11/17/19 Unknown History Metoprolol-HCTZ 100-50 mg TAB 50 mg PO BID 11/02/19 11/17/19 Unknown History NIFEdipine [Nifedipine ER] 60 mg PO DAILY 11/02/19 11/17/19 Unknown History Tamsulosin 0.4 mg PO DAILY 11/02/19 11/17/19 Unknown History hydrALAZINE 50 mg PO TID 11/02/19 11/17/19 Unknown History Active Meds: Active Medications Acetaminophen (Tylenol) 650 mg PO Q6H PRN PRN Reason: Pain, Mild (1-3) Last Admin: 11/21/19 03:01 Dose: 650 mg Documented by: Aspirin (Halfprin Ec) 81 mg PO QDAY [facility] Last Admin: 11/21/19 10:43 Dose: 81 mg Documented by: Dextrose (D50w (25gm) Syringe) 50 ml IV Q30MIN PRN; Protocol PRN Reason: Hypoglycemia Ergocalciferol (Vitamin D2) 50,000 unit PO Vazquez [facility] Last Admin: 11/17/19 10:09 Dose: 50,000 unit Documented by: Famotidine (Pepcid) 20 mg PO DAILY [facility] Last Admin: 11/21/19 10:44 Dose: 20 mg Documented by: Heparin Sodium (Porcine) (Heparin) 5,000 unit SUB-Q Q12HR [facility] Last Admin: 11/21/19 10:44 Dose: 5,000 unit Documented by: Hydralazine HCl (Apresoline) 5 mg IV Q6HR PRN PRN Reason: Blood Pressure Last Admin: 11/11/19 08:08 Dose: 5 mg Documented by: Hydralazine HCl (Apresoline) 50 mg PO Q8HR [facility] Last Admin: 11/21/19 14:12 Dose: 50 mg Documented by: Levofloxacin/Dextrose (Levaquin 250mg/50ml) 250 mg in 50 mls @ 50 mls/hr IV Q48HR [facility]; Protocol Last Admin: 11/20/19 10:55 Dose: 50 mls/hr Documented by: Metronidazole (Flagyl 500 Mg/100 Ml) 500 mg in 100 mls @ 100 mls/hr IV Q8H [facility]; Protocol Insulin [facility]us) [facility] Admin: 11/20/19 22:22 Dose: 10 units Documented by: Insulin Human Lispro (Humalog) 0 unit SUB-Q AC [facility]; Protocol Last Admin: 11/21/19 13:30 Dose: 4 unit Documented by: Insulin Human Lispro (Humalog) 0 unit SUB-Q QHS [facility]; Protocol Last Admin: 11/20/19 22:25 Dose: 3 unit Documented by: Isosorbide Mononitrate (Imdur) 30 mg PO DAILY [facility] Last Admin: 11/21/19 10:44 Dose: 30 mg Documented by: Metoprolol Tartrate (Metoprolol) 100 mg PO BID [facility] Last Admin: 11/21/19 10:44 Dose: 100 mg Documented by: Nicotine (Habitrol) 14 mg TD QDAY [facility] Last Admin: 11/21/19 10:44 Dose: 14 mg Documented by: Nifedipine (Procardia Xl) 60 mg PO QDAY [facility] Last Admin: 11/21/19 10:44 Dose: 60 mg Documented by: Nitroglycerin (Nitrostat) 0.4 mg SL .Q5MIN PRN PRN Reason: Chest Pain Last Admin: 11/10/19 04:15 Dose: 0.4 mg Documented by: Tamsulosin HCl (Flomax) 0.4 mg PO QDAY [facility] Last Admin: 11/21/19 10:44 Dose: 0.4 mg Documented by: Review of Systems All systems: negative (10 point review of systems was performed and negative except for that listed in HPI) Exam Vital Signs Pulse Resp Pulse Ox 67 16 95 11/08/19 10:30 11/08/19 10:30 11/08/19 10:30 Narrative exam: General: Awake, alert, oriented x3. Appears ill. Mild distress due to pain ENT: No scleral icterus or conjunctival pallor CV: S1, S2 present Respiratory: No audible wheezes Abdomen: Soft, nondistended, positive right upper quadrant and epigastric tenderness palpation. No rebound, rigidity, guarding Extremities: No clubbing, cyanosis, edema Results - Labs 11/21/19 09:10 11/21/19 04:35 Abnormal lab results 11/20/19 11/20/19 11/21/19 Range/Units 17:21 21:07 04:35 WBC (4.5-11.0) K/mm3 Hgb (11.8-15.2) gm/dl Hct (35.5-45.6) % Plt Count (140-440) K/mm3 Seg Neuts % (Manual) (40.0-70.0) % Lymphocytes % (Manual) (13.4-35.0) % Seg Neutrophils # Man (1.8-7.7) K/mm3 Lymphocytes # (Manual) (1.2-5.4) K/mm3 Monocytes # (Manual) (0.0-0.8) K/mm3 Sodium 136 L (137-145) mmol/L Chloride 96.8 L (98-107) mmol/L Carbon Dioxide 19 L (22-30) mmol/L BUN 79 H (9-20) mg/dL Creatinine 4.5 H (0.8-1.5) mg/dL Glucose 332 H (75-100) mg/dL POC Glucose 330 H 276 H (70-105) 11/21/19 11/21/19 11/21/19 Range/Units 07:44 09:10 11:36 WBC 26.1 H (4.5-11.0) K/mm3 Hgb 11.4 L (11.8-15.2) gm/dl Hct 34.7 L (35.5-45.6) % Plt Count 515 H (140-440) K/mm3 Seg Neuts % (Manual) 89.0 H (40.0-70.0) % Lymphocytes % (Manual) 4.0 L (13.4-35.0) % Seg Neutrophils # Man 23.2 H (1.8-7.7) K/mm3 Lymphocytes # (Manual) 1.0 L (1.2-5.4) K/mm3 Monocytes # (Manual) 1.8 H (0.0-0.8) K/mm3 Sodium (137-145) mmol/L Chloride (98-107) mmol/L Carbon Dioxide (22-30) mmol/L BUN (9-20) mg/dL Creatinine (0.8-1.5) mg/dL Glucose (75-100) mg/dL POC Glucose 313 H 230 H (70-105) Diabetes panel 11/21/19 Range/Units 04:35 Sodium 136 L (137-145) mmol/L Potassium 4.8 (3.6-5.0) mmol/L Chloride 96.8 L (98-107) mmol/L Carbon Dioxide 19 L (22-30) mmol/L BUN 79 H (9-20) mg/dL Creatinine 4.5 H (0.8-1.5) mg/dL Glucose 332 H (75-100) mg/dL Calcium 9.1 (8.4-10.2) mg/dL Calcium panel 11/21/19 Range/Units 04:35 Calcium 9.1 (8.4-10.2) mg/dL Pituitary panel 11/21/19 Range/Units 04:35 Sodium 136 L (137-145) mmol/L Potassium 4.8 (3.6-5.0) mmol/L Chloride 96.8 L (98-107) mmol/L Carbon Dioxide 19 L (22-30) mmol/L BUN 79 H (9-20) mg/dL Creatinine 4.5 H (0.8-1.5) mg/dL Glucose 332 H (75-100) mg/dL Calcium 9.1 (8.4-10.2) mg/dL Adrenal panel 11/21/19 Range/Units 04:35 Sodium 136 L (137-145) mmol/L Potassium 4.8 (3.6-5.0) mmol/L Chloride 96.8 L (98-107) mmol/L Carbon Dioxide 19 L (22-30) mmol/L BUN 79 H (9-20) mg/dL Creatinine 4.5 H (0.8-1.5) mg/dL Glucose 332 H (75-100) mg/dL Calcium 9.1 (8.4-10.2) mg/dL - Imaging CT scan - abdomen: report reviewed, image reviewed CT scan - pelvis: report reviewed, image reviewed Assessment and Plan 74-year-old male with 1. Right upper quadrant abdominal pain, rule out cholecystitis 2. sepsis 2/2 #1 and/or #5 2. Acute on chronic renal failure 3. Dehydration 4. CAD, cardiac stents on Plavix 5. UTI Echo: 11/18/19 - EF 55-60% Plan: 1. NPO 2. start IVF - NS@125cc/hr 3. prn pain and nausea control 4. IV abx -on levaquin, flagyl, and vancomycin. ID on board 5. follow up Abd u/s 6. Cardiology consult for preop risk assessment. 7. If patient is deemed high risk for surgery, would recommend IR placed percuatanous cholecystostomy tube. Plavix will need to be held 5-7 days prior to any procedure. 8. CBC and CMP in am. LFTs on admission were within normal limits. Plan discussed with Dr. Orona. Discussed imaging results and recommendations with patient's daughter Mrs. Hurley. All questions were answered. Thank you, please call with questions
[2019-11-21] MEDS ORDERED: HYDROmorphone 1 MG/1 ML INJ IV PRN (17:30)
[2019-11-21] MEDS: SODIUM CHLORIDE 0.9% 1000 ML 1,000 ML IV SCH (18:00)
[2019-11-21] MEDS: traMADol 50 MG TAB PO PRN ×2 (18:00→21:50)
[2019-11-21] MEDS: metroNIDAZOLE/NS 500 MG/100 ML 500 MG/100 ML BAG IV SCH (18:00)
[2019-11-21] MEDS: INSULIN GLARGINE 100 UNITS/ML SUB-Q SCH (21:51)
[2019-11-22] MEDS: metroNIDAZOLE/NS 500 MG/100 ML 500 MG/100 ML BAG IV SCH ×3 (01:21→18:43)
[2019-11-22] MEDS: SODIUM CHLORIDE 0.9% 1000 ML 1,000 ML IV SCH (04:52)
[2019-11-22] MEDS: hydrALAZINE 25 MG TAB PO SCH ×4 (05:58→23:12)
[2019-11-22] MEDS: traMADol 50 MG TAB PO PRN (05:58)
[2019-11-22 06:24] LABS: Hematocrit 33.6 % (35.5-45.6); Hemoglobin 11.2 gm/dl (11.8-15.2); Mean Corpuscular HGB Conc 33 % (32-34); Mean Corpuscular Volume 88 fl (84-94); Platelet Count 585 K/mm3 (140-440); Red Blood Count 3.83 M/mm3 (3.65-5.03); Red Cell Distribution Width 14.6 % (13.2-15.2)
[2019-11-22 06:52] LABS: Albumin 2.2 g/dL (3.9-5); Calcium 8.9 mg/dL (8.4-10.2)
[2019-11-22] MEDS ORDERED: CLOPIDOGREL 75 MG TAB PO SCH (10:00)
--- NOTE | 2019-11-22 10:33 | Ultrasound Report ---
ULTRASOUND ABDOMEN, COMPLETE INDICATION: acute cholecystits and worsening ARF. COMPARISON: CT abdomen and pelvis 11/21/2019 FINDINGS: Pancreas: Normal. Abdominal Aorta: Normal. IVC: Normal. Liver: Increased echogenicity. Size is enlarged measuring 19.9 cm. A left hepatic cyst measures 2.6 c m. Gallbladder: Prominent sludge. The bladder wall thickening with adjacent fluid. Bile ducts: Normal. Common Bile Duct measures 5.1 mm. Right Kidney: Increased echogenicity. Left Kidney: 1.6 cm cyst. Spleen: Nonvisualized. Free fluid: None. Additional Findings: None. IMPRESSION: 1. Gallbladder sludge with suspected superimposed cholecystitis. 2. Large fatty liver. 3. Increased right renal echogenicity typical of chronic medical renal disease. Signer Name: Juan Hunt MD Signed: 11/22/2019 10:28 AM Workstation Name: [id number]
--- NOTE | 2019-11-22 10:58 | Progress Note ---
Assessment and Plan 1. 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 Renal function is improving. Creatinine continues to worsen, now 5.0 from 4.5. Will continue to monitor but considering possibility of HD tomorrow if cr eatinine does not stabilize or show improvement. Prior renal US showed combination of complex and simple cysts in left kidney, negative for hydro. Monitor renal function closely. Avoid nephrotoxic agents. Meds dosage based on GFR. Bladder scan ordered. 2. FEN: Metabolic acidosis, improved, monitor. Mild hyponatremia, monitor. Monitor lytes. 3. Suicidal/homicidal ideation. Was d/c from [facility] on 11/08. Seen by psych. 4. Metabolic encephalopathy, POA. Monitor. 5. Leukocytosis. 6. Diabetes mellitus with hyperglycemia. Blood glucose has been elevated, recently 332. Monitor closely. 7. COPD. 8. CAD. 9. Presumed chronic congestive heart failure: Normal EF. 10.Right rib fracture. 11. Hypertension: Hydralazine increased to TID 11/20. Continue to monitor closely. 12. Urinary tract infection: Bernard inserted 11/21 d/t urinary retention. On abx. 13. Acute cholecystitis: CT abd confirmed abnormal gallbladder with carleen-cholecystic fat stranding. Intermittent low-grade fevers and tachycardia. Gen surg following, but unsure if pt candidate for surgery at this time. Subjective Date of service: 11/22/19 Principal diagnosis: SIRS Interval history: Patient was seen and examined at the bedside. He is awake and able to verbally communicate. Had bernard inserted overnight. Objective - Exam Narrative Exam: General appearance: well-developed, well-nourished, appears stated age, not in distress HEENT: ATNC, HTIEN Neck: neck supple, trachea midline Respiratory: Clear to Auscultation, diminished bibasilar Heart: regular, S1S2, no murmurs Gastrointestinal: soft, normoactive bowel sounds, not absent, not tender Integumentary: no rash, warm and dry : Bernard catheter present Neurologic: cooperative with exam, alert, verbal communication Musculoskeletal: trace BLE edema - Vital Signs Vital signs: Vital Signs - 12hr 11/22/19 11/22/19 01:42 07:16 Temperature 98.2 F 97.9 F Pulse Rate 97 H 94 H Respiratory 22 20 Rate Blood Pressure 149/64 146/66 O2 Sat by Pulse 96 93 Oximetry - Lab 11/22/19 05:21 11/22/19 05:21 Most recent lab results Calcium 8.9 mg/dL (8.4-10.2) 11/22/19 05:21 Phosphorus 5.00 mg/dL (2.5-4.5) H 11/14/19 12:18 Magnesium 2.40 mg/dL (1.7-2.3) H 11/14/19 12:18 Urine Creatinine 106.3 mg/dL (0.1-20.0) H 11/14/19 06:45 Urine Sodium 66 mmol/L 11/14/19 06:45 Medications & Allergies - Medications Allergies/Adverse Reactions: Allergies morphine Adverse Reaction (Verified 11/01/19 23:50) Unknown Penicillins Adverse Reaction (Verified 11/01/19 23:50) Unknown Tetanus Vaccines and Toxoid Adverse Reaction (Verified 11/01/19 23:50) Unknown Home Medications: Home Medications Medication Instructions Recorded Confirmed Last Taken Type Adult Aspirin 650 mg PO BID 11/02/19 11/17/19 Unknown History Citalopram 20 mg PO BID 11/02/19 11/17/19 Unknown History Clopidogrel [Plavix] 75 mg PO DAILY 11/02/19 11/17/19 Unknown History Ergocalciferol [Vitamin D2] 50,000 units PO QWEEK 11/02/19 11/17/19 Unknown History Famotidine [Pepcid] 20 mg PO DAILY 11/02/19 11/17/19 Unknown History Furosemide [Lasix TAB] 40 mg PO DAILY 11/02/19 11/17/19 Unknown History Gabapentin 300 mg PO TID 11/02/19 11/17/19 Unknown History Isosorbide Mononitrate 30 mg PO DAILY 11/02/19 11/17/19 Unknown History Lantus VIAL 30 units SQ QHS 11/02/19 11/17/19 Unknown History Metoprolol-HCTZ 100-50 mg TAB 50 mg PO BID 11/02/19 11/17/19 Unknown History NIFEdipine [Nifedipine ER] 60 mg PO DAILY 11/02/19 11/17/19 Unknown History Tamsulosin 0.4 mg PO DAILY 11/02/19 11/17/19 Unknown History hydrALAZINE 50 mg PO TID 11/02/19 11/17/19 Unknown History Active Medications: Generic Name Dose Route Start Last Admin Trade Name Freq PRN Reason Stop Dose Admin Acetaminophen 650 mg 11/10/19 12:54 11/21/19 03:01 Tylenol PO 650 mg Q6H PRN Administration Pain, Mild (1-3) Aspirin 81 mg 11/17/19 10:00 11/21/19 10:43 Halfprin Ec PO 81 mg QDAY [facility] Administration Clopidogrel Bisulfate 75 mg 11/22/19 10:00 Plavix PO QDAY [facility] Dextrose 50 ml 11/11/19 11:04 D50w (25gm) Syringe IV Q30MIN PRN Hypoglycemia Protocol Ergocalciferol 50,000 unit 11/17/19 10:00 11/17/19 10:09 Vitamin D2 PO 50,000 unit Vazquez GET[facility] Administration Famotidine 20 mg 11/17/19 10:00 11/21/19 10:44 Pepcid PO 20 mg DAILY [facility] Administration Heparin Sodium (Porcine) 5,000 unit 11/09/19 10:00 11/21/19 21:55 Heparin SUB-Q 5,000 unit Q12HR [facility] Administration Hydralazine HCl 5 mg 11/11/19 03:04 11/11/19 08:08 Apresoline IV 5 mg Q6HR PRN Administration Blood Pressure Hydralazine HCl 50 mg 11/19/19 22:00 11/22/19 05:58 Apresoline PO 50 mg Q8HR [facility] Administration Levofloxacin/Dextrose 250 mg in 50 mls @ 50 mls/hr 11/20/19 10:00 11/20/19 10:55 Levaquin 250mg/50ml IV 50 mls/hr Q48HR [facility] Administration Protocol Metronidazole 500 mg in 100 mls @ 100 mls/hr 11/21/19 17:00 11/22/19 01:21 Flagyl 500 Mg/100 Ml IV 100 mls/hr Q8H [facility] Administration Protocol Sodium Chloride 1,000 mls @ 125 mls/hr 11/21/19 16:45 11/22/19 04:52 Nacl 0.9% 1000 Ml IV 125 mls/hr DIRECT [facility] Administration Insulin Glargine 10 units 11/15/19 22:00 11/21/19 21:51 Lantus SUB-Q 10 units QHS [facility] Administration Insulin Human Lispro 0 unit 11/17/19 16:30 11/21/19 18:01 Humalog SUB-Q 4 unit AC [facility] Administration Protocol Insulin Human Lispro 0 unit 11/17/19 22:00 11/21/19 22:38 Humalog SUB-Q Not Given QHS [facility] Protocol Isosorbide Mononitrate 30 mg 11/17/19 10:00 11/21/19 10:44 Imdur PO 30 mg DAILY [facility] Administration Metoprolol Tartrate 100 mg 11/10/19 16:00 11/21/19 21:50 Metoprolol PO 100 mg BID [facility] Administration Nicotine 14 mg 11/09/19 20:00 11/21/19 10:44 Habitrol TD 14 mg QDAY [facility] Administration Nifedipine 60 mg 11/17/19 10:00 11/21/19 10:44 Procardia Xl PO 60 mg QDAY [facility] Administration Nitroglycerin 0.4 mg 11/10/19 03:32 11/10/19 04:15 Nitrostat SL 0.4 mg .Q5MIN PRN Administration Chest Pain Ondansetron HCl 4 mg 11/21/19 17:53 Zofran IV Q6H PRN Nausea And Vomiting Tamsulosin HCl 0.4 mg 11/17/19 10:00 11/21/19 10:44 Flomax PO 0.4 mg QDAY [facility] Administration Tramadol HCl 25 mg 11/21/19 17:43 11/22/19 05:58 Ultram PO 25 mg Q4H PRN Administration Pain, Moderate (4-6)
--- NOTE | 2019-11-22 12:11 | Progress Note ---
Assessment and Plan Cultures: Blood culture 11/18/2019 no growth. Urine culture 11/14/2019 <10K colonies. Urine culture on 11/18/2019 >100K Enterococcus colonies. Assessment/plan: 74 yo male with history of hypertension, CAD, COPD, CHF, CKD4 and diabetes admitted to [facility] from [facility] on 11/09/2019 for mental health stabilization after suicidal ideation, now with SIRS: #SIRS: not present on admission, fevers better continues with leukocytosis; etiology UTI +/- acute cholecystitis #Acute cholecystitis: seen on CT. Surgery on board #UTI: patient now with a condom cath without output. Urine culture on 11/18/2019 >100K Enterococcus colonies. #STEPHANIE on CKD: renally adjusted abx, worsening, renal considering HD #Acute encephalopathy: better #Penicillin allergy: unclear reaction Recommendations: surgery on board - needs Cards clearance/pt on Plavix continue levaquin increase to 500 mg IV q 48 hour and metronidazole 500 mg IV q 8 hour I asked pharmacy to review penicillin allergy, call local phamacy, etc in order to try Zosyn stop vancomycin - it was for E faecalis UTI - noted now that Micro removed E faecalis from initial report. I alerted micro Monitor creatinine, pharmacist made aware, patient may start hemodialysis soon Will follow. I will be covering the weekend, please call me for any question, Dr. Villalobos will return on Monday Mary Broussard MD [facility] Subjective Date of service: 11/22/19 Principal diagnosis: SIRS Interval history: feels weak continues to c/o abdominal pain, no fever for 24h ROS: denies N/V/D, chest pain, cough Objective - Exam Narrative Exam: Constitutional: alert in NAD Head, Ears, Nose: Normocephalic, atraumatic. External ears, nose normal Oral: Clear OP Neck: no JVD no masses Cardiovascular: RRR Respiratory: clear to aus [place] GI: Soft, diffuse tenderness No peritoneal signs. Musculoskeletal: no edema Skin: no rash Hem/Lymphatic: No palpable cervical or supraclavicular nodes. No lymphangitis Psych: no agitated confused Neurological: alert confused moving all extremities Macias with clear urine - Constitutional Vitals: Vital Signs Temp Pulse Resp BP Pulse Ox 97.9 F 94 H 20 146/66 93 11/22/19 07:16 11/22/19 07:16 11/22/19 07:16 11/22/19 07:16 11/22/19 07:16 Temperature -Last 24 Hours Temperature 97.9 F Temperature 98.2 F Temperature 98.6 F Temperature 98.4 F - Labs CBC & Chem 7: 11/22/19 05:21 11/22/19 05:21 Labs: Abnormal lab results 11/21/19 11/21/19 11/21/19 Range/Units 09:10 17:34 22:19 WBC (4.5-11.0) K/mm3 Hgb (11.8-15.2) gm/dl Hct (35.5-45.6) % Plt Count (140-440) K/mm3 Seg Neuts % (Manual) 89.0 H (40.0-70.0) % Lymphocytes % (Manual) 4.0 L (13.4-35.0) % Seg Neutrophils # Man 23.2 H (1.8-7.7) K/mm3 Lymphocytes # (Manual) 1.0 L (1.2-5.4) K/mm3 Monocytes # (Manual) 1.8 H (0.0-0.8) K/mm3 Chloride (98-107) mmol/L Carbon Dioxide (22-30) mmol/L BUN (9-20) mg/dL Creatinine (0.8-1.5) mg/dL Glucose (75-100) mg/dL POC Glucose 218 H 173 H (70-105) Albumin (3.9-5) g/dL 11/22/19 11/22/19 11/22/19 Range/Units 05:21 05:21 07:26 WBC 22.1 H (4.5-11.0) K/mm3 Hgb 11.2 L (11.8-15.2) gm/dl Hct 33.6 L (35.5-45.6) % Plt Count 585 H (140-440) K/mm3 Seg Neuts % (Manual) (40.0-70.0) % Lymphocytes % (Manual) (13.4-35.0) % Seg Neutrophils # Man (1.8-7.7) K/mm3 Lymphocytes # (Manual) (1.2-5.4) K/mm3 Monocytes # (Manual) (0.0-0.8) K/mm3 Chloride 97.5 L (98-107) mmol/L Carbon Dioxide 18 L (22-30) mmol/L BUN 99 H (9-20) mg/dL Creatinine 5.0 H (0.8-1.5) mg/dL Glucose 177 H (75-100) mg/dL POC Glucose 170 H (70-105) Albumin 2.2 L (3.9-5) g/dL 11/22/19 Range/Units 11:54 WBC (4.5-11.0) K/mm3 Hgb (11.8-15.2) gm/dl Hct (35.5-45.6) % Plt Count (140-440) K/mm3 Seg Neuts % (Manual) (40.0-70.0) % Lymphocytes % (Manual) (13.4-35.0) % Seg Neutrophils # Man (1.8-7.7) K/mm3 Lymphocytes # (Manual) (1.2-5.4) K/mm3 Monocytes # (Manual) (0.0-0.8) K/mm3 Chloride (98-107) mmol/L Carbon Dioxide (22-30) mmol/L BUN (9-20) mg/dL Creatinine (0.8-1.5) mg/dL Glucose (75-100) mg/dL POC Glucose 160 H (70-105) Albumin (3.9-5) g/dL
[2019-11-22] MEDS: INSULIN LISPRO 100 UNIT/ML SUB-Q SCH ×3 (12:34→23:12)
[2019-11-22] MEDS: TAMSULOSIN 0.4 MG CAP PO SCH (12:35)
[2019-11-22] MEDS: ASPIRIN EC 81 MG TAB PO SCH (12:35)
[2019-11-22] MEDS: METOPROLOL TARTRATE 100 MG TAB PO SCH ×3 (12:36→23:13)
[2019-11-22] MEDS: FAMOTIDINE 20 MG TAB PO SCH (12:36)
[2019-11-22] MEDS: NIFEdipine XL 60 MG TAB PO SCH (12:36)
--- NOTE | 2019-11-22 13:21 | Consultation ---
History of Present Illness Consult date: 11/22/19 Requesting physician: EVERARDO SALVADOR Consult reason: pre op evaluation, other (CAD) History of present illness: The patient is a 74 YO male with a past medical history of CAD s/p multiple PCIs, HTN, DM, tobacco use. He is previously unknown to our practice. His die barber is in [place], [place]. He presented to [facility] 11/02/2019 from [facility] for mental health stabilization after Suicidal ideation. The patient was transferred to the medical floor on 11/08/2019 due to choking, altered mental status. He was found to have UTI, STEPHANIE on CKD, suspected acute cholecystitis, suspected sepsis and may require cholecystectomy per general surgery team. Cardiology has been consulted to provide pre-operative cardiac risk stratification and provide recommendations regarding continuation of pt's home ASA and Plavix. Per general surgery, pt's home ASA and Plavix will need to be held 5-7 days prior to any procedure. On evaluation, pt is resting comfortably in bed, c/o intermittent abdominal pain. He is a rather poor historian and does not provide any additional details. Echo done 11/18/2019 showed EF 55-60%, no significant abnormalities. ECG shows NSR with LBBB (unknown chronicity). Past History Past Medical History: acute OH, CAD, diabetes, DVT, hypertension, hyperlipidemia Past Surgical History: Other (Cardiac stents) Social history: other (Suicidal ideations) Family history: no significant family history Medications and Allergies Allergies Allergy/AdvReac Type Severity Reaction Status Date / Time Penicillins Allergy Severe Unknown Verified 11/22/19 13:01 morphine AdvReac HALLUCINATI Verified 11/22/19 13:02 ONS Tetanus Vaccines and Toxoid AdvReac Unknown Verified 11/01/19 23:50 Home Medications Medication Instructions Recorded Confirmed Last Taken Type Adult Aspirin 650 mg PO BID 11/02/19 11/17/19 Unknown History Citalopram 20 mg PO BID 11/02/19 11/17/19 Unknown History Clopidogrel [Plavix] 75 mg PO DAILY 11/02/19 11/17/19 Unknown History Ergocalciferol [Vitamin D2] 50,000 units PO QWEEK 11/02/19 11/17/19 Unknown History Famotidine [Pepcid] 20 mg PO DAILY 11/02/19 11/17/19 Unknown History Furosemide [Lasix TAB] 40 mg PO DAILY 11/02/19 11/17/19 Unknown History Gabapentin 300 mg PO TID 11/02/19 11/17/19 Unknown History Isosorbide Mononitrate 30 mg PO DAILY 11/02/19 11/17/19 Unknown History Lantus VIAL 30 units SQ QHS 11/02/19 11/17/19 Unknown History Metoprolol-HCTZ 100-50 mg TAB 50 mg PO BID 11/02/19 11/17/19 Unknown History NIFEdipine [Nifedipine ER] 60 mg PO DAILY 11/02/19 11/17/19 Unknown History Tamsulosin 0.4 mg PO DAILY 11/02/19 11/17/19 Unknown History hydrALAZINE 50 mg PO TID 11/02/19 11/17/19 Unknown History Active Meds: Active Medications Acetaminophen (Tylenol) 650 mg PO Q6H PRN PRN Reason: Pain, Mild (1-3) Last Admin: 11/21/19 03:01 Dose: 650 mg Documented by: Dextrose (D50w (25gm) Syringe) 50 ml IV Q30MIN PRN; Protocol PRN Reason: Hypoglycemia Ergocalciferol (Vitamin D2) 50,000 unit PO Vazquez GETACHEW Last Admin: 11/17/19 10:09 Dose: 50,000 unit Documented by: Famotidine (Pepcid) 20 mg PO DAILY GETACHEW Last Admin: 11/22/19 12:36 Dose: Not Given Documented by: Heparin Sodium (Porcine) (Heparin) 5,000 unit SUB-Q Q12HR GETACHEW Last Admin: 11/21/19 21:55 Dose: 5,000 unit Documented by: Hydralazine HCl (Apresoline) 5 mg IV Q6HR PRN PRN Reason: Blood Pressure Last Admin: 11/11/19 08:08 Dose: 5 mg Documented by: Hydralazine HCl (Apresoline) 50 mg PO Q8HR GETACHEW Last Admin: 11/22/19 05:58 Dose: 50 mg Documented by: Metronidazole (Flagyl 500 Mg/100 Ml) 500 mg in 100 mls @ 100 mls/hr IV Q8H GETACHEW; Protocol Last Infusion: 11/22/19 12:34 Dose: Infused Documented by: Sodium Chloride (Nacl 0.9% 1000 Ml) 1,000 mls @ 125 mls/hr IV DIRECT GETACHEW Last Admin: 11/22/19 04:52 Dose: 125 mls/hr Documented by: Levofloxacin/Dextrose (Levaquin 500mg/100ml) 500 mg in 100 mls @ 100 mls/hr IV Q48HR [facility] Insulin Glargine (Lantus) 10 units SUB-Q QHS [facility] Last Admin: 11/21/19 21:51 Dose: 10 units Documented by: Insulin Human Lispro (Humalog) 0 unit SUB-Q [facility]; Protocol Last Admin: 11/22/19 12:34 Dose: Not Given Documented by: Insulin Human Lispro (Humalog) 0 unit SUB-Q QHS [facility]; Protocol Last Admin: 11/21/19 22:38 Dose: Not Given Documented by: Isosorbide Mononitrate (Imdur) 30 mg PO DAILY [facility] Last Admin: 11/22/19 12:35 Dose: Not Given Documented by: Metoprolol Tartrate (Metoprolol) 100 mg PO BID [facility] Last Admin: 11/22/19 12:36 Dose: Not Given Documented by: Nicotine (Habitrol) 14 mg TD QDAY [facility] Last Admin: 11/21/19 10:44 Dose: 14 mg Documented by: Nifedipine (Procardia Xl) 60 mg PO QDAY [facility] Last Admin: 11/22/19 12:36 Dose: Not Given Documented by: Nitroglycerin (Nitrostat) 0.4 mg SL .Q5MIN PRN PRN Reason: Chest Pain Last Admin: 11/10/19 04:15 Dose: 0.4 mg Documented by: Ondansetron HCl (Zofran) 4 mg IV Q6H PRN PRN Reason: Nausea And Vomiting Tamsulosin HCl (Flomax) 0.4 mg PO QDAY [facility] Last Admin: 11/22/19 12:35 Dose: Not Given Documented by: Tramadol HCl (Ultram) 25 mg PO Q4H PRN PRN Reason: Pain, Moderate (4-6) Last Admin: 11/22/19 05:58 Dose: 25 mg Documented by: Review of Systems Constitutional: no weight loss, no weight gain, no fever, no chills, no sweats Ears, nose, mouth and throat: no ear pain, no nose pain, no sinus pressure, no sinus pain Cardiovascular: no chest pain, no orthopnea, no palpitations, no rapid/irregular heart beat, no edema, no syncope, no lightheadedness, no shortness of breath, no dyspnea on exertion Respiratory: no cough, no shortness of breath, no dyspnea on exertion, no congestion, no wheezing, no pain on inspiration Gastrointestinal: abdominal pain, no diarrhea, no constipation, no change in bowel habits Genitourinary Male: no dysuria, no hematuria, no flank pain, no discharge, no urinary frequency, no urinary hesitancy Musculoskeletal: no neck stiffness, no neck pain, no shooting arm pain, no arm numbness/tingling, no low back pain, no shooting leg pain Integumentary: no rash, no pruritis, no redness, no sores, no wounds Neurological: no head injury, no paralysis, no weakness, no parathesias, no numbness, no tingling, no seizures, no syncope Psychiatric: suicidal ideation Endocrine: no cold intolerance, no heat intolerance Hematologic/Lymphatic: no easy bruising, no easy bleeding Allergic/Immunologic: no urticaria Physical Examination Vital Signs Pulse Resp Pulse Ox 67 16 95 11/08/19 10:30 11/08/19 10:30 11/08/19 10:30 General appearance: no acute distress HEENT: Positive: PERRL, Normocephaly, Mucus Membranes Moist Neck: Positive: neck supple, trachea midline Cardiac: Positive: Reg Rate and Rhythm, S1/S2 Lungs: Positive: Decreased Breath Sounds Neuro: Positive: Grossly Intact Abdomen: Positive: Tender Skin: Negative: Rash Musculoskeletal: No Pain Extremities: Absent: edema Results 11/22/19 05:21 11/22/19 05:21 Cardiac Enzymes 11/22/19 Range/Units 05:21 AST 11 (5-40) units/L CBC 11/22/19 Range/Units 05:21 WBC 22.1 H (4.5-11.0) K/mm3 RBC 3.83 (3.65-5.03) M/mm3 Hgb 11.2 L (11.8-15.2) gm/dl Hct 33.6 L (35.5-45.6) % Plt Count 585 H (140-440) K/mm3 Comprehensive Metabolic Panel 11/22/19 Range/Units 05:21 Sodium 137 (137-145) mmol/L Potassium 4.5 (3.6-5.0) mmol/L Chloride 97.5 L (98-107) mmol/L Carbon Dioxide 18 L (22-30) mmol/L BUN 99 H (9-20) mg/dL Creatinine 5.0 H (0.8-1.5) mg/dL Glucose 177 H (75-100) mg/dL Calcium 8.9 (8.4-10.2) mg/dL AST 11 (5-40) units/L ALT 8 (7-56) units/L Alkaline Phosphatase 105 (35-129) units/L Total Protein 6.4 (6.3-8.2) g/dL Albumin 2.2 L (3.9-5) g/dL - Imaging and Cardiology Echo: report reviewed (11/18/2019 showed EF 55-60%, no significant abnormalities.) EKG: report reviewed, image reviewed EKG interpretations - Telemetry EKG Rhythm: Sinus Rhythm - EKG Sinus rhythms and dysrhythmias: sinus rhythm AV and intraventricular conduction: left bundle branch block Assessment and Plan Medical records from pt's primary die barber in [place] reviewed - most recent LHC done 02/2019 with NEMO placement to distal RCA extending into the PLV branch; LHC done 07/2016 with 2 NEMO placed to LAD and PDA; LHC done 02/2012 showed patent coronaries, EF 55-60%; LHC done 01/2012 with NEMO placement to mid circ. No old EKGs available for review. Pt has no current cardiac complaints. Echo done 11/18/2019 showed EF 55-60%, no significant abnormalities. ECG shows NSR with LBBB (unknown chronicity). Due to extensive cardiac history and presence of LBBB will schedule for lexiscan MPI stress test in AM. Will provide pre-operative cardiac risk stratification pending results of ischemic evaluation. Hold ASA and Plavix at this time. Further recs to follow per hospital course. The patient has been seen in conjunction with Dr. Noemy Reyes who agrees with the assessment and plan of care. - Patient Problems (1) Acute cholecystitis Current Visit: Yes Status: Suspected (2) UTI (urinary tract infection) Current Visit: Yes Status: Acute (3) Sepsis Current Visit: Yes Status: Suspected (4) Acute on chronic renal failure Current Visit: Yes Status: Acute (5) AMS (altered mental status) Current Visit: Yes Status: Acute (6) Suicidal ideation Current Visit: Yes Status: Acute (7) CAD (coronary artery disease) Current Visit: Yes Status: Chronic (8) Stented coronary artery Current Visit: Yes Status: Chronic (9) LBBB (left bundle branch block) Current Visit: Yes Status: Acute (10) HTN (hypertension) Current Visit: Yes Status: Chronic (11) Hyperlipidemia Current Visit: Yes Status: Chronic (12) Diabetes Current Visit: Yes Status: Chronic (13) Tobacco use Current Visit: Yes Status: Chronic
[2019-11-22] MEDS: NICOTINE 14 MG/24 HR PATCH TD SCH (13:36)
[2019-11-22] MEDS: HEPARIN 5,000 UNIT/1 ML VIAL SUB-Q SCH ×2 (13:43→22:40)
--- NOTE | 2019-11-22 14:05 | Progress Note ---
Assessment and Plan Assessment and plan: Patient is a 74 yo man with a history of hypertension and DM type 2 who was admitted to [facility] unit 11/02/2019 from [facility] for mental health stabilization after Suicidal ideation. Labs significant for Creat 2.8. Nephrology was consulted for further evaluation. RN called me on 11/08/2019 about a "change in medical condition," patient choking on food and liquids, he is pale, altered. Prior night, before choking on food, he was combative and received 2 mg IM ativan. Trazadone was also newly added and increase in depakote. Now more lethargic and unable to eat, choking on food/liquid but he did received Lantus 30 units last night and BG dropped to 52. After IV dextrose the BG continued to drop to 48. Another amp of D5 was given. He was discharged form [facility] to med surg and admitted to 3rd Floor Medsur for intractable hypoglycemia requiring IV line. * 11/18/19 TTE Conclusisons: Est EF 55-60% * Thoracic XR: Degenerative changes * Lumbosacral XR IMPRESSION: 1. Compression L1 vertebral body age difficult determine recommend clinical correlation 2. Degenerative changes as noted * pCXR IMPRESSION: 1. No acute cardiopulmonary disease * Cervical Spine XR IMPRESSION: Extensive degenerative changes as noted * CT head without contrast IMPRESSION: 1. There is extensive microvascular angiopathy without CT evidence acute intracranial hemorrhage. 2. There is prominence of the ventricular system and cerebral atrophy as detailed above. * US Renal doppler IMPRESSION: No significant abnormality. Left renal cyst. No obstructive uropathy. Acute Cholecystitis: GS following, see below AMS due Acute Metabolic Encephalopathy: treat with dextrose ARF/CKD 4, vasomotor nephropathy: worsening, get CT abd/pelvis, monitor BMP closely DM type 2 uncontrolled with hyperglycemia: use SSI, no Long acting because of poor oral intake UTI with sepsis: started on renal dose Levaquin 11/18/19 Chronic hypoxic Respiratory Failure: continue supplemental O2 Dementia: Mental health is following, antipsychotic stopped due to lethargy/decreased responsiveness Osteoporosis 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 11/21/19: Tmax 100.2F, bladder distended and tender, d/w ID, get ct abd/pelvis and place bernard for urinary retention. also renal function is worsening. CT abd/pelvis shows signs of acute cholecystitis. -made npo-consulted GS-notified ID-added IV flagyl with levaquin and vancomycin-STOP PLAVIX for possible lap julianne. ordered Complete US (need to re-evaluate kidneys with gallbladder) and D/w GS Dr. Vasquez. I needed more information on the plavix. So, I called daughter Candida and she told me about the 4 heart attacks and at least 8 shents and his Sql Database Programmer is Dr. Corona at [phone] and spoke with Candida and she faxed over the last progress note in which I placed in the chart for Cardiology to review. 11/22/19: Abdominal more distended today, d/w ID, adjustment done to ABX. I d/w Cardiology, stress test in AM, ok to hold ASA and plavix for surgery. Nephrology is following the worsening renal function. History Interval history: Patient was seen and examined. Follow-up on current diagnosis of AMS, doing better. Overnight uneventful as no events directly reported to me. Imaging, nursing note, chart, labs and old chart reviewed. Discussed with patient. Hospitalist Physical - Physical exam Narrative exam: Gen: obese, nad, more awake and talkative orientated x 2, know name and knows that he is in hospital, missed year and name of hospital HEENT: NCAT, EOMI, PERRL but resist eyes being open, OP Clear Neck: supple, no adenopathy, no thyromegaly, no JVD CVS/Heart: RRR, normal S1S2, pulses present bilaterally Chest/Lungs: CTA B, Symmetrical chest expansion, good air entry bilaterally GI/Abdomen: soft, diffuse tender good bowel sounds, no guarding or rebound /Bladder: +suprapubic tenderness, no CVA or paraspinal tenderness Extermity/Skin: no c/c/e, no obvious rash MSK: doesnt follow commands Neuro: CN 2-12 grossly intact, doesnt follow commands Psych: calm, poor insight and judgement - Constitutional Vitals: Temp Pulse Resp BP Pulse Ox 97.6 F 93 H 18 140/64 95 11/22/19 12:27 11/22/19 12:27 11/22/19 12:27 11/22/19 12:27 11/22/19 12:27 General appearance: Present: no acute distress Results - Labs CBC & Chem 7: 11/22/19 05:21 11/22/19 05:21 Labs: Laboratory Last Values WBC 22.1 K/mm3 (4.5-11.0) H 11/22/19 05:21 RBC 3.83 M/mm3 (3.65-5.03) 11/22/19 05:21 Hgb 11.2 gm/dl (11.8-15.2) L 11/22/19 05:21 Hct 33.6 % (35.5-45.6) L 11/22/19 05:21 MCV 88 fl (84-94) 11/22/19 05:21 MCH 29 pg (28-32) 11/22/19 05:21 MCHC 33 % (32-34) 11/22/19 05:21 RDW 14.6 % (13.2-15.2) 11/22/19 05:21 Plt Count 585 K/mm3 (140-440) H 11/22/19 05:21 Lymph % (Auto) 24.9 % (13.4-35.0) 11/14/19 12:18 Dane % (Auto) 8.4 % (0.0-7.3) H 11/14/19 12:18 Eos % (Auto) 4.2 % (0.0-4.3) 11/14/19 12:18 Baso % (Auto) 0.8 % (0.0-1.8) 11/14/19 12:18 Lymph # 3.5 K/mm3 (1.2-5.4) 11/14/19 12:18 Dane # 1.2 K/mm3 (0.0-0.8) H 11/14/19 12:18 Eos # 0.6 K/mm3 (0.0-0.4) H 11/14/19 12:18 Baso # 0.1 K/mm3 (0.0-0.1) 11/14/19 12:18 Add Manual Diff Complete 11/21/19 09:10 Total Counted 100 11/21/19 09:10 Seg Neutrophils % 61.7 % (40.0-70.0) 11/14/19 12:18 Seg Neuts % (Manual) 89.0 % (40.0-70.0) H 11/21/19 09:10 Band Neutrophils % 0 % 11/21/19 09:10 Lymphocytes % (Manual) 4.0 % (13.4-35.0) L 11/21/19 09:10 Reactive Lymphs % (Man) 0 % 11/21/19 09:10 Monocytes % (Manual) 7.0 % (0.0-7.3) 11/21/19 09:10 Eosinophils % (Manual) 0 % (0.0-4.3) 11/21/19 09:10 Basophils % (Manual) 0 % (0.0-1.8) 11/21/19 09:10 Metamyelocytes % 0 % 11/21/19 09:10 Myelocytes % 0 % 11/21/19 09:10 Promyelocytes % 0 % 11/21/19 09:10 Blast Cells % 0 % 11/21/19 09:10 Nucleated RBC % Not Reportable 11/21/19 09:10 Seg Neutrophils # 8.6 K/mm3 (1.8-7.7) H 11/14/19 12:18 Seg Neutrophils # Man 23.2 K/mm3 (1.8-7.7) H 11/21/19 09:10 Band Neutrophils # 0.0 K/mm3 11/21/19 09:10 Lymphocytes # (Manual) 1.0 K/mm3 (1.2-5.4) L 11/21/19 09:10 Abs React Lymphs (Man) 0.0 K/mm3 11/21/19 09:10 Monocytes # (Manual) 1.8 K/mm3 (0.0-0.8) H 11/21/19 09:10 Eosinophils # (Manual) 0.0 K/mm3 (0.0-0.4) 11/21/19 09:10 Basophils # (Manual) 0.0 K/mm3 (0.0-0.1) 11/21/19 09:10 Metamyelocytes # 0.0 K/mm3 11/21/19 09:10 Myelocytes # 0.0 K/mm3 11/21/19 09:10 Promyelocytes # 0.0 K/mm3 11/21/19 09:10 Blast Cells # 0.0 K/mm3 11/21/19 09:10 WBC Morphology Not Reportable 11/21/19 09:10 Hypersegmented Neuts Not Reportable 11/21/19 09:10 Hyposegmented Neuts Not Reportable 11/21/19 09:10 Hypogranular Neuts Not Reportable 11/21/19 09:10 Smudge Cells Not Reportable 11/21/19 09:10 Toxic Granulation Not Reportable 11/21/19 09:10 Toxic Vacuolation Not Reportable 11/21/19 09:10 Dohle Bodies Not Reportable 11/21/19 09:10 Pelger-Huet Anomaly Not Reportable 11/21/19 09:10 Troy Rods Not Reportable 11/21/19 09:10 Platelet Estimate Consistent w auto 11/21/19 09:10 Clumped Platelets Few 11/21/19 09:10 Plt Clumps, EDTA Not Reportable 11/21/19 09:10 Large Platelets Few 11/21/19 09:10 Giant Platelets Not Reportable 11/21/19 09:10 Platelet Satelliting Not Reportable 11/21/19 09:10 Plt Morphology Comment Not Reportable 11/21/19 09:10 RBC Morphology Not Reportable 11/21/19 09:10 Dimorphic RBCs Not Reportable 11/21/19 09:10 Polychromasia Not Reportable 11/21/19 09:10 Hypochromasia Not Reportable 11/21/19 09:10 Poikilocytosis Not Reportable 11/21/19 09:10 Anisocytosis Not Reportable 11/21/19 09:10 Microcytosis Not Reportable 11/21/19 09:10 Macrocytosis Not Reportable 11/21/19 09:10 Spherocytes Not Reportable 11/21/19 09:10 Pappenheimer Bodies Not Reportable 11/21/19 09:10 Sickle Cells Not Reportable 11/21/19 09:10 Target Cells Not Reportable 11/21/19 09:10 Tear Drop Cells Not Reportable 11/21/19 09:10 Ovalocytes Not Reportable 11/21/19 09:10 Helmet Cells Not Reportable 11/21/19 09:10 Lopez-Belen Bodies Not Reportable 11/21/19 09:10 [place] Rings Not Reportable 11/21/19 09:10 [place] Cells Not Reportable 11/21/19 09:10 Bite Cells Not Reportable 11/21/19 09:10 Crenated Cell Not Reportable 11/21/19 09:10 Elliptocytes Not Reportable 11/21/19 09:10 Acanthocytes (Spur) Not Reportable 11/21/19 09:10 Rouleaux Not Reportable 11/21/19 09:10 Hemoglobin C Crystals Not Reportable 11/21/19 09:10 Schistocytes Not Reportable 11/21/19 09:10 Malaria parasites Not Reportable 11/21/19 09:10 Jeremie Bodies Not Reportable 11/21/19 09:10 Hem Pathologist Commnt No 11/21/19 09:10 Sodium 137 mmol/L (137-145) 11/22/19 05:21 Potassium 4.5 mmol/L (3.6-5.0) 11/22/19 05:21 Chloride 97.5 mmol/L (98-107) L 11/22/19 05:21 Carbon Dioxide 18 mmol/L (22-30) L 11/22/19 05:21 Anion Gap 26 mmol/L 11/22/19 05:21 BUN 99 mg/dL (9-20) H 11/22/19 05:21 Creatinine 5.0 mg/dL (0.8-1.5) H 11/22/19 05:21 Estimated GFR 11 ml/min 11/22/19 05:21 BUN/Creatinine Ratio 20 % 11/22/19 05:21 Glucose 177 mg/dL (75-100) H 11/22/19 05:21 POC Glucose 160 (70-105) H 11/22/19 11:54 Calcium 8.9 mg/dL (8.4-10.2) 11/22/19 05:21 Phosphorus 5.00 mg/dL (2.5-4.5) H 11/14/19 12:18 Magnesium 2.40 mg/dL (1.7-2.3) H 11/14/19 12:18 Total Bilirubin 0.20 mg/dL (0.1-1.2) 11/22/19 05:21 Direct Bilirubin < 0.2 mg/dL (0-0.2) 11/14/19 12:18 Indirect Bilirubin 0.2 mg/dL 11/14/19 12:18 AST 11 units/L (5-40) 11/22/19 05:21 ALT 8 units/L (7-56) 11/22/19 05:21 Alkaline Phosphatase 105 units/L (35-129) 11/22/19 05:21 Ammonia 16.0 umol/L (25-60) L 11/14/19 12:18 Total Protein 6.4 g/dL (6.3-8.2) 11/22/19 05:21 Albumin 2.2 g/dL (3.9-5) L 11/22/19 05:21 Albumin/Globulin Ratio 0.5 % 11/22/19 05:21 Urine Color Maeve (Yellow) 11/18/19 20:00 Urine Turbidity Cloudy (Clear) 11/18/19 20:00 Urine pH 5.0 (5.0-7.0) 11/18/19 20:00 Ur Specific [place] 1.021 (1.003-1.030) 11/18/19 20:00 Urine Protein 100 mg/dl mg/dL (Negative) 11/18/19 20:00 Urine Glucose (UA) >=500 mg/dL (Negative) 11/18/19 20:00 Urine Ketones Neg mg/dL (Negative) 11/18/19 20:00 Urine Blood Sm (Negative) 11/18/19 20:00 Urine Nitrite Neg (Negative) 11/18/19 20:00 Urine Bilirubin Neg (Negative) 11/18/19 20:00 Urine Urobilinogen < 2.0 mg/dL (<2.0) 11/18/19 20:00 Ur Leukocyte Esterase Tr (Negative) 11/18/19 20:00 Urine WBC (Auto) > 182.0 /HPF (0.0-6.0) H 11/18/19 20:00 Urine RBC (Auto) 9.0 /HPF (0.0-6.0) 11/18/19 20:00 U Epithel Cells (Auto) 5.0 /HPF (0-13.0) 11/18/19 20:00 Urine Bacteria (Auto) 2+ /HPF (Negative) 11/18/19 20:00 Urine Mucus 2+ /HPF 11/18/19 20:00 Urine Creatinine 106.3 mg/dL (0.1-20.0) H 11/14/19 06:45 Urine Sodium 66 mmol/L 11/14/19 06:45 Influenza A (Rapid) Negative (Negative) 11/20/19 Unknown Influenza A (RT-PCR) Negative (Negative) 11/20/19 Unknown Influenza B (Rapid) Negative (Negative) 11/20/19 Unknown Influenza B (RT-PCR) Negative (Negative) 11/20/19 Unknown Active Medications - Current Medications Current Medications: Generic Name Dose Route Start Last Admin Trade Name Freq PRN Reason Stop Dose Admin Acetaminophen 650 mg 11/10/19 12:54 11/21/19 03:01 Tylenol PO 650 mg Q6H PRN Administration Pain, Mild (1-3) Dextrose 50 ml 11/11/19 11:04 D50w (25gm) Syringe IV Q30MIN PRN Hypoglycemia Protocol Ergocalciferol 50,000 unit 11/17/19 10:00 11/17/19 10:09 Vitamin D2 PO 50,000 unit Vazquez GETACHEW Administration Famotidine 20 mg 11/17/19 10:00 11/22/19 12:36 Pepcid PO Not Given DAILY GETACHEW Heparin Sodium (Porcine) 5,000 unit 11/09/19 10:00 11/22/19 13:43 Heparin SUB-Q 5,000 unit Q12HR GETACHEW Administration Hydralazine HCl 5 mg 11/11/19 03:04 11/11/19 08:08 Apresoline IV 5 mg Q6HR PRN Administration Blood Pressure Hydralazine HCl 50 mg 11/19/19 22:00 11/22/19 13:37 Apresoline PO Not Given Q8HR GETACHEW Metronidazole 500 mg in 100 mls @ 100 mls/hr 11/21/19 17:00 11/22/19 13:36 Flagyl 500 Mg/100 Ml IV 100 mls/hr Q8H GETACHEW Administration Protocol Sodium Chloride 1,000 mls @ 125 mls/hr 11/21/19 16:45 11/22/19 04:52 Nacl 0.9% 1000 Ml IV 125 mls/hr DIRECT GETACHEW Administration Levofloxacin/Dextrose 500 mg in 100 mls @ 100 mls/hr 11/22/19 13:00 11/22/19 13:36 Levaquin 500mg/100ml IV 100 mls/hr Q48HR GETACHEW Administration Insulin Glargine 10 units 11/15/19 22:00 11/21/19 21:51 Lantus SUB-Q 10 units QHS [facility] Administration Insulin Human Lispro 0 unit 11/17/19 16:30 11/22/19 12:34 Humalog SUB-Q Not Given AC [facility] Protocol Insulin Human Lispro 0 unit 11/17/19 22:00 11/21/19 22:38 Humalog SUB-Q Not Given QHS [facility] Protocol Isosorbide Mononitrate 30 mg 11/17/19 10:00 11/22/19 12:35 Imdur PO Not Given DAILY [facility] Metoprolol Tartrate 100 mg 11/10/19 16:00 11/22/19 12:36 Metoprolol PO Not Given BID [facility] Nicotine 14 mg 11/09/19 20:00 11/22/19 13:36 Habitrol TD 14 mg QDAY [facility] Administration Nifedipine 60 mg 11/17/19 10:00 11/22/19 12:36 Procardia Xl PO Not Given QDAY [facility] Nitroglycerin 0.4 mg 11/10/19 03:32 11/10/19 04:15 Nitrostat SL 0.4 mg .Q5MIN PRN Administration Chest Pain Ondansetron HCl 4 mg 11/21/19 17:53 Zofran IV Q6H PRN Nausea And Vomiting Tamsulosin HCl 0.4 mg 11/17/19 10:00 11/22/19 12:35 Flomax PO Not Given QDAY [facility] Tramadol HCl 25 mg 11/21/19 17:43 11/22/19 05:58 Ultram PO 25 mg Q4H PRN Administration Pain, Moderate (4-6) Nutrition/Malnutrition Assess - Dietary Evaluation Nutrition/Malnutrition Findings: Nutrition Notes Start: 11/08/19 10:31 Freq: Status: Active Protocol: Document 11/11/19 14:20 LM (Rec: 11/11/19 14:21 LM [id number]) Nutrition Notes Need for Assessment generated from: LOS Initial or Follow up Brief Note Subjective/Other Information Screen for LOS. Pt eating 75- 100%. Nutrition Intervention Revisit per MD consult or patient Sign Off request:
--- NOTE | 2019-11-22 15:39 | Progress Note ---
Assessment and Plan 74-year-old male with 1. Right upper quadrant abdominal pain, rule out cholecystitis 2. sepsis 2/2 #1 and/or #5 2. Acute on chronic renal failure 3. Dehydration 4. CAD, cardiac stents on Plavix 5. UTI Echo: 11/18/19 - EF 55-60% U/s Abd: cholecystitis, sludge, pericholecystic fluid Plan: 1. NPO 2. IVF - NS@125cc/hr 3. prn pain and nausea control 4. IV abx -on levaquin, flagyl, and vancomycin. ID on board 5. Cardiology on board - stress test ordered for am, Plavix stopped. 7. If patient is deemed high risk for surgery, would recommend IR placed percuatanous cholecystostomy tube. Plavix will need to be held 5-7 days prior to any procedure. 8. Trend WBC - improving. LFTs and bilirubin within normal limits Further recs pending cardiology recommendations. Discussed imaging results and recommendations with patient's daughter Mrs. Hurley yesterday. All questions were answered. Thank you, please call with questions Subjective Date of service: 11/22/19 Narrative: Patient seen and examined. He complains of right upper quadrant abdominal pain. No nausea, vomiting. No fevers, chills. Objective Vital Signs - 12hr 11/22/19 11/22/19 07:16 12:27 Temperature 97.9 F 97.6 F Pulse Rate 94 H 93 H Respiratory 20 18 Rate Blood Pressure 146/66 140/64 O2 Sat by Pulse 93 95 Oximetry - General physical appearance Narrative Exam: Gen.: Awake, alert, oriented 1. No apparent distress ENT: No scleral icterus or conjunctival pallor CV: S1, S2 present Respiratory: No audible wheezes Abdomen: Soft, nondistended, positive tenderness to palpation in the epigastrium and right upper quadrant. No rebound, rigidity, guarding Extremities: No clubbing, cyanosis, edema : Macias in place with clear yellow urine - Labs 11/22/19 05:21 11/22/19 05:21 Diabetes panel 11/22/19 Range/Units 05:21 Sodium 137 (137-145) mmol/L Potassium 4.5 (3.6-5.0) mmol/L Chloride 97.5 L (98-107) mmol/L Carbon Dioxide 18 L (22-30) mmol/L BUN 99 H (9-20) mg/dL Creatinine 5.0 H (0.8-1.5) mg/dL Glucose 177 H (75-100) mg/dL Calcium 8.9 (8.4-10.2) mg/dL AST 11 (5-40) units/L ALT 8 (7-56) units/L Alkaline Phosphatase 105 (35-129) units/L Total Protein 6.4 (6.3-8.2) g/dL Albumin 2.2 L (3.9-5) g/dL Calcium panel 11/22/19 Range/Units 05:21 Calcium 8.9 (8.4-10.2) mg/dL Albumin 2.2 L (3.9-5) g/dL Pituitary panel 11/22/19 Range/Units 05:21 Sodium 137 (137-145) mmol/L Potassium 4.5 (3.6-5.0) mmol/L Chloride 97.5 L (98-107) mmol/L Carbon Dioxide 18 L (22-30) mmol/L BUN 99 H (9-20) mg/dL Creatinine 5.0 H (0.8-1.5) mg/dL Glucose 177 H (75-100) mg/dL Calcium 8.9 (8.4-10.2) mg/dL Adrenal panel 11/22/19 Range/Units 05:21 Sodium 137 (137-145) mmol/L Potassium 4.5 (3.6-5.0) mmol/L Chloride 97.5 L (98-107) mmol/L Carbon Dioxide 18 L (22-30) mmol/L BUN 99 H (9-20) mg/dL Creatinine 5.0 H (0.8-1.5) mg/dL Glucose 177 H (75-100) mg/dL Calcium 8.9 (8.4-10.2) mg/dL Total Bilirubin 0.20 (0.1-1.2) mg/dL AST 11 (5-40) units/L ALT 8 (7-56) units/L Alkaline Phosphatase 105 (35-129) units/L Total Protein 6.4 (6.3-8.2) g/dL Albumin 2.2 L (3.9-5) g/dL
[2019-11-22] MEDS: INSULIN GLARGINE 100 UNITS/ML SUB-Q SCH (23:12)
[2019-11-23] MEDS: metroNIDAZOLE/NS 500 MG/100 ML 500 MG/100 ML BAG IV SCH ×3 (01:25→18:38)
[2019-11-23] MEDS: hydrALAZINE 25 MG TAB PO SCH ×3 (06:30→22:53)
[2019-11-23] MEDS: INSULIN LISPRO 100 UNIT/ML SUB-Q SCH ×4 (08:44→22:53)
[2019-11-23 09:53] LABS: Hemoglobin 11.8 gm/dl (11.8-15.2); Mean Corpuscular HGB Conc 34 % (32-34); Mean Corpuscular Volume 89 fl (84-94); Platelet Count 696 K/mm3 (140-440); Red Blood Count 3.93 M/mm3 (3.65-5.03); Red Cell Distribution Width 14.9 % (13.2-15.2)
[2019-11-23] MEDS: NICOTINE 14 MG/24 HR PATCH TD SCH (09:57)
[2019-11-23] MEDS: HEPARIN 5,000 UNIT/1 ML VIAL SUB-Q SCH ×2 (09:57→22:53)
[2019-11-23] MEDS: METOPROLOL TARTRATE 100 MG TAB PO SCH ×2 (10:00→22:54)
[2019-11-23] MEDS: TAMSULOSIN 0.4 MG CAP PO SCH (10:00)
[2019-11-23] MEDS: FAMOTIDINE 20 MG TAB PO SCH (10:00)
[2019-11-23] MEDS: NIFEdipine XL 60 MG TAB PO SCH (10:00)
[2019-11-23 10:43] LABS: Calcium 9.1 mg/dL (8.4-10.2)
--- NOTE | 2019-11-23 11:49 | Progress Note ---
Assessment and Plan 1. 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 Creatinine has no change from yesterday, current level 5.0. Will continue to monitor creatinine level and may consider initiation of HD if necessary. Prior renal US showed combination of complex and simple cysts in left kidney, negative for hydro. Monitor renal function closely. Avoid nephrotoxic agents. Meds dosage based on GFR. 2. FEN: Metabolic acidosis, monitor. Mild hyponatremia, improving, monitor. Monitor lytes. 3. Suicidal/homicidal ideation. Was d/c from [facility] on 11/08. Seen by psych. 4. Metabolic encephalopathy, POA. Monitor. 5. Leukocytosis. 6. Diabetes mellitus with hyperglycemia. Monitor closely. 7. COPD. 8. CAD. 9. Presumed chronic congestive heart failure: Normal EF. 10.Right rib fracture. 11. Hypertension: Hydralazine increased to TID 11/20. Continue to monitor closely. 12. Urinary tract infection: Macias inserted 11/21 d/t urinary retention. On abx. 13. Acute cholecystitis: CT abd confirmed abnormal gallbladder with carleen-cholecystic fat stranding. Intermittent low-grade fevers and tachycardia. Gen surg following, but unsure if pt candidate for surgery at this time. Cards was consulted for evaluation of pre-operative cardiac risk but Stress test unable to be performed today as pt refused insertion of INT. Subjective Date of service: 11/23/19 Principal diagnosis: SIRS Interval history: Patient was seen and examined at the bedside. He is awake and able to verbally communicate. Stress test scheduled for this am was cancelled as pt had no working IV and refused any new sticks. Objective - Exam Narrative Exam: General appearance: well-developed, well-nourished, appears stated age, not in distress HEENT: ATNC, THIEN Neck: neck supple, trachea midline Respiratory: Clear to Auscultation, diminished bibasilar Heart: regular, S1S2, no murmurs Gastrointestinal: soft, normoactive bowel sounds, not absent, not tender Integumentary: no rash, warm and dry : Macias catheter present Neurologic: cooperative with exam, alert, verbal communication Musculoskeletal: trace BLE edema - Vital Signs Vital signs: Vital Signs - 12hr 11/23/19 11/23/19 02:40 07:30 Temperature 97.9 F 97.2 F L Pulse Rate 98 H 98 H Respiratory 20 19 Rate Blood Pressure 151/76 161/97 O2 Sat by Pulse 96 92 Oximetry - Lab 11/23/19 09:40 11/23/19 09:40 Most recent lab results Calcium 9.1 mg/dL (8.4-10.2) 11/23/19 09:40 Phosphorus 5.00 mg/dL (2.5-4.5) H 11/14/19 12:18 Magnesium 2.40 mg/dL (1.7-2.3) H 11/14/19 12:18 Urine Creatinine 106.3 mg/dL (0.1-20.0) H 11/14/19 06:45 Urine Sodium 66 mmol/L 11/14/19 06:45 Medications & Allergies - Medications Allergies/Adverse Reactions: Allergies Penicillins Allergy (Severe, Verified 11/22/19 13:01) Unknown PATIENT'S DAUGHTER KARINA IBRAHIM STATES SHE DOES NOT KNOW THE EXACT REACTION BUT WAS TOLD PCN WOULD "KILL HIM" morphine Adverse Reaction (Verified 11/22/19 13:02) HALLUCINATIONS Tetanus Vaccines and Toxoid Adverse Reaction (Verified 11/01/19 23:50) Unknown Home Medications: Home Medications Medication Instructions Recorded Confirmed Last Taken Type Adult Aspirin 650 mg PO BID 11/02/19 11/17/19 Unknown History Citalopram 20 mg PO BID 11/02/19 11/17/19 Unknown History Clopidogrel [Plavix] 75 mg PO DAILY 11/02/19 11/17/19 Unknown History Ergocalciferol [Vitamin D2] 50,000 units PO QWEEK 11/02/19 11/17/19 Unknown History Famotidine [Pepcid] 20 mg PO DAILY 11/02/19 11/17/19 Unknown History Furosemide [Lasix TAB] 40 mg PO DAILY 11/02/19 11/17/19 Unknown History Gabapentin 300 mg PO TID 11/02/19 11/17/19 Unknown History Isosorbide Mononitrate 30 mg PO DAILY 11/02/19 11/17/19 Unknown History Lantus VIAL 30 units SQ QHS 11/02/19 11/17/19 Unknown History Metoprolol-HCTZ 100-50 mg TAB 50 mg PO BID 11/02/19 11/17/19 Unknown History NIFEdipine [Nifedipine ER] 60 mg PO DAILY 11/02/19 11/17/19 Unknown History Tamsulosin 0.4 mg PO DAILY 11/02/19 11/17/19 Unknown History hydrALAZINE 50 mg PO TID 11/02/19 11/17/19 Unknown History Active Medications: Generic Name Dose Route Start Last Admin Trade Name Freq PRN Reason Stop Dose Admin Acetaminophen 650 mg 11/10/19 12:54 11/21/19 03:01 Tylenol PO 650 mg Q6H PRN Administration Pain, Mild (1-3) Dextrose 50 ml 11/11/19 11:04 D50w (25gm) Syringe IV Q30MIN PRN Hypoglycemia Protocol Ergocalciferol 50,000 unit 11/17/19 10:00 11/17/19 10:09 Vitamin D2 PO 50,000 unit Vazquez GETACHEW Administration Famotidine 20 mg 11/17/19 10:00 11/23/19 10:00 Pepcid PO Not Given DAILY [facility] Heparin Sodium (Porcine) 5,000 unit 11/09/19 10:00 11/23/19 09:57 Heparin SUB-Q Not Given Q12HR [facility] Hydralazine HCl 5 mg 11/11/19 03:04 11/11/19 08:08 Apresoline IV 5 mg Q6HR PRN Administration Blood Pressure Hydralazine HCl 50 mg 11/19/19 22:00 11/23/19 06:30 Apresoline PO Not Given Q8HR [facility] Metronidazole 500 mg in 100 mls @ 100 mls/hr 11/21/19 17:00 11/23/19 09:53 Flagyl 500 Mg/100 Ml IV Not Given Q8H [facility] Protocol Sodium Chloride 1,000 mls @ 125 mls/hr 11/21/19 16:45 11/22/19 04:52 Nacl 0.9% 1000 Ml IV 125 mls/hr DIRECT GETACHEW Administration Levofloxacin/Dextrose 500 mg in 100 mls @ 100 mls/hr 11/22/19 13:00 11/22/19 17:16 Levaquin 500mg/100ml IV Infused Q48HR [facility] Infusion Insulin Glargine 10 units 11/15/19 22:00 11/22/19 23:12 Lantus SUB-Q Not Given QHS [facility] Insulin Human Lispro 0 unit 11/17/19 16:30 11/23/19 11:44 Humalog SUB-Q Not Given [facility] Protocol Insulin Human Lispro 0 unit 11/17/19 22:00 11/22/19 23:12 Humalog SUB-Q Not Given QHS [facility] Protocol Isosorbide Mononitrate 30 mg 11/17/19 10:00 11/23/19 10:00 Imdur PO Not Given DAILY [facility] Metoprolol Tartrate 100 mg 11/10/19 16:00 11/23/19 10:00 Metoprolol PO Not Given BID [facility] Nicotine 14 mg 11/09/19 20:00 11/23/19 09:57 Habitrol TD Not Given QDAY [facility] Nifedipine 60 mg 11/17/19 10:00 11/23/19 10:00 Procardia Xl PO Not Given QDAY [facility] Nitroglycerin 0.4 mg 11/10/19 03:32 11/10/19 04:15 Nitrostat SL 0.4 mg .Q5MIN PRN Administration Chest Pain Ondansetron HCl 4 mg 11/21/19 17:53 Zofran IV Q6H PRN Nausea And Vomiting Tamsulosin HCl 0.4 mg 11/17/19 10:00 11/23/19 10:00 Flomax PO Not Given QDAY [facility] Tramadol HCl 25 mg 11/21/19 17:43 11/22/19 05:58 Ultram PO 25 mg Q4H PRN Administration Pain, Moderate (4-6)
--- NOTE | 2019-11-23 11:54 | Progress Note ---
Assessment and Plan Assessment and plan: Patient is a 74 yo man with a history of hypertension and DM type 2 who was admitted to [facility] 11/02/2019 from [facility] for mental health stabilization after Suicidal ideation. Labs significant for Creat 2.8. Nephrology was consulted for further evaluation. RN called me on 11/08/2019 about a "change in medical condition," patient choking on food and liquids, he is pale, altered. Prior night, before choking on food, he was combative and received 2 mg IM ativan. Trazadone was also newly added and increase in depakote. Now more lethargic and unable to eat, choking on food/liquid but he did received Lantus 30 units last night and BG dropped to 52. After IV dextrose the BG continued to drop to 48. Another amp of D5 was given. He was discharged form [facility] to med surg and admitted to 3rd Floor Medsur for intractable hypoglycemia requiring IV line. * 11/18/19 TTE Conclusisons: Est EF 55-60% * Thoracic XR: Degenerative changes * Lumbosacral XR IMPRESSION: 1. Compression L1 vertebral body age difficult determine recommend clinical correlation 2. Degenerative changes as noted * pCXR IMPRESSION: 1. No acute cardiopulmonary disease * Cervical Spine XR IMPRESSION: Extensive degenerative changes as noted * CT head without contrast IMPRESSION: 1. There is extensive microvascular angiopathy without CT evidence acute intracranial hemorrhage. 2. There is prominence of the ventricular system and cerebral atrophy as detailed above. * US Renal doppler IMPRESSION: No significant abnormality. Left renal cyst. No obstructive uropathy. * complete U/S abdomen Impression: Gallbladder sludge with suspected superimposed cholecystitis, large fatty liver, increased right renal echogenicity typical of chronic medical renal disease Acute Cholecystitis: GS following, see below AMS due Acute Metabolic Encephalopathy: treat with dextrose ARF/CKD 4, vasomotor nephropathy: worsening, get CT abd/pelvis, monitor BMP closely DM type 2 uncontrolled with hyperglycemia: use SSI, no Long acting because of poor oral intake UTI with sepsis: started on renal dose Levaquin 11/18/19 Chronic hypoxic Respiratory Failure: continue supplemental O2 Dementia: Mental health is following, antipsychotic stopped due to lethargy/decreased responsiveness Osteoporosis 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 11/21/19: Tmax 100.2F, bladder distended and tender, d/w ID, get ct abd/pelvis and place bernard for urinary retention. also renal function is worsening. CT abd/pelvis shows signs of acute cholecystitis. -made npo-consulted GS-notified ID-added IV flagyl with levaquin and vancomycin-STOP PLAVIX for possible lap julianne. ordered Complete US (need to re-evaluate kidneys with gallbladder) and D/w GS Dr. Vasquez. I needed more information on the plavix. So, I called daughter Candida and she told me about the 4 heart attacks and at least 8 shents and his [employer] Off is Dr. Corona at [phone] and spoke with Candida and she faxed over the last progress note in which I placed in the chart for Cardiology to review. 11/22/19: Abdominal more distended today, d/w ID, adjustment done to ABX. I d/w Cardiology, stress test in AM, ok to hold ASA and plavix for surgery. Nephrology is following the worsening renal function. U/S abdomen complete Impression: Gallbladder sludge with suspected superimposed cholecystitis, large fatty liver, increased right renal echogenicity typical of chronic medical renal disease 11/23/19: Patient c/o less abdominal pains, asking for water. He is NPO for stress test this AM, no proper IV, patient refused placement of new IV, so stress test unable to be done. Last dose of Aspirin and Plavix were 11/21/2019, need 5 days before Lap julianne or IR Percutaneous tube placement (November 25 is the 5 day). WBC went back up to 26k, Cr is at 5.0 which is same as yesterday (Maybe plateau) History Interval history: Patient was seen and examined. Follow-up on current diagnosis of AMS, doing better. Overnight uneventful as no events directly reported to me. Imaging, nursing note, chart, labs and old chart reviewed. Discussed with patient. Hospitalist Physical - Physical exam Narrative exam: Gen: obese, nad, more awake and talkative orientated x 2, know name and knows that he is in hospital, missed year and name of hospital HEENT: NCAT, EOMI, PERRL but resist eyes being open, OP Clear Neck: supple, no adenopathy, no thyromegaly, no JVD CVS/Heart: RRR, normal S1S2, pulses present bilaterally Chest/Lungs: CTA B, Symmetrical chest expansion, good air entry bilaterally GI/Abdomen: soft, diffuse tender good bowel sounds, no guarding or rebound /Bladder: +suprapubic tenderness, no CVA or paraspinal tenderness Extermity/Skin: no c/c/e, no obvious rash MSK: doesnt follow commands Neuro: CN 2-12 grossly intact, doesnt follow commands Psych: calm, poor insight and judgement - Constitutional Vitals: Temp Pulse Resp BP Pulse Ox 97.2 F L 98 H 19 161/97 92 11/23/19 07:30 11/23/19 07:30 11/23/19 07:30 11/23/19 07:30 11/23/19 07:30 General appearance: Present: no acute distress Results - Labs CBC & Chem 7: 11/23/19 09:40 11/23/19 09:40 Labs: Laboratory Last Values WBC 26.4 K/mm3 (4.5-11.0) H 11/23/19 09:40 RBC 3.93 M/mm3 (3.65-5.03) 11/23/19 09:40 Hgb 11.8 gm/dl (11.8-15.2) 11/23/19 09:40 Hct 35.0 % (35.5-45.6) L 11/23/19 09:40 MCV 89 fl (84-94) 11/23/19 09:40 MCH 30 pg (28-32) 11/23/19 09:40 MCHC 34 % (32-34) 11/23/19 09:40 RDW 14.9 % (13.2-15.2) 11/23/19 09:40 Plt Count 696 K/mm3 (140-440) H 11/23/19 09:40 Lymph % (Auto) 24.9 % (13.4-35.0) 11/14/19 12:18 [place] % (Auto) 8.4 % (0.0-7.3) H 11/14/19 12:18 Eos % (Auto) 4.2 % (0.0-4.3) 11/14/19 12:18 Baso % (Auto) 0.8 % (0.0-1.8) 11/14/19 12:18 Lymph # 3.5 K/mm3 (1.2-5.4) 11/14/19 12:18 [place] # 1.2 K/mm3 (0.0-0.8) H 11/14/19 12:18 Eos # 0.6 K/mm3 (0.0-0.4) H 11/14/19 12:18 Baso # 0.1 K/mm3 (0.0-0.1) 11/14/19 12:18 Add Manual Diff Complete 11/21/19 09:10 Total Counted 100 11/21/19 09:10 Seg Neutrophils % 61.7 % (40.0-70.0) 11/14/19 12:18 Seg Neuts % (Manual) 89.0 % (40.0-70.0) H 11/21/19 09:10 Band Neutrophils % 0 % 11/21/19 09:10 Lymphocytes % (Manual) 4.0 % (13.4-35.0) L 11/21/19 09:10 Reactive Lymphs % (Man) 0 % 11/21/19 09:10 Monocytes % (Manual) 7.0 % (0.0-7.3) 11/21/19 09:10 Eosinophils % (Manual) 0 % (0.0-4.3) 11/21/19 09:10 Basophils % (Manual) 0 % (0.0-1.8) 11/21/19 09:10 Metamyelocytes % 0 % 11/21/19 09:10 Myelocytes % 0 % 11/21/19 09:10 Promyelocytes % 0 % 11/21/19 09:10 Blast Cells % 0 % 11/21/19 09:10 Nucleated RBC % Not Reportable 11/21/19 09:10 Seg Neutrophils # 8.6 K/mm3 (1.8-7.7) H 11/14/19 12:18 Seg Neutrophils # Man 23.2 K/mm3 (1.8-7.7) H 11/21/19 09:10 Band Neutrophils # 0.0 K/mm3 11/21/19 09:10 Lymphocytes # (Manual) 1.0 K/mm3 (1.2-5.4) L 11/21/19 09:10 Abs React Lymphs (Man) 0.0 K/mm3 11/21/19 09:10 Monocytes # (Manual) 1.8 K/mm3 (0.0-0.8) H 11/21/19 09:10 Eosinophils # (Manual) 0.0 K/mm3 (0.0-0.4) 11/21/19 09:10 Basophils # (Manual) 0.0 K/mm3 (0.0-0.1) 11/21/19 09:10 Metamyelocytes # 0.0 K/mm3 11/21/19 09:10 Myelocytes # 0.0 K/mm3 11/21/19 09:10 Promyelocytes # 0.0 K/mm3 11/21/19 09:10 Blast Cells # 0.0 K/mm3 11/21/19 09:10 WBC Morphology Not Reportable 11/21/19 09:10 Hypersegmented Neuts Not Reportable 11/21/19 09:10 Hyposegmented Neuts Not Reportable 11/21/19 09:10 Hypogranular Neuts Not Reportable 11/21/19 09:10 Smudge Cells Not Reportable 11/21/19 09:10 Toxic Granulation Not Reportable 11/21/19 09:10 Toxic Vacuolation Not Reportable 11/21/19 09:10 Dohle Bodies Not Reportable 11/21/19 09:10 Pelger-Huet Anomaly Not Reportable 11/21/19 09:10 Troy Rods Not Reportable 11/21/19 09:10 Platelet Estimate Consistent w auto 11/21/19 09:10 Clumped Platelets Few 11/21/19 09:10 Plt Clumps, EDTA Not Reportable 11/21/19 09:10 Large Platelets Few 11/21/19 09:10 Giant Platelets Not Reportable 11/21/19 09:10 Platelet Satelliting Not Reportable 11/21/19 09:10 Plt Morphology Comment Not Reportable 11/21/19 09:10 RBC Morphology Not Reportable 11/21/19 09:10 Dimorphic RBCs Not Reportable 11/21/19 09:10 Polychromasia Not Reportable 11/21/19 09:10 Hypochromasia Not Reportable 11/21/19 09:10 Poikilocytosis Not Reportable 11/21/19 09:10 Anisocytosis Not Reportable 11/21/19 09:10 Microcytosis Not Reportable 11/21/19 09:10 Macrocytosis Not Reportable 11/21/19 09:10 Spherocytes Not Reportable 11/21/19 09:10 Pappenheimer Bodies Not Reportable 11/21/19 09:10 Sickle Cells Not Reportable 11/21/19 09:10 Target Cells Not Reportable 11/21/19 09:10 Tear Drop Cells Not Reportable 11/21/19 09:10 Ovalocytes Not Reportable 11/21/19 09:10 Helmet Cells Not Reportable 11/21/19 09:10 Lopez-[place] Bodies Not Reportable 11/21/19 09:10 [place] Rings Not Reportable 11/21/19 09:10 Darcie Cells Not Reportable 11/21/19 09:10 Bite Cells Not Reportable 11/21/19 09:10 Crenated Cell Not Reportable 11/21/19 09:10 Elliptocytes Not Reportable 11/21/19 09:10 Acanthocytes (Spur) Not Reportable 11/21/19 09:10 Rouleaux Not Reportable 11/21/19 09:10 Hemoglobin C Crystals Not Reportable 11/21/19 09:10 Schistocytes Not Reportable 11/21/19 09:10 Malaria parasites Not Reportable 11/21/19 09:10 Jeremie Bodies Not Reportable 11/21/19 09:10 Hem Pathologist Commnt No 11/21/19 09:10 Sodium 141 mmol/L (137-145) 11/23/19 09:40 Potassium 4.3 mmol/L (3.6-5.0) 11/23/19 09:40 Chloride 101.8 mmol/L (98-107) 11/23/19 09:40 Carbon Dioxide 17 mmol/L (22-30) L 11/23/19 09:40 Anion Gap 27 mmol/L 11/23/19 09:40 BUN 102 mg/dL (9-20) H 11/23/19 09:40 Creatinine 5.0 mg/dL (0.8-1.5) H 11/23/19 09:40 Estimated GFR 11 ml/min 11/23/19 09:40 BUN/Creatinine Ratio 20 % 11/23/19 09:40 Glucose 171 mg/dL (75-100) H 11/23/19 09:40 POC Glucose 130 (70-105) H 11/23/19 11:22 Calcium 9.1 mg/dL (8.4-10.2) 11/23/19 09:40 Phosphorus 5.00 mg/dL (2.5-4.5) H 11/14/19 12:18 Magnesium 2.40 mg/dL (1.7-2.3) H 11/14/19 12:18 Total Bilirubin 0.20 mg/dL (0.1-1.2) 11/22/19 05:21 Direct Bilirubin < 0.2 mg/dL (0-0.2) 11/14/19 12:18 Indirect Bilirubin 0.2 mg/dL 11/14/19 12:18 AST 11 units/L (5-40) 11/22/19 05:21 ALT 8 units/L (7-56) 11/22/19 05:21 Alkaline Phosphatase 105 units/L (35-129) 11/22/19 05:21 Ammonia 16.0 umol/L (25-60) L 11/14/19 12:18 Total Protein 6.4 g/dL (6.3-8.2) 11/22/19 05:21 Albumin 2.2 g/dL (3.9-5) L 11/22/19 05:21 Albumin/Globulin Ratio 0.5 % 11/22/19 05:21 Urine Color Maeve (Yellow) 11/18/19 20:00 Urine Turbidity Cloudy (Clear) 11/18/19 20:00 Urine pH 5.0 (5.0-7.0) 11/18/19 20:00 Ur Specific Fence 1.021 (1.003-1.030) 11/18/19 20:00 Urine Protein 100 mg/dl mg/dL (Negative) 11/18/19 20:00 Urine Glucose (UA) >=500 mg/dL (Negative) 11/18/19 20:00 Urine Ketones Neg mg/dL (Negative) 11/18/19 20:00 Urine Blood Sm (Negative) 11/18/19 20:00 Urine Nitrite Neg (Negative) 11/18/19 20:00 Urine Bilirubin Neg (Negative) 11/18/19 20:00 Urine Urobilinogen < 2.0 mg/dL (<2.0) 11/18/19 20:00 Ur Leukocyte Esterase Tr (Negative) 11/18/19 20:00 Urine WBC (Auto) > 182.0 /HPF (0.0-6.0) H 11/18/19 20:00 Urine RBC (Auto) 9.0 /HPF (0.0-6.0) 11/18/19 20:00 U Epithel Cells (Auto) 5.0 /HPF (0-13.0) 11/18/19 20:00 Urine Bacteria (Auto) 2+ /HPF (Negative) 11/18/19 20:00 Urine Mucus 2+ /HPF 11/18/19 20:00 Urine Creatinine 106.3 mg/dL (0.1-20.0) H 11/14/19 06:45 Urine Sodium 66 mmol/L 11/14/19 06:45 Random Vancomycin 9.3 ug/mL (0-40.0) 11/23/19 09:40 Influenza A (Rapid) Negative (Negative) 11/20/19 Unknown Influenza A (RT-PCR) Negative (Negative) 11/20/19 Unknown Influenza B (Rapid) Negative (Negative) 11/20/19 Unknown Influenza B (RT-PCR) Negative (Negative) 11/20/19 Unknown Active Medications - Current Medications Current Medications: Generic Name Dose Route Start Last Admin Trade Name Freq PRN Reason Stop Dose Admin Acetaminophen 650 mg 11/10/19 12:54 11/21/19 03:01 Tylenol PO 650 mg Q6H PRN Administration Pain, Mild (1-3) Dextrose 50 ml 11/11/19 11:04 D50w (25gm) Syringe IV Q30MIN PRN Hypoglycemia Protocol Ergocalciferol 50,000 unit 11/17/19 10:00 11/17/19 10:09 Vitamin D2 PO 50,000 unit Vazquez GETACHEW Administration Famotidine 20 mg 11/17/19 10:00 11/23/19 10:00 Pepcid PO Not Given DAILY GETACHEW Heparin Sodium (Porcine) 5,000 unit 11/09/19 10:00 11/23/19 09:57 Heparin SUB-Q Not Given Q12HR GETACHEW Hydralazine HCl 5 mg 11/11/19 03:04 11/11/19 08:08 Apresoline IV 5 mg Q6HR PRN Administration Blood Pressure Hydralazine HCl 50 mg 11/19/19 22:00 11/23/19 06:30 Apresoline PO Not Given Q8HR [facility] Metronidazole 500 mg in 100 mls @ 100 mls/hr 11/21/19 17:00 11/23/19 09:53 Flagyl 500 Mg/100 Ml IV Not Given Q8H [facility] Protocol Sodium Chloride 1,000 mls @ 125 mls/hr 11/21/19 16:45 11/22/19 04:52 Nacl 0.9% 1000 Ml IV 125 mls/hr DIRECT GETACHEW Administration Levofloxacin/Dextrose 500 mg in 100 mls @ 100 mls/hr 11/22/19 13:00 11/22/19 17:16 Levaquin 500mg/100ml IV Infused Q48HR [facility] Infusion Insulin Glargine 10 units 11/15/19 22:00 11/22/19 23:12 Lantus SUB-Q Not Given QHS [facility] Insulin Human Lispro 0 unit 11/17/19 16:30 11/23/19 11:44 Humalog SUB-Q Not Given AC [facility] Protocol Insulin Human Lispro 0 unit 11/17/19 22:00 11/22/19 23:12 Humalog SUB-Q Not Given QHS [facility] Protocol Isosorbide Mononitrate 30 mg 11/17/19 10:00 11/23/19 10:00 Imdur PO Not Given DAILY [facility] Metoprolol Tartrate 100 mg 11/10/19 16:00 11/23/19 10:00 Metoprolol PO Not Given BID [facility] Nicotine 14 mg 11/09/19 20:00 11/23/19 09:57 Habitrol TD Not Given QDAY [facility] Nifedipine 60 mg 11/17/19 10:00 11/23/19 10:00 Procardia Xl PO Not Given QDAY [facility] Nitroglycerin 0.4 mg 11/10/19 03:32 11/10/19 04:15 Nitrostat SL 0.4 mg .Q5MIN PRN Administration Chest Pain Ondansetron HCl 4 mg 11/21/19 17:53 Zofran IV Q6H PRN Nausea And Vomiting Tamsulosin HCl 0.4 mg 11/17/19 10:00 11/23/19 10:00 Flomax PO Not Given QDAY [facility] Tramadol HCl 25 mg 11/21/19 17:43 11/22/19 05:58 Ultram PO 25 mg Q4H PRN Administration Pain, Moderate (4-6) Nutrition/Malnutrition Assess - Dietary Evaluation Nutrition/Malnutrition Findings: Nutrition Notes Start: 11/08/19 10:31 Freq: Status: Active Protocol: Document 11/11/19 14:20 LM (Rec: 11/11/19 14:21 LM [id number]) Nutrition Notes Need for Assessment generated from: LOS Initial or Follow up Brief Note Subjective/Other Information Screen for LOS. Pt eating 75- 100%. Nutrition Intervention Revisit per MD consult or patient Sign Off request:
--- NOTE | 2019-11-23 12:34 | Progress Note ---
Assessment and Plan - Patient Problems (1) Acute cholecystitis Current Visit: Yes Status: Suspected Plan to address problem: 74-year-old male with 1. Right upper quadrant abdominal pain, rule out cholecystitis 2. sepsis 2/2 #1 and/or #5 2. Acute on chronic renal failure 3. Dehydration 4. CAD, cardiac stents on Plavix 5. UTI Echo: 11/18/19 - EF 55-60% U/s Abd: cholecystitis, sludge, pericholecystic fluid Plan: 1. NPO 2. IVF - NS@125cc/hr 3. prn pain and nausea control 4. IV abx -on levaquin, flagyl, and vancomycin. ID on board 5. Cardiology on board - stress test ordered for am, Plavix stopped. Stress test delayed due to lack of IV access. Patient now has IV in right arm. Hopefully can still get test done today. 7. If patient is deemed high risk for surgery, would recommend IR placed percuatanous cholecystostomy tube. Plavix will need to be held 5-7 days prior to any procedure. 8. Trend WBC - up today. Further recs pending cardiology recommendations. All questions were answered. Thank you, please call with questions Subjective Date of service: 11/23/19 Patient Reports: Positive: no new complaints, still having pain Objective Vital Signs - 12hr 11/23/19 11/23/19 02:40 07:30 Temperature 97.9 F 97.2 F L Pulse Rate 98 H 98 H Respiratory 20 19 Rate Blood Pressure 151/76 161/97 O2 Sat by Pulse 96 92 Oximetry - General physical appearance no distress, no pain - Eyes normal occular movement - Respiratory normal expansion, normal respiratory effort - Abdomen soft, tender (mainly in epigastric area), not distended, not guarding, not rigid - Integumentary no rash, no growths, no abnormal pigmentation - Labs 11/23/19 09:40 11/23/19 09:40 Diabetes panel 11/23/19 Range/Units 09:40 Sodium 141 (137-145) mmol/L Potassium 4.3 (3.6-5.0) mmol/L Chloride 101.8 (98-107) mmol/L Carbon Dioxide 17 L (22-30) mmol/L BUN 102 H (9-20) mg/dL Creatinine 5.0 H (0.8-1.5) mg/dL Glucose 171 H (75-100) mg/dL Calcium 9.1 (8.4-10.2) mg/dL Calcium panel 11/23/19 Range/Units 09:40 Calcium 9.1 (8.4-10.2) mg/dL Pituitary panel 11/23/19 Range/Units 09:40 Sodium 141 (137-145) mmol/L Potassium 4.3 (3.6-5.0) mmol/L Chloride 101.8 (98-107) mmol/L Carbon Dioxide 17 L (22-30) mmol/L BUN 102 H (9-20) mg/dL Creatinine 5.0 H (0.8-1.5) mg/dL Glucose 171 H (75-100) mg/dL Calcium 9.1 (8.4-10.2) mg/dL Adrenal panel 11/23/19 Range/Units 09:40 Sodium 141 (137-145) mmol/L Potassium 4.3 (3.6-5.0) mmol/L Chloride 101.8 (98-107) mmol/L Carbon Dioxide 17 L (22-30) mmol/L BUN 102 H (9-20) mg/dL Creatinine 5.0 H (0.8-1.5) mg/dL Glucose 171 H (75-100) mg/dL Calcium 9.1 (8.4-10.2) mg/dL
--- NOTE | 2019-11-23 16:45 | Event Note ---
Date: 11/23/19 The patient is a 74 YO male with a past medical history of CAD s/p multiple PCIs, HTN, DM, tobacco use who presented to [facility] 11/02/2019 from [facility] for mental health stabilization after Suicidal ideation. Echo done 11/18/2019 showed EF 55-60%, no significant abnormalities. LHC done 02/2019 with NEMO placement to distal RCA extending into the PLV branch LHC done 07/2016 with 2 NEMO placed to LAD and PDA Stress tests not completed on Sundays UTI/STEPHANIE/CKD suspected cholecystitis CAD/multiple PCI Hypertension Diabetes Tobacco Pt has no current cardiac complaints. Hold ASA and Plavix at this time.
[2019-11-23] MEDS: INSULIN GLARGINE 100 UNITS/ML SUB-Q SCH (22:53)
[2019-11-23] MEDS: SODIUM CHLORIDE 0.9% 1000 ML 1,000 ML IV SCH (23:23)
[2019-11-24] MEDS: metroNIDAZOLE/NS 500 MG/100 ML 500 MG/100 ML BAG IV SCH ×3 (00:09→18:34)
[2019-11-24] MEDS: hydrALAZINE 25 MG TAB PO SCH ×3 (05:54→22:57)
[2019-11-24] MEDS: traMADol 50 MG TAB PO PRN ×2 (05:54→23:18)
[2019-11-24] MEDS: ONDANSETRON 4 MG/2 ML INJ IV PRN (05:55)
[2019-11-24] MEDS: SODIUM CHLORIDE 0.9% 1000 ML 1,000 ML IV SCH ×3 (06:44→23:19)
[2019-11-24] MEDS: INSULIN LISPRO 100 UNIT/ML SUB-Q SCH ×4 (08:37→22:58)
[2019-11-24] MEDS: METOPROLOL TARTRATE 100 MG TAB PO SCH ×2 (09:57→22:57)
[2019-11-24] MEDS: FAMOTIDINE 20 MG TAB PO SCH (09:57)
[2019-11-24] MEDS: TAMSULOSIN 0.4 MG CAP PO SCH (09:58)
[2019-11-24] MEDS: NICOTINE 14 MG/24 HR PATCH TD SCH (09:58)
[2019-11-24] MEDS: NIFEdipine XL 60 MG TAB PO SCH (09:58)
[2019-11-24] MEDS: HEPARIN 5,000 UNIT/1 ML VIAL SUB-Q SCH ×2 (09:59→22:57)
[2019-11-24] MEDS: ERGOCALCIFEROL (VIT D2) 50,000 UNIT CAP PO SCH (10:12)
--- NOTE | 2019-11-24 11:55 | Progress Note ---
Assessment and Plan 1. Acute kidney injury: No new labs to review as of yet this morning. BMP ordered for today, will monitor for lab results. 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 Creatinine has no change from yesterday, current level 5.0. Will continue to monitor creatinine level and may consider initiation of HD if necessary. Prior renal US showed combination of complex and simple cysts in left kidney, negative for hydro. Monitor renal function closely. Avoid nephrotoxic agents. Meds dosage based on GFR. 2. FEN: Metabolic acidosis, monitor. Mild hyponatremia, monitor. Monitor lytes. 3. Suicidal/homicidal ideation. Was d/c from [facility] on 11/08. Seen by psych. 4. Metabolic encephalopathy, POA. Monitor. 5. Leukocytosis. 6. Diabetes mellitus with hyperglycemia. Monitor closely. 7. COPD. 8. CAD. 9. Presumed chronic congestive heart failure: Normal EF. 10.Right rib fracture. 11. Hypertension: Hydralazine increased to TID 11/20. Continue to monitor closely. 12. Urinary tract infection: Macias inserted 11/21 d/t urinary retention. On abx. 13. Acute cholecystitis: CT abd confirmed abnormal gallbladder with carleen-cholecystic fat stranding. Intermittent low-grade fevers and tachycardia. Gen surg following, but unsure if pt candidate for surgery at this time. Cards was consulted for evaluation of pre-operative cardiac risk but Stress test unable to be performed as pt refused re-insertion of INT at time of test. Subjective Date of service: 11/24/19 Principal diagnosis: SIRS Interval history: Patient was seen and examined at the bedside. He is dozing at time of exam but arouses to verbal stimuli. According to nurse note, was able to obtain new INT overnight. Objective - Exam Narrative Exam: General appearance: well-developed, well-nourished, appears stated age, not in distress HEENT: ATNC, THIEN Neck: neck supple, trachea midline Respiratory: Clear to Auscultation, diminished bibasilar Heart: regular, S1S2, no murmurs Gastrointestinal: soft, normoactive bowel sounds, not absent, not tender Integumentary: no rash, warm and dry : Macias catheter present Neurologic: cooperative with exam, alert, verbal communication Musculoskeletal: trace BLE edema - Vital Signs Vital signs: Vital Signs - 12hr 11/24/19 11/24/19 11/24/19 02:36 05:54 05:55 Temperature 97.3 F L Pulse Rate 87 Respiratory 20 20 Rate Respiratory 20 Rate [Abdomen] Blood Pressure 164/69 O2 Sat by Pulse 94 Oximetry 11/24/19 11/24/19 06:54 07:45 Temperature 97.7 F Pulse Rate 89 Respiratory 20 20 Rate Respiratory Rate [Abdomen] Blood Pressure 126/50 O2 Sat by Pulse 96 Oximetry - Lab 11/23/19 09:40 11/23/19 09:40 Most recent lab results Calcium 9.1 mg/dL (8.4-10.2) 11/23/19 09:40 Phosphorus 5.00 mg/dL (2.5-4.5) H 11/14/19 12:18 Magnesium 2.40 mg/dL (1.7-2.3) H 11/14/19 12:18 Urine Creatinine 106.3 mg/dL (0.1-20.0) H 11/14/19 06:45 Urine Sodium 66 mmol/L 11/14/19 06:45 Medications & Allergies - Medications Allergies/Adverse Reactions: Allergies Penicillins Allergy (Severe, Verified 11/22/19 13:01) Unknown PATIENT'S DAUGHTER KARINA IBRAHIM STATES SHE DOES NOT KNOW THE EXACT REACTION BUT WAS TOLD PCN WOULD "KILL HIM" morphine Adverse Reaction (Verified 11/22/19 13:02) HALLUCINATIONS Tetanus Vaccines and Toxoid Adverse Reaction (Verified 11/01/19 23:50) Unknown Home Medications: Home Medications Medication Instructions Recorded Confirmed Last Taken Type Adult Aspirin 650 mg PO BID 11/02/19 11/17/19 Unknown History Citalopram 20 mg PO BID 11/02/19 11/17/19 Unknown History Clopidogrel [Plavix] 75 mg PO DAILY 11/02/19 11/17/19 Unknown History Ergocalciferol [Vitamin D2] 50,000 units PO QWEEK 11/02/19 11/17/19 Unknown History Famotidine [Pepcid] 20 mg PO DAILY 11/02/19 11/17/19 Unknown History Furosemide [Lasix TAB] 40 mg PO DAILY 11/02/19 11/17/19 Unknown History Gabapentin 300 mg PO TID 11/02/19 11/17/19 Unknown History Isosorbide Mononitrate 30 mg PO DAILY 11/02/19 11/17/19 Unknown History Lantus VIAL 30 units SQ QHS 11/02/19 11/17/19 Unknown History Metoprolol-HCTZ 100-50 mg TAB 50 mg PO BID 11/02/19 11/17/19 Unknown History NIFEdipine [Nifedipine ER] 60 mg PO DAILY 11/02/19 11/17/19 Unknown History Tamsulosin 0.4 mg PO DAILY 11/02/19 11/17/19 Unknown History hydrALAZINE 50 mg PO TID 11/02/19 11/17/19 Unknown History Active Medications: Generic Name Dose Route Start Last Admin Trade Name Freq PRN Reason Stop Dose Admin Acetaminophen 650 mg 11/10/19 12:54 11/21/19 03:01 Tylenol PO 650 mg Q6H PRN Administration Pain, Mild (1-3) Dextrose 50 ml 11/11/19 11:04 D50w (25gm) Syringe IV Q30MIN PRN Hypoglycemia Protocol Ergocalciferol 50,000 unit 11/17/19 10:00 11/24/19 10:12 Vitamin D2 PO 50,000 unit Vazquez GETACHEW Administration Famotidine 20 mg 11/17/19 10:00 11/24/19 09:57 Pepcid PO 20 mg DAILY GETACHEW Administration Heparin Sodium (Porcine) 5,000 unit 11/09/19 10:00 11/24/19 09:59 Heparin SUB-Q 5,000 unit Q12HR GETACHEW Administration Hydralazine HCl 5 mg 11/11/19 03:04 11/11/19 08:08 Apresoline IV 5 mg Q6HR PRN Administration Blood Pressure Hydralazine HCl 50 mg 11/19/19 22:00 11/24/19 05:54 Apresoline PO 50 mg Q8HR GETACHEW Administration Metronidazole 500 mg in 100 mls @ 100 mls/hr 11/21/19 17:00 11/24/19 10:12 Flagyl 500 Mg/100 Ml IV 100 mls/hr Q8H GETACHEW Administration Protocol Sodium Chloride 1,000 mls @ 125 mls/hr 11/21/19 16:45 11/24/19 06:44 Nacl 0.9% 1000 Ml IV 125 mls/hr DIRECT GETACHEW Administration Levofloxacin/Dextrose 500 mg in 100 mls @ 100 mls/hr 11/22/19 13:00 11/24/19 09:59 Levaquin 500mg/100ml IV 100 mls/hr Q48HR GETACHEW Administration Insulin Glargine 10 units 11/15/19 22:00 11/23/19 22:53 [facility]-Q [facility] Insulin Human Lispro 0 unit 11/17/19 16:30 11/24/19 11:53 Humalog SUB-Q Not Given [facility] Protocol Insulin Human Lispro 0 unit 11/17/19 22:00 11/23/19 22:53 Humalog SUB-Q Not Given [facility] Protocol Isosorbide Mononitrate 30 mg 11/17/19 10:00 11/24/19 09:58 Imdur PO 30 mg DAILY [facility] Administration Metoprolol Tartrate 100 mg 11/10/19 16:00 11/24/19 09:57 Metoprolol PO 100 mg BID [facility] Administration Nicotine 14 mg 11/09/19 20:00 11/24/19 09:58 Habitrol TD 14 mg QDAY [facility] Administration Nifedipine 60 mg 11/17/19 10:00 11/24/19 09:58 Procardia Xl PO 60 mg QDAY [facility] Administration Nitroglycerin 0.4 mg 11/10/19 03:32 11/10/19 04:15 Nitrostat SL 0.4 mg .Q5MIN PRN Administration Chest Pain Ondansetron HCl 4 mg 11/21/19 17:53 11/24/19 05:55 Zofran IV 4 mg Q6H PRN Administration Nausea And Vomiting Tamsulosin HCl 0.4 mg 11/17/19 10:00 11/24/19 09:58 Flomax PO 0.4 mg QDAY [facility] Administration Tramadol HCl 25 mg 11/21/19 17:43 11/24/19 05:54 Ultram PO 25 mg Q4H PRN Administration Pain, Moderate (4-6)
--- NOTE | 2019-11-24 13:17 | Progress Note ---
Assessment and Plan Assessment and plan: Patient is a 74 yo man with a history of hypertension and DM type 2 who was admitted to [facility] 11/02/2019 from [facility] for mental health stabilization after Suicidal ideation. Labs significant for Creat 2.8. Nephrology was consulted for further evaluation. RN called me on 11/08/2019 about a "change in medical condition," patient choking on food and liquids, he is pale, altered. Prior night, before choking on food, he was combative and received 2 mg IM ativan. Trazadone was also newly added and increase in depakote. Now more lethargic and unable to eat, choking on food/liquid but he did received Lantus 30 units last night and BG dropped to 52. After IV dextrose the BG continued to drop to 48. Another amp of D5 was given. He was discharged form [facility] to med surg and admitted to 3rd Floor Medsur for intractable hypoglycemia requiring IV line. * 11/18/19 TTE Conclusisons: Est EF 55-60% * Thoracic XR: Degenerative changes * Lumbosacral XR IMPRESSION: 1. Compression L1 vertebral body age difficult determine recommend clinical correlation 2. Degenerative changes as noted * pCXR IMPRESSION: 1. No acute cardiopulmonary disease * Cervical Spine XR IMPRESSION: Extensive degenerative changes as noted * CT head without contrast IMPRESSION: 1. There is extensive microvascular angiopathy without CT evidence acute intracranial hemorrhage. 2. There is prominence of the ventricular system and cerebral atrophy as detailed above. * US Renal doppler IMPRESSION: No significant abnormality. Left renal cyst. No obstructive uropathy. * complete U/S abdomen Impression: Gallbladder sludge with suspected superimposed cholecystitis, large fatty liver, increased right renal echogenicity typical of chronic medical renal disease Acute Cholecystitis: GS following, see below AMS due Acute Metabolic Encephalopathy: treat with dextrose ARF/CKD 4, vasomotor nephropathy: worsening, get CT abd/pelvis, monitor BMP closely DM type 2 uncontrolled with hyperglycemia: use SSI, no Long acting because of poor oral intake UTI with sepsis: started on renal dose Levaquin 11/18/19 Chronic hypoxic Respiratory Failure: continue supplemental O2 Dementia: Mental health is following, antipsychotic stopped due to lethargy/decreased responsiveness Osteoporosis 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 11/21/19: Tmax 100.2F, bladder distended and tender, d/w ID, get ct abd/pelvis and place bernard for urinary retention. also renal function is worsening. CT abd/pelvis shows signs of acute cholecystitis. -made npo-consulted GS-notified ID-added IV flagyl with levaquin and vancomycin-STOP PLAVIX for possible lap julianne. ordered Complete US (need to re-evaluate kidneys with gallbladder) and D/w GS Dr. Vasquez. I needed more information on the plavix. So, I called daughter Candida and she told me about the 4 heart attacks and at least 8 shents and his Book Packer is Dr. Corona at [phone] and spoke with Candida and she faxed over the last progress note in which I placed in the chart for Cardiology to review. 11/22/19: Abdominal more distended today, d/w ID, adjustment done to ABX. I d/w Cardiology, stress test in AM, ok to hold ASA and plavix for surgery. Nephrology is following the worsening renal function. U/S abdomen complete Impression: Gallbladder sludge with suspected superimposed cholecystitis, large fatty liver, increased right renal echogenicity typical of chronic medical renal disease 11/23/19: Patient c/o less abdominal pains, asking for water. He is NPO for stress test this AM, no proper IV, patient refused placement of new IV, so stress test unable to be done. Last dose of Aspirin and Plavix were 11/21/2019, need 5 days before Lap julianne or IR Percutaneous tube placement (November 25 is the 5 day). WBC went back up to 26k, Cr is at 5.0 which is same as yesterday (Maybe plateau) : Still with abd pains, consulted IR for perc drain evaluation. Stress test in AM, patient has IV line now. History Interval history: Patient was seen and examined. Follow-up on current diagnosis of AMS, doing better. Overnight uneventful as no events directly reported to me. Imaging, nursing note, chart, labs and old chart reviewed. Discussed with patient. Hospitalist Physical - Physical exam Narrative exam: Gen: obese, nad, more awake and talkative orientated x 2, know name and knows that he is in hospital, missed year and name of hospital HEENT: NCAT, EOMI, PERRL but resist eyes being open, OP Clear Neck: supple, no adenopathy, no thyromegaly, no JVD CVS/Heart: RRR, normal S1S2, pulses present bilaterally Chest/Lungs: CTA B, Symmetrical chest expansion, good air entry bilaterally GI/Abdomen: soft, diffuse tender good bowel sounds, no guarding or rebound /Bladder: +suprapubic tenderness, no CVA or paraspinal tenderness Extermity/Skin: no c/c/e, no obvious rash MSK: doesnt follow commands Neuro: CN 2-12 grossly intact, doesnt follow commands Psych: calm, poor insight and judgement - Constitutional Vitals: Temp Pulse Resp BP Pulse Ox 97.8 F 81 20 142/67 92 11/24/19 13:14 11/24/19 13:14 11/24/19 13:14 11/24/19 13:14 11/24/19 13:14 General appearance: Present: no acute distress Results - Labs CBC & Chem 7: 11/23/19 09:40 11/23/19 09:40 Labs: Laboratory Last Values WBC 26.4 K/mm3 (4.5-11.0) H 11/23/19 09:40 RBC 3.93 M/mm3 (3.65-5.03) 11/23/19 09:40 Hgb 11.8 gm/dl (11.8-15.2) 11/23/19 09:40 Hct 35.0 % (35.5-45.6) L 11/23/19 09:40 MCV 89 fl (84-94) 11/23/19 09:40 MCH 30 pg (28-32) 11/23/19 09:40 MCHC 34 % (32-34) 11/23/19 09:40 RDW 14.9 % (13.2-15.2) 11/23/19 09:40 Plt Count 696 K/mm3 (140-440) H 11/23/19 09:40 Lymph % (Auto) 24.9 % (13.4-35.0) 11/14/19 12:18 Kemper % (Auto) 8.4 % (0.0-7.3) H 11/14/19 12:18 Eos % (Auto) 4.2 % (0.0-4.3) 11/14/19 12:18 Baso % (Auto) 0.8 % (0.0-1.8) 11/14/19 12:18 Lymph # 3.5 K/mm3 (1.2-5.4) 11/14/19 12:18 Kemper # 1.2 K/mm3 (0.0-0.8) H 11/14/19 12:18 Eos # 0.6 K/mm3 (0.0-0.4) H 11/14/19 12:18 Baso # 0.1 K/mm3 (0.0-0.1) 11/14/19 12:18 Add Manual Diff Complete 11/21/19 09:10 Total Counted 100 11/21/19 09:10 Seg Neutrophils % 61.7 % (40.0-70.0) 11/14/19 12:18 Seg Neuts % (Manual) 89.0 % (40.0-70.0) H 11/21/19 09:10 Band Neutrophils % 0 % 11/21/19 09:10 Lymphocytes % (Manual) 4.0 % (13.4-35.0) L 11/21/19 09:10 Reactive Lymphs % (Man) 0 % 11/21/19 09:10 Monocytes % (Manual) 7.0 % (0.0-7.3) 11/21/19 09:10 Eosinophils % (Manual) 0 % (0.0-4.3) 11/21/19 09:10 Basophils % (Manual) 0 % (0.0-1.8) 11/21/19 09:10 Metamyelocytes % 0 % 11/21/19 09:10 Myelocytes % 0 % 11/21/19 09:10 Promyelocytes % 0 % 11/21/19 09:10 Blast Cells % 0 % 11/21/19 09:10 Nucleated RBC % Not Reportable 11/21/19 09:10 Seg Neutrophils # 8.6 K/mm3 (1.8-7.7) H 11/14/19 12:18 Seg Neutrophils # Man 23.2 K/mm3 (1.8-7.7) H 11/21/19 09:10 Band Neutrophils # 0.0 K/mm3 11/21/19 09:10 Lymphocytes # (Manual) 1.0 K/mm3 (1.2-5.4) L 11/21/19 09:10 Abs React Lymphs (Man) 0.0 K/mm3 11/21/19 09:10 Monocytes # (Manual) 1.8 K/mm3 (0.0-0.8) H 11/21/19 09:10 Eosinophils # (Manual) 0.0 K/mm3 (0.0-0.4) 11/21/19 09:10 Basophils # (Manual) 0.0 K/mm3 (0.0-0.1) 11/21/19 09:10 Metamyelocytes # 0.0 K/mm3 11/21/19 09:10 Myelocytes # 0.0 K/mm3 11/21/19 09:10 Promyelocytes # 0.0 K/mm3 11/21/19 09:10 Blast Cells # 0.0 K/mm3 11/21/19 09:10 WBC Morphology Not Reportable 11/21/19 09:10 Hypersegmented Neuts Not Reportable 11/21/19 09:10 Hyposegmented Neuts Not Reportable 11/21/19 09:10 Hypogranular Neuts Not Reportable 11/21/19 09:10 Smudge Cells Not Reportable 11/21/19 09:10 Toxic Granulation Not Reportable 11/21/19 09:10 Toxic Vacuolation Not Reportable 11/21/19 09:10 Dohle Bodies Not Reportable 11/21/19 09:10 Pelger-Huet Anomaly Not Reportable 11/21/19 09:10 Troy Rods Not Reportable 11/21/19 09:10 Platelet Estimate Consistent w auto 11/21/19 09:10 Clumped Platelets Few 11/21/19 09:10 Plt Clumps, EDTA Not Reportable 11/21/19 09:10 Large Platelets Few 11/21/19 09:10 Giant Platelets Not Reportable 11/21/19 09:10 Platelet Satelliting Not Reportable 11/21/19 09:10 Plt Morphology Comment Not Reportable 11/21/19 09:10 RBC Morphology Not Reportable 11/21/19 09:10 Dimorphic RBCs Not Reportable 11/21/19 09:10 Polychromasia Not Reportable 11/21/19 09:10 Hypochromasia Not Reportable 11/21/19 09:10 Poikilocytosis Not Reportable 11/21/19 09:10 Anisocytosis Not Reportable 11/21/19 09:10 Microcytosis Not Reportable 11/21/19 09:10 Macrocytosis Not Reportable 11/21/19 09:10 Spherocytes Not Reportable 11/21/19 09:10 Pappenheimer Bodies Not Reportable 11/21/19 09:10 Sickle Cells Not Reportable 11/21/19 09:10 Target Cells Not Reportable 11/21/19 09:10 Tear Drop Cells Not Reportable 11/21/19 09:10 Ovalocytes Not Reportable 11/21/19 09:10 Helmet Cells Not Reportable 11/21/19 09:10 [place] Bodies Not Reportable 11/21/19 09:10 [place] Rings Not Reportable 11/21/19 09:10 Darcie Cells Not Reportable 11/21/19 09:10 Bite Cells Not Reportable 11/21/19 09:10 Crenated Cell Not Reportable 11/21/19 09:10 Elliptocytes Not Reportable 11/21/19 09:10 Acanthocytes (Spur) Not Reportable 11/21/19 09:10 Rouleaux Not Reportable 11/21/19 09:10 Hemoglobin C Crystals Not Reportable 11/21/19 09:10 Schistocytes Not Reportable 11/21/19 09:10 Malaria parasites Not Reportable 11/21/19 09:10 Jeremie Bodies Not Reportable 11/21/19 09:10 Hem Pathologist Commnt No 11/21/19 09:10 Sodium 141 mmol/L (137-145) 11/23/19 09:40 Potassium 4.3 mmol/L (3.6-5.0) 11/23/19 09:40 Chloride 101.8 mmol/L (98-107) 11/23/19 09:40 Carbon Dioxide 17 mmol/L (22-30) L 11/23/19 09:40 Anion Gap 27 mmol/L 11/23/19 09:40 BUN 102 mg/dL (9-20) H 11/23/19 09:40 Creatinine 5.0 mg/dL (0.8-1.5) H 11/23/19 09:40 Estimated GFR 11 ml/min 11/23/19 09:40 BUN/Creatinine Ratio 20 % 11/23/19 09:40 Glucose 171 mg/dL (75-100) H 11/23/19 09:40 POC Glucose 145 (70-105) H 11/24/19 11:30 Calcium 9.1 mg/dL (8.4-10.2) 11/23/19 09:40 Phosphorus 5.00 mg/dL (2.5-4.5) H 11/14/19 12:18 Magnesium 2.40 mg/dL (1.7-2.3) H 11/14/19 12:18 Total Bilirubin 0.20 mg/dL (0.1-1.2) 11/22/19 05:21 Direct Bilirubin < 0.2 mg/dL (0-0.2) 11/14/19 12:18 Indirect Bilirubin 0.2 mg/dL 11/14/19 12:18 AST 11 units/L (5-40) 11/22/19 05:21 ALT 8 units/L (7-56) 11/22/19 05:21 Alkaline Phosphatase 105 units/L (35-129) 11/22/19 05:21 Ammonia 16.0 umol/L (25-60) L 11/14/19 12:18 Total Protein 6.4 g/dL (6.3-8.2) 11/22/19 05:21 Albumin 2.2 g/dL (3.9-5) L 11/22/19 05:21 Albumin/Globulin Ratio 0.5 % 11/22/19 05:21 Urine Color Maeve (Yellow) 11/18/19 20:00 Urine Turbidity Cloudy (Clear) 11/18/19 20:00 Urine pH 5.0 (5.0-7.0) 11/18/19 20:00 Ur Specific [place] 1.021 (1.003-1.030) 11/18/19 20:00 Urine Protein 100 mg/dl mg/dL (Negative) 11/18/19 20:00 Urine Glucose (UA) >=500 mg/dL (Negative) 11/18/19 20:00 Urine Ketones Neg mg/dL (Negative) 11/18/19 20:00 Urine Blood Sm (Negative) 11/18/19 20:00 Urine Nitrite Neg (Negative) 11/18/19 20:00 Urine Bilirubin Neg (Negative) 11/18/19 20:00 Urine Urobilinogen < 2.0 mg/dL (<2.0) 11/18/19 20:00 Ur Leukocyte Esterase Tr (Negative) 11/18/19 20:00 Urine WBC (Auto) > 182.0 /HPF (0.0-6.0) H 11/18/19 20:00 Urine RBC (Auto) 9.0 /HPF (0.0-6.0) 11/18/19 20:00 U Epithel Cells (Auto) 5.0 /HPF (0-13.0) 11/18/19 20:00 Urine Bacteria (Auto) 2+ /HPF (Negative) 11/18/19 20:00 Urine Mucus 2+ /HPF 11/18/19 20:00 Urine Creatinine 106.3 mg/dL (0.1-20.0) H 11/14/19 06:45 Urine Sodium 66 mmol/L 11/14/19 06:45 Random Vancomycin 9.3 ug/mL (0-40.0) 11/23/19 09:40 Influenza A (Rapid) Negative (Negative) 11/20/19 Unknown Influenza A (RT-PCR) Negative (Negative) 11/20/19 Unknown Influenza B (Rapid) Negative (Negative) 11/20/19 Unknown Influenza B (RT-PCR) Negative (Negative) 11/20/19 Unknown Active Medications - Current Medications Current Medications: Generic Name Dose Route Start Last Admin Trade Name Freq PRN Reason Stop Dose Admin Acetaminophen 650 mg 11/10/19 12:54 11/21/19 03:01 Tylenol PO 650 mg Q6H PRN Administration Pain, Mild (1-3) Dextrose 50 ml 11/11/19 11:04 D50w (25gm) Syringe IV Q30MIN PRN Hypoglycemia Protocol Ergocalciferol 50,000 unit 11/17/19 10:00 11/24/19 10:12 Vitamin D2 PO 50,000 unit Vazquez GETACHEW Administration Famotidine 20 mg 11/17/19 10:00 11/24/19 09:57 Pepcid PO 20 mg DAILY GETACHEW Administration Heparin Sodium (Porcine) 5,000 unit 11/09/19 10:00 11/24/19 09:59 Heparin SUB-Q 5,000 unit Q12HR GETACHEW Administration Hydralazine HCl 5 mg 11/11/19 03:04 11/11/19 08:08 Apresoline IV 5 mg Q6HR PRN Administration Blood Pressure Hydralazine HCl 50 mg 11/19/19 22:00 11/24/19 05:54 Apresoline PO 50 mg Q8HR GETACHEW Administration Metronidazole 500 mg in 100 mls @ 100 mls/hr 11/21/19 17:00 11/24/19 10:12 Flagyl 500 Mg/100 Ml IV 100 mls/hr Q8H GETACHEW Administration Protocol Sodium Chloride 1,000 mls @ 125 mls/hr 11/21/19 16:45 11/24/19 06:44 Nacl 0.9% 1000 Ml IV 125 mls/hr DIRECT GETACHEW Administration Levofloxacin/Dextrose 500 mg in 100 mls @ 100 mls/hr 11/22/19 13:00 11/24/19 09:59 Levaquin 500mg/100ml IV 100 mls/hr Q48HR GETACHEW Administration Insulin Glargine 10 units 11/15/19 22:00 11/23/19 22:53 Lantus SUB-Q Not Given [facility] Insulin Human Lispro 0 unit 11/17/19 16:30 11/24/19 11:53 Humalog SUB-Q Not Given AC [facility] Protocol Insulin Human Lispro 0 unit 11/17/19 22:00 11/23/19 22:53 [facility] Protocol Isosorbide Mononitrate 30 mg 11/17/19 10:00 11/24/19 09:58 Imdur PO 30 mg DAILY [facility] Administration Metoprolol Tartrate 100 mg 11/10/19 16:00 11/24/19 09:57 Metoprolol PO 100 mg BID GETACHEW Administration Nicotine 14 mg 11/09/19 20:00 11/24/19 09:58 Habitrol TD 14 mg QDAY GETACHEW Administration Nifedipine 60 mg 11/17/19 10:00 11/24/19 09:58 Procardia Xl PO 60 mg QDAY [facility] Administration Nitroglycerin 0.4 mg 11/10/19 03:32 11/10/19 04:15 Nitrostat SL 0.4 mg .Q5MIN PRN Administration Chest Pain Ondansetron HCl 4 mg 11/21/19 17:53 11/24/19 05:55 Zofran IV 4 mg Q6H PRN Administration Nausea And Vomiting Tamsulosin HCl 0.4 mg 11/17/19 10:00 11/24/19 09:58 Flomax PO 0.4 mg QDAY GETACHEW Administration Tramadol HCl 25 mg 11/21/19 17:43 11/24/19 05:54 Ultram PO 25 mg Q4H PRN Administration Pain, Moderate (4-6) Nutrition/Malnutrition Assess - Dietary Evaluation Nutrition/Malnutrition Findings: Nutrition Notes Start: 11/08/19 10:31 Freq: Status: Active Protocol: Document 11/11/19 14:20 LM (Rec: 11/11/19 14:21 LM [id number]) Nutrition Notes Need for Assessment generated from: LOS Initial or Follow up Brief Note Subjective/Other Information Screen for LOS. Pt eating 75- 100%. Nutrition Intervention Revisit per MD consult or patient Sign Off request:
[2019-11-24 15:19] LABS: Calcium 8.4 mg/dL (8.4-10.2)
--- NOTE | 2019-11-24 19:22 | Event Note ---
Date: 11/24/19 Awaiting results of stress test. If too high risk for surgery, then IR will place a cholecystostomy tube. Unfortunately, the psychiatric issues of the patient make him a higher than normal risk for tube dislodgement/self removal.
[2019-11-24] MEDS: INSULIN GLARGINE 100 UNITS/ML SUB-Q SCH (22:58)
[2019-11-25] MEDS: metroNIDAZOLE/NS 500 MG/100 ML 500 MG/100 ML BAG IV SCH ×3 (00:07→17:00)
[2019-11-25] MEDS: traMADol 50 MG TAB PO PRN (03:14)
[2019-11-25 04:48] LABS: Hematocrit 34.6 % (35.5-45.6); Hemoglobin 11.2 gm/dl (11.8-15.2); Mean Corpuscular HGB Conc 33 % (32-34); Mean Corpuscular Volume 91 fl (84-94); Platelet Count 758 K/mm3 (140-440); Red Blood Count 3.82 M/mm3 (3.65-5.03); Red Cell Distribution Width 14.6 % (13.2-15.2)
[2019-11-25 05:06] LABS: Calcium 8.3 mg/dL (8.4-10.2)
[2019-11-25] MEDS: ACETAMINOPHEN 325 MG TAB PO PRN (06:18)
[2019-11-25] MEDS: hydrALAZINE 25 MG TAB PO SCH ×3 (06:18→22:32)
[2019-11-25] MEDS: INSULIN LISPRO 100 UNIT/ML SUB-Q SCH ×4 (07:41→22:38)
--- NOTE | 2019-11-25 08:53 | Progress Note ---
Assessment and Plan 1. 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 Renal function is slowly improving, currently 4.0 from 4.2. Intermittent bladder scans. Renal US showed combination of complex and simple cysts in left kidney, negative for hydro. Monitor renal function closely. Avoid nephrotoxic agents. Meds dosage based on GFR. 2. FEN: Metabolic acidosis, worsening sodium bicarb TID ordered, monitor. Mild hyponatremia, improved, monitor closely after initiating sodium bicarb. Monitor lytes. 3. Suicidal/homicidal ideation. Was d/c from [facility] on 11/08. Seen by psych. 4. Metabolic encephalopathy, POA. Monitor. 5. Leukocytosis. 6. Diabetes mellitus with hyperglycemia. Monitor closely. 7. COPD. 8. CAD. 9. Presumed chronic congestive heart failure: Normal EF. 10.Right rib fracture. 11. Hypertension: Hydralazine increased to TID 11/20. Continue to monitor BP closely. 12. Urinary tract infection: Macias inserted 11/21 d/t urinary retention. On abx. 13. Acute cholecystitis: CT abd confirmed abnormal gallbladder with carleen-cholecystic fat stranding. Intermittent low-grade fevers and tachycardia. Gen surg following, but unsure if pt candidate for surgery at this time. Cards was consulted for evaluation of pre-operative cardiac risk and has stress test rescheduled for this am after initial stress was unable to be performed 10/27 no INT access and patient refusal. Subjective Date of service: 11/25/19 Principal diagnosis: SIRS Interval history: Patient was seen and examined at the bedside. He is awake in bed at time of exam. He is asking for water but is NPO at this time for stress test rescheduled for this morning. Objective - Exam Narrative Exam: General appearance: well-developed, well-nourished, appears stated age, not in distress HEENT: ATNC, THIEN Neck: neck supple, trachea midline Respiratory: Clear to Auscultation, diminished bibasilar Heart: regular, S1S2, no murmurs Gastrointestinal: soft, normoactive bowel sounds, not absent, not tender Integumentary: no rash, warm and dry : Macias catheter present Neurologic: cooperative with exam, alert, verbal communication Musculoskeletal: no edema - Vital Signs Vital signs: Vital Signs - 12hr 11/24/19 11/24/19 11/25/19 23:15 23:18 00:18 Temperature Pulse Rate Respiratory 20 20 Rate Respiratory 20 Rate [Abdomen] Respiratory 20 Rate [Back] Blood Pressure O2 Sat by Pulse Oximetry 11/25/19 11/25/19 11/25/19 03:14 03:24 04:14 Temperature 97.6 F Pulse Rate 82 Respiratory 20 18 20 Rate Respiratory Rate [Abdomen] Respiratory Rate [Back] Blood Pressure 153/67 O2 Sat by Pulse 95 Oximetry 11/25/19 11/25/19 11/25/19 06:15 06:18 08:01 Temperature 97.6 F Pulse Rate 78 76 Respiratory 20 20 Rate Respiratory Rate [Abdomen] Respiratory Rate [Back] Blood Pressure 137/53 O2 Sat by Pulse 94 93 Oximetry - Lab 11/25/19 03:48 11/25/19 03:48 Most recent lab results Calcium 8.3 mg/dL (8.4-10.2) L 11/25/19 03:48 Phosphorus 5.00 mg/dL (2.5-4.5) H 11/14/19 12:18 Magnesium 2.40 mg/dL (1.7-2.3) H 11/14/19 12:18 Urine Creatinine 106.3 mg/dL (0.1-20.0) H 11/14/19 06:45 Urine Sodium 66 mmol/L 11/14/19 06:45 Medications & Allergies - Medications Allergies/Adverse Reactions: Allergies Penicillins Allergy (Severe, Verified 11/22/19 13:01) Unknown PATIENT'S DAUGHTER KARINA IBRAHIM STATES SHE DOES NOT KNOW THE EXACT REACTION BUT WAS TOLD PCN WOULD "KILL HIM" morphine Adverse Reaction (Verified 11/22/19 13:02) HALLUCINATIONS Tetanus Vaccines and Toxoid Adverse Reaction (Verified 11/01/19 23:50) Unknown Home Medications: Home Medications Medication Instructions Recorded Confirmed Last Taken Type Adult Aspirin 650 mg PO BID 11/02/19 11/17/19 Unknown History Citalopram 20 mg PO BID 11/02/19 11/17/19 Unknown History Clopidogrel [Plavix] 75 mg PO DAILY 11/02/19 11/17/19 Unknown History Ergocalciferol [Vitamin D2] 50,000 units PO QWEEK 11/02/19 11/17/19 Unknown History Famotidine [Pepcid] 20 mg PO DAILY 11/02/19 11/17/19 Unknown History Furosemide [Lasix TAB] 40 mg PO DAILY 11/02/19 11/17/19 Unknown History Gabapentin 300 mg PO TID 11/02/19 11/17/19 Unknown History Isosorbide Mononitrate 30 mg PO DAILY 11/02/19 11/17/19 Unknown History Lantus VIAL 30 units SQ QHS 11/02/19 11/17/19 Unknown History Metoprolol-HCTZ 100-50 mg TAB 50 mg PO BID 11/02/19 11/17/19 Unknown History NIFEdipine [Nifedipine ER] 60 mg PO DAILY 11/02/19 11/17/19 Unknown History Tamsulosin 0.4 mg PO DAILY 11/02/19 11/17/19 Unknown History hydrALAZINE 50 mg PO TID 11/02/19 11/17/19 Unknown History Active Medications: Generic Name Dose Route Start Last Admin Trade Name Freq PRN Reason Stop Dose Admin Acetaminophen 650 mg 11/10/19 12:54 11/25/19 06:18 Tylenol PO 650 mg Q6H PRN Administration Pain, Mild (1-3) Dextrose 50 ml 11/11/19 11:04 D50w (25gm) Syringe IV Q30MIN PRN Hypoglycemia Protocol Ergocalciferol 50,000 unit 11/17/19 10:00 11/24/19 10:12 Vitamin D2 PO 50,000 unit Vazquez GETACHEW Administration Famotidine 20 mg 11/17/19 10:00 11/24/19 09:57 Pepcid PO 20 mg DAILY GETACHEW Administration Heparin Sodium (Porcine) 5,000 unit 11/09/19 10:00 11/24/19 22:57 Heparin SUB-Q 5,000 unit Q12HR GETACHEW Administration Hydralazine HCl 5 mg 11/11/19 03:04 11/11/19 08:08 Apresoline IV 5 mg Q6HR PRN Administration Blood Pressure Hydralazine HCl 50 mg 11/19/19 22:00 11/25/19 06:18 Apresoline PO 50 mg Q8HR GETACHEW Administration Metronidazole 500 mg in 100 mls @ 100 mls/hr 11/21/19 17:00 11/25/19 00:07 Flagyl 500 Mg/100 Ml IV 100 mls/hr Q8H GETACHEW Administration Protocol Sodium Chloride 1,000 mls @ 125 mls/hr 11/21/19 16:45 11/24/19 23:19 Nacl 0.9% 1000 Ml IV 125 mls/hr DIRECT GETACHEW Administration Levofloxacin/Dextrose 500 mg in 100 mls @ 100 mls/hr 11/22/19 13:00 11/24/19 09:59 Levaquin 500mg/100ml IV 100 mls/hr Q48HR GETACHEW Administration Insulin Glargine 10 units 11/15/19 22:00 11/24/19 22:58 [facility] Human Lispro 0 unit 11/17/19 16:30 11/25/19 07:41 Humalog SUB-Q Not Given [facility] Protocol Insulin Human Lispro 0 unit 11/17/19 22:00 11/24/19 22:58 [facility]og SUB-Q [facility] Protocol Isosorbide Mononitrate 30 mg 11/17/19 10:00 11/24/19 09:58 Imdur PO 30 mg DAILY GETACHEW Administration Metoprolol Tartrate 100 mg 11/10/19 16:00 11/24/19 22:57 Metoprolol PO 100 mg BID [facility] Administration Nicotine 14 mg 11/09/19 20:00 11/24/19 09:58 Habitrol TD 14 mg QDAY [facility] Administration Nifedipine 60 mg 11/17/19 10:00 11/24/19 09:58 Procardia Xl PO 60 mg QDAY [facility] Administration Nitroglycerin 0.4 mg 11/10/19 03:32 11/10/19 04:15 Nitrostat SL 0.4 mg .Q5MIN PRN Administration Chest Pain Ondansetron HCl 4 mg 11/21/19 17:53 11/24/19 05:55 Zofran IV 4 mg Q6H PRN Administration Nausea And Vomiting Tamsulosin HCl 0.4 mg 11/17/19 10:00 11/24/19 09:58 Flomax PO 0.4 mg QDAY GETACHEW Administration Tramadol HCl 25 mg 11/21/19 17:43 11/25/19 03:14 Ultram PO 25 mg Q4H PRN Administration Pain, Moderate (4-6)
[2019-11-25] MEDS: TAMSULOSIN 0.4 MG CAP PO SCH (09:00)
[2019-11-25] MEDS: FAMOTIDINE 20 MG TAB PO SCH (09:01)
[2019-11-25] MEDS: HEPARIN 5,000 UNIT/1 ML VIAL SUB-Q SCH ×2 (09:01→22:33)
[2019-11-25] MEDS: METOPROLOL TARTRATE 100 MG TAB PO SCH ×2 (09:02→22:33)
[2019-11-25] MEDS ORDERED: REGADENOSON 0.4 MG/5 ML INJ IV ONE ×2 (09:03→09:06)
--- NOTE | 2019-11-25 10:14 | Progress Note ---
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 No old EKGs available for review. Pt has no current cardiac complaints. Echo done 11/18/2019 showed EF 55-60%, no significant abnormalities. ECG shows NSR with LBBB (unknown chronicity). Hold ASA and Plavix at this time. Proceed with lexiscan MPI stress test. Will provide preoperative cardiac risk stratification pending stress test results. Further recs to follow per hospital course. The patient has been seen in conjunction with Dr. Noemy Reyes who agrees with the assessment and plan of care. - Patient Problems (1) Acute cholecystitis Current Visit: Yes Status: Suspected (2) UTI (urinary tract infection) Current Visit: Yes Status: Acute (3) Sepsis Current Visit: Yes Status: Suspected (4) Acute on chronic renal failure Current Visit: Yes Status: Acute (5) AMS (altered mental status) Current Visit: Yes Status: Acute (6) Suicidal ideation Current Visit: Yes Status: Acute (7) CAD (coronary artery disease) Current Visit: Yes Status: Chronic (8) Stented coronary artery Current Visit: Yes Status: Chronic (9) LBBB (left bundle branch block) Current Visit: Yes Status: Acute (10) HTN (hypertension) Current Visit: Yes Status: Chronic (11) Hyperlipidemia Current Visit: Yes Status: Chronic (12) Diabetes Current Visit: Yes Status: Chronic (13) Tobacco use Current Visit: Yes Status: Chronic Subjective Date of service: 11/25/19 Principal diagnosis: cholecystitis Interval history: pt for stress test today. no current complaints. not on remote telemetry. Objective Last Vital Signs Temp 97.6 F 11/25/19 08:01 Pulse 76 11/25/19 08:01 Resp 20 11/25/19 08:01 BP 137/53 11/25/19 08:01 Pulse Ox 93 11/25/19 08:01 - Physical Examination General: No Apparent Distress HEENT: Positive: PERRL, Normocephaly, Mucus Membranes Moist Neck: Positive: neck supple, trachea midline Cardiac: Positive: Reg Rate and Rhythm, S1/S2 Lungs: Positive: Decreased Breath Sounds Neuro: Positive: Grossly Intact Abdomen: Positive: Tender Skin: Negative: Rash Musculoskeletal: No Pain Extremities: Absent: edema - Labs and Meds CBC 11/25/19 Range/Units 03:48 WBC 23.8 H (4.5-11.0) K/mm3 RBC 3.82 (3.65-5.03) M/mm3 Hgb 11.2 L (11.8-15.2) gm/dl Hct 34.6 L (35.5-45.6) % Plt Count 758 H (140-440) K/mm3 Comprehensive Metabolic Panel 11/24/19 11/25/19 Range/Units 14:33 03:48 Sodium 138 141 (137-145) mmol/L Potassium 4.2 4.1 (3.6-5.0) mmol/L Chloride 105.1 107.7 H (98-107) mmol/L Carbon Dioxide 16 L 13 L (22-30) mmol/L BUN 99 H 93 H (9-20) mg/dL Creatinine 4.2 H 4.0 H (0.8-1.5) mg/dL Glucose 126 H 118 H (75-100) mg/dL Calcium 8.4 8.3 L (8.4-10.2) mg/dL - Imaging and Cardiology EKG: report reviewed, image reviewed Echo: report reviewed (11/18/2019 showed EF 55-60%, no significant abnormalities.) - Telemetry EKG Rhythm: Sinus Rhythm - EKG Sinus rhythms and dysrhythmias: sinus rhythm AV and intraventricular conduction: left bundle branch block
--- NOTE | 2019-11-25 11:14 | Progress Note ---
Assessment and Plan Cultures: Blood culture 11/18/2019 no growth. Urine culture 11/14/2019 <10K colonies. Urine culture on 11/18/2019 >100K, isolate sent to reference lab. Assessment/plan: 74 yo male with history of hypertension, CAD, COPD, CHF, CKD4 and diabetes admitted to [facility] from [facility] on 11/09/2019 for mental health stabilization after suicidal ideation, now with SIRS: #SIRS: not present on admission, fevers better continues with leukocytosis; etiology UTI +/- acute cholecystitis #Acute cholecystitis: seen on CT. Surgery on board, awaiting surgery v/s IR drainage. #UTI: patient now with a condom cath without output. Urine culture on 11/18/2019 >100K isolate sent to reference lab #STEPHANIE on CKD: renally adjusted abx, worsening, nephrology following. #Acute encephalopathy: better #Penicillin allergy: unclear reaction, per patient it was remote. Recommendations: increasing WBC and thrombocytosis, will switch levofloxacin to Ceftriaxone (low risk of cross sensitivity with Penicillin) continue Flagyl IV Claire Villalobos MD, FACP [facility] C: [phone] O: [phone] F: [phone] Subjective Date of service: 11/25/19 Principal diagnosis: cholecystitis Interval history: No fever. Abdominal pain +. Poor historian. Objective - Exam Narrative Exam: Constitutional: Alert, cooperative. No acute distress Head, Ears, Nose: Normocephalic, atraumatic. External ears, nose normal Eyes: Conjunctivae/corneas clear. No icterus. No ptosis. Neck: Supple, no meningeal signs Cardiovascular: S1, S2 normal. Respiratory: Good air entry, clear to auscultation bilaterally GI: soft, diffuse tenderness, bowel sounds hypo. Musculoskeletal: No pedal edema, no cyanosis. Skin: No rash or abscess Hem/Lymphatic: No palpable cervical or supraclavicular nodes. No lymphangitis Psych: no agitation. calm Neurological: Awake, alert. - Constitutional Vitals: Vital Signs Temp Pulse Resp BP Pulse Ox 97.6 F 76 20 137/53 93 11/25/19 08:01 11/25/19 08:01 11/25/19 08:01 11/25/19 08:01 11/25/19 08:01 Temperature -Last 24 Hours Temperature 97.6 F Temperature 97.6 F Temperature 97.6 F Temperature 97.8 F - Labs CBC & Chem 7: 11/25/19 03:48 11/25/19 03:48 Labs: Abnormal lab results 11/24/19 11/24/19 11/24/19 Range/Units 11:30 14:33 16:40 WBC (4.5-11.0) K/mm3 Hgb (11.8-15.2) gm/dl Hct (35.5-45.6) % Plt Count (140-440) K/mm3 Chloride (98-107) mmol/L Carbon Dioxide 16 L (22-30) mmol/L BUN 99 H (9-20) mg/dL Creatinine 4.2 H (0.8-1.5) mg/dL Glucose 126 H (75-100) mg/dL POC Glucose 145 H 128 H (70-105) Calcium (8.4-10.2) mg/dL 11/24/19 11/25/19 11/25/19 Range/Units 22:39 03:48 03:48 WBC 23.8 H (4.5-11.0) K/mm3 Hgb 11.2 L (11.8-15.2) gm/dl Hct 34.6 L (35.5-45.6) % Plt Count 758 H (140-440) K/mm3 Chloride 107.7 H (98-107) mmol/L Carbon Dioxide 13 L (22-30) mmol/L BUN 93 H (9-20) mg/dL Creatinine 4.0 H (0.8-1.5) mg/dL Glucose 118 H (75-100) mg/dL POC Glucose 135 H (70-105) Calcium 8.3 L (8.4-10.2) mg/dL
[2019-11-25] MEDS: NIFEdipine XL 60 MG TAB PO SCH (12:06)
--- NOTE | 2019-11-25 13:00 | Progress Note ---
Assessment and Plan 74-year-old male with 1. Acute cholecystitis 2. sepsis 2/ #1 and/or #5 2. Acute on chronic renal failure 3. Dehydration 4. CAD, cardiac stents on Plavix 5. UTI Echo: 11/18/19 - EF 55-60% U/s Abd: cholecystitis, sludge, pericholecystic fluid Plan: 1. NPO 2. IVF - NS@125cc/hr 3. prn pain and nausea control 4. IV abx, ID on board 5. Cardiology on board - stress test done - read and cards recs pending, Plavix stopped since 11/21 (last dose 11/20) 7. If patient is deemed high risk for surgery, would recommend IR placed percuatanous cholecystostomy tube. Plavix will need to be held 5-7 days prior to any procedure. Dr. Gomez on board. 8. Continue to monitor WBC Further recs pending cardiology recommendations. Thank you, please call with questions Subjective Date of service: 11/25/19 Narrative: Pt seen and examined. Stress test done today. States his abdominal pain is mild. No f/c. Objective Vital Signs - 12hr 11/25/19 11/25/19 11/25/19 03:14 03:24 04:14 Temperature 97.6 F Pulse Rate 82 Respiratory 20 18 20 Rate Blood Pressure 153/67 O2 Sat by Pulse 95 Oximetry 11/25/19 11/25/19 11/25/19 06:15 06:18 08:01 Temperature 97.6 F Pulse Rate 78 76 Respiratory 20 20 Rate Blood Pressure 137/53 O2 Sat by Pulse 94 93 Oximetry 11/25/19 10:32 Temperature Pulse Rate 80 Respiratory Rate Blood Pressure 141/57 O2 Sat by Pulse Oximetry - General physical appearance Narrative Exam: Gen.: Lethargic (has been baseline), arousable, oriented 1. No apparent distress ENT: No scleral icterus or conjunctival pallor CV: S1, S2 present Respiratory: No audible wheezes Abdomen: Soft, nondistended, minimal tenderness to palpation in the epigastrium (improved since last exam). No rebound, rigidity, guarding Extremities: No clubbing, cyanosis, edema : Macias in place with clear yellow urine - Labs 11/25/19 03:48 11/25/19 03:48 Diabetes panel 11/24/19 11/25/19 Range/Units 14:33 03:48 Sodium 138 141 (137-145) mmol/L Potassium 4.2 4.1 (3.6-5.0) mmol/L Chloride 105.1 107.7 H (98-107) mmol/L Carbon Dioxide 16 L 13 L (22-30) mmol/L BUN 99 H 93 H (9-20) mg/dL Creatinine 4.2 H 4.0 H (0.8-1.5) mg/dL Glucose 126 H 118 H (75-100) mg/dL Calcium 8.4 8.3 L (8.4-10.2) mg/dL Calcium panel 11/24/19 11/25/19 Range/Units 14:33 03:48 Calcium 8.4 8.3 L (8.4-10.2) mg/dL Pituitary panel 11/24/19 11/25/19 Range/Units 14:33 03:48 Sodium 138 141 (137-145) mmol/L Potassium 4.2 4.1 (3.6-5.0) mmol/L Chloride 105.1 107.7 H (98-107) mmol/L Carbon Dioxide 16 L 13 L (22-30) mmol/L BUN 99 H 93 H (9-20) mg/dL Creatinine 4.2 H 4.0 H (0.8-1.5) mg/dL Glucose 126 H 118 H (75-100) mg/dL Calcium 8.4 8.3 L (8.4-10.2) mg/dL Adrenal panel 11/24/19 11/25/19 Range/Units 14:33 03:48 Sodium 138 141 (137-145) mmol/L Potassium 4.2 4.1 (3.6-5.0) mmol/L Chloride 105.1 107.7 H (98-107) mmol/L Carbon Dioxide 16 L 13 L (22-30) mmol/L BUN 99 H 93 H (9-20) mg/dL Creatinine 4.2 H 4.0 H (0.8-1.5) mg/dL Glucose 126 H 118 H (75-100) mg/dL Calcium 8.4 8.3 L (8.4-10.2) mg/dL
[2019-11-25] MEDS: NICOTINE 14 MG/24 HR PATCH TD SCH (13:13)
--- NOTE | 2019-11-25 13:53 | Progress Note ---
Assessment and Plan Assessment and plan: Patient is a 74 yo man with a history of hypertension and DM type 2 who was admitted to [facility] 11/02/2019 from [facility] for mental health stabilization after Suicidal ideation. Labs significant for Creat 2.8. Nephrology was consulted for further evaluation. RN called me on 11/08/2019 about a "change in medical condition," patient choking on food and liquids, he is pale, altered. Prior night, before choking on food, he was combative and received 2 mg IM ativan. Trazadone was also newly added and increase in depakote. Now more lethargic and unable to eat, choking on food/liquid but he did received Lantus 30 units last night and BG dropped to 52. After IV dextrose the BG continued to drop to 48. Another amp of D5 was given. He was discharged form [facility] to med surg and admitted to 3rd Floor Medsur for intractable hypoglycemia requiring IV line. * 11/18/19 TTE Conclusisons: Est EF 55-60% * Thoracic XR: Degenerative changes * Lumbosacral XR IMPRESSION: 1. Compression L1 vertebral body age difficult determine recommend clinical correlation 2. Degenerative changes as noted * pCXR IMPRESSION: 1. No acute cardiopulmonary disease * Cervical Spine XR IMPRESSION: Extensive degenerative changes as noted * CT head without contrast IMPRESSION: 1. There is extensive microvascular angiopathy without CT evidence acute intracranial hemorrhage. 2. There is prominence of the ventricular system and cerebral atrophy as detailed above. * US Renal doppler IMPRESSION: No significant abnormality. Left renal cyst. No obstructive uropathy. * complete U/S abdomen Impression: Gallbladder sludge with suspected superimposed cholecystitis, large fatty liver, increased right renal echogenicity typical of chronic medical renal disease Acute Cholecystitis: GS following, see below AMS due Acute Metabolic Encephalopathy: treat with dextrose ARF/CKD 4, vasomotor nephropathy: worsening, get CT abd/pelvis, monitor BMP closely DM type 2 uncontrolled with hyperglycemia: use SSI, no Long acting because of poor oral intake UTI with sepsis: started on renal dose Levaquin 11/18/19 Chronic hypoxic Respiratory Failure: continue supplemental O2 Dementia: Mental health is following, antipsychotic stopped due to lethargy/decreased responsiveness Osteoporosis 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 11/21/19: Tmax 100.2F, bladder distended and tender, d/w ID, get ct abd/pelvis and place bernard for urinary retention. also renal function is worsening. CT abd/pelvis shows signs of acute cholecystitis. -made npo-consulted GS-notified ID-added IV flagyl with levaquin and vancomycin-STOP PLAVIX for possible lap julianne. ordered Complete US (need to re-evaluate kidneys with gallbladder) and D/w GS Dr. Vasquez. I needed more information on the plavix. So, I called daughter Candida and she told me about the 4 heart attacks and at least 8 shents and his Director Treasurer is Dr. Corona at [phone] and spoke with Candida and she faxed over the last progress note in which I placed in the chart for Cardiology to review. 11/22/19: Abdominal more distended today, d/w ID, adjustment done to ABX. I d/w Cardiology, stress test in AM, ok to hold ASA and plavix for surgery. Nephrology is following the worsening renal function. U/S abdomen complete Impression: Gallbladder sludge with suspected superimposed cholecystitis, large fatty liver, increased right renal echogenicity typical of chronic medical renal disease 11/23/19: Patient c/o less abdominal pains, asking for water. He is NPO for stress test this AM, no proper IV, patient refused placement of new IV, so stress test unable to be done. Last dose of Aspirin and Plavix were 11/21/2019, need 5 days before Lap julianne or IR Percutaneous tube placement (November 25 is the 5 day). WBC went back up to 26k, Cr is at 5.0 which is same as yesterday (Maybe plateau) 11/24/19: Still with abd pains, consulted IR for perc drain evaluation. Stress test in AM, patient has IV line now. 11/25/19: Stress test pending, exam and abdominal symptoms improved, d/w GS, ok to place dobhuff and restart feedings. Possible IR percutaneous cholecystomy tube vs Lap julianne after 5th day of ASA/Plavix withheld. Dr. Gomez is following also. History Interval history: Patient was seen and examined. Follow-up on current diagnosis of AMS, doing better. Overnight uneventful as no events directly reported to me. Imaging, nursing note, chart, labs and old chart reviewed. Discussed with patient. Hospitalist Physical - Physical exam Narrative exam: Gen: obese, nad, more awake and talkative orientated x 2, know name and knows that he is in hospital, missed year and name of hospital HEENT: NCAT, EOMI, PERRL but resist eyes being open, OP Clear Neck: supple, no adenopathy, no thyromegaly, no JVD CVS/Heart: RRR, normal S1S2, pulses present bilaterally Chest/Lungs: CTA B, Symmetrical chest expansion, good air entry bilaterally GI/Abdomen: soft, diffuse tender good bowel sounds, no guarding or rebound /Bladder: +suprapubic tenderness, no CVA or paraspinal tenderness Extermity/Skin: no c/c/e, no obvious rash MSK: doesnt follow commands Neuro: CN 2-12 grossly intact, doesnt follow commands Psych: calm, poor insight and judgement - Constitutional Vitals: Temp Pulse Resp BP Pulse Ox 97.6 F 89 20 141/56 93 11/25/19 08:01 11/25/19 11:11 11/25/19 08:01 11/25/19 11:11 11/25/19 08:01 General appearance: Present: no acute distress Results - Labs CBC & Chem 7: 11/25/19 03:48 11/25/19 03:48 Labs: Laboratory Last Values WBC 23.8 K/mm3 (4.5-11.0) H 11/25/19 03:48 RBC 3.82 M/mm3 (3.65-5.03) 11/25/19 03:48 Hgb 11.2 gm/dl (11.8-15.2) L 11/25/19 03:48 Hct 34.6 % (35.5-45.6) L 11/25/19 03:48 MCV 91 fl (84-94) 11/25/19 03:48 MCH 29 pg (28-32) 11/25/19 03:48 MCHC 33 % (32-34) 11/25/19 03:48 RDW 14.6 % (13.2-15.2) 11/25/19 03:48 Plt Count 758 K/mm3 (140-440) H 11/25/19 03:48 Lymph % (Auto) 24.9 % (13.4-35.0) 11/14/19 12:18 [place] % (Auto) 8.4 % (0.0-7.3) H 11/14/19 12:18 Eos % (Auto) 4.2 % (0.0-4.3) 11/14/19 12:18 Baso % (Auto) 0.8 % (0.0-1.8) 11/14/19 12:18 Lymph # 3.5 K/mm3 (1.2-5.4) 11/14/19 12:18 [place] # 1.2 K/mm3 (0.0-0.8) H 11/14/19 12:18 Eos # 0.6 K/mm3 (0.0-0.4) H 11/14/19 12:18 Baso # 0.1 K/mm3 (0.0-0.1) 11/14/19 12:18 Add Manual Diff Complete 11/21/19 09:10 Total Counted 100 11/21/19 09:10 Seg Neutrophils % 61.7 % (40.0-70.0) 11/14/19 12:18 Seg Neuts % (Manual) 89.0 % (40.0-70.0) H 11/21/19 09:10 Band Neutrophils % 0 % 11/21/19 09:10 Lymphocytes % (Manual) 4.0 % (13.4-35.0) L 11/21/19 09:10 Reactive Lymphs % (Man) 0 % 11/21/19 09:10 Monocytes % (Manual) 7.0 % (0.0-7.3) 11/21/19 09:10 Eosinophils % (Manual) 0 % (0.0-4.3) 11/21/19 09:10 Basophils % (Manual) 0 % (0.0-1.8) 11/21/19 09:10 Metamyelocytes % 0 % 11/21/19 09:10 Myelocytes % 0 % 11/21/19 09:10 Promyelocytes % 0 % 11/21/19 09:10 Blast Cells % 0 % 11/21/19 09:10 Nucleated RBC % Not Reportable 11/21/19 09:10 Seg Neutrophils # 8.6 K/mm3 (1.8-7.7) H 11/14/19 12:18 Seg Neutrophils # Man 23.2 K/mm3 (1.8-7.7) H 11/21/19 09:10 Band Neutrophils # 0.0 K/mm3 11/21/19 09:10 Lymphocytes # (Manual) 1.0 K/mm3 (1.2-5.4) L 11/21/19 09:10 Abs React Lymphs (Man) 0.0 K/mm3 11/21/19 09:10 Monocytes # (Manual) 1.8 K/mm3 (0.0-0.8) H 11/21/19 09:10 Eosinophils # (Manual) 0.0 K/mm3 (0.0-0.4) 11/21/19 09:10 Basophils # (Manual) 0.0 K/mm3 (0.0-0.1) 11/21/19 09:10 Metamyelocytes # 0.0 K/mm3 11/21/19 09:10 Myelocytes # 0.0 K/mm3 11/21/19 09:10 Promyelocytes # 0.0 K/mm3 11/21/19 09:10 Blast Cells # 0.0 K/mm3 11/21/19 09:10 WBC Morphology Not Reportable 11/21/19 09:10 Hypersegmented Neuts Not Reportable 11/21/19 09:10 Hyposegmented Neuts Not Reportable 11/21/19 09:10 Hypogranular Neuts Not Reportable 11/21/19 09:10 Smudge Cells Not Reportable 11/21/19 09:10 Toxic Granulation Not Reportable 11/21/19 09:10 Toxic Vacuolation Not Reportable 11/21/19 09:10 Dohle Bodies Not Reportable 11/21/19 09:10 Pelger-Huet Anomaly Not Reportable 11/21/19 09:10 [place] Rods Not Reportable 11/21/19 09:10 Platelet Estimate Consistent w auto 11/21/19 09:10 Clumped Platelets Few 11/21/19 09:10 Plt Clumps, EDTA Not Reportable 11/21/19 09:10 Large Platelets Few 11/21/19 09:10 Giant Platelets Not Reportable 11/21/19 09:10 Platelet Satelliting Not Reportable 11/21/19 09:10 Plt Morphology Comment Not Reportable 11/21/19 09:10 RBC Morphology Not Reportable 11/21/19 09:10 Dimorphic RBCs Not Reportable 11/21/19 09:10 Polychromasia Not Reportable 11/21/19 09:10 Hypochromasia Not Reportable 11/21/19 09:10 Poikilocytosis Not Reportable 11/21/19 09:10 Anisocytosis Not Reportable 11/21/19 09:10 Microcytosis Not Reportable 11/21/19 09:10 Macrocytosis Not Reportable 11/21/19 09:10 Spherocytes Not Reportable 11/21/19 09:10 Pappenheimer Bodies Not Reportable 11/21/19 09:10 Sickle Cells Not Reportable 11/21/19 09:10 Target Cells Not Reportable 11/21/19 09:10 Tear Drop Cells Not Reportable 11/21/19 09:10 Ovalocytes Not Reportable 11/21/19 09:10 Helmet Cells Not Reportable 11/21/19 09:10 [place] Bodies Not Reportable 11/21/19 09:10 [place] Rings Not Reportable 11/21/19 09:10 [place] Cells Not Reportable 11/21/19 09:10 Bite Cells Not Reportable 11/21/19 09:10 Crenated Cell Not Reportable 11/21/19 09:10 Elliptocytes Not Reportable 11/21/19 09:10 Acanthocytes (Spur) Not Reportable 11/21/19 09:10 Rouleaux Not Reportable 11/21/19 09:10 Hemoglobin C Crystals Not Reportable 11/21/19 09:10 Schistocytes Not Reportable 11/21/19 09:10 Malaria parasites Not Reportable 11/21/19 09:10 Jeremie Bodies Not Reportable 11/21/19 09:10 Hem Pathologist Commnt No 11/21/19 09:10 Sodium 141 mmol/L (137-145) 11/25/19 03:48 Potassium 4.1 mmol/L (3.6-5.0) 11/25/19 03:48 Chloride 107.7 mmol/L (98-107) H 11/25/19 03:48 Carbon Dioxide 13 mmol/L (22-30) L 11/25/19 03:48 Anion Gap 24 mmol/L 11/25/19 03:48 BUN 93 mg/dL (9-20) H 11/25/19 03:48 Creatinine 4.0 mg/dL (0.8-1.5) H 11/25/19 03:48 Estimated GFR 15 ml/min 11/25/19 03:48 BUN/Creatinine Ratio 23 % 11/25/19 03:48 Glucose 118 mg/dL (75-100) H 11/25/19 03:48 POC Glucose 103 (70-105) 11/25/19 07:43 Calcium 8.3 mg/dL (8.4-10.2) L 11/25/19 03:48 Phosphorus 5.00 mg/dL (2.5-4.5) H 11/14/19 12:18 Magnesium 2.40 mg/dL (1.7-2.3) H 11/14/19 12:18 Total Bilirubin 0.20 mg/dL (0.1-1.2) 11/22/19 05:21 Direct Bilirubin < 0.2 mg/dL (0-0.2) 11/14/19 12:18 Indirect Bilirubin 0.2 mg/dL 11/14/19 12:18 AST 11 units/L (5-40) 11/22/19 05:21 ALT 8 units/L (7-56) 11/22/19 05:21 Alkaline Phosphatase 105 units/L (35-129) 11/22/19 05:21 Ammonia 16.0 umol/L (25-60) L 11/14/19 12:18 Total Protein 6.4 g/dL (6.3-8.2) 11/22/19 05:21 Albumin 2.2 g/dL (3.9-5) L 11/22/19 05:21 Albumin/Globulin Ratio 0.5 % 11/22/19 05:21 Urine Color Maeve (Yellow) 11/18/19 20:00 Urine Turbidity Cloudy (Clear) 11/18/19 20:00 Urine pH 5.0 (5.0-7.0) 11/18/19 20:00 Ur Specific [place] 1.021 (1.003-1.030) 11/18/19 20:00 Urine Protein 100 mg/dl mg/dL (Negative) 11/18/19 20:00 Urine Glucose (UA) >=500 mg/dL (Negative) 11/18/19 20:00 Urine Ketones Neg mg/dL (Negative) 11/18/19 20:00 Urine Blood Sm (Negative) 11/18/19 20:00 Urine Nitrite Neg (Negative) 11/18/19 20:00 Urine Bilirubin Neg (Negative) 11/18/19 20:00 Urine Urobilinogen < 2.0 mg/dL (<2.0) 11/18/19 20:00 Ur Leukocyte Esterase Tr (Negative) 11/18/19 20:00 Urine WBC (Auto) > 182.0 /HPF (0.0-6.0) H 11/18/19 20:00 Urine RBC (Auto) 9.0 /HPF (0.0-6.0) 11/18/19 20:00 U Epithel Cells (Auto) 5.0 /HPF (0-13.0) 11/18/19 20:00 Urine Bacteria (Auto) 2+ /HPF (Negative) 11/18/19 20:00 Urine Mucus 2+ /HPF 11/18/19 20:00 Urine Creatinine 106.3 mg/dL (0.1-20.0) H 11/14/19 06:45 Urine Sodium 66 mmol/L 11/14/19 06:45 Random Vancomycin 9.3 ug/mL (0-40.0) 11/23/19 09:40 Influenza A (Rapid) Negative (Negative) 11/20/19 Unknown Influenza A (RT-PCR) Negative (Negative) 11/20/19 Unknown Influenza B (Rapid) Negative (Negative) 11/20/19 Unknown Influenza B (RT-PCR) Negative (Negative) 11/20/19 Unknown Active Medications - Current Medications Current Medications: Generic Name Dose Route Start Last Admin Trade Name Freq PRN Reason Stop Dose Admin Acetaminophen 650 mg 11/10/19 12:54 11/25/19 06:18 Tylenol PO 650 mg Q6H PRN Administration Pain, Mild (1-3) Dextrose 50 ml 11/11/19 11:04 D50w (25gm) Syringe IV Q30MIN PRN Hypoglycemia Protocol Ergocalciferol 50,000 unit 11/17/19 10:00 11/24/19 10:12 Vitamin D2 PO 50,000 unit Vazquez GETACHEW Administration Famotidine 20 mg 11/17/19 10:00 11/25/19 09:01 Pepcid PO Not Given DAILY [facility] Heparin Sodium (Porcine) 5,000 unit 11/09/19 10:00 11/25/19 09:01 Heparin SUB-Q Not Given Q12HR [facility] Hydralazine HCl 5 mg 11/11/19 03:04 11/11/19 08:08 Apresoline IV 5 mg Q6HR PRN Administration Blood Pressure Hydralazine HCl 50 mg 11/19/19 22:00 11/25/19 06:18 Apresoline PO 50 mg Q8HR GETACHEW Administration Metronidazole 500 mg in 100 mls @ 100 mls/hr 11/21/19 17:00 11/25/19 00:07 Flagyl 500 Mg/100 Ml IV 100 mls/hr Q8H [facility] Administration Protocol Sodium Chloride 1,000 mls @ 125 mls/hr 11/21/19 16:45 11/24/19 23:19 Nacl 0.9% 1000 Ml IV 125 mls/hr DIRECT GETACHEW Administration Levofloxacin/Dextrose 500 mg in 100 mls @ 100 mls/hr 11/22/19 13:00 11/24/19 09:59 Levaquin 500mg/100ml IV 100 mls/hr Q48HR [facility] Administration Insulin Glargine 10 units 11/15/19 22:00 11/24/19 22:58 Lantus SUB-Q Not Given QHS [facility] Insulin Human Lispro 0 unit 11/17/19 16:30 11/25/19 07:41 Humalog SUB-Q Not Given AC [facility] Protocol Insulin Human Lispro 0 unit 11/17/19 22:00 11/24/19 22:58 [facility] Protocol Isosorbide Mononitrate 30 mg 11/17/19 10:00 11/25/19 09:00 Imdur PO Not Given DAILY [facility] Metoprolol Tartrate 100 mg 11/10/19 16:00 11/25/19 09:02 Metoprolol PO Not Given BID [facility] Nicotine 14 mg 11/09/19 20:00 11/25/19 13:13 Habitrol TD 14 mg QDAY [facility] Administration Nifedipine 60 mg 11/17/19 10:00 11/25/19 12:06 Procardia Xl PO Not Given QDAY [facility] Nitroglycerin 0.4 mg 11/10/19 03:32 11/10/19 04:15 Nitrostat SL 0.4 mg .Q5MIN PRN Administration Chest Pain Ondansetron HCl 4 mg 11/21/19 17:53 11/24/19 05:55 Zofran IV 4 mg Q6H PRN Administration Nausea And Vomiting Sodium Bicarbonate 650 mg 11/25/19 14:00 Sodium Bicarbonate PO TID GETACHEW Tamsulosin HCl 0.4 mg 11/17/19 10:00 11/25/19 09:00 Flomax PO Not Given QDAY GETACHE[facility] Tramadol HCl 25 mg 11/21/19 17:43 11/25/19 03:14 Ultram PO 25 mg Q4H PRN Administration Pain, Moderate (4-6) Nutrition/Malnutrition Assess - Dietary Evaluation Nutrition/Malnutrition Findings: Nutrition Notes Start: 11/08/19 10:31 Freq: Status: Active Protocol: Document 11/11/19 14:20 LM (Rec: 11/11/19 14:21 LM [email or web address]) Nutrition Notes Need for Assessment generated from: LOS Initial or Follow up Brief Note Subjective/Other Information Screen for LOS. Pt eating 75- 100%. Nutrition Intervention Revisit per MD consult or patient Sign Off request:
[2019-11-25] MEDS: SODIUM BICARBONATE 650 MG TAB PO SCH ×2 (14:08→22:32)
[2019-11-25] MEDS ORDERED: LIPASE 10,500/PROTEASE 25,000/AMYLASE 43,750 (UNITS) DR CAP FEEDTUBE PRN (15:11)
[2019-11-25] MEDS ORDERED: SODIUM BICARBONATE 325 MG TAB FEEDTUBE PRN (15:11)
[2019-11-25] MEDS ORDERED: SIMPLE SYRUP 15 ML FEEDTUBE PRN ×2 (15:11)
[2019-11-25] MEDS: cefTRIAXone/NS 1 GM/50 ML 1 GM/50 ML BAG IV SCH (16:30)
[2019-11-25] MEDS: INSULIN GLARGINE 100 UNITS/ML SUB-Q SCH (22:33)
[2019-11-26] MEDS: metroNIDAZOLE/NS 500 MG/100 ML 500 MG/100 ML BAG IV SCH ×3 (00:29→16:56)
[2019-11-26 05:25] LABS: Hematocrit 34.4 % (35.5-45.6); Hemoglobin 11.1 gm/dl (11.8-15.2); Mean Corpuscular HGB Conc 32 % (32-34); Mean Corpuscular Volume 90 fl (84-94); Platelet Count 836 K/mm3 (140-440); Red Blood Count 3.81 M/mm3 (3.65-5.03); Red Cell Distribution Width 14.6 % (13.2-15.2)
[2019-11-26 05:44] LABS: Calcium 8.4 mg/dL (8.4-10.2)
[2019-11-26] MEDS: hydrALAZINE 25 MG TAB PO SCH ×3 (05:53→22:10)
[2019-11-26] MEDS: NITROGLYCERIN 0.4 MG TAB SUBL SL PRN (05:53)
[2019-11-26] MEDS: SODIUM CHLORIDE 0.9% 1000 ML 1,000 ML IV SCH ×2 (05:54→15:09)
[2019-11-26] MEDS: traMADol 50 MG TAB PO PRN ×4 (05:58→22:09)
[2019-11-26] MEDS: INSULIN LISPRO 100 UNIT/ML SUB-Q SCH ×4 (08:40→22:10)
--- NOTE | 2019-11-26 09:03 | Progress Note ---
Assessment and Plan 1. 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 Renal function is slowly improving, currently 3.7 from 4.0. Intermittent bladder scans. Renal US showed combination of complex and simple cysts in left kidney, negative for hydro. Monitor renal function closely. Avoid nephrotoxic agents. Meds dosage based on GFR. 2. FEN: Metabolic acidosis, improving, continue sodium bicarb, monitor. Mild hyponatremia, improved, monitor. Monitor lytes. 3. Suicidal/homicidal ideation. Was d/c from [facility] on 11/08. Seen by psych. 4. Metabolic encephalopathy, POA. Monitor. 5. Leukocytosis. 6. Diabetes mellitus with hyperglycemia. Monitor closely. 7. COPD. 8. CAD. 9. Presumed chronic congestive heart failure: Normal EF. 10.Right rib fracture. 11. Hypertension: Hydralazine increased to TID 11/20. BP is fluctuating, elevated a time of exam but patient complaining of pain. Continue to monitor BP closely. 12. Urinary tract infection: Macias inserted 11/21 d/t urinary retention. On abx. 13. Acute cholecystitis: CT abd confirmed abnormal gallbladder with carleen-cholecystic fat stranding. Intermittent low-grade fevers and tachycardia. Gen surg following, but unsure if pt candidate for surgery at this time. Cards was consulted for evaluation of pre-operative cardiac risk and had stress test 11/25. Currently on clear liquid diet as pt resistant to NG tube. Subjective Date of service: 11/26/19 Principal diagnosis: cholecystitis Interval history: Patient was seen and examined at the bedside. He is awake in bed at time of exam. He is asking for pain medication for what he describes as a dull aching in his stomach. RN informed but states he is not due for pain meds at this time. Objective - Exam Narrative Exam: General appearance: well-developed, well-nourished, appears stated age HEENT: ATNC, THIEN Neck: neck supple, trachea midline Respiratory: Clear to Auscultation, diminished bibasilar Heart: regular, S1S2, no murmurs Gastrointestinal: soft, normoactive bowel sounds, not absent, not tender, no pain on palpation Integumentary: no rash, warm and dry : Macias catheter present Neurologic: cooperative with exam, alert, verbal communication Musculoskeletal: no edema - Vital Signs Vital signs: Vital Signs - 12hr 11/25/19 11/26/19 11/26/19 22:00 02:31 05:53 Temperature 97.8 F Pulse Rate 80 84 Pulse Rate [ 96 H Right Radial] Respiratory 20 20 Rate Blood Pressure 174/73 183/65 O2 Sat by Pulse 93 94 Oximetry 11/26/19 11/26/19 07:32 08:09 Temperature 98.3 F Pulse Rate 89 Pulse Rate [ Right Radial] Respiratory 18 22 Rate Blood Pressure 170/74 O2 Sat by Pulse 95 94 Oximetry - Lab 11/26/19 04:24 11/26/19 04:24 Most recent lab results Calcium 8.4 mg/dL (8.4-10.2) 11/26/19 04:24 Phosphorus 5.00 mg/dL (2.5-4.5) H 11/14/19 12:18 Magnesium 2.40 mg/dL (1.7-2.3) H 11/14/19 12:18 Urine Creatinine 106.3 mg/dL (0.1-20.0) H 11/14/19 06:45 Urine Sodium 66 mmol/L 11/14/19 06:45 Medications & Allergies - Medications Allergies/Adverse Reactions: Allergies Penicillins Allergy (Severe, Verified 11/22/19 13:01) Unknown PATIENT'S DAUGHTER KARINA IBRAHIM STATES SHE DOES NOT KNOW THE EXACT REACTION BUT WAS TOLD PCN WOULD "KILL HIM" morphine Adverse Reaction (Verified 11/22/19 13:02) HALLUCINATIONS Tetanus Vaccines and Toxoid Adverse Reaction (Verified 11/01/19 23:50) Unknown Home Medications: Home Medications Medication Instructions Recorded Confirmed Last Taken Type Adult Aspirin 650 mg PO BID 11/02/19 11/17/19 Unknown History Citalopram 20 mg PO BID 11/02/19 11/17/19 Unknown History Clopidogrel [Plavix] 75 mg PO DAILY 11/02/19 11/17/19 Unknown History Ergocalciferol [Vitamin D2] 50,000 units PO QWEEK 11/02/19 11/17/19 Unknown History Famotidine [Pepcid] 20 mg PO DAILY 11/02/19 11/17/19 Unknown History Furosemide [Lasix TAB] 40 mg PO DAILY 11/02/19 11/17/19 Unknown History Gabapentin 300 mg PO TID 11/02/19 11/17/19 Unknown History Isosorbide Mononitrate 30 mg PO DAILY 11/02/19 11/17/19 Unknown History Lantus VIAL 30 units SQ QHS 11/02/19 11/17/19 Unknown History Metoprolol-HCTZ 100-50 mg TAB 50 mg PO BID 11/02/19 11/17/19 Unknown History NIFEdipine [Nifedipine ER] 60 mg PO DAILY 11/02/19 11/17/19 Unknown History Tamsulosin 0.4 mg PO DAILY 11/02/19 11/17/19 Unknown History hydrALAZINE 50 mg PO TID 11/02/19 11/17/19 Unknown History Active Medications: Generic Name Dose Route Start Last Admin Trade Name Freq PRN Reason Stop Dose Admin Acetaminophen 650 mg 11/10/19 12:54 11/25/19 06:18 Tylenol PO 650 mg Q6H PRN Administration Pain, Mild (1-3) Lipase/Protease/Amylase 1 each 11/25/19 15:[address] 10,500 Unit FEEDTUBE PRN PRN For Clogged Feeding Tube Dextrose 50 ml 11/11/19 11:04 D50w (25gm) Syringe IV Q30MIN PRN Hypoglycemia Protocol Ergocalciferol 50,000 unit 11/17/19 10:00 11/24/19 10:12 Vitamin D2 PO 50,000 unit Vazquez GETACHEW Administration Famotidine 20 mg 11/17/19 10:00 11/25/19 09:01 Pepcid PO Not Given DAILY [facility] Heparin Sodium (Porcine) 5,000 unit 11/09/19 10:00 11/25/19 22:33 Heparin SUB-Q 5,000 unit Q12HR [facility] Administration Hydralazine HCl 5 mg 11/11/19 03:04 11/11/19 08:08 Apresoline IV 5 mg Q6HR PRN Administration Blood Pressure Hydralazine HCl 50 mg 11/19/19 22:00 11/26/19 05:53 Apresoline PO 50 mg Q8HR [facility] Administration Metronidazole 500 mg in 100 mls @ 100 mls/hr 11/21/19 17:00 11/26/19 00:29 Flagyl 500 Mg/100 Ml IV 100 mls/hr Q8H [facility] Administration Protocol Sodium Chloride 1,000 mls @ 125 mls/hr 11/21/19 16:45 11/26/19 05:54 Nacl 0.9% 1000 Ml IV 125 mls/hr DIRECT [facility] Administration Ceftriaxone Sodium 1 gm in 50 mls @ 100 mls/hr 11/25/19 16:30 11/25/19 16:30 Rocephin/Ns 1 Gm/50 Ml IV 100 mls/hr Q24H [facility] Administration Protocol Insulin Glargine 10 units 11/15/19 22:00 11/25/19 22:33 Lantus SUB-Q 10 units QHS [facility] Administration Insulin Human Lispro 0 unit 11/17/19 16:30 11/26/19 08:40 Humalog SUB-Q Not Given AC [facility] Protocol Insulin Human Lispro 0 unit 11/17/19 22:00 11/25/19 22:38 [facility] Protocol Isosorbide Mononitrate 30 mg 11/17/19 10:00 11/25/19 09:00 Imdur PO Not Given DAILY [facility] Metoprolol Tartrate 100 mg 11/10/19 16:00 11/25/19 22:33 Metoprolol PO 100 mg BID [facility] Administration Nicotine 14 mg 11/09/19 20:00 11/25/19 13:13 Habitrol TD 14 mg QDAY [facility] Administration Nifedipine 60 mg 11/17/19 10:00 11/25/19 12:06 Procardia Xl PO Not Given QDAY [facility] Nitroglycerin 0.4 mg 11/10/19 03:32 11/26/19 05:53 Nitrostat SL 0.4 mg .Q5MIN PRN Administration Chest Pain Ondansetron HCl 4 mg 11/21/19 17:53 11/24/19 05:55 Zofran IV 4 mg Q6H PRN Administration Nausea And Vomiting Simple Syrup 15 ml 11/25/19 15:11 Simple Syrup FEEDTUBE PRN PRN Hypoglycemia Simple Syrup 30 ml 11/25/19 15:11 Simple Syrup FEEDTUBE PRN PRN Hypoglycemia Sodium Bicarbonate 650 mg 11/25/19 14:00 11/25/19 22:32 Sodium Bicarbonate PO 650 mg TID GETACHEW Administration Sodium Bicarbonate 325 mg 11/25/19 15:11 Sodium Bicarbonate FEEDTUBE PRN PRN For Clogged Feeding Tube Tamsulosin HCl 0.4 mg 11/17/19 10:00 11/25/19 09:00 Flomax PO Not Given QDAY [facility] Tramadol HCl 25 mg 11/21/19 17:43 11/26/19 05:58 Ultram PO 25 mg Q4H PRN Administration Pain, Moderate (4-6)
[2019-11-26] MEDS: SODIUM BICARBONATE 650 MG TAB PO SCH ×3 (09:15→22:09)
[2019-11-26] MEDS: METOPROLOL TARTRATE 100 MG TAB PO SCH ×2 (09:50→22:09)
[2019-11-26] MEDS: NIFEdipine XL 60 MG TAB PO SCH (09:50)
[2019-11-26] MEDS: FAMOTIDINE 20 MG TAB PO SCH (09:50)
[2019-11-26] MEDS: NICOTINE 14 MG/24 HR PATCH TD SCH (09:51)
[2019-11-26] MEDS: TAMSULOSIN 0.4 MG CAP PO SCH (09:51)
[2019-11-26] MEDS: HEPARIN 5,000 UNIT/1 ML VIAL SUB-Q SCH ×2 (09:54→22:10)
--- NOTE | 2019-11-26 10:49 | Progress Note ---
Assessment and Plan Echo done 11/18/2019 showed EF 55-60%, no significant abnormalities. S/p lexiscan MPI stress test yesterday which was negative. Currently stable cardiac status. Pt is currently at intermediate cardiovascular risk for contemplated surgery. There are no immediate cardiac contraindications to proceeding with surgery at this time. Cont to hold ASA and Plavix at this time and recommend resumption of ASA 81mg daily following surgery if/when ok per general surgery team. Will follow on as needed basis. The patient has been seen in conjunction with Dr. Noemy Reyes who agrees with the assessment and plan of care. - Patient Problems (1) Acute cholecystitis Current Visit: Yes Status: Suspected (2) UTI (urinary tract infection) Current Visit: Yes Status: Acute (3) Sepsis Current Visit: Yes Status: Suspected (4) Acute on chronic renal failure Current Visit: Yes Status: Acute (5) AMS (altered mental status) Current Visit: Yes Status: Acute (6) Suicidal ideation Current Visit: Yes Status: Acute (7) CAD (coronary artery disease) Current Visit: Yes Status: Chronic (8) Stented coronary artery Current Visit: Yes Status: Chronic (9) LBBB (left bundle branch block) Current Visit: Yes Status: Acute (10) HTN (hypertension) Current Visit: Yes Status: Chronic (11) Hyperlipidemia Current Visit: Yes Status: Chronic (12) Diabetes Current Visit: Yes Status: Chronic (13) Tobacco use Current Visit: Yes Status: Chronic Subjective Date of service: 11/26/19 Principal diagnosis: cholecystitis Interval history: pt resting in bed, no current complaints. not on remote telemetry. Objective Last Vital Signs Temp 98.3 F 11/26/19 07:32 Pulse 89 11/26/19 09:51 Resp 22 11/26/19 09:52 BP 170/74 11/26/19 09:51 Pulse Ox 94 11/26/19 08:09 - Physical Examination General: No Apparent Distress HEENT: Positive: PERRL, Normocephaly, Mucus Membranes Moist Neck: Positive: neck supple, trachea midline Cardiac: Positive: Reg Rate and Rhythm, S1/S2 Lungs: Positive: Decreased Breath Sounds Neuro: Positive: Grossly Intact Abdomen: Positive: Tender Skin: Negative: Rash Musculoskeletal: No Pain Extremities: Absent: edema - Labs and Meds CBC 11/26/19 Range/Units 04:24 WBC 21.9 H (4.5-11.0) K/mm3 RBC 3.81 (3.65-5.03) M/mm3 Hgb 11.1 L (11.8-15.2) gm/dl Hct 34.4 L (35.5-45.6) % Plt Count 836 H (140-440) K/mm3 Comprehensive Metabolic Panel 11/26/19 Range/Units 04:24 Sodium 142 (137-145) mmol/L Potassium 3.9 (3.6-5.0) mmol/L Chloride 107.9 H (98-107) mmol/L Carbon Dioxide 16 L (22-30) mmol/L BUN 76 H (9-20) mg/dL Creatinine 3.7 H (0.8-1.5) mg/dL Glucose 123 H (75-100) mg/dL Calcium 8.4 (8.4-10.2) mg/dL - Imaging and Cardiology EKG: report reviewed, image reviewed Echo: report reviewed (11/18/2019 showed EF 55-60%, no significant abnormalities.) - EKG Sinus rhythms and dysrhythmias: sinus rhythm AV and intraventricular conduction: left bundle branch block
--- NOTE | 2019-11-26 11:21 | Event Note ---
Date: 11/26/19 Chart reviewed. Spoke with nursing yesterday evening regarding inability to place dobhoff due to patient refusal. Per nursing, patient was completely alert and awake. I advised RN to perform bedside swallow evaluation and start clear liquid diet if patient tolerated. Hold off on dobhoff for now. Per nursing notes patient did well with sips of water with meds. WBC improving and patient has been afebrile. Continue abx. Awaiting results of stress test and cardiology preop risk assessment.
--- NOTE | 2019-11-26 12:30 | Progress Note ---
Assessment and Plan Acute Cholecystitis: GS following, plan for cholecystectomy if stress test normal AMS due Acute Metabolic Encephalopathy: due to hypoglycemia, treated with dextrose ARF/CKD 4, vasomotor nephropathy: s/p CT abd/pelvis, monitor BMP closely DM type 2 uncontrolled with hyperglycemia: use SSI, no Long acting because of poor oral intake UTI with sepsis: started on renal dose Levaquin 11/18/19, completed Chronic hypoxic Respiratory Failure: continue supplemental O2 Dementia: Mental health is following, antipsychotic stopped due to lethargy/d ecreased responsiveness Osteoporosis with multiple old rib fractures: treat with vitamin D and calcium Urinary retention: placed bernard Hypoglycemia resolved Hypotension resolved Disposition: SNF when medical stable, level 2 triggered from state DVT ppx full code Brief History Patient is a 74 yo man with a history of hypertension and DM type 2 who was admitted to [facility] 11/02/2019 from [facility] for mental health stabilization after Suicidal ideation. Labs significant for Creat 2.8. Nephrology was consulted for further evaluation. RN called me on 11/08/2019 about a "change in medical condition," patient choking on food and liquids, he is pale, altered. Prior night, before choking on food, he was combative and rec eived 2 mg IM ativan. Trazadone was also newly added and increase in depakote. Now more lethargic and unable to eat, choking on food/liquid but he did received Lantus 30 units last night and BG dropped to 52. After IV dextrose the BG continued to drop to 48. Another amp of D5 was given. He was discharged form [facility] to med surg and admitted to 3rd Floor Medsur for intractable hypoglycemia requiring IV line. He also then c/o abdominal pain, a CT abdomen/pelvis showed Gallbladder distention and stranding in the pericholecystic fat suggests possible acute cholecystitis. GS consulted, plan for surgery if stress test normal * 11/18/19 TTE Conclusisons: Est EF 55-60% * Thoracic XR: Degenerative changes * Lumbosacral XR IMPRESSION: 1. Compression L1 vertebral body age difficult determine recommend clinical correlation 2. Degenerative changes as noted * pCXR IMPRESSION: 1. No acute cardiopulmonary disease * Cervical Spine XR IMPRESSION: Extensive degenerative changes as noted * CT head without contrast IMPRESSION: 1. There is extensive microvascular angiopathy without CT evidence acute intracranial hemorrhage. 2. There is prominence of the ventricular system and cerebral atrophy as detailed above. * US Renal doppler IMPRESSION: No significant abnormality. Left renal cyst. No obstructive uropathy. * complete U/S abdomen Impression: Gallbladder sludge with suspected superimposed cholecystitis, large fatty liver, increased right renal echogenicity typical of chronic medical renal disease * CT abdomen/pelvis: 1. Gallbladder distention and stranding in the pericholecystic fat suggests possible acute cholecystitis. 2. Acalculus cholecystitis is a possibility given that there are no radiopaque stones identified. Recommend further evaluation with ultrasound. 3. No urinary calcul us and no evidence of hydronephrosis or pyelonephrosis. 4. No abscess. Hospitalist Physical Gen: obese, nad, more awake and talkative orientated x 2, know name and knows that he is in hospital, missed year and name of hospital HEENT: NCAT, EOMI, PERRL but resist eyes being open, OP Clear Neck: supple, no adenopathy, no thyromegaly, no JVD CVS/Heart: RRR, normal S1S2, pulses present bilaterally Chest/Lungs: CTA B, Symmetrical chest expansion, good air entry bilaterally GI/Abdomen: soft, diffuse tender good bowel sounds, no guarding or rebound /Bladder: +suprapubic tenderness, no CVA or paraspinal tenderness Extermity/Skin: no c/c/e, no obvious rash MSK: doesnt follow commands Neuro: CN 2-12 grossly intact, doesnt follow commands Psych: calm, poor insight and judgment Subjective Date of service: 11/26/19 Principal diagnosis: cholecystitis Interval history: Patient seen and examined c/p abdominal pain, tolerating clear liquid diet stress test result pending, discussed with Dr Vasquez Objective - Constitutional Vitals: Vital Signs - 12hr 11/26/19 11/26/19 11/26/19 02:31 05:53 07:32 Temperature 97.8 F 98.3 F Pulse Rate 80 84 89 Respiratory 20 18 Rate Blood Pressure 174/73 183/65 170/74 O2 Sat by Pulse 94 95 Oximetry 11/26/19 11/26/19 11/26/19 08:09 09:50 09:51 Temperature Pulse Rate 89 89 Respiratory 22 Rate Blood Pressure 170/74 170/74 O2 Sat by Pulse 94 Oximetry 11/26/19 09:52 Temperature Pulse Rate Respiratory 22 Rate Blood Pressure O2 Sat by Pulse Oximetry - Labs CBC & Chem 7: 11/26/19 04:24 11/28/19 05:54 Labs: Abnormal lab results 11/25/19 11/25/19 11/26/19 Range/Units 16:39 21:39 04:24 WBC 21.9 H (4.5-11.0) K/mm3 Hgb 11.1 L (11.8-15.2) gm/dl Hct 34.4 L (35.5-45.6) % Plt Count 836 H (140-440) K/mm3 Chloride (98-107) mmol/L Carbon Dioxide (22-30) mmol/L BUN (9-20) mg/dL Creatinine (0.8-1.5) mg/dL Glucose (75-100) mg/dL POC Glucose 146 H 125 H (70-105) 11/26/19 11/26/19 Range/Units 04:24 07:43 WBC (4.5-11.0) K/mm3 Hgb (11.8-15.2) gm/dl Hct (35.5-45.6) % Plt Count (140-440) K/mm3 Chloride 107.9 H (98-107) mmol/L Carbon Dioxide 16 L (22-30) mmol/L BUN 76 H (9-20) mg/dL Creatinine 3.7 H (0.8-1.5) mg/dL Glucose 123 H (75-100) mg/dL POC Glucose 107 H (70-105)
--- NOTE | 2019-11-26 13:38 | Progress Note ---
Assessment and Plan Cultures: Blood culture 11/18/2019 no growth. Urine culture 11/14/2019 <10K colonies. Urine culture on 11/18/2019: >100K, Enterococcus faecalis. Assessment/plan: 74 yo male with history of hypertension, CAD, COPD, CHF, CKD4 and diabetes admitted to [facility] from [facility] on 11/09/2019 for mental health stabilization after suicidal ideation, now with SIRS: #SIRS: not present on admission, fevers better continues with leukocytosis; etiology UTI +/- acute cholecystitis #Acute cholecystitis: seen on CT. Surgery on board, awaiting surgery v/s IR drainage. #UTI: patient now with a condom cath without output. Urine culture on 11/18/2019 >100K E.faecalis. #STEPHANIE on CKD: renally adjusted abx, nephrology following. #Acute encephalopathy: better #Penicillin allergy: unclear reaction, remote but tolerating Ceftriaxone, so monitor. #leucocytosis and reactive thrombocytosis: from infection. Recommendations: added IV Linezolid for Enterococcus UTI coverage. Has penicillin allergy, tolerating Ceftriaxone, so continue (low risk of cross sensitivity with Penicillin) Avoiding Vancomycin given renal dysfunction continue Flagyl IV monitor CBC Claire Villalobos MD, FACP [facility] ([facility] C: [phone] O: [phone] F: [phone] Subjective Date of service: 11/26/19 Principal diagnosis: cholecystitis Interval history: No fever. Denies any complaints. Knows he is in the hospital. Asking for a "José Antonio Huggins". Tolerated Ceftriaxone without issues. No rash. Objective - Exam Narrative Exam: Constitutional: Alert, cooperative. No acute distress Head, Ears, Nose: Normocephalic, atraumatic. External ears, nose normal Eyes: Conjunctivae/corneas clear. No icterus. No ptosis. Neck: Supple, no meningeal signs Cardiovascular: S1, S2 normal. Respiratory: Good air entry, clear to auscultation bilaterally GI: soft, diffuse tenderness, bowel sounds hypo. Musculoskeletal: No pedal edema, no cyanosis. Skin: No rash or abscess Hem/Lymphatic: No palpable cervical or supraclavicular nodes. No lymphangitis Psych: no agitation. calm Neurological: Awake, alert, oriented - Constitutional Vitals: Vital Signs Temp Pulse Resp BP Pulse Ox 98.3 F 89 22 170/74 94 11/26/19 07:32 11/26/19 09:51 11/26/19 09:52 11/26/19 09:51 11/26/19 08:09 Temperature -Last 24 Hours Temperature 98.3 F Temperature 97.8 F Temperature 98.6 F - Labs CBC & Chem 7: 11/26/19 04:24 11/26/19 04:24 Labs: Abnormal lab results 11/25/19 11/25/19 11/26/19 Range/Units 16:39 21:39 04:24 WBC 21.9 H (4.5-11.0) K/mm3 Hgb 11.1 L (11.8-15.2) gm/dl Hct 34.4 L (35.5-45.6) % Plt Count 836 H (140-440) K/mm3 Chloride (98-107) mmol/L Carbon Dioxide (22-30) mmol/L BUN (9-20) mg/dL Creatinine (0.8-1.5) mg/dL Glucose (75-100) mg/dL POC Glucose 146 H 125 H (70-105) 11/26/19 11/26/19 Range/Units 04:24 07:43 WBC (4.5-11.0) K/mm3 Hgb (11.8-15.2) gm/dl Hct (35.5-45.6) % Plt Count (140-440) K/mm3 Chloride 107.9 H (98-107) mmol/L Carbon Dioxide 16 L (22-30) mmol/L BUN 76 H (9-20) mg/dL Creatinine 3.7 H (0.8-1.5) mg/dL Glucose 123 H (75-100) mg/dL POC Glucose 107 H (70-105)
[2019-11-26] MEDS: LINEZOLID 600 MG/300 ML BAG IV SCH ×2 (15:40→22:08)
[2019-11-26] MEDS: cefTRIAXone/NS 1 GM/50 ML 1 GM/50 ML BAG IV SCH (16:52)
--- NOTE | 2019-11-26 18:47 | Treadmill Report ---
PROTOCOL: The patient was brought to the stress lab in a postoperative state, given 10 mCi of technetium 99m at rest. The patient underwent rest imaging. The patient underwent Lexiscan stress test. At peak stress, the patient was given 26 mCi of technetium 99m. Shortly thereafter, patient underwent stress imaging. Technically difficult study due to GI artifact, but grossly there is homogenous uptake of radioisotope in all reported segments. No evidence of a significant fixed or reversible perfusion defects suggestive of prior infarction or ischemia. Gated wall motion reveals low normal systolic performance. Ejection fraction estimated at 50%, no TID. CONCLUSIONS: 1. Technically difficult, but grossly normal myocardial perfusion scan without convincing evidence of significant degree of ischemia or prior infarction. 2. Low normal LV function without evidence of transient ischemic dilatation or stress-induced segmental wall motion abnormalities. JOB# [id number] AYANNA/HAM
[2019-11-26] MEDS: INSULIN GLARGINE 100 UNITS/ML SUB-Q SCH (22:08)
[2019-11-27] MEDS: metroNIDAZOLE/NS 500 MG/100 ML 500 MG/100 ML BAG IV SCH ×3 (00:49→18:01)
[2019-11-27] MEDS: SODIUM CHLORIDE 0.9% 1000 ML 1,000 ML IV SCH (00:50)
[2019-11-27] MEDS: traMADol 50 MG TAB PO PRN ×4 (03:49→21:00)
[2019-11-27 04:42] LABS: Calcium 8.1 mg/dL (8.4-10.2)
[2019-11-27] MEDS: hydrALAZINE 25 MG TAB PO SCH ×3 (06:36→21:00)
[2019-11-27] MEDS: INSULIN LISPRO 100 UNIT/ML SUB-Q SCH ×5 (08:12→21:01)
[2019-11-27] MEDS: SODIUM BICARBONATE 650 MG TAB PO SCH ×3 (08:33→20:59)
--- NOTE | 2019-11-27 09:21 | Progress Note ---
Assessment and Plan 1. 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 Renal function is slowly improving, currently 3.1 from 3.7. IV fluids reduced to 50 cc/hr. Intermittent bladder scans. Renal US showed combination of complex and simple cysts in left kidney, negative for hydro. Monitor renal function closely. Avoid nephrotoxic agents. Meds dosage based on GFR. 2. FEN: Metabolic acidosis, improving, continue sodium bicarb, monitor. Mild hyponatremia, improved, monitor. Hypokalemia, replete K, monitor. Monitor lytes. 3. Suicidal/homicidal ideation. Was d/c from [facility] on 11/08. Seen by psych. 4. Metabolic encephalopathy, POA. Monitor. 5. Leukocytosis. 6. Diabetes mellitus with hyperglycemia. Monitor closely. 7. COPD. 8. CAD. 9. Presumed chronic congestive heart failure: Normal EF. 10.Right rib fracture. 11. Hypertension: Hydralazine increased to TID 11/20. BP is fluctuating, elevated a time of exam but patient complaining of pain. Continue to monitor BP closely. 12. Urinary tract infection: Macias inserted 11/21 d/t urinary retention. On abx. 13. Acute cholecystitis: CT abd confirmed abnormal gallbladder with carleen-cholecystic fat stranding. Intermittent low-grade fevers and tachycardia. Cards was consulted for evaluation of pre-operative cardiac risk and had stress test 11/25. Stress test was negative, planning for OR tomorrow, cholecystectomy. Gen surg following. Subjective Date of service: 11/27/19 Principal diagnosis: cholecystitis Interval history: Patient was seen and examined at the bedside. He is awake in bed at time of exam. He had no acute events overnight. Tolerating clear liquids okay. Objective - Exam Narrative Exam: General appearance: well-developed, well-nourished, appears stated age HEENT: ATNC, THIEN Neck: neck supple, trachea midline Respiratory: Clear to Auscultation, diminished bibasilar Heart: regular, S1S2, no murmurs Gastrointestinal: soft, normoactive bowel sounds, not absent, not tender, no pain on palpation Integumentary: no rash, warm and dry : Macias catheter present Neurologic: cooperative with exam, alert, verbal communication Musculoskeletal: no edema - Vital Signs Vital signs: Vital Signs - 12hr 0311/27/19 11/27/19 22:00 01:38 07:36 Temperature 98.0 F 97.3 F L Pulse Rate 71 82 Pulse Rate [ 85 Right Radial] Respiratory 18 20 18 Rate Blood Pressure 158/63 161/73 O2 Sat by Pulse 93 93 91 Oximetry - Lab 11/26/19 04:24 11/27/19 03:44 Most recent lab results Calcium 8.1 mg/dL (8.4-10.2) L 11/27/19 03:44 Phosphorus 5.00 mg/dL (2.5-4.5) H 11/14/19 12:18 Magnesium 2.40 mg/dL (1.7-2.3) H 11/14/19 12:18 Urine Creatinine 106.3 mg/dL (0.1-20.0) H 11/14/19 06:45 Urine Sodium 66 mmol/L 11/14/19 06:45 Medications & Allergies - Medications Allergies/Adverse Reactions: Allergies Penicillins Allergy (Severe, Verified 11/22/19 13:01) Unknown PATIENT'S DAUGHTER KARINA IBRAHIM STATES SHE DOES NOT KNOW THE EXACT REACTION BUT WAS TOLD PCN WOULD "KILL HIM" morphine Adverse Reaction (Verified 11/22/19 13:02) HALLUCINATIONS Tetanus Vaccines and Toxoid Adverse Reaction (Verified 11/01/19 23:50) Unknown Home Medications: Home Medications Medication Instructions Recorded Confirmed Last Taken Type Adult Aspirin 650 mg PO BID 11/02/19 11/17/19 Unknown History Citalopram 20 mg PO BID 11/02/19 11/17/19 Unknown History Clopidogrel [Plavix] 75 mg PO DAILY 11/02/19 11/17/19 Unknown History Ergocalciferol [Vitamin D2] 50,000 units PO QWEEK 11/02/19 11/17/19 Unknown History Famotidine [Pepcid] 20 mg PO DAILY 11/02/19 11/17/19 Unknown History Furosemide [Lasix TAB] 40 mg PO DAILY 11/02/19 11/17/19 Unknown History Gabapentin 300 mg PO TID 11/02/19 11/17/19 Unknown History Isosorbide Mononitrate 30 mg PO DAILY 11/02/19 11/17/19 Unknown History Lantus VIAL 30 units SQ QHS 11/02/19 11/17/19 Unknown History Metoprolol-HCTZ 100-50 mg TAB 50 mg PO BID 11/02/19 11/17/19 Unknown History NIFEdipine [Nifedipine ER] 60 mg PO DAILY 11/02/19 11/17/19 Unknown History Tamsulosin 0.4 mg PO DAILY 11/02/19 11/17/19 Unknown History hydrALAZINE 50 mg PO TID 11/02/19 11/17/19 Unknown History Active Medications: Generic Name Dose Route Start Last Admin Trade Name Freq PRN Reason Stop Dose Admin Acetaminophen 650 mg 11/10/19 12:54 11/25/19 06:18 Tylenol PO 650 mg Q6H PRN Administration Pain, Mild (1-3) Lipase/Protease/Amylase 1 each 11/25/19 15:11 Pancreaze 10,500 Unit FEEDTUBE PRN PRN For Clogged Feeding Tube Dextrose 50 ml 11/11/19 11:04 D50w (25gm) Syringe IV Q30MIN PRN Hypoglycemia Protocol Ergocalciferol 50,000 unit 11/17/19 10:00 11/24/19 10:12 Vitamin D2 PO 50,000 unit Vazquez GETACHEW Administration Famotidine 20 mg 11/17/19 10:00 11/26/19 09:50 Pepcid PO 20 mg DAILY GETACHEW Administration Heparin Sodium (Porcine) 5,000 unit 11/09/19 10:00 11/26/19 22:10 Heparin SUB-Q 5,000 unit Q12HR GETACHEW Administration Hydralazine HCl 5 mg 11/11/19 03:04 11/11/19 08:08 Apresoline IV 5 mg Q6HR PRN Administration Blood Pressure Hydralazine HCl 50 mg 11/19/19 22:00 11/27/19 06:36 Apresoline PO 50 mg Q8HR GETACHEW Administration Metronidazole 500 mg in 100 mls @ 100 mls/hr 11/21/19 17:00 11/27/19 08:33 Flagyl 500 Mg/100 Ml IV 100 mls/hr Q8H GETACHEW Administration Protocol Sodium Chloride 1,000 mls @ 50 mls/hr 11/21/19 16:45 11/27/19 00:50 Nacl 0.9% 1000 Ml IV 125 mls/hr DIRECT GETACHEW Administration Ceftriaxone Sodium 1 gm in 50 mls @ 100 mls/hr 11/25/19 16:30 11/26/19 16:52 Rocephin/Ns 1 Gm/50 Ml IV 100 mls/hr Q24H GETACHEW Administration Protocol Linezolid 600 mg in 300 mls @ 300 mls/hr 11/26/19 14:00 11/26/19 22:08 Zyvox 600mg/300ml IV 12/02/19 22:59 300 mls/hr Q12HR GETACHEW Administration Protocol Insulin Glargine 10 units 11/15/19 22:00 11/26/19 22:08 Lantus SUB-Q 10 units QHS [facility] Administration Insulin Human Lispro 0 unit 11/17/19 16:30 11/27/19 08:12 Humalog SUB-Q Not Given AC [facility] Protocol Insulin Human Lispro 0 unit 11/17/19 22:00 11/26/19 22:10 [facility] Protocol Isosorbide Mononitrate 30 mg 11/17/19 10:00 11/26/19 09:51 Imdur PO 30 mg DAILY [facility] Administration Metoprolol Tartrate 100 mg 11/10/19 16:00 11/26/19 22:09 Metoprolol PO 100 mg BID [facility] Administration Nicotine 14 mg 11/09/19 20:00 11/26/19 09:51 Habitrol TD 14 mg QDAY [facility] Administration Nifedipine 60 mg 11/17/19 10:00 11/26/19 09:50 Procardia Xl PO 60 mg QDAY [facility] Administration Nitroglycerin 0.4 mg 11/10/19 03:32 11/26/19 05:53 Nitrostat SL 0.4 mg .Q5MIN PRN Administration Chest Pain Ondansetron HCl 4 mg 11/21/19 17:53 11/24/19 05:55 Zofran IV 4 mg Q6H PRN Administration Nausea And Vomiting Simple Syrup 15 ml 11/25/19 15:11 Simple Syrup FEEDTUBE PRN PRN Hypoglycemia Simple Syrup 30 ml 11/25/19 15:11 Simple Syrup FEEDTUBE PRN PRN Hypoglycemia Sodium Bicarbonate 650 mg 11/25/19 14:00 11/27/19 08:33 Sodium Bicarbonate PO 650 mg TID GETACHEW Administration Sodium Bicarbonate 325 mg 11/25/19 15:11 Sodium Bicarbonate FEEDTUBE PRN PRN For Clogged Feeding Tube Tamsulosin HCl 0.4 mg 11/17/19 10:00 11/26/19 09:51 Flomax PO 0.4 mg QDAY GETACHEW Administration Tramadol HCl 25 mg 11/21/19 17:43 11/27/19 08:34 Ultram PO 25 mg Q4H PRN Administration Pain, Moderate (4-6)
[2019-11-27] MEDS: NICOTINE 14 MG/24 HR PATCH TD SCH (09:25)
[2019-11-27] MEDS: FAMOTIDINE 20 MG TAB PO SCH (09:27)
[2019-11-27] MEDS: TAMSULOSIN 0.4 MG CAP PO SCH (09:27)
[2019-11-27] MEDS: NIFEdipine XL 60 MG TAB PO SCH (09:27)
[2019-11-27] MEDS: HEPARIN 5,000 UNIT/1 ML VIAL SUB-Q SCH ×2 (09:28→21:02)
[2019-11-27] MEDS: METOPROLOL TARTRATE 100 MG TAB PO SCH ×2 (09:28→21:01)
[2019-11-27] MEDS: LINEZOLID 600 MG/300 ML BAG IV SCH ×2 (09:28→21:01)
--- NOTE | 2019-11-27 09:39 | Progress Note ---
Assessment and Plan Cultures: Blood culture 11/18/2019 no growth. Urine culture 11/14/2019 <10K colonies. Urine culture on 11/18/2019: >100K, Enterococcus faecalis. Assessment/plan: 74 yo male with history of hypertension, CAD, COPD, CHF, CKD4 and diabetes admitted to [facility] from [facility] on 11/09/2019 for mental health stabilization after suicidal ideation, now with SIRS: #SIRS: not present on admission, fevers better continues with leukocytosis; etiology UTI +/- acute cholecystitis #Acute cholecystitis: seen on CT. Surgery on board, awaiting surgery v/s IR drainage. #UTI: Urine culture on 11/18/2019 >100K E.faecalis. #STEPHANIE on CKD: renally adjusted abx, nephrology following. #Acute encephalopathy: better #Penicillin allergy: unclear reaction, remote but tolerating Ceftriaxone, so monitor. #leucocytosis and reactive thrombocytosis: from infection. Recommendations: continue IV Linezolid for Enterococcus UTI coverage (Day 2 of 7) Continue Ceftriaxone and Flagyl IV (duration will depend on surgical findings) awaiting surgery Claire Villalobos MD, FACP [facility] C: [phone] O: [phone] F: [phone] Subjective Date of service: 11/27/19 Principal diagnosis: cholecystitis Interval history: No fever. Denies any complaints. Tolerating antimicrobials. Discussed with RN, no rash, no diarrhea. Objective - Exam Narrative Exam: Constitutional: Alert, cooperative. No acute distress Head, Ears, Nose: Normocephalic, atraumatic. External ears, nose normal Eyes: Conjunctivae/corneas clear. No icterus. No ptosis. Neck: Supple, no meningeal signs Cardiovascular: S1, S2 normal. Respiratory: Good air entry, clear to auscultation bilaterally GI: diffuse tenderness, bowel sounds hypoactive Musculoskeletal: No pedal edema, no cyanosis. Skin: No rash or abscess Hem/Lymphatic: No palpable cervical or supraclavicular nodes. No lymphangitis Psych: no agitation. calm Neurological: Awake, alert. - Constitutional Vitals: Vital Signs Temp Pulse Resp BP Pulse Ox 97.3 F L 94 H 18 175/78 91 11/27/19 07:36 11/27/19 09:26 11/27/19 07:36 11/27/19 09:26 11/27/19 07:36 Temperature -Last 24 Hours Temperature 97.3 F Temperature 98.0 F Temperature 97.4 F Temperature 97.8 F - Labs CBC & Chem 7: 11/26/19 04:24 11/27/19 03:44 Labs: Abnormal lab results 11/26/19 11/26/19 11/27/19 Range/Units 16:24 20:52 03:44 Potassium 3.5 L (3.6-5.0) mmol/L Chloride 108.9 H (98-107) mmol/L Carbon Dioxide 15 L (22-30) mmol/L BUN 58 H (9-20) mg/dL Creatinine 3.1 H (0.8-1.5) mg/dL Glucose 141 H (75-100) mg/dL POC Glucose 127 H 129 H (70-105) Calcium 8.1 L (8.4-10.2) mg/dL 11/27/19 Range/Units 07:45 Potassium (3.6-5.0) mmol/L Chloride (98-107) mmol/L Carbon Dioxide (22-30) mmol/L BUN (9-20) mg/dL Creatinine (0.8-1.5) mg/dL Glucose (75-100) mg/dL POC Glucose 118 H (70-105) Calcium (8.4-10.2) mg/dL
[2019-11-27] MEDS ORDERED: POTASSIUM CHLORIDE ER 20 MEQ TAB PO SCH (10:00)
--- NOTE | 2019-11-27 10:42 | Progress Note ---
Assessment and Plan 74-year-old male with 1. Acute cholecystitis 2. sepsis 2/2 #1 and/or #5 2. Acute on chronic renal failure 3. Dehydration 4. CAD, cardiac stents on Plavix 5. UTI Echo: 11/18/19 - EF 55-60% U/s Abd: cholecystitis, sludge, pericholecystic fluid Stress test: Negative Plan: 1. clear liquid diet, NPO p MN tonight 2. IVF 3. IV abx, ID on board 4. DVT ppx 5. plavix on hold 6. Stress test and cardiology recs noted. Stress test negative. Pt deemed intermediate risk for surgery with no contraindications to proceeding with cholecystectomy. 7. I have added patient to OR schedule for 11/28/19. I discussed findings of stress test with patient' daughter Genia. I discussed all risks benefits and alternatives to surgery with the patient's daughter and all questions were answered. She is agreeable to surgery. Consent obtained for robotic assisted laparoscopic cholecystectomy, possible open, possible cholangiogram. Thank you, please call with questions or concerns Subjective Date of service: 11/27/19 Narrative: Patient seen and examined. He has been afebrile. He is tolerating a clear liquid diet. He complains of abdominal pain. Objective Vital Signs - 12hr 11/27/19 11/27/19 11/27/19 01:38 07:36 09:26 Temperature 98.0 F 97.3 F L Pulse Rate 71 82 94 H Respiratory 20 18 Rate Blood Pressure 158/63 161/73 175/78 O2 Sat by Pulse 93 91 Oximetry - General physical appearance Narrative Exam: Gen.: Awake, alert, oriented to person. No apparent distress CV: S1, S2 present Respiratory: No audible wheezes Abdomen: Soft, nondistended, positive tenderness to palpation in the epigastrium and right upper quadrant. No rebound, rigidity, guarding Extremities: No clubbing, cyanosis, edema - Labs 11/26/19 04:24 11/27/19 03:44 Diabetes panel 11/27/19 Range/Units 03:44 Sodium 141 (137-145) mmol/L Potassium 3.5 L (3.6-5.0) mmol/L Chloride 108.9 H (98-107) mmol/L Carbon Dioxide 15 L (22-30) mmol/L BUN 58 H (9-20) mg/dL Creatinine 3.1 H (0.8-1.5) mg/dL Glucose 141 H (75-100) mg/dL Calcium 8.1 L (8.4-10.2) mg/dL Calcium panel 11/27/19 Range/Units 03:44 Calcium 8.1 L (8.4-10.2) mg/dL Pituitary panel 11/27/19 Range/Units 03:44 Sodium 141 (137-145) mmol/L Potassium 3.5 L (3.6-5.0) mmol/L Chloride 108.9 H (98-107) mmol/L Carbon Dioxide 15 L (22-30) mmol/L BUN 58 H (9-20) mg/dL Creatinine 3.1 H (0.8-1.5) mg/dL Glucose 141 H (75-100) mg/dL Calcium 8.1 L (8.4-10.2) mg/dL Adrenal panel 11/27/19 Range/Units 03:44 Sodium 141 (137-145) mmol/L Potassium 3.5 L (3.6-5.0) mmol/L Chloride 108.9 H (98-107) mmol/L Carbon Dioxide 15 L (22-30) mmol/L BUN 58 H (9-20) mg/dL Creatinine 3.1 H (0.8-1.5) mg/dL Glucose 141 H (75-100) mg/dL Calcium 8.1 L (8.4-10.2) mg/dL
--- NOTE | 2019-11-27 12:16 | Progress Note ---
Assessment and Plan Acute Cholecystitis: GS following, plan for cholecystectomy tomorrow AMS due Acute Metabolic Encephalopathy: due to hypoglycemia, treated with dextrose ARF/CKD 4, vasomotor nephropathy: s/p CT abd/pelvis, monitor BMP closely DM type 2 uncontrolled with hyperglycemia: use SSI, no Long acting because of poor oral intake UTI with sepsis: started on renal dose Levaquin 11/18/19, completed Chronic hypoxic Respiratory Failure: continue supplemental O2 Dementia: Mental health is following, antipsychotic stopped due to lethargy/decreased responsiveness Osteoporosis with multiple old rib fractures: treat with vitamin D and calcium Urinary retention: placed bernard Hypoglycemia resolved Hypotension resolved Disposition: SNF when medical stable, level 2 triggered from state DVT ppx full code Brief History Patient is a 74 yo man with a history of hypertension and DM type 2 who was admitted to [facility] 11/02/2019 from [facility] for mental health stabilization after Suicidal ideation. Labs significant for Creat 2.8. Nephrology was consulted for further evaluation. RN called me on 11/08/2019 about a "change in medical condition," patient choking on food and liquids, he is pale, altered. Prior night, before choking on food, he was combative and received 2 mg IM ativan. Trazadone was also newly added and increase in depakote. Now more lethargic and unable to eat, choking on food/liquid but he did received Lantus 30 units last night and BG dropped to 52. After IV dextrose the BG continued to drop to 48. Another amp of D5 was given. He was discharged form [facility] to [facility] surg and admitted to 3rd Floor Medsur for intractable hypoglycemia requiring IV line. He also then c/o abdominal pain, a CT abdomen/pelvis showed Gallbladder distention and stranding in the pericholecystic fat suggests possible acute cholecystitis. GS consulted, plan for surgery as stress test normal. * 11/18/19 TTE Conclusisons: Est EF 55-60% * Thoracic XR: Degenerative changes * Lumbosacral XR IMPRESSION: 1. Compression L1 vertebral body age difficult determine recommend clinical correlation 2. Degenerative changes as noted * pCXR IMPRESSION: 1. No acute cardiopulmonary disease * Cervical Spine XR IMPRESSION: Extensive degenerative changes as noted * CT head without contrast IMPRESSION: 1. There is extensive microvascular angiopathy without CT evidence acute intracranial hemorrhage. 2. There is prominence of the ventricular system and cerebral atrophy as detailed above. * US Renal doppler IMPRESSION: No significant abnormality. Left renal cyst. No obstructive uropathy. * complete U/S abdomen Impression: Gallbladder sludge with suspected superimposed cholecystitis, large fatty liver, increased right renal echogenicity typical of chronic medical renal disease * CT abdomen/pelvis: 1. Gallbladder distention and stranding in the pericholecystic fat suggests possible acute cholecystitis. 2. Acalculus cholecystitis is a possibility given that there are no radiopaque stones identified. Recommend further evaluation with ultrasound. 3. No urinary calculus and no evidence of hydronephrosis or pyelonephrosis. 4. No abscess. Hospitalist Physical Gen: obese, nad, more awake and talkative orientated x 2, know name and knows that he is in hospital, missed year and name of hospital HEENT: NCAT, EOMI, PERRL but resist eyes being open, OP Clear Neck: supple, no adenopathy, no thyromegaly, no JVD CVS/Heart: RRR, normal S1S2, pulses present bilaterally Chest/Lungs: CTA B, Symmetrical chest expansion, good air entry bilaterally GI/Abdomen: soft, diffuse tender good bowel sounds, no guarding or rebound /Bladder: +suprapubic tenderness, no CVA or paraspinal tenderness Extermity/Skin: no c/c/e, no obvious rash MSK: doesnt follow commands Neuro: CN 2-12 grossly intact, doesnt follow commands Psych: calm, poor insight and judgment Subjective Date of service: 11/27/19 Principal diagnosis: cholecystitis Interval history: Patient seen and examined c/p abdominal pain, tolerating clear liquid diet discussed with Dr Vasqeuz, plan for cholecystectomy tomorrow Objective - Constitutional Vitals: Vital Signs - 12hr 11/27/19 11/27/19 11/27/19 01:38 07:36 09:26 Temperature 98.0 F 97.3 F L Pulse Rate 71 82 94 H Respiratory 20 18 Rate Blood Pressure 158/63 161/73 175/78 O2 Sat by Pulse 93 91 Oximetry - Labs CBC & Chem 7: 11/26/19 04:24 11/28/19 05:54 Labs: Abnormal lab results 11/26/19 11/26/19 11/27/19 Range/Units 16:24 20:52 03:44 Potassium 3.5 L (3.6-5.0) mmol/L Chloride 108.9 H (98-107) mmol/L Carbon Dioxide 15 L (22-30) mmol/L BUN 58 H (9-20) mg/dL Creatinine 3.1 H (0.8-1.5) mg/dL Glucose 141 H (75-100) mg/dL POC Glucose 127 H 129 H (70-105) Calcium 8.1 L (8.4-10.2) mg/dL 11/27/19 11/27/19 Range/Units 07:45 11:52 Potassium (3.6-5.0) mmol/L Chloride (98-107) mmol/L Carbon Dioxide (22-30) mmol/L BUN (9-20) mg/dL Creatinine (0.8-1.5) mg/dL Glucose (75-100) mg/dL POC Glucose 118 H 130 H (70-105) Calcium (8.4-10.2) mg/dL
[2019-11-27] MEDS ORDERED: POTASSIUM CHLORIDE ER 10 MEQ TAB PO SCH (12:55)
[2019-11-27] MEDS: cefTRIAXone/NS 1 GM/50 ML 1 GM/50 ML BAG IV SCH (16:50)
[2019-11-27] MEDS: INSULIN GLARGINE 100 UNITS/ML SUB-Q SCH (21:02)
[2019-11-28] MEDS: SODIUM CHLORIDE 0.9% 1000 ML 1,000 ML IV SCH ×2 (01:41→09:36)
[2019-11-28] MEDS: metroNIDAZOLE/NS 500 MG/100 ML 500 MG/100 ML BAG IV SCH ×3 (01:43→18:51)
[2019-11-28] MEDS ORDERED: HYDROmorphone 1 MG/1 ML INJ IV ONE (02:05)
[2019-11-28] MEDS: hydrALAZINE 20 MG/1 ML INJ IV PRN ×2 (03:07→09:17)
[2019-11-28] MEDS: hydrALAZINE 25 MG TAB PO SCH ×3 (06:39→23:22)
--- NOTE | 2019-11-28 08:24 | Progress Note ---
Assessment and Plan 1. 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 Renal function is slowly improving, currently 3.0 from 3.1. IV fluids reduced to 50 cc/hr. Intermittent bladder scans. Renal US showed combination of complex and simple cysts in left kidney, negative for hydro. Monitor renal function closely. Avoid nephrotoxic agents. Meds dosage based on GFR. 2. FEN: Metabolic acidosis, improving, continue sodium bicarb, monitor. Mild hyponatremia, improved, monitor. Hypokalemia, replete K, monitor. Monitor lytes. 3. Suicidal/homicidal ideation. Was d/c from [facility] on 11/08. Seen by psych. 4. Metabolic encephalopathy, POA. Monitor. 5. Leukocytosis. 6. Diabetes mellitus with hyperglycemia. Monitor closely. 7. COPD. 8. CAD. 9. Presumed chronic congestive heart failure: Normal EF. 10.Right rib fracture. 11. Hypertension: Hydralazine increased to TID 11/20. BP is elevated this morning. Continue to monitor BP closely. 12. Urinary tract infection: Macias inserted 11/21 d/t urinary retention. On abx. 13. Acute cholecystitis: CT abd confirmed abnormal gallbladder with carleen-cholecystic fat stranding. Intermittent low-grade fevers and tachycardia. Cards was consulted for evaluation of pre-operative cardiac risk and had stress test 11/25. Stress test was negative, planning for OR today, 11/27, cholecystectomy. Gen surg following. Subjective Date of service: 11/28/19 Principal diagnosis: cholecystitis Interval history: Patient was seen and examined at the bedside. He is awake in bed at time of exam. He had no acute events overnight. He has been NPO since midnight in preparation for OR today. Objective - Exam Narrative Exam: General appearance: well-developed, well-nourished, appears stated age HEENT: ATNC, THIEN Neck: neck supple, trachea midline Respiratory: Clear to Auscultation, diminished bibasilar Heart: regular, S1S2, no murmurs Gastrointestinal: soft, normoactive bowel sounds, not absent, not tender, no pain on palpation Integumentary: no rash, warm and dry : Macias catheter present Neurologic: cooperative with exam, alert, verbal communication, confused Musculoskeletal: no edema - Vital Signs Vital signs: Vital Signs - 12hr 11/27/19 11/27/19 11/28/19 21:00 22:00 02:40 Temperature Pulse Rate Respiratory 20 20 Rate Respiratory 20 Rate [Abdomen] Respiratory 20 Rate [Back] Blood Pressure Blood Pressure [Right] O2 Sat by Pulse Oximetry 11/28/19 11/28/19 11/28/19 02:43 03:02 03:04 Temperature 98.5 F Pulse Rate 78 83 Respiratory 20 20 20 Rate Respiratory Rate [Abdomen] Respiratory Rate [Back] Blood Pressure 182/79 Blood Pressure 170/72 [Right] O2 Sat by Pulse 97 95 Oximetry 11/28/19 11/28/19 11/28/19 03:07 03:13 07:43 Temperature 98.0 F Pulse Rate 79 88 Respiratory 20 20 Rate Respiratory Rate [Abdomen] Respiratory Rate [Back] Blood Pressure 182/79 206/88 Blood Pressure [Right] O2 Sat by Pulse 97 Oximetry 11/28/19 07:50 Temperature Pulse Rate 84 Respiratory 20 Rate Respiratory Rate [Abdomen] Respiratory Rate [Back] Blood Pressure 196/85 Blood Pressure [Right] O2 Sat by Pulse 96 Oximetry - Lab 11/26/19 04:24 11/28/19 05:54 Most recent lab results Calcium 8.0 mg/dL (8.4-10.2) L 11/28/19 05:54 Phosphorus 5.00 mg/dL (2.5-4.5) H 11/14/19 12:18 Magnesium 2.40 mg/dL (1.7-2.3) H 11/14/19 12:18 Urine Creatinine 106.3 mg/dL (0.1-20.0) H 11/14/19 06:45 Urine Sodium 66 mmol/L 11/14/19 06:45 Medications & Allergies - Medications Allergies/Adverse Reactions: Allergies Penicillins Allergy (Severe, Verified 11/22/19 13:01) Unknown PATIENT'S DAUGHTER KARINA IBRAHIM STATES SHE DOES NOT KNOW THE EXACT REACTION BUT WAS TOLD PCN WOULD "KILL HIM" morphine Adverse Reaction (Verified 11/22/19 13:02) HALLUCINATIONS Tetanus Vaccines and Toxoid Adverse Reaction (Verified 11/01/19 23:50) Unknown Home Medications: Home Medications Medication Instructions Recorded Confirmed Last Taken Type Adult Aspirin 650 mg PO BID 11/02/19 11/17/19 Unknown History Citalopram 20 mg PO BID 11/02/19 11/17/19 Unknown History Clopidogrel [Plavix] 75 mg PO DAILY 11/02/19 11/17/19 Unknown History Ergocalciferol [Vitamin D2] 50,000 units PO QWEEK 11/02/19 11/17/19 Unknown History Famotidine [Pepcid] 20 mg PO DAILY 11/02/19 11/17/19 Unknown History Furosemide [Lasix TAB] 40 mg PO DAILY 11/02/19 11/17/19 Unknown History Gabapentin 300 mg PO TID 11/02/19 11/17/19 Unknown History Isosorbide Mononitrate 30 mg PO DAILY 11/02/19 11/17/19 Unknown History Lantus VIAL 30 units SQ QHS 11/02/19 11/17/19 Unknown History Metoprolol-HCTZ 100-50 mg TAB 50 mg PO BID 11/02/19 11/17/19 Unknown History NIFEdipine [Nifedipine ER] 60 mg PO DAILY 11/02/19 11/17/19 Unknown History Tamsulosin 0.4 mg PO DAILY 11/02/19 11/17/19 Unknown History hydrALAZINE 50 mg PO TID 11/02/19 11/17/19 Unknown History Active Medications: Generic Name Dose Route Start Last Admin Trade Name Freq PRN Reason Stop Dose Admin Acetaminophen 650 mg 11/10/19 12:54 11/25/19 06:18 Tylenol PO 650 mg Q6H PRN Administration Pain, Mild (1-3) Lipase/Protease/Amylase 1 each 11/25/19 15:[address] 10,500 Unit FEEDTUBE PRN PRN For Clogged Feeding Tube Dextrose 50 ml 11/11/19 11:04 D50w (25gm) Syringe IV Q30MIN PRN Hypoglycemia Protocol Ergocalciferol 50,000 unit 11/17/19 10:00 11/24/19 10:12 Vitamin D2 PO 50,000 unit Vazquez GETACHEW Administration Famotidine 20 mg 11/17/19 10:00 11/27/19 09:27 Pepcid PO 20 mg DAILY GETACHEW Administration Heparin Sodium (Porcine) 5,000 unit 11/09/19 10:00 11/27/19 21:02 Heparin SUB-Q 5,000 unit Q12HR GETACHEW Administration Hydralazine HCl 5 mg 11/11/19 03:04 11/28/19 03:07 Apresoline IV 5 mg Q6HR PRN Administration Blood Pressure Hydralazine HCl 50 mg 11/19/19 22:00 11/28/19 06:39 Apresoline PO Not Given Q8HR GETACHEW Metronidazole 500 mg in 100 mls @ 100 mls/hr 11/21/19 17:00 11/28/19 01:43 Flagyl 500 Mg/100 Ml IV 100 mls/hr Q8H GETACHEW Administration Protocol Sodium Chloride 1,000 mls @ 50 mls/hr 11/21/19 16:45 11/28/19 01:41 Nacl 0.9% 1000 Ml IV 125 mls/hr DIRECT GETACHEW Administration Ceftriaxone Sodium 1 gm in 50 mls @ 100 mls/hr 11/25/19 16:30 11/27/19 16:50 Rocephin/Ns 1 Gm/50 Ml IV 100 mls/hr Q24H GETACHEW Administration Protocol Linezolid 600 mg in 300 mls @ 300 mls/hr 11/26/19 14:00 11/27/19 21:01 Zyvox 600mg/300ml IV 12/02/19 22:59 300 mls/hr Q12HR GETACHEW Administration Protocol Potassium Chloride 10 meq in 100 mls @ 100 mls/hr 11/28/19 09:00 Kcl 10meq/100ml IV 11/28/19 11:59 Q1H [facility] Insulin Glargine 10 units 11/15/19 22:00 11/27/19 21:02 Lantus SUB-Q Not Given QHS [facility] Insulin Human Lispro 0 unit 11/17/19 16:30 11/27/19 16:54 Humalog SUB-Q 3 unit AC [facility] Administration Protocol Insulin Human Lispro 0 unit 11/17/19 22:00 11/27/19 21:01 Humalog SUB-Q Not Given QHS [facility] Protocol Isosorbide Mononitrate 30 mg 11/17/19 10:00 11/27/19 09:26 Imdur PO 30 mg DAILY GETACHEW Administration Metoprolol Tartrate 100 mg 11/10/19 16:00 11/27/19 21:01 Metoprolol PO 100 mg BID GETACHEW Administration Nicotine 14 mg 11/09/19 20:00 11/27/19 09:25 Habitrol TD 14 mg QDAY GETACHEW Administration Nifedipine 60 mg 11/17/19 10:00 11/27/19 09:27 Procardia Xl PO 60 mg QDAY GETACHEW Administration Nitroglycerin 0.4 mg 11/10/19 03:32 11/26/19 05:53 Nitrostat SL 0.4 mg .Q5MIN PRN Administration Chest Pain Ondansetron HCl 4 mg 11/21/19 17:53 11/24/19 05:55 Zofran IV 4 mg Q6H PRN Administration Nausea And Vomiting Simple Syrup 15 ml 11/25/19 15:11 Simple Syrup FEEDTUBE PRN PRN Hypoglycemia Simple Syrup 30 ml 11/25/19 15:11 Simple Syrup FEEDTUBE PRN PRN Hypoglycemia Sodium Bicarbonate 650 mg 11/25/19 14:00 11/27/19 20:59 Sodium Bicarbonate PO 650 mg TID GETACHEW Administration Sodium Bicarbonate 325 mg 11/25/19 15:11 Sodium Bicarbonate FEEDTUBE PRN PRN For Clogged Feeding Tube Tamsulosin HCl 0.4 mg 11/17/19 10:00 11/27/19 09:27 Flomax PO 0.4 mg QDAY GETACHEW Administration Tramadol HCl 25 mg 11/21/19 17:43 11/27/19 21:00 Ultram PO 25 mg Q4H PRN Administration Pain, Moderate (4-6)
--- NOTE | 2019-11-28 09:03 | Anesthesia Consultation ---
Anesthesia Consult and Med Hx Date of service: 11/28/19 - Airway Anesthetic Teeth Evaluation: Edentulous ROM Head & Neck: Adequate Mental/Hyoid Distance: Inadequate Mallampati Class: Class III Intubation Access Assessment: Possibly Difficult - Pulmonary Exam CTA: Yes - Cardiac Exam Cardiac Exam: RRR - Pre-Operative Health Status ASA Pre-Surgery Classification: ASA3 Proposed Anesthetic Plan: General - Pulmonary Hx Smoking: Yes Hx Asthma: No Hx Respiratory Symptoms: No SOB: No COPD: No Home Oxygen Therapy: No Hx Pneumonia: Yes Hx Sleep Apnea: No - Cardiovascular System Hx Hypertension: Yes Hx Coronary Artery Disease: Yes Hx Heart Attack/AMI: No Hx Angina: Yes Hx Percutaneous Transluminal Coronary Angioplasty (PTCA): Yes (Drug eluding stent place 03/13) Hx Cardia Arrhythmia: Yes (L BBB) Hx Pacemaker: No Hx Internal Defibrillator: No Hx Valvular Heart Disease: No Hx Heart Murmur: No Hx Peripheral Vascular Disease: No - Central Nervous System Hx Neuromuscular Disorder: No Hx Seizures: No CVA: No Hx Back Pain: No Hx Psychiatric Problems: Yes (Depression, AOx2) - Gastrointestinal Hx Ulcer: No Hx Gastroesophageal Reflux Disease: No - Endocrine Hx Renal Disease: Yes (CKD) Hx End Stage Renal Disease: No Hx Cirrhosis: No Hx Liver Disease: No Hx Insulin Dependent Diabetes: Yes Hx Thyroid Disease: No Hx Hypothyroidism: No Hx Hyperthyroidism: No - Hematic Hx Anemia: No Hx Sickle Cell Disease: No - Other Systems Hx Alcohol Use: Yes Hx Substance Use: No Hx Cancer: No Hx Obesity: No
--- NOTE | 2019-11-28 09:03 | Anesthesia Day of Surgery ---
Anesthesia Day of Surgery - Day of Surgery Patient Examined: Yes Patient H&P Reviewed: Yes Patient is NPO: Yes Beta Blockers: Yes Cardiac Clearance: Yes Doug's Test: N/A
[2019-11-28] MEDS: INSULIN LISPRO 100 UNIT/ML SUB-Q SCH ×4 (09:10→23:24)
[2019-11-28] MEDS: POTASSIUM CHLORIDE 10 MEQ 10 MEQ/100 ML BAG IV SCH ×3 (09:17→16:58)
[2019-11-28] MEDS: HEPARIN 5,000 UNIT/1 ML VIAL SUB-Q SCH ×2 (09:18→23:25)
[2019-11-28] MEDS: NICOTINE 14 MG/24 HR PATCH TD SCH (09:18)
[2019-11-28] MEDS: METOPROLOL TARTRATE 100 MG TAB PO SCH ×2 (09:18→23:22)
[2019-11-28] MEDS: NIFEdipine XL 60 MG TAB PO SCH (09:19)
[2019-11-28] MEDS: LINEZOLID 600 MG/300 ML BAG IV SCH ×2 (09:23→23:21)
[2019-11-28] MEDS: FAMOTIDINE 20 MG TAB PO SCH (09:23)
[2019-11-28] MEDS: SODIUM BICARBONATE 650 MG TAB PO SCH ×3 (09:23→23:22)
[2019-11-28] MEDS: TAMSULOSIN 0.4 MG CAP PO SCH (09:23)
--- NOTE | 2019-11-28 11:12 | Progress Note ---
Assessment and Plan Cultures: Blood culture 11/18/2019 no growth. Urine culture 11/14/2019 <10K colonies. Urine culture on 11/18/2019: >100K, Enterococcus faecalis. Assessment/plan: 74 yo male with history of hypertension, CAD, COPD, CHF, CKD4 and diabetes admitted to [facility] from [facility] on 11/09/2019 for mental health stabilization after suicidal ideation, now with SIRS: #SIRS: not present on admission, fevers better continues with leukocytosis; etiology UTI +/- acute cholecystitis. #Acute cholecystitis: seen on CT. Surgery on board, awaiting surgery. #UTI: Urine culture on 11/18/2019 >100K E.faecalis. #STEPHANIE on CKD: renally adjusted abx, nephrology following. #Acute encephalopathy: better #Penicillin allergy: unclear reaction, remote but tolerating Ceftriaxone, so monitor. #Leucocytosis and reactive thrombocytosis: from infection. Recommendations: continue IV Linezolid for Enterococcus UTI coverage (Day 3 of 7) Continue Ceftriaxone and Flagyl IV (duration will depend on surgical findings) awaiting GB surgery Claire Villalobos MD, FACP [facility] C: [phone] O: [phone] F: [phone] Subjective Date of service: 11/28/19 Principal diagnosis: cholecystitis Interval history: No fever. Denies any complaints. Awaiting OR. Objective - Exam Narrative Exam: Constitutional: Alert, cooperative. No acute distress Head, Ears, Nose: Normocephalic, atraumatic. External ears, nose normal Eyes: Conjunctivae/corneas clear. No icterus. No ptosis. Neck: Supple, no meningeal signs Cardiovascular: S1, S2 normal. Respiratory: Good air entry, clear to auscultation bilaterally GI: mild diffuse tenderness, bowel sounds hypo Musculoskeletal: No pedal edema, no cyanosis. Skin: No rash or abscess Hem/Lymphatic: No palpable cervical or supraclavicular nodes. No lymphangitis Psych: calm, not agitated Neurological: Awake, alert, answers basic questions - Constitutional Vitals: Vital Signs Temp Pulse Resp BP Pulse Ox 98.0 F 84 20 196/85 96 11/28/19 07:43 11/28/19 07:50 11/28/19 07:50 11/28/19 07:50 11/28/19 07:50 Temperature -Last 24 Hours Temperature 98.0 F Temperature 98.5 F Temperature 98.5 F Temperature 99.8 F - Labs CBC & Chem 7: 11/26/19 04:24 11/28/19 05:54 Labs: Abnormal lab results 11/27/19 11/27/19 11/27/19 Range/Units 11:52 16:41 21:09 Potassium (3.6-5.0) mmol/L Chloride (98-107) mmol/L Carbon Dioxide (22-30) mmol/L BUN (9-20) mg/dL Creatinine (0.8-1.5) mg/dL Glucose (75-100) mg/dL POC Glucose 130 H 151 H 113 H (70-105) Calcium (8.4-10.2) mg/dL 11/28/19 Range/Units 05:54 Potassium 3.1 L (3.6-5.0) mmol/L Chloride 111.1 H (98-107) mmol/L Carbon Dioxide 15 L (22-30) mmol/L BUN 46 H (9-20) mg/dL Creatinine 3.0 H (0.8-1.5) mg/dL Glucose 110 H (75-100) mg/dL POC Glucose (70-105) Calcium 8.0 L (8.4-10.2) mg/dL
[2019-11-28] MEDS ORDERED: HYDROmorphone 1 MG/1 ML INJ IV PRN (11:49)
[2019-11-28] MEDS ORDERED: fentaNYL 100 MCG/2 ML INJ IV SCH (12:00)
[2019-11-28] MEDS ORDERED: LIDOCAINE (1%) 10 MG/1 ML VIAL 20 ML MDV ONE (12:33)
[2019-11-28] MEDS ORDERED: BUPIVACAINE/PF (0.5%) 5 MG/1 ML 30 ML VIAL INFILTRATI ONE ×2 (12:34→13:40)
[2019-11-28] MEDS ORDERED: fentaNYL 100 MCG/2 ML INJ ONE ×2 (12:43→12:44)
[2019-11-28] MEDS ORDERED: GLYCOPYRROLATE 0.4 MG/2 ML INJ ONE (12:43)
[2019-11-28] MEDS ORDERED: NEOSTIGMINE 10MG/10 ML INJ MDV ONE (12:43)
[2019-11-28] MEDS ORDERED: ONDANSETRON 4 MG/2 ML INJ ONE (12:43)
[2019-11-28] MEDS ORDERED: ROCURONIUM 50 MG/5 ML INJ IV ONE (12:43)
[2019-11-28] MEDS ORDERED: LIDOCAINE MPF (2%) 20 MG/1 ML VIAL 5 ML ONE (12:43)
[2019-11-28] MEDS ORDERED: PHENYLEPHRINE/NS 1,000 MCG/10 ML SYRINGE (OR USE) IV ONE (12:43)
[2019-11-28] MEDS ORDERED: dexAMETHasone 20 MG/5 ML VIAL ONE (12:43)
[2019-11-28] MEDS ORDERED: propofoL 200 MG/20 ML VIAL IV ONE (12:44)
[2019-11-28] MEDS ORDERED: LACTATED RINGERS 1,000 ML IV SCH (13:00)
[2019-11-28] MEDS ORDERED: LIDOCAINE (1%) 10 MG/1 ML VIAL 20 ML MDV INFILTRATI ONE (13:40)
[2019-11-28] MEDS ORDERED: SODIUM CHLORIDE 0.9% IRRIG SOLN 2000 ML IR ONE (13:40)
[2019-11-28] MEDS ORDERED: WATER FOR IRRIG STERILE 1,500 ML BOTTLE IR ONE (13:41)
[2019-11-28] MEDS ORDERED: SODIUM CHLORIDE 0.9% IRR 1,500 ML BOTTLE IR ONE (13:41)
[2019-11-28] MEDS ORDERED: CALCIUM CHLORIDE 1,000 MG/10 ML SYRINGE IV ONE (14:01)
--- NOTE | 2019-11-28 14:18 | Progress Note ---
Assessment and Plan Acute Cholecystitis: - GS following, s/p laparoscopic cholecystectomy on 11/28/2019, per findings, "acute perforated gangrenous cholecystitis", - post-op care per surgery Sepsis: secondary to acute cholecystitis and UTI. -continue IV Linezolid for Enterococcus UTI coverage (Day 4 of 7) Continue Ceftriaxone and Flagyl IV, findings of acute perforated gangrenous cholecystitis, s/p washout, d/w Dr. Vasquez. So plan for 5 days from date of surgery, may be able to do PO abx if discharged UTI with sepsis: on abx hypotension: likely from anesthetics, cont iv fluid AMS due Acute Metabolic Encephalopathy: due to hypoglycemia, treated with dextrose ARF/CKD 4, vasomotor nephropathy: s/p CT abd/pelvis, monitor BMP closely DM type 2 uncontrolled with hyperglycemia: use SSI, no Long acting because of poor oral intake Chronic hypoxic Respiratory Failure: continue supplemental O2 Dementia: Mental health is following, antipsychotic stopped due to lethargy/decreased responsiveness Osteoporosis with multiple old rib fractures: treat with vitamin D and calcium Urinary retention: placed bernard Hypoglycemia resolved Disposition: SNF when medical stable, level 2 triggered from state DVT ppx full code Brief History Patient is a 74 yo man with a history of hypertension and DM type 2 who was admitted to [facility] 11/02/2019 from [facility] for mental health stabilization after Suicidal ideation. Labs significant for Creat 2.8. Nephrology was consulted for further evaluation. RN called me on 11/08/2019 about a "change in medical condition," patient choking on food and liquids, he is pale, altered. Prior night, before choking on food, he was combative and received 2 mg IM ativan. Trazadone was also newly added and increase in depakote. Now more lethargic and unable to eat, choking on food/liquid but he did received Lantus 30 units last night and BG dropped to 52. After IV dextrose the BG continued to drop to 48. Another amp of D5 was given. He was discharged form [facility] to [facility] surg and admitted to 3rd Floor Medsur for intractable hypoglycemia requiring IV line. He also then c/o abdominal pain, a CT abdomen/pelvis showed Gallbladder distention and stranding in the pe richolecystic fat suggests possible acute cholecystitis. GS consulted, plan for surgery as stress test normal. * 11/18/19 TTE Conclusisons: Est EF 55-60% * Thoracic XR: Degenerative changes * Lumbosacral XR IMPRESSION: 1. Compression L1 vertebral body age difficult determine recommend clinical correlation 2. Degenerative changes as noted * pCXR IMPRESSION: 1. No acute cardiopulmonary disease * Cervical Spine XR IMPRESSION: Extensive degenerative changes as noted * CT head without contrast IMPRESSION: 1. There is extensive microvascular angiopathy without CT evidence acute intracranial hemorrhage. 2. There is prominence of the ventricular system and cerebral atrophy as detailed above. * US Renal doppler IMPRESSION: No significant abnormality. Left renal cyst. No obstructive uropathy. * complete U/S abdomen Impression: Gallbladder sludge with suspected superimposed cholecystitis, large fatty liver, increased right renal echogenicity typical of chronic medical renal disease * CT abdomen/pelvis: 1. Gallbladder distention and stranding in the pericholecystic fat suggests possible acute cholecystitis. 2. Acalculus cholecystitis is a possibility given that there are no radiopaque stones identified. Recommend further evaluation with ultrasound. 3. No urinary calculus and no evidence of hydronephrosis or pyelonephrosis. 4. No abscess. Hospitalist Physical Gen: obese, nad, more awake and talkative orientated x 2, know name and knows that he is in hospital, missed year and name of hospital HEENT: NCAT, EOMI, PERRL but resist eyes being open, OP Clear Neck: supple, no adenopathy, no thyromegaly, no JVD CVS/Heart: RRR, normal S1S2, pulses present bilaterally Chest/Lungs: CTA B, Symmetrical chest expansion, good air entry bilaterally GI/Abdomen: soft, diffuse tender good bowel sounds, no guarding or rebound /Bladder: +suprapubic tenderness, no CVA or paraspinal tenderness Extermity/Skin: no c/c/e, no obvious rash MSK: doesnt follow commands Neuro: CN 2-12 grossly intact, doesnt follow commands Psych: calm, poor insight and judgment Subjective Date of service: 11/28/19 Principal diagnosis: cholecystitis Interval history: Patient seen and examined s/p cholecystectomy today, BP labile following syrgery, on iv fluid discussed with Dr Vasquez Objective - Constitutional Vitals: Vital Signs - 12hr 11/28/19 11/28/19 11/28/19 02:40 02:43 03:02 Temperature Pulse Rate 78 Respiratory 20 20 Rate Respiratory 20 Rate [Abdomen] Respiratory 20 Rate [Back] Blood Pressure 182/79 Blood Pressure [Right] O2 Sat by Pulse 97 Oximetry 11/28/19 11/28/19 11/28/19 03:04 03:07 03:13 Temperature 98.5 F Pulse Rate 83 79 Respiratory 20 20 Rate Respiratory Rate [Abdomen] Respiratory Rate [Back] Blood Pressure 182/79 Blood Pressure 170/72 [Right] O2 Sat by Pulse 95 Oximetry 11/28/19 11/28/19 11/28/19 07:43 07:50 11:50 Temperature 98.0 F 98.3 F Pulse Rate 88 84 78 Respiratory 20 20 22 Rate Respiratory Rate [Abdomen] Respiratory Rate [Back] Blood Pressure 206/88 196/85 156/74 Blood Pressure [Right] O2 Sat by Pulse 97 96 95 Oximetry - Labs CBC & Chem 7: 11/26/19 04:24 11/28/19 05:54 Labs: Abnormal lab results 11/27/19 11/27/19 11/28/19 Range/Units 16:41 21:09 05:54 Potassium 3.1 L (3.6-5.0) mmol/L Chloride 111.1 H (98-107) mmol/L Carbon Dioxide 15 L (22-30) mmol/L BUN 46 H (9-20) mg/dL Creatinine 3.0 H (0.8-1.5) mg/dL Glucose 110 H (75-100) mg/dL POC Glucose 151 H 113 H (70-105) Calcium 8.0 L (8.4-10.2) mg/dL
--- NOTE | 2019-11-28 14:41 | Post Operative Note ---
Pre-op diagnosis: acute perforated gangrenous cholecystitis Post-op diagnosis: same Findings: 1. perforated gallbladder, gangrenous 2. omental adhesions to gallbladder and anterior abdominal wall 3. free bile in the RUQ Procedure: laparoscopic cholecystectomy Anesthesia: NIA, local Surgeon: MICHELE IVEY Garland Machine Operator: LAZARO LONG Estimated blood loss: minimal Pathology: list (gallbladder) Specimen disposition: to lab Condition: stable Disposition: PACU
--- NOTE | 2019-11-28 16:31 | Post Anesthesia Evaluation ---
- Post Anesthesia Evaluation Patient Participated: Yes Airway Patent: Yes Stable Respiratory Function: Yes Nausea/Vomiting: No Temp > 96.8F: Yes Pain Manageable: Yes Adequeate Hydration: Yes Anesthesia Complications: No Block Receding Appropriately: Not Applicable Patient on Ventilator: No
[2019-11-28] MEDS: cefTRIAXone/NS 1 GM/50 ML 1 GM/50 ML BAG IV SCH (18:51)
[2019-11-28] MEDS: ONDANSETRON 4 MG/2 ML INJ IV PRN (23:21)
[2019-11-28] MEDS: traMADol 50 MG TAB PO PRN (23:22)
[2019-11-28] MEDS: INSULIN GLARGINE 100 UNITS/ML SUB-Q SCH (23:23)
[2019-11-29] MEDS: metroNIDAZOLE/NS 500 MG/100 ML 500 MG/100 ML BAG IV SCH ×2 (00:42→09:06)
[2019-11-29] MEDS ORDERED: HYDROmorphone 1 MG/1 ML INJ IV ONE (02:07)
[2019-11-29] MEDS: traMADol 50 MG TAB PO PRN (05:03)
[2019-11-29] MEDS: hydrALAZINE 25 MG TAB PO SCH ×2 (05:04→17:59)
[2019-11-29] MEDS: INSULIN LISPRO 100 UNIT/ML SUB-Q SCH ×3 (07:32→17:59)
[2019-11-29] MEDS: ONDANSETRON 4 MG/2 ML INJ IV PRN (09:06)
[2019-11-29] MEDS: LINEZOLID 600 MG/300 ML BAG IV SCH (09:06)
[2019-11-29] MEDS: TAMSULOSIN 0.4 MG CAP PO SCH (09:07)
[2019-11-29] MEDS: SODIUM BICARBONATE 650 MG TAB PO SCH (09:07)
[2019-11-29] MEDS: NICOTINE 14 MG/24 HR PATCH TD SCH (09:07)
[2019-11-29] MEDS: HEPARIN 5,000 UNIT/1 ML VIAL SUB-Q SCH (09:07)
[2019-11-29] MEDS: FAMOTIDINE 20 MG TAB PO SCH (09:07)
[2019-11-29] MEDS: NIFEdipine XL 60 MG TAB PO SCH (09:08)
[2019-11-29] MEDS: METOPROLOL TARTRATE 100 MG TAB PO SCH (09:08)
--- NOTE | 2019-11-29 09:56 | Progress Note ---
Assessment and Plan 74-year-old male s/p laparoscopic cholecystectomy, POD 1 1. Acute perforated, gangrenous cholecystitis 2. sepsis 2/2 #1 and/or #5 2. Acute on chronic renal failure 3. Dehydration 4. CAD, cardiac stents on Plavix 5. UTI Echo: 11/18/19 - EF 55-60% U/s Abd: cholecystitis, sludge, pericholecystic fluid Stress test: Negative Plan: 1. adv diet as adin 2. IVF -> will defer to nephro 3. IV abx, ID on board 4. DVT ppx 5. plavix on hold -> will clear to restart tomorrow if labs are stable today. 6. Pt refused labs this am, asked patient's RN to call lab and ask them to try again 7. IS/Pulm toilet 8. prn PO pain control 9. prn nausea control 10. OOB/PT consult Thank you, please call with questions or concerns Subjective Date of service: 11/29/19 Narrative: Pt seen and examined. c/o mild nausea, controlled with antiemetic. c/o abdominal soreness. Tolerating liquid diet. No emesis. No f/c. No cp, sob. Has not been OOB. Objective Vital Signs - 12hr 11/28/19 11/29/19 11/29/19 23:22 00:22 02:17 Temperature Pulse Rate Respiratory 20 20 20 Rate Blood Pressure O2 Sat by Pulse Oximetry 11/29/19 11/29/19 11/29/19 02:34 02:47 05:03 Temperature 97.4 F L Pulse Rate 84 Respiratory 20 20 20 Rate Blood Pressure 140/69 O2 Sat by Pulse 97 Oximetry 11/29/19 11/29/19 06:03 07:12 Temperature 98.0 F Pulse Rate 94 H Respiratory 20 20 Rate Blood Pressure 183/83 O2 Sat by Pulse 94 Oximetry - General physical appearance Narrative Exam: Gen: Awake, alert, oriented x3. More conversational today. NAD ENT: no scleral icterus CV: s1, S2+ resp; even and unlabored Abd: soft, ND. moderate TTP near surgical incisions. Incisions c/d/i. No r/r/g Ext: no c/c/e - Labs 11/26/19 04:24 11/28/19 05:54
[2019-11-29] MEDS ORDERED: METOCLOPRAMIDE 10 MG/2 ML INJ IV ONE (10:30)
[2019-11-29] MEDS: oxyCODONE /ACETAMINOPHEN 5-325MG TAB PO PRN ×2 (10:39→17:58)
--- NOTE | 2019-11-29 11:06 | Progress Note ---
Assessment and Plan 1. Acute kidney injury: Labs have been ordered since this morning but no new labs to review as of yet. 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 Renal function is slowly improving, currently 3.0 from 3.1. Continue IV fluids. Intermittent bladder scans. Renal US showed combination of complex and simple cysts in left kidney, negative for hydro. Monitor renal function closely. Avoid nephrotoxic agents. Meds dosage based on GFR. 2. FEN: Metabolic acidosis, improving, continue sodium bicarb, monitor. Mild hyponatremia, improved, monitor. Hypokalemia, monitor. Monitor lytes. 3. Suicidal/homicidal ideation. Was d/c from [facility] on 11/08. Seen by psych. 4. Metabolic encephalopathy, POA. Monitor. 5. Leukocytosis. 6. Diabetes mellitus with hyperglycemia. Monitor closely. 7. COPD. 8. CAD. 9. Presumed chronic congestive heart failure: Normal EF. 10.Right rib fracture. 11. Hypertension: Hydralazine increased to TID 11/20. BP remains elevated. Continue to monitor BP closely. 12. Urinary tract infection: Macias inserted 11/21 d/t urinary retention. On abx. 13. Acute cholecystitis: CT abd confirmed abnormal gallbladder with craleen-cholecystic fat stranding. Intermittent low-grade fevers and tachycardia. Cards was consulted for evaluation of pre-operative cardiac risk and had stress test 11/25. Stress test was negative. S/p cholecystectomy 11/27. Gen surg following. Subjective Date of service: 11/29/19 Principal diagnosis: cholecystitis Interval history: Patient was seen and examined at the bedside. He is awake in bed at time of exam. He had no acute events overnight. Objective - Exam Narrative Exam: General appearance: well-developed, well-nourished, appears stated age HEENT: ATNC, THIEN Neck: neck supple, trachea midline Respiratory: Clear to Auscultation, diminished bibasilar Heart: regular, S1S2, no murmurs Gastrointestinal: soft, normoactive bowel sounds, not absent, not tender, no pain on palpation Integumentary: no rash, warm and dry, abd binder present with 4 abd stitches s/p cholecystectomy 11/27 : Macias catheter present Neurologic: cooperative with exam, alert, verbal communication, confused Musculoskeletal: no edema - Vital Signs Vital signs: Vital Signs - 12hr 11/28/19 11/29/19 11/29/19 23:22 00:22 02:17 Temperature Pulse Rate Respiratory 20 20 20 Rate Blood Pressure O2 Sat by Pulse Oximetry 11/29/19 11/29/19 11/29/19 02:34 02:47 05:03 Temperature 97.4 F L Pulse Rate 84 Respiratory 20 20 20 Rate Blood Pressure 140/69 O2 Sat by Pulse 97 Oximetry 11/29/19 11/29/19 06:03 07:12 Temperature 98.0 F Pulse Rate 94 H Respiratory 20 20 Rate Blood Pressure 183/83 O2 Sat by Pulse 94 Oximetry - Lab 11/26/19 04:24 11/28/19 05:54 Most recent lab results Calcium 8.0 mg/dL (8.4-10.2) L 11/28/19 05:54 Phosphorus 5.00 mg/dL (2.5-4.5) H 11/14/19 12:18 Magnesium 2.40 mg/dL (1.7-2.3) H 11/14/19 12:18 Urine Creatinine 106.3 mg/dL (0.1-20.0) H 11/14/19 06:45 Urine Sodium 66 mmol/L 11/14/19 06:45 Medications & Allergies - Medications Allergies/Adverse Reactions: Allergies Penicillins Allergy (Severe, Verified 11/22/19 13:01) Unknown PATIENT'S DAUGHTER KARINA IBRAHIM STATES SHE DOES NOT KNOW THE EXACT REACTION BUT WAS TOLD PCN WOULD "KILL HIM" morphine Adverse Reaction (Verified 11/22/19 13:02) HALLUCINATIONS Tetanus Vaccines and Toxoid Adverse Reaction (Verified 11/01/19 23:50) Unknown Home Medications: Home Medications Medication Instructions Recorded Confirmed Last Taken Type Adult Aspirin 650 mg PO BID 11/02/19 11/17/19 Unknown History Citalopram 20 mg PO BID 11/02/19 11/17/19 Unknown History Clopidogrel [Plavix] 75 mg PO DAILY 11/02/19 11/17/19 Unknown History Ergocalciferol [Vitamin D2] 50,000 units PO QWEEK 11/02/19 11/17/19 Unknown History Famotidine [Pepcid] 20 mg PO DAILY 11/02/19 11/17/19 Unknown History Furosemide [Lasix TAB] 40 mg PO DAILY 11/02/19 11/17/19 Unknown History Gabapentin 300 mg PO TID 11/02/19 11/17/19 Unknown History Isosorbide Mononitrate 30 mg PO DAILY 11/02/19 11/17/19 Unknown History Lantus VIAL 30 units SQ QHS 11/02/19 11/17/19 Unknown History Metoprolol-HCTZ 100-50 mg TAB 50 mg PO BID 11/02/19 11/17/19 Unknown History NIFEdipine [Nifedipine ER] 60 mg PO DAILY 11/02/19 11/17/19 Unknown History Tamsulosin 0.4 mg PO DAILY 11/02/19 11/17/19 Unknown History hydrALAZINE 50 mg PO TID 11/02/19 11/17/19 Unknown History Active Medications: Generic Name Dose Route Start Last Admin Trade Name Freq PRN Reason Stop Dose Admin Acetaminophen 650 mg 11/10/19 12:54 11/25/19 06:18 Tylenol PO 650 mg Q6H PRN Administration Pain, Mild (1-3) Lipase/Protease/Amylase 1 each 11/25/19 15:11 Pancreaze 10,500 Unit FEEDTUBE PRN PRN For Clogged Feeding Tube Dextrose 50 ml 11/11/19 11:04 D50w (25gm) Syringe IV Q30MIN PRN Hypoglycemia Protocol Ergocalciferol 50,000 unit 11/17/19 10:00 11/24/19 10:12 Vitamin D2 PO 50,000 unit Vazquez GETACHEW Administration Famotidine 20 mg 11/17/19 10:00 11/29/19 09:07 Pepcid PO 20 mg DAILY GETACHEW Administration Heparin Sodium (Porcine) 5,000 unit 11/09/19 10:00 11/29/19 09:07 Heparin SUB-Q 5,000 unit Q12HR GETACHEW Administration Hydralazine HCl 5 mg 11/11/19 03:04 11/28/19 09:17 Apresoline IV 5 mg Q6HR PRN Administration Blood Pressure Hydralazine HCl 50 mg 11/19/19 22:00 11/29/19 05:04 Apresoline PO 50 mg Q8HR GETACHEW Administration Metronidazole 500 mg in 100 mls @ 100 mls/hr 11/21/19 17:00 11/29/19 09:06 Flagyl 500 Mg/100 Ml IV 100 mls/hr Q8H GETACHEW Administration Protocol Ceftriaxone Sodium 1 gm in 50 mls @ 100 mls/hr 11/25/19 16:30 11/28/19 18:51 Rocephin/Ns 1 Gm/50 Ml IV 100 mls/hr Q24H GETACHEW Administration Protocol Linezolid 600 mg in 300 mls @ 300 mls/hr 11/26/19 14:00 11/29/19 09:06 Zyvox 600mg/300ml IV 12/02/19 22:59 300 mls/hr Q12HR GETACHEW Administration Protocol Lactated Ringer's 1,000 mls @ 42 mls/hr 11/28/19 13:00 11/28/19 12:22 Lactated Ringers IV 42 mls/hr DIRECT GETACHEW Administration Insulin Glargine 10 units 11/15/19 22:00 11/28/19 23:23 Lantus SUB-Q 10 units QHS GETACHEW Administration Insulin Human Lispro 0 unit 11/17/19 16:30 11/29/19 07:32 Humalog SUB-Q 2 unit AC GETACHEW Administration Protocol Insulin Human Lispro 0 unit 11/17/19 22:00 11/28/19 23:24 Humalog SUB-Q 2 unit QHS GETACHEW Administration Protocol Isosorbide Mononitrate 30 mg 11/17/19 10:00 11/29/19 09:07 Imdur PO 30 mg DAILY GETACHEW Administration Metoprolol Tartrate 100 mg 11/10/19 16:00 11/29/19 09:08 Metoprolol PO 100 mg BID GETACHEW Administration Nicotine 14 mg 11/09/19 20:00 11/29/19 09:07 Habitrol TD 14 mg QDAY GETACHEW Administration Nifedipine 60 mg 11/17/19 10:00 11/29/19 09:08 Procardia Xl PO 60 mg QDAY GETACHEW Administration Nitroglycerin 0.4 mg 11/10/19 03:32 11/26/19 05:53 Nitrostat SL 0.4 mg .Q5MIN PRN Administration Chest Pain Ondansetron HCl 4 mg 11/21/19 17:53 11/29/19 09:06 Zofran IV 4 mg Q6H PRN Administration Nausea And Vomiting Oxycodone/Acetaminophen 2 tab 11/29/19 10:30 11/29/19 10:39 Percocet 5/325 PO 2 tab Q6H PRN Administration Pain, Moderate (4-6) Simple Syrup 15 ml 11/25/19 15:11 Simple Syrup FEEDTUBE PRN PRN Hypoglycemia Simple Syrup 30 ml 11/25/19 15:11 Simple Syrup FEEDTUBE PRN PRN Hypoglycemia Sodium Bicarbonate 650 mg 11/25/19 14:00 11/29/19 09:07 Sodium Bicarbonate PO 650 mg TID GETACHEW Administration Sodium Bicarbonate 325 mg 11/25/19 15:11 Sodium Bicarbonate FEEDTUBE PRN PRN For Clogged Feeding Tube Tamsulosin HCl 0.4 mg 11/17/19 10:00 11/29/19 09:07 Flomax PO 0.4 mg QDAY GETACHEW Administration
--- NOTE | 2019-11-29 12:53 | Progress Note ---
Assessment and Plan Cultures: Blood culture 11/18/2019 no growth. Urine culture 11/14/2019 <10K colonies. Urine culture on 11/18/2019: >100K, Enterococcus faecalis. Assessment/plan: 74 yo male with history of hypertension, CAD, COPD, CHF, CKD4 and diabetes admitted to [facility] on 11/09/2019 for mental health stabilization after suicidal ideation, now with SIRS: #Sepsis: secondary to acute cholecystitis. #Acute cholecystitis: s/p laparoscopic cholecystectomy on 11/28/2019, per findings, "acute perforated gangrenous cholecystitis" #UTI: Urine culture on 11/18/2019 >100K E.faecalis. #STEPHANIE on CKD: renally adjusted abx, nephrology following. #Acute encephalopathy: better #Penicillin allergy: unclear reaction, remote but tolerating Ceftriaxone, so monitor. #Leucocytosis and reactive thrombocytosis: from infection. Recommendations: continue IV Linezolid for Enterococcus UTI coverage (Day 4 of 7) Continue Ceftriaxone and Flagyl IV, findings of acute perforated gangrenous cholecystitis, s/p washout, d/w Dr. Vasquez. So plan for 5 days from date of surgery, may be able to do PO abx if discharged Claire Villalobos MD, FACP [facility] C: [phone] O: [phone] F: [phone] Subjective Date of service: 11/29/19 Principal diagnosis: cholecystitis Interval history: Afebrile. Had surgery done yesterday. No rash. Tolerating abx. Objective - Exam Narrative Exam: Constitutional: Alert, cooperative. No acute distress Head, Ears, Nose: Normocephalic, atraumatic. External ears, nose normal Eyes: Conjunctivae/corneas clear. No icterus. No ptosis. Neck: Supple, no meningeal signs Cardiovascular: S1, S2 normal. Respiratory: Good air entry, clear to auscultation bilaterally GI: mild distension, laparoscopic incisions with glue, no drain in place, bowel sounds + Musculoskeletal: No pedal edema, no cyanosis. Skin: No rash or abscess Hem/Lymphatic: No palpable cervical or supraclavicular nodes. No lymphangitis Psych: calm, not agitated Neurological: Awake, alert, answers basic questions - Constitutional Vitals: Vital Signs Temp Pulse Resp BP Pulse Ox 98.0 F 94 H 20 183/83 94 11/29/19 07:12 11/29/19 07:12 11/29/19 07:12 11/29/19 07:12 11/29/19 07:12 Temperature -Last 24 Hours Temperature 98.0 F Temperature 97.4 F Temperature 97.6 F Temperature 97.5 F Temperature 98.2 F Temperature 100.2 F - Labs CBC & Chem 7: 11/26/19 04:24 11/28/19 05:54 Labs: Abnormal lab results 11/28/19 11/28/19 11/28/19 Range/Units 15:10 16:46 22:19 POC Glucose 155 H 182 H 210 H (70-105) 11/29/19 11/29/19 Range/Units 07:24 11:50 POC Glucose 226 H 233 H (70-105)
[2019-11-29 15:16] VITALS: BP 188/85
--- NOTE | 2019-11-29 15:23 | Discharge Summary ---
Providers - Providers Date of Admission: 11/08/19 10:17 Date of discharge: 11/29/19 Attending physician: SHAW CANTU 11/08/19 16:56 Consult to Physician [CONS] Routine Comment: Consulting Provider: ROSALIE CORTEZ Physician Instructions: Reason For Exam: ARF 11/09/19 07:54 Consult to Mental Health [CONS] Urgent Reason For Exam: psych 11/09/19 17:50 Speech Therapy Evaluation and Treat [CONS] Routine Reason For Exam: odynophagia 11/12/19 10:18 Physical Therapy Evaluation and Treat [CONS] Routine Comment: Reason For Exam: weakness 11/12/19 15:33 Consult Geriatric-Psych [CONS] Routine Consulting Provider: Reason For Exam: for eval 11/13/19 10:26 Physical Therapy Evaluation and Treat [CONS] Routine Comment: Reason For Exam: Weakness & Eval and Treat. 11/20/19 10:13 Consult to Physician [CONS] Routine Comment: Consulting Provider: RYAN PUTNAM Physician Instructions: Reason For Exam: Fevers 11/21/19 16:19 Consult to Physician [CONS] Routine Comment: Consulting Provider: MICHELE IVEY Physician Instructions: Reason For Exam: Acute cholecystitis 11/21/19 17:09 Consult to Physician [CONS] Routine Comment: Consulting Provider: JOSEPH NGUYEN Physician Instructions: see Dr. Corona progress note Reason For Exam: CAD, pre-op eval and ?stop plavix 11/24/19 13:15 Consult to Interventional Radiology [CONS] Routine Consulting Provider: GINA PEREZ Reason For Exam: julianne perc drain evaluation Place consult to:: dr. tata scott Notified:: yes Phone number called:: [phone] Was contact made?: Yes If yes, spoke with:: dr. scott Time called:: 13:54 Comment:: karolina 11/25/19 13:49 Consult to Dietitian/Nutrition [CONS] Routine Physician Instructions: Reason For Exam: Reason for Consult: Write/Manage Tube Feeding 11/29/19 09:56 Physical Therapy Evaluation and Treat [CONS] Routine Comment: Reason For Exam: post op, deconditioning Primary care physician: LAMONT LEGGETT MD Hospitalization Hospital course: Discharge diagnosis: Acute Cholecystitis: - GS following, s/p laparoscopic cholecystectomy on 11/28/2019, per findings, "acute perforated gangrenous cholecystitis", - post-op care per surgery Sepsis: secondary to acute cholecystitis and UTI. -continue IV Linezolid for Enterococcus UTI coverage (Day 4 of 7) Continue Ceftriaxone and Flagyl IV, findings of acute perforated gangrenous cholecystitis, s/p washout, d/w Dr. Ivey. So plan for 5 days from date of surgery. PO Cefdinir 300 mg daily + PO Flagyl 500 mg TID x 5 days along with PO Linezolid 600 mg BID x 3 more days. 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 Labs significant for Creat 2.8. Nephrology was consulted for further evaluation. RN called me on 11/08/2019 about a "change in medical condition," patient choking on food and liquids, he is pale, altered. Prior night, before choking on food, he was combative and received 2 mg IM ativan. Trazadone was also newly added and increase in depakote. Now more lethargic and unable to eat, choking on food/liquid but he did received Lantus 30 units last night and BG dropped to 52. After IV dextrose the BG continued to drop to 48. Another amp of D5 was given. He was discharged form [facility] to med surg and admitted to 3rd Floor Medsur for intractable hypoglycemia requiring IV line. He also then c/o abdominal pain, a CT abdomen/pelvis showed Gallbladder distention and stranding in the pericholecystic fat suggests possible acute cholecystitis. GS consulted, s/p surgery, d/c to SNF. * 11/18/19 TTE Conclusisons: Est EF 55-60% * Thoracic XR: Degenerative changes * Lumbosacral XR IMPRESSION: 1. Compression L1 vertebral body age difficult determine recommend clinical correlation 2. Degenerative changes as noted * pCXR IMPRESSION: 1. No acute cardiopulmonary disease * Cervical Spine XR IMPRESSION: Extensive degenerative changes as noted * CT head without contrast IMPRESSION: 1. There is extensive microvascular angiopathy without CT evidence acute intracranial hemorrhage. 2. There is prominence of the ventricular system and cerebral atrophy as detailed above. * US Renal doppler IMPRESSION: No significant abnormality. Left renal cyst. No obstructive uropathy. * complete U/S abdomen Impression: Gallbladder sludge with suspected superimposed cholecystitis, large fatty liver, increased right renal echogenicity typical of chronic medical renal disease * CT abdomen/pelvis: 1. Gallbladder distention and stranding in the pericholecystic fat suggests possible acute cholecystitis. 2. Acalculus cholecystitis is a possibility given that there are no radiopaque stones identified. Recommend further evaluation with ultrasound. 3. No urinary calculus and no evidence of hydronephrosis or pyelonephrosis. 4. No abscess. Hospitalist Physical Gen: obese, nad, more awake and talkative orientated x 2, know name and knows that he is in hospital, missed year and name of hospital HEENT: NCAT, EOMI, PERRL but resist eyes being open, OP Clear Neck: supple, no adenopathy, no thyromegaly, no JVD CVS/Heart: RRR, normal S1S2, pulses present bilaterally Chest/Lungs: CTA B, Symmetrical chest expansion, good air entry bilaterally GI/Abdomen: soft, diffuse tender good bowel sounds, no guarding or rebound /Bladder: +suprapubic tenderness, no CVA or paraspinal tenderness Extermity/Skin: no c/c/e, no obvious rash MSK: doesnt follow commands Neuro: CN 2-12 grossly intact, doesnt follow commands Psych: calm, poor insight and judgment Disposition: DC/TX-03 SNF W [facility] CERT Time spent for discharge: 34 minutes Core Measure Documentation - Palliative Care Palliative Care/ Comfort Measures: Not Applicable - Core Measures Any of the following diagnoses?: none Exam - Constitutional Vitals: Temp Pulse Resp BP Pulse Ox 97.8 F 95 H 20 188/85 92 11/29/19 13:44 11/29/19 13:44 11/29/19 13:44 11/29/19 13:44 11/29/19 13:44 Plan Activity: advance as tolerated Weight Bearing Status: Non-Weight Bearing Diet: advance as tolerated Wound: per your surgeon's advice Follow up with: LAMONT LEGGETT MD [Primary Care Provider] - 7 Days Prescriptions: Cefdinir 300 mg PO BID #10 capsule metroNIDAZOLE [Flagyl] 500 mg PO Q8HR #15 tablet Linezolid [Zyvox] 600 mg PO BID #6 tablet
--- NOTE | 2019-11-29 16:23 | Operative Report ---
PREOPERATIVE DIAGNOSIS: Acute cholecystitis. POSTOPERATIVE DIAGNOSIS: Acute perforated gangrenous cholecystitis. FINDINGS: 1. Perforated gallbladder, gangrenous. 2. Omental adhesions to the gallbladder and anterior abdominal wall. 3. Free bile in the right upper quadrant. PROCEDURE: Laparoscopic cholecystectomy. ANESTHESIA: General endotracheal anesthesia, local. SURGEON: Torie Vasquez DO COMPOSITION BOARD PRESS OPERATOR: Carmela Martinez MD ESTIMATED BLOOD LOSS: Minimal. PATHOLOGY: Gallbladder. SPECIMEN DISPOSITION: To lab. CONDITION ON DISPOSITION: The patient is stable to PACU. HISTORY OF PRESENT ILLNESS AND INDICATION: The patient is a 74-year-old male, who was transferred to the medical floor from the [facility] on 11/08/2019 due to choking and altered mental status. The patient is being treated for urinary tract infection, but then started to complain of abdominal pain and nausea. CT scan of the abdomen and pelvis was performed, which showed an abnormal gallbladder with pericholecystic fat stranding. The patient was having low-grade fevers and tachycardia. A right upper quadrant ultrasound was performed, which showed gallbladder sludge with suspected superimposed cholecystitis along with a large fatty liver. The patient had a history of coronary artery disease, on Plavix and therefore was seen by Cardiology. Nuclear stress test was performed, which was negative. The patient was deemed intermediate risk for surgery from the Cardiology standpoint with no immediate contraindications to undergo surgery. Plavix was held for 7 days and the patient was scheduled for cholecystectomy. All risks, benefits and alternatives to surgery were discussed with the patient's daughter/next of kin Genia Hurley and consent was obtained. Surgery was also discussed with the patient who was agreeable to proceed. PROCEDURE IN DETAIL: The patient was identified in the preoperative area, taken back to the operating room and placed on the operating table in supine position. After anesthesia was induced, the abdomen was prepped and draped in the usual sterile fashion. Timeout was performed. The patient was already on scheduled antibiotics. Local anesthetic was infiltrated into all skin incision sites. A 5-mm supraumbilical incision was made through which a Veress needle was inserted. The Veress needle position was confirmed using saline drop test and the abdomen insufflated to 15 mmHg. Once the abdomen was insufflated, the Veress needle was removed and a 5 mm Optiview trocar was placed through the supraumbilical incision. The abdomen was inspected. There was no underlying injury to any of the abdominal structures. The patient was placed in reverse Trendelenburg and tilted to the left. Immediately in the right upper and left upper quadrant, there were omental adhesions to the anterior abdominal wall, obscuring the gallbladder. An additional 12 mm subxiphoid and two right upper quadrant 5 mm trocars were placed under direct visualization. The credentialing assistant surgeon bluntly dissected the omental adhesions from the anterior abdominal wall and in doing so, there was immediate release of free bilious fluid. There was also free bile noted in the right upper quadrant and Morison's pouch. Once the omental adhesions were taken down from the left upper quadrant, we proceeded to continue until I see adhesions in the right upper quadrant. These adhesions were very carefully and meticulously and bluntly dissected until the gallbladder was encountered. The gallbladder was frankly gangrenous and encased in omental adhesions. Gallbladder was grasped at the fundus and retracted cephalad and the omental adhesions were continued to be dissected off of the gallbladder until the neck of the gallbladder was encountered. The neck of the gallbladder was chronically inflamed and scarred. The entire anterior gallbladder wall was gangrenous. The gallbladder was distended and a portion of the posterior wall had already auto-dissected off of the liver bed. We then decided to decompress the gallbladder by inserting a laparoscopic needle. Using a 30 mL syringe, approximately 35 mL of green bile was aspirated from the gallbladder. The gallbladder was then better able to be grasped and retracted cephalad and above the liver. Infundibulum was grasped and retracted laterally. Using a combination of a dome down approach along with the dissection of the neck of the gallbladder, the dissection was performed. The cystic duct was very carefully dissected free from the surrounding tissue and skeletonized. The gallbladder was then dissected from the dome, all the way down to the neck of the gallbladder using a combination of blunt dissection and Harmonic scalpel. Once the cystic duct was seen as the only structure entering the gallbladder and tethering the gallbladder, 3 clips were placed on the proximal aspect and 1 on the distal aspect. The cystic duct was transected in between the clips very close to its entry point and the gallbladder using EndoShears and the gallbladder was placed in the right upper quadrant. All free bilious fluid and blood was then suctioned and the liver bed was irrigated until the irrigant returned clear. Hemostasis was ensured of the liver bed and carefully achieved using electrocautery. The clips were visualized and intact on the cystic duct. No active bleeding was seen. The gallbladder was placed to an EndoCatch bag and removed via the 12 mm port. An inspection was performed of all 4 quadrants of the abdomen and any free bilious fluid mixed with saline was aspirated from all 4 quadrants. The patient was placed into neutral position and Cheung's pouch and liver bed were once again irrigated until the irrigant returned clear. Hemostasis was carefully ensured. Jenna powder was sprayed on the liver bed and the liver bed was covered with Surgicel. The 12 mm port was then removed and the fascia closed with interrupted 0 Vicryl suture using the Isaiah-Jamel device. The remainder of the ports were removed under direct visualization and the abdomen desufflated. Skin incisions were once again infiltrated with local anesthetic and the skin incisions closed with 4-0 Monocryl subcuticular stitches and skin glue. At the end of the case, all sponge, instrument, sharp counts were correct x 2. The patient was awoken from anesthesia, extubated, and the patient was taken to PACU in stable condition. An attempt was made to call the patient's daughter; however, the phone went to voicemail. Message could not be left due to the voicemail box being full. JOB# [id number] NOE/HAM
[2019-11-29 16:28] LABS: Hematocrit 32.8 % (35.5-45.6); Hemoglobin 10.7 gm/dl (11.8-15.2); Mean Corpuscular HGB Conc 33 % (32-34); Mean Corpuscular Volume 89 fl (84-94); Platelet Count 857 K/mm3 (140-440); Red Blood Count 3.68 M/mm3 (3.65-5.03); Red Cell Distribution Width 14.8 % (13.2-15.2)
[2019-11-29 16:32] LABS: Alanine Aminotransferase 10 units/L (7-56); Albumin 1.9 g/dL (3.9-5); BUN/Creatinine Ratio 17; Blood Urea Nitrogen 49 mg/dL (9-20); Calcium 8.4 mg/dL (8.4-10.2); Hemolysis Index 3
[2019-11-29] MEDS: hydrALAZINE 20 MG/1 ML INJ IV PRN (17:58)
== END 2019-11-29 18:24 | DRG 853 ==
LOC: 3A 08:47 → UNDOADMIN 08:47 → 3A 10:17 → 2B-ACE 11-16 16:54
PROVIDERS: ADMIT Internal Medicine; ATTEND Internal Medicine
PROC: 0FT44ZZ Resection of Gallbladder, Percutaneous Endoscopic Approach (ICD-10-PCS; principal; 2019-11-28)
DX: A41.9 Sepsis, unspecified organism (principal); N17.0 Acute kidney failure with tubular necrosis; G92 Toxic encephalopathy; N18.4 Chronic kidney disease, stage 4 (severe); N39.0 Urinary tract infection, site not specified; J96.11 Chronic respiratory failure with hypoxia; I13.0 Hypertensive heart and chronic kidney disease with heart failure and stage 1 through stage 4 chronic kidney disease, or unspecified chronic kidney disease; E87.2 Acidosis; R45.851 Suicidal ideations; E87.1 Hypo-osmolality and hyponatremia; M84.48XA Pathological fracture, other site, initial encounter for fracture; I95.9 Hypotension, unspecified; K82.A1 Gangrene of gallbladder in cholecystitis; E11.649 Type 2 diabetes mellitus with hypoglycemia without coma; E78.5 Hyperlipidemia, unspecified; I25.10 Atherosclerotic heart disease of native coronary artery without angina pectoris; I50.9 Heart failure, unspecified; E11.22 Type 2 diabetes mellitus with diabetic chronic kidney disease; J44.9 Chronic obstructive pulmonary disease, unspecified; E11.65 Type 2 diabetes mellitus with hyperglycemia; F99 Mental disorder, not otherwise specified; R13.10 Dysphagia, unspecified; F03.90 Unspecified dementia, unspecified severity, without behavioral disturbance, psychotic disturbance, mood disturbance, and anxiety; E86.0 Dehydration; I44.7 Left bundle-branch block, unspecified; R41.82 Altered mental status, unspecified; E87.6 Hypokalemia; Z79.4 Long term (current) use of insulin; Z88.0 Allergy status to penicillin; Z88.6 Allergy status to analgesic agent; Z88.7 Allergy status to serum and vaccine; Z86.718 Personal history of other venous thrombosis and embolism; Z79.01 Long term (current) use of anticoagulants; I25.2 Old myocardial infarction; Z95.1 Presence of aortocoronary bypass graft; Z72.0 Tobacco use
CPT/HCPCS: 36415; 70450; 71045; 72040; 72070; 72100; 74176; 76700; 76770; 78452; 80048; 80053; 80076; 80202; 81001; 82140; 82570; 82962; 83735; 84100; 84300; 85007; 85025; 85027; 86850; 86900; 86901; 87040; 87076; 87086; 87116; 87186; 87400; 88304; 93005; 93010; 93017; 93306; G0378; 87502; A4217; A9502; J0360; J0696; J1100; J1170; J1644; J1815; J1956; J2020; J2060; J2370; J2405; J2704; J2710; J2765; J2785; J3010; J3370; J3480; J3486; J7030; J7040; J7120

== ENCOUNTER 2020-02-03 17:46 | Emergency (ER) | payer MEDICARE ==
[2020-02-03 19:32] LABS: Hematocrit 36.5 % (35.5-45.6); Hemoglobin 11.9 gm/dl (11.8-15.2); Mean Corpuscular HGB Conc 33 % (32-34); Mean Corpuscular Volume 89 fl (84-94); Platelet Count 335 K/mm3 (140-440); Red Blood Count 4.08 M/mm3 (3.65-5.03); Red Cell Distribution Width 17.8 % (13.2-15.2)
[2020-02-03 19:43] LABS: INR 1.05 (0.87-1.13)
[2020-02-03 19:44] LABS: Albumin 2.8 g/dL (3.9-5); BUN/Creatinine Ratio 14; Blood Urea Nitrogen 42 mg/dL (9-20); Calcium 8.9 mg/dL (8.4-10.2); Hemolysis Index 4; Partial Thromboplastin Time 31.8 Sec. (24.2-36.6)
--- NOTE | 2020-02-03 19:44 | Emergency Department Report ---
ED General Adult HPI - General Chief complaint: Abdominal Pain Stated complaint: POST OP SURG ISSUE/ PUI?: Yes Time Seen by Provider: 02/03/20 18:36 Source: patient, EMS (Verbal report received from emergency medical services. EMS documentation not available at time of chart dictation ), RN notes reviewed, old records reviewed Mode of arrival: Stretcher Limitations: Altered Mental Status, Other - History of Present Illness Initial comments: Patient is a 74-year-old gentleman. He is not known to myself. Past medical history is complex, including Biloma/fluid collection, which was treated with percutaneous drainage in November of this year, also has a history of renal insufficiency, heart disease, diabetes, hypertension, malnutrition and hypoalbuminemia. He apparently also recently tested positive for COVID. The patient himself is confused, and cannot offer any complaints. He does follow commands. He is not able to describe exacerbating or relieving factors. As per verbal report from EMS, they were contacted because his detention felt like he was somewhat confused. EMS reports normal Accu-Chek. Patient not accompanied by friends or family at this time who can provide additional collateral information. Patient is confused, and he can therefore not describe exacerbating or relieving factors, qualitative nature of his symptoms. He also has a known history of left bundle branch block. The urine culture from October of this year demonstrated enterococcus faecalis His last known well time is not explicitly known. -: unknown Radiation: other Quality: other Consistency: other Improves with: other Worsens with: other Associated Symptoms: other - Related Data Home Medications Medication Instructions Recorded Confirmed Last Taken Citalopram 20 mg PO BID 11/02/19 12/09/19 Unknown Clopidogrel [Plavix] 75 mg PO DAILY 11/02/19 12/09/19 Unknown Ergocalciferol [Vitamin D2] 50,000 units PO QWEEK 11/02/19 12/09/19 Unknown Famotidine [Pepcid] 20 mg PO DAILY 11/02/19 12/11/19 12/09/19 09:00 Previous Rx's Medication Instructions Recorded Last Taken Type ISOSORBIDE MONOnitrate [Imdur ER] 30 mg PO DAILY tablet 11/29/19 Unknown Rx Lispro Insulin [HumaLOG] 0 unit SUB-Q QACHS units 11/29/19 Unknown Rx Metoprolol [Lopressor TAB] 100 mg PO BID tablet 11/29/19 12/08/19 20:30 Rx NIFEdipine XL [Procardia Xl] 60 mg PO QDAY tablet 11/29/19 Unknown Rx Nitroglycerin [Nitrostat] 0.4 mg SL .Q5MIN PRN tablet 11/29/19 Unknown Rx Tamsulosin [Flomax] 0.4 mg PO QDAY capsule 11/29/19 Unknown Rx hydrALAZINE [Apresoline TAB] 50 mg PO Q8HR tablet 11/29/19 Unknown Rx metroNIDAZOLE [Flagyl TAB] 500 mg PO Q8HR #15 tablet 11/29/19 Unknown Rx Nitrofurantoin [place]/M-Cryst 100 mg PO Q12HR #14 capsule 02/03/20 Unknown Rx [Macrobid CAP] Allergies Allergy/AdvReac Type Severity Reaction Status Date / Time Penicillins Allergy Severe Unknown Verified 02/03/20 18:02 morphine AdvReac HALLUCINATI Verified 02/03/20 18:02 ONS Tetanus Vaccines and Toxoid AdvReac Unknown Verified 02/03/20 18:02 ED Review of Systems ROS: Stated complaint: POST OP SURG ISSUE/ Other details as noted in HPI Comment: Unobtainable due to pts medical conditions ED Past Medical Hx - Past Medical History Previous Medical History?: Yes Hx Hypertension: Yes Hx Heart Attack/AMI: No Hx Diabetes: Yes Hx Liver Disease: No Hx Renal Disease: Yes (CKD) Hx Sickle Cell Disease: No Hx Arthritis: Yes Hx Seizures: No Hx Psychiatric Treatment: Yes (MDD) Hx Asthma: No Hx COPD: Yes Hx Dementia: Yes Additional medical history: ischemic heart disease, LBBB - Surgical History Hx Pacemaker: No Hx Internal Defibrillator: No Hx Cholecystectomy: Yes - Social History Smoking Status: Former Smoker - Medications Home Medications: Home Medications Medication Instructions Recorded Confirmed Last Taken Type Citalopram 20 mg PO BID 11/02/19 12/09/19 Unknown History Clopidogrel [Plavix] 75 mg PO DAILY 11/02/19 12/09/19 Unknown History Ergocalciferol [Vitamin D2] 50,000 units PO QWEEK 11/02/19 12/09/19 Unknown History Famotidine [Pepcid] 20 mg PO DAILY 11/02/19 12/11/19 12/09/19 09:00 History ISOSORBIDE MONOnitrate [Imdur ER] 30 mg PO DAILY tablet 11/29/19 12/09/19 Unknown Rx Lispro Insulin [HumaLOG] 0 unit SUB-Q QACHS units 11/29/19 12/09/19 Unknown Rx Metoprolol [Lopressor TAB] 100 mg PO BID tablet 11/29/19 12/11/19 12/08/19 20:30 Rx NIFEdipine XL [Procardia Xl] 60 mg PO QDAY tablet 11/29/19 12/09/19 Unknown Rx Nitroglycerin [Nitrostat] 0.4 mg SL .Q5MIN PRN tablet 11/29/19 12/09/19 Unknown Rx Tamsulosin [Flomax] 0.4 mg PO QDAY capsule 11/29/19 12/09/19 Unknown Rx hydrALAZINE [Apresoline TAB] 50 mg PO Q8HR tablet 11/29/19 12/09/19 Unknown Rx metroNIDAZOLE [Flagyl TAB] 500 mg PO Q8HR #15 tablet 11/29/19 12/09/19 Unknown Rx Nitrofurantoin [place]/M-Cryst 100 mg PO Q12HR #14 capsule 02/03/20 Unknown Rx [Macrobid CAP] ED Physical Exam - General Limitations: Altered Mental Status General appearance: in no apparent distress - Head Head exam: Present: atraumatic, normocephalic - Eye Eye exam: Present: normal appearance - ENT ENT exam: Present: normal exam, mucous membranes dry, normal external ear exam - Neck Neck exam: Present: normal inspection, full ROM. Absent: tenderness, meningismus - Respiratory Respiratory exam: Present: decreased breath sounds. Absent: respiratory distress, wheezes, rales, rhonchi, stridor - Cardiovascular Cardiovascular Exam: Present: regular rate, normal rhythm, normal heart sounds. Absent: bradycardia, tachycardia, irregular rhythm, systolic murmur, diastolic murmur, rubs, gallop - GI/Abdominal GI/Abdominal exam: Present: soft, other (Drain is noted in the right upper quadrant, without redness, pus, streaking or tenderness. It is draining into a collection container, which appears to have green bile). Absent: distended, tenderness, guarding, rebound, rigid, pulsatile mass - Rectal Rectal exam: Present: deferred - Extremities Exam Extremities exam: Present: normal inspection, other (2+ pulses noted in the bilateral upper and lower extremities. There is no palpable cord. negative Homans sign. Muscular compartments are soft. The pelvis is stable.). Absent: pedal edema, calf tenderness - Back Exam Back exam: Present: normal inspection, full ROM. Absent: tenderness, CVA tenderness (R), CVA tenderness (L), paraspinal tenderness, vertebral tenderness - Neurological Exam Neurological exam: Present: alert (The patient is awake. He follows commands. He knows his name. He knows that he is at a hospital.), other (No facial droop. Tongue midline. Extraocular movements intact bilaterally. Facial sensation intact to light touch in V1, V2, V3 distribution bilaterally. 5 and a 5 strength in 4 extremities. Sensation intact to light touch in 4 extremities.). Absent: motor sensory deficit - Psychiatric Psychiatric exam: Present: flat affect - Skin Skin exam: Present: warm, dry, intact, normal color. Absent: rash ED Course Vital Signs 02/03/20 02/03/20 02/03/20 17:54 19:14 20:00 Temperature 97.4 F L Pulse Rate 98 H 98 H 96 H Respiratory 16 21 Rate Blood Pressure 117/69 94/55 O2 Sat by Pulse 97 96 Oximetry 02/03/20 02/03/20 20:25 21:01 Temperature 97.5 F L 97.5 F L Pulse Rate Respiratory Rate Blood Pressure O2 Sat by Pulse Oximetry - Reevaluation(s) Reevaluation #1: 02/03/20 19:43 Differential diagnosis, including but not limited to: Pneumonia, urinary tract infection, delirium, dementia, thyroid derangement, electrolyte derangement Assessment and plan: 74-year-old gentleman with indwelling percutaneous biliary tube, Draining a known biloma, sent to the ER for nonspecific symptoms. At this point in time, he is afebrile with reassuring vital signs, he will answer some but not all questions, he is moving 4 extremities and protecting his airway. There is no evidence of external abdominal wall infection. Doubt acute pathology at this time. We will obtain screening laboratory studies, x-ray of the chest, EKG, urinalysis, rectal temperature, noncontrast CT scan of the brain, noncontrast CT scan of the abdomen pelvis, and reassess. It is documented that he tested positive for COVID on January 23, we do not have proof of cure or resolution, so therefore he will be placed on isolation precautions empirically. Once his data points have resulted, we will reassess. 02/03/20 19:43 Reevaluation #2: 02/03/20 21:30 CT scan abdomen pelvis, brain negative for acute findings. Urinalysis is re viewed and appreciated. We will discuss with the patient's surgeon of record. Reevaluation #3: 02/03/20 21:37 Discussed with general surgeon, Dr. Garsia. We discussed the patient's history, physical, laboratory studies, prior medical history, and CT scan of the abdomen pelvis. We both agree that at this point in time, the patient does not require emergent surgical consultation. He does also not meet criteria for hospitalization at this time. He advises that his office is able to accommodate outpatient appointments, he works with Dr. Ivey, and he also advises that his office is not refused patient to have COVID or suspected COVID. He specifically advises that his office is able to see the patient as an outpatient for follow-up. We both agree that the patient's general surgeon of record, Dr. Ivey, should discussed decision to pull the tube with the interventional radiologist, Dr. Gallo. However, this can be done as an outpatient, and does not require emergent consultation this evening. At this point time, the patient does not appear to have an emergent medical condition that requires emergent consultation or hospitalization. In addition, collateral information was obtained from nursing staff. Apparently, the patient was sent to the ER by his detention for CAT scan to evaluate his intra-abdominal contents. ED Medical Decision Making - Lab Data Result diagrams: 02/03/20 19:07 02/03/20 19:07 Vital Signs 02/03/20 17:54 Temperature 97.4 F L Pulse Rate 98 H Respiratory 16 Rate Blood Pressure 117/69 O2 Sat by Pulse 97 Oximetry Lab Results 02/03/20 Range/Units 19:07 WBC 11.1 H (4.5-11.0) K/mm3 RBC 4.08 (3.65-5.03) M/mm3 Hgb 11.9 (11.8-15.2) gm/dl Hct 36.5 (35.5-45.6) % MCV 89 (84-94) fl MCH 29 (28-32) pg MCHC 33 (32-34) % RDW 17.8 H (13.2-15.2) % Plt Count 335 (140-440) K/mm3 - EKG Data -: EKG Interpreted by Ut - EKG Data The EKG today shows a sinus rhythm, 89 bpm, normal axis, motion artifact, poor R wave progression, NH intervals prolonged, the EKG is abnormal, it is not a STEMI. 02/03/20 21:28 Print Report Referring Physician: MADELINE CARMONA Patient Name: SUSAN IBRAHIM Date of : 1945 Sex: Male Report Date: 2020-02-03 Report Status: Finalized Findings [facility] [address] [place] [address] Cat Scan Report Signed Patient: SUSAN IBRAHIM MR#: [id number] 9 : 1945 Acct:[id number] Age/Sex: 74 / M ADM Date: 02/03/20 Loc: ED Attending Dr: Alton rehman Physician: MADELINE CARMONA MD Date of Service: 02/03/20 Procedure(s): CT head/brain wo con Accession Number(s): [id number] cc: MADELINE CARMONA MD CT head/brain wo con INDICATION / CLINICAL INFORMATION: 74 years Male; ams weak. TECHNIQUE: Routine CT head without contrast. All CT scans at this location are performed using CT dose reduction for ALARA by means of automated exposure control. COMPARISON: 11/14/2019 FINDINGS: BRAIN / INTRACRANIAL CONTENTS: There is encephalomalacia in the inferior occipital lobe on the left, with associated atrophic dilatation of the occipital horn of the left lateral ventricle-not significantly changed from prior. 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 Otherwise, no acute hemorrhage, mass effect, midline shift, hydrocephalus, or acute, large territorial infarct. Mild to moderate cerebral atrophy. There are moderate to extensive, confluent areas of decreased attenuation in the white matter of the cerebral hemispheres. These are nonspec ific findings and may be related to microangiopathy (hypertension, diabetes, atherosclerosis), given the patient's age. It might be difficult to evaluate for small areas of ischemia without diffusion imaging by MRI. Pontine disease suggested. CRANIOCERVICAL JUNCTION: No significant abnormality. ORBITS: No significant abnormality of visualized orbits. SINUSES / MASTOIDS: Partial opacification of the mastoid seen bilaterally without coalescence of air cells. Mucous retention cyst/polyp is seen in the left maxillary antrum. ADDITIONAL FINDINGS: Atherosclerotic disease is seen in the anterior and posterior circulation. IMPRESSION: 1. No focal mass, hemorrhage, hydrocephalus, or acute, large territorial infarct. Signer Name: Devon Islas MD, III Signed: 02/03/2020 8:45 PM Workstation Name: [email or web address] Transcribed By: HR Dictated By: Devon Islas MD Electronically Authenticated By: Devon Islas MD Signed Date/Time: 02/03/202044 DD/ 39 Print Report Referring Physician: MADELINE CARMONA Patient Name: SUSAN IBRAHIM Date of : 1945 Sex: Male Report Date: 2020-02-03 Report Status: Finalized Findings [facility] [address] [place] [address] Cat Scan Report Signed Patient: SUSAN IBRAHIM MR#: [id number] 9 : 1945 Acct:[id number] Age/Sex: 74 / M ADM Date: 02/03/20 Loc: ED Attending Dr: Ordering Physician: MADELINE CARMONA MD Date of Service: 02/03/20 Procedure(s): CT abdomen pelvis wo con Accession Number(s): [id number] cc: MADELINE CARMONA MD CT ABDOMEN AND PELVIS WITHOUT CONTRAST INDICATION: ams, hx of biloma drainage. TECHNIQUE: Axial CT images were obtained through the abdomen and pelvis without IV contrast. All CT scans at this location are performed using CT dose reduction for ALARA by means of automated exposure control. COMPARISON: CT abdomen pelvis 12/09/2019 FINDINGS: LOWER CHEST: Linear bibasilar scarring/atelectasis. LIVER: No significant abnormality. GALLBLADDER: Remains surgically absent. BILE DUCTS: No significant abnormality. PANCREAS: No significant abnormality. SPLEEN: No significant abnormality. ADRENALS: No significant abnormality. RIGHT KIDNEY and URETER: No significant abnormality. LEFT KIDNEY and URETER: 1.4 cm exophytic left renal lesion, unchanged. STOMACH and SMALL BOWEL: No significant abnormality. COLON: Chronic epiploic appendagitis again noted within left lower quadrant image 118, unchanged. APPENDIX: No significant abnormality. PERITONEUM: No free fluid. No free air. No fluid collection. LYMPH NODES: No significant adenopathy. AORTA and ARTERIES: No significant abnormality. IVC and VEINS: No significant abnormality. URINARY BLADDER: No significant abnormality. REPRODUCTIVE ORGANS: The prostate remains enlarged measuring 4.9 cm transversely. ADDITIONAL FINDINGS: Previously noted right upper quadrant fluid collection/biloma has completely resolved with pigtail drainage catheter noted in the gallbladder fossa region. SKELETAL SYSTEM: Osteopenia with age indeterminate compression fracture involving superior endplate of L1, unchanged. Moderately advanced degenerative changes of mid to lower lumbar spine and moderate degenerative arthrosis of both hips. IMPRESSION: 1. Complete drainage of previously noted gallbladder fossa fluid collection. 2. No acute inflammatory process or bowel obstruction. 3. No urinary tract calculi or hydronephrosis. Signer Name: Dylon Garcia MD Signed: 02/03/2020 8:59 PM Workstation Name: [id number] Transcribed By: TL Dictated By: Dylon Garcia MD Elec tronically Authenticated By: Dylon Garcia MD Signed Date/Time: 02/03/202058 DD/ 51 TD/TT: 02/03/20 21:29 - Radiology Data Radiology results: pending, report reviewed, image reviewed interpreted by me: X-ray of the chest, interpreted by myself, negative for acute findings. Print Report Referring Physician: MADELINE CARMONA Patient Name: SUSAN IBRAHIM Date of : 1945 Sex: Male Report Date: 2020-02-03 Report Status: Finalized Findings [address] [address] XRay Report Signed Patient: SUSAN IBRAHIM MR#: [id number] 9 : 1945 Acct:[id number] Age/Sex: 74 / M ADM Date: 02/03/20 Loc: ED Attending Dr: Ordering Physician: MADELINE CARMONA MD Date of Service: 02/03/20 Procedure(s): XR chest 1V ap Accession Number(s): [id number] cc: MADELINE CARMONA MD Fluoro Time In Minutes: CHEST 1 VIEW 02/03/2020 6:32 PM INDICATION / CLINICAL INFORMATION: confusion, ams weak + covid. COMPARISON: Chest x-ray 11/20/2019 FINDINGS: SUPPORT DEVICES: None. HEART / MEDIASTINUM: No significant abnormality. LUNGS / PLEURA: No significant pleural or pulmonary abnormality. No pneumothorax. ADDITIONAL FINDINGS: No significant additional findings. IMPRESSION: 1. No acute findings. Signer Name: Dylon Garcia MD Signed: 02/03/2020 7:39 PM Workstation Name: [id number] Transcribed By: TL Dictated By: Dylon Garcia MD Electronically Authenticated By: Dylon Garcia MD Signed Date/Time: 02/03/201938 Print Report Referring Physician: MADELINE CARMONA Patient Name: SUSAN IBRAHIM Date of : 1945 Sex: Male Report Date: 2020-02-03 Report Status: [place] [address] Cat Scan Report Signed Patient: SUSAN IBRAHIM MR#: [id number] 9 : 1945 Acct:[id number] Age/Sex: 74 / M ADM Date: 02/03/20 Loc: ED Attending Dr: Omar abebe Physician: MADELINE CARMONA MD Date of Service: 02/03/20 Procedure(s): CT abdomen pelvis wo con Accession Number(s): [id number] cc: MADELINE CARMONA MD CT ABDOMEN AND PELVIS WITHOUT CONTRAST INDICATION: ams, hx of biloma drainage. TECHNIQUE: Axial CT images were obtained through the abdomen and pelvis without IV contrast. All CT scans at this location are performed using CT dose reduction for ALARA by means of automated exposure control. COMPARISON: CT abdomen pelvis 12/09/2019 FINDINGS: LOWER CHEST: Linear bibasilar scarring/atelectasis. LIVER: No significant abnormality. GALLBLADDER: Remains surgically absent. BILE DUCTS: No significant abnormality. PANCREAS: No significant abnormality. SPLEEN: No significant abnormality. ADRENALS: No significant abnormality. RIGHT KIDNEY and URETER: No significant abnormality. LEFT KIDNEY and URETER: 1.4 cm exophytic left renal lesion, unchanged. STOMACH and SMALL BOWEL: No significant abnormality. COLON: Chronic epiploic appendagitis again noted within left lower quadrant image 118, unchanged. APPENDIX: No significant abnormality. PERITONEUM: No free fluid. No free air. No fluid collection. LYMPH NODES: No significant adenopathy. AORTA and ARTERIES: No significant abnormality. IVC and VEINS: No significant abnormality. URINARY BLADDER: No significant abnormality. REPRODUCTIVE ORGANS: The prostate remains enlarged measuring 4.9 cm laura sversely. ADDITIONAL FINDINGS: Previously noted right upper quadrant fluid collection/biloma has completely resolved with pigtail drainage catheter noted in the gallbladder fossa region. SKELETAL SYSTEM: Osteopenia with age indeterminate compression fracture involving superior endplate of L1, unchanged. Moderately advanced degenerative changes of mid to lower lumbar spine and moderate degenerative arthrosis of both hips. IMPRESSION: 1. Complete drainage of previously noted gallbladder fossa fluid collection. 2. No acute inflammatory process or bowel obstruction. 3. No urinary tract calculi or hydronephrosis. Signer Name: Dylon Garcia MD Signed: 02/03/2020 8:59 PM Workstation Name: [id number] Transcribed By: TL Dictated By: Dylon Garcia MD Electronically Authenticated By: Dylon Garcia MD Signed Date/Time: 02/03/202058 DD/ 51 TD/TT: Critical care attestation.: If time is entered above; I have spent that time in minutes in the direct care of this critically ill patient, excluding procedure time. ED Disposition Clinical Impression: Bacteriuria CKD (chronic kidney disease) Qualifiers: Chronic kidney disease stage: unspecified stage Qualified Code(s): N18.9 - Chronic kidney disease, unspecified Biloma following surgery Qualifiers: Encounter type: subsequent encounter Qualified Code(s): T81.89XD - Other complications of procedures, not elsewhere classified, subsequent encounter; K66.8 - Other specified disorders of peritoneum Disposition: DC/TX-70 ANOTHER TYPE HLTHCARE Is pt being admited?: No Does the pt Need Aspirin: No Condition: Stable Additional Instructions: Cultures were sent today, and results will be available in the next 3 to 5 days. Please have your primary care doctor contact the medical records department to obtain culture results. Take the antibiotics as directed for bacteria in the urine. Patient may follow-up with his outpatient general surgeon, Dr. Ivey, at his convenience. We do recommend that his general surgeon discussed with his interventional radiologist, Dr. Gallo, ideal timing to remove biliary tubing. In the meantime, please continue tube care and drainage management. His general surgeon by policy is able to see the patient as an outpatient, even with history of COVID. Please make certain to maintain appropriate isolation/hygiene precautions. Please return to the emergency room right away with projectile vomiting, change in mental status, confusion, inability to tolerate liquid feeds, or new, worsened or different symptoms not present on the initial emergency room evaluation. Recommend follow-up with your general surgeon within the next 3 to 5 days. Follow-up with your primary care doctor within the next week. Referrals: GINA GALLO MD [Staff Physician] - 3-5 Days MICHELE IVEY DO [Staff Physician] - 3-5 Days Time of Disposition: 21:42 (d/c back to detention)
[2020-02-03 19:46] LABS: Alanine Aminotransferase < 5 units/L (7-56)
[2020-02-03] MEDS ORDERED: POTASSIUM CHLORIDE ER 20 MEQ TAB PO ONE (19:51)
--- NOTE | 2020-02-03 20:50 | Cat Scan Report ---
CT head/brain wo con INDICATION / CLINICAL INFORMATION: 74 years Male; ams weak. TECHNIQUE: Routine CT head without contrast. All CT scans at this location are performed using CT dos e reduction for ALARA by means of automated exposure control. COMPARISON: 11/14/2019 FINDINGS: BRAIN / INTRACRANIAL CONTENTS: There is encephalomalacia in the inferior occipital lobe on the left, with associated atrophic dilatation of the occipital horn of the left lateral ventricle-not significa ntly changed from prior. 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 Otherwise, no acute hemorrhage, mass effect, midline shift, hydrocephalus, or acute, large territori al infarct. Mild to moderate cerebral atrophy. There are moderate to extensive, confluent areas of decreased attenuation in the white matter of the cerebral hemispheres. These are nonspecific findings and may be related to microangiopathy (hypertens ion, diabetes, atherosclerosis), given the patient's age. It might be difficult to evaluate for small areas of ischemia without diffusion imaging by MRI. Pontine disease suggested. CRANIOCERVICAL JUNCTION: No significant abnormality. ORBITS: No significant abnormality of visualized orbits. SINUSES / MASTOIDS: Partial opacification of the mastoid seen bilaterally without coalescence of air cells. Mucous retention cyst/polyp is seen in the left maxillary antrum. ADDITIONAL FINDINGS: Atherosclerotic disease is seen in the anterior and posterior circulation. IMPRESSION: 1. No focal mass, hemorrhage, hydrocephalus, or acute, large territorial infarct. Signer Name: Devon Islas MD, III Signed: 02/03/2020 8:45 PM Workstation Name: [id number]
--- NOTE | 2020-02-03 21:03 | Cat Scan Report ---
CT ABDOMEN AND PELVIS WITHOUT CONTRAST INDICATION: ams, hx of biloma drainage. TECHNIQUE: Axial CT images were obtained through the abdomen and pelvis without IV contrast. All CT scans at [facility] location are performed using CT dose reduction for ALARA by means of automated exposure control. COMPARISON: CT abdomen pelvis 12/09/2019 FINDINGS: LOWER CHEST: Linear bibasilar scarring/atelectasis. LIVER: No significant abnormality. GALLBLADDER: Remains surgically absent. BILE DUCTS: No significant abnormality. PANCREAS: No significant abnormality. SPLEEN: No significant abnormality. ADRENALS: No significant abnormality. RIGHT KIDNEY and URETER: No significant abnormality. LEFT KIDNEY and URETER: 1.4 cm exophytic left renal lesion, unchanged. STOMACH and SMALL BOWEL: No significant abnormality. COLON: Chronic epiploic appendagitis again noted within left lower quadrant image 118, unchanged. APPENDIX: No significant abnormality. PERITONEUM: No free fluid. No free air. No fluid collection. LYMPH NODES: No significant adenopathy. AORTA and ARTERIES: No significant abnormality. IVC and VEINS: No significant abnormality. URINARY BLADDER: No significant abnormality. REPRODUCTIVE ORGANS: The prostate remains enlarged measuring 4.9 cm transversely. ADDITIONAL FINDINGS: Previously noted right upper quadrant fluid collection/biloma has completely res olved with pigtail drainage catheter noted in the gallbladder fossa region. SKELETAL SYSTEM: Osteopenia with age indeterminate compression fracture involving superior endplate o f L1, unchanged. 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 IMPRESSION: 1. Complete drainage of previously noted gallbladder fossa fluid collection. 2. No acute inflammatory process or bowel obstruction. 3. No urinary tract calculi or hydronephrosis. Signer Name: Dylon Garcia MD Signed: 02/03/2020 8:59 PM Workstation Name: [id number]
[2020-02-03 21:10] LABS: Bacteria,Urine 1+ /HPF (Negative); Bilirubin,Urine NEG (Negative); Blood,Urine SM (Negative); Color,Urine Amber (Yellow); Mucus,Urine FEW /HPF; Urobilinogen,Urine < 2.0 mg/dL (<2.0)
[2020-02-03 21:11] LABS: Protein,Urine >500 mg/dL (Negative)
[2020-02-03] MEDS ORDERED: NITROFURANTOIN MONOHYD/M-CRYST 100 MG CAP PO ONE (21:37)
[2020-02-03] MEDS: POTASSIUM CHLORIDE 10 MEQ 10 MEQ/100 ML BAG IV SCH ×2 (21:48→22:45)
[2020-02-04 13:35] VITALS: BP 135/66
== END 2020-02-04 01:55 | disposition other institution (70) ==
LOC: ED 17:46
DX: R82.71 Bacteriuria (principal); I12.0 Hypertensive chronic kidney disease with stage 5 chronic kidney disease or end stage renal disease; E11.22 Type 2 diabetes mellitus with diabetic chronic kidney disease; N18.5 Chronic kidney disease, stage 5; M19.90 Unspecified osteoarthritis, unspecified site; J44.9 Chronic obstructive pulmonary disease, unspecified; Z79.899 Other long term (current) drug therapy; Z98.890 Other specified postprocedural states; Z88.0 Allergy status to penicillin; Z88.6 Allergy status to analgesic agent; Z88.8 Allergy status to other drugs, medicaments and biological substances
CPT/HCPCS: 36415; 70450; 71045; 74176; 80053; 81001; 82550; 83735; 84443; 85027; 85610; 85730; 87086; 93005; 99285; J3480; 80320; G0480